=== PATIENT | male | born 1970 ===

== ENCOUNTER 2017-01-05 02:24 | Emergency (ER) | payer SELFPAY ==
[2017-01-05 02:40] VITALS: O2SAT 97
--- NOTE | 2017-01-05 02:51 | C.PDOC ---
History Of Present Illness 46 y/o male c/o chronic bilateral lower leg swelling and pain. Denies injury. No weakness or numbness. Patient has similar visits in the past for the same complaint. Patient notes taking his meds as prescribed. Time Seen by Provider: 01/05/17 02:36 Chief Complaint (Nursing): Lower Extremity Problem/Injury History Per: Patient History/Exam Limitations: no limitations Onset/Duration Of Symptoms: Days (Chronic) Current Symptoms Are (Timing): Still Present Severity: Mild Recent travel outside of the [place]: No Additional History Per: Patient Past Medical History Reviewed: Historical Data, Nursing Documentation, Vital Signs Vital Signs: Last Vital Signs Temp 98.0 F 01/05/17 02:38 Pulse 89 01/05/17 02:38 Resp 16 01/05/17 02:38 BP 118/73 01/05/17 02:38 Pulse Ox 97 01/05/17 03:39 - Medical History PMH: Anxiety, Bipolar Disorder, Depression, Schizophrenia Denies: Diabetes, Hepatitis, HIV, HTN, Chronic Kidney Disease, Seizures, Sexually Transmitted Disease - [facility] Procedures DETOXIFICATION SERVICES FOR SUBSTANCE ABUSE TREATMENT (11/15/15) GROUP DIVISION HEAD FOR SUBSTANCE ABUSE TREATMENT, CONTINUING CARE (02/03/15) GROUP DIVISION HEAD FOR SUBSTANCE ABUSE TREATMENT, PSYCHOEDUCATION (04/03/16) GROUP PSYCHOTHERAPY (04/03/16) INDIVIDUAL PSYCHOTHERAPY, SUPPORTIVE (04/03/16) MEDICATION MANAGEMENT (04/03/16) Family History: States: Unknown Family Hx - Social History Hx Tobacco Use: No Hx Alcohol Use: Yes Hx Substance Use: No - Immunization History Hx Tetanus Toxoid Vaccination: Yes Hx Influenza Vaccination: No Hx Pneumococcal Vaccination: No Review Of Systems Except As Marked, All Systems Reviewed And Found Negative. Constitutional: Negative for: Other (Injury) Musculoskeletal: Positive for: Leg Pain (Bilateral lower extremities pain and swelling) Neurological: Negative for: Weakness, Numbness Physical Exam - Physical Exam Appears: Non-toxic, No Acute Distress Skin: Warm, Dry Head: Atraumatic, Normacephalic Cardiovascular: Rhythm Regular, No Murmur Respiratory: Normal Breath Sounds, No Rales, No Rhonchi, No Wheezing Extremity: Normal ROM, Tenderness (Mild tenderness to the bilateral lower extremty), Pedal Edema (Bilateral lower extremity edema, 2+) Pulses: Left Dorsalis Pedis: Normal, Right Dorsalis Pedis: Normal Neurological/Psych: Oriented x3, Normal Motor, Normal Sensation Gait: Steady ED Course And Treatment - Laboratory Results Result Diagrams: 01/05/17 03:19 01/05/17 03:19 O2 Sat by Pulse Oximetry: 97 (RA) Pulse Ox Interpretation: Normal Medical Decision Making Medical Decision Making: Plans: * Blood labs * CXR * Lasix * IV fluids * UA * Toradol Disposition Counseled Patient/Family Regarding: Diagnosis - Disposition Referrals: [facility] [Outside] Disposition: HOME/ ROUTINE Disposition Time: 04:59 Condition: STABLE Prescriptions: Furosemide [Lasix] 20 mg PO DAILY #10 udc Naproxen 375 mg PO TIDPC #20 tablet Potassium Chloride [K-Dur 20] 20 meq PO DAILY #10 tab Instructions: Leg Edema (ED), Leg Pain (ED) Forms: [employer] (Spanish) - POA Present On Arrival: None - Clinical Impression Clinical Impression: Leg edema, Leg pain - Scribe Statement The provider has reviewed the documentation as recorded by the Scribleydi jerez All medical record entries made by the Scribe were at my direction and personally dictated by me. I have reviewed the chart and agree that the record accurately reflects my personal performance of the history, physical exam, medical decision making, and the department course for this patient. I have also personally directed, reviewed, and agree with the discharge instructions and disposition.
[2017-01-05 03:28] LABS: BASO # 0.1 K/uL (0.0-0.2); EOS # 0.2 K/uL (0.0-0.7); MONO # 0.6 K/uL (0.0-0.8); NRBC % 0.1 % (0.0-2.0); WHITE BLOOD COUNT 6.3 K/uL (4.8-10.8)
[2017-01-05 03:29] LABS: CHLORIDE 101 mmol/L (98-107); SODIUM 137 mmol/L (132-148)
[2017-01-05 03:30] LABS: POTASSIUM 3.9 mmol/L (3.6-5.2)
[2017-01-05 03:32] LABS: ALKALINE PHOSPHATASE 96 U/L (38-126); ALT/SGPT 120 U/L (21-72); AST/SGOT 127 U/L (17-59); BILIRUBIN,TOTAL 0.5 mg/dL (0.2-1.3); BLOOD UREA NITROGEN 14 mg/dL (9-20); CARBON DIOXIDE 27 mmol/L (22-30); GFR AFRICAN-AMERICAN > 60; GLUCOSE,RANDOM 83 mg/dL (75-110); TOTAL PROTEIN 7.8 g/dL (6.3-8.3)
[2017-01-05 03:33] LABS: CALCIUM 8.6 mg/dl (8.6-10.4)
[2017-01-05 03:37] LABS: EOS % 3.1 % (0.0-4.0); HEMATOCRIT 34.5 % (35.0-51.0); LYMPH # 1.9 K/uL (1.0-4.3); LYMPH % 30.7 % (20.0-40.0); MEAN CELL VOLUME 82.8 fL (80.0-94.0); MEAN CORPUSCULAR HEMOGLOBIN 27.2 pg (27.0-31.0); MEAN CORPUSCULAR HGB CONC 32.8 g/dL (33.0-37.0); MEAN PLATELET VOLUME 8.2 fL (7.2-11.7); MONO % 10.1 % (0.0-10.0); RED CELL DISTRIBUTION WIDTH 18.4 % (11.5-14.5)
[2017-01-05 03:41] LABS: RBC URINE < 1 /hpf (0-3); URINE BILIRUBIN NEGATIVE (NEGATIVE); URINE BLOOD NEGATIVE (NEGATIVE); URINE COLOR Yellow (YELLOW); URINE GLUCOSE (UA) NORMAL (Normal); URINE KETONE NEGATIVE (NEGATIVE); URINE LEUKOCYTE ESTERASE NEG Leu/uL (Negative); URINE PROTEIN NEGATIVE (NEGATIVE); WBC URINE < 1 /hpf (0-5)
[2017-01-05 05:07] VITALS: BP 125/83; PULSE 80; RESP 18; TEMP 97.8
[2017-01-05] MEDS ORDERED: Naproxen 550 mg Tab PO STA (05:08)
[2017-01-05] MEDS ORDERED: Naproxen 550 mg Tab PO ONE (05:12)
--- NOTE | 2017-01-05 08:41 | RAD ---
HISTORY: COMPARISON: 07/22/2015. TECHNIQUE: Chest PA and lateral FINDINGS: LINES AND TUBES: None. LUNG AND PLEURA: The lungs are well inflated and clear. No pulmonary venous congestion, redistribution or interstitial pulmonary edema. HEART AND MEDIASTINUM: The heart is not enlarged. The hilar and mediastinal contours are within normal limits. SKELETAL STRUCTURES: The bony structures are within normal limits for the patient's age. VISUALIZED UPPER ABDOMEN: Normal. OTHER FINDINGS: None. IMPRESSION: No active pulmonary disease. No radiographic evidence for congestive heart failure.
== END 2017-01-05 05:22 | disposition home or self-care (01) ==
LOC: C.ER 02:24
DX: R60.0 Localized edema (principal); M79.662 Pain in left lower leg; M79.661 Pain in right lower leg
CPT/HCPCS: 71020; 80053; 81001; 83880; 85025; 96374; 96375; 99284; J1885; J1940

== ENCOUNTER 2017-01-07 00:28 | Emergency (ER) | payer SELFPAY ==
[2017-01-07 00:36] VITALS: RESP 18; O2SAT 99
[2017-01-07 01:03] LABS: BASO % 0.9 % (0.0-2.0); EOS # 0.3 K/uL (0.0-0.7); HEMATOCRIT 32.8 % (35.0-51.0); MEAN CELL VOLUME 82.3 fL (80.0-94.0); MEAN CORPUSCULAR HEMOGLOBIN 27.1 pg (27.0-31.0); MEAN CORPUSCULAR HGB CONC 32.9 g/dL (33.0-37.0); MEAN PLATELET VOLUME 7.8 fL (7.2-11.7); MONO # 0.5 K/uL (0.0-0.8); MONO % 9.4 % (0.0-10.0); NRBC % 0.1 % (0.0-2.0); RED CELL DISTRIBUTION WIDTH 18.5 % (11.5-14.5); WHITE BLOOD COUNT 5.4 K/uL (4.8-10.8)
[2017-01-07 01:12] LABS: CHLORIDE 102 mmol/L (98-107); POTASSIUM 3.8 mmol/L (3.6-5.2); SODIUM 138 mmol/L (132-148)
[2017-01-07 01:14] LABS: BILIRUBIN,TOTAL 0.4 mg/dL (0.2-1.3); CARBON DIOXIDE 25 mmol/L (22-30); GFR AFRICAN-AMERICAN > 60
[2017-01-07 01:15] LABS: ALB/GLOB RATIO 1.1 (1.0-2.1); ALKALINE PHOSPHATASE 84 U/L (38-126); ALT/SGPT 146 U/L (21-72); AST/SGOT 154 U/L (17-59); BLOOD UREA NITROGEN 12 mg/dL (9-20); CALCIUM 8.2 mg/dl (8.6-10.4); GLUCOSE,RANDOM 85 mg/dL (75-110); TOTAL PROTEIN 6.9 g/dL (6.3-8.3)
[2017-01-07 01:16] LABS: ALCOHOL SERUM 120 mg/dl (0-10)
[2017-01-07 01:35] LABS: URINE BILIRUBIN NEGATIVE (NEGATIVE); URINE BLOOD NEGATIVE (NEGATIVE); URINE COLOR Yellow (YELLOW); URINE GLUCOSE (UA) NORMAL (Normal); URINE KETONE NEGATIVE (NEGATIVE); URINE LEUKOCYTE ESTERASE NEG Leu/uL (Negative); URINE PROTEIN NEGATIVE (NEGATIVE); WBC URINE < 1 /hpf (0-5)
--- NOTE | 2017-01-07 03:28 | C.PDOC ---
History Of Present Illness 46 year old male who presents to the ER with a complaint of hearing voices. Patient admits to ETOH use today; he is not cooperative and is refusing to answer anymore question. No injuries or signs of trauma noted at this time. Time Seen by Provider: 01/07/17 00:43 Chief Complaint (Nursing): Medical Clearance History Per: Patient History/Exam Limitations: no limitations Onset/Duration Of Symptoms: Hrs Current Symptoms Are (Timing): Still Present Recent travel outside of the [place]: No Past Medical History Reviewed: Historical Data, Nursing Documentation, Vital Signs Vital Signs: Last Vital Signs Temp 97.7 F 01/07/17 04:00 Pulse 66 01/07/17 04:00 Resp 18 01/07/17 04:00 BP 123/78 01/07/17 04:00 Pulse Ox 99 01/07/17 04:00 - Medical History PMH: Anxiety, Bipolar Disorder, Depression, Schizophrenia Surgical History: No Surg Hx - [facility] Procedures DETOXIFICATION SERVICES FOR SUBSTANCE ABUSE TREATMENT (11/15/15) GROUP JUNIOR FINANCIAL ANALYST FOR SUBSTANCE ABUSE TREATMENT, CONTINUING CARE (02/03/15) GROUP JUNIOR FINANCIAL ANALYST FOR SUBSTANCE ABUSE TREATMENT, PSYCHOEDUCATION (04/03/16) GROUP PSYCHOTHERAPY (04/03/16) INDIVIDUAL PSYCHOTHERAPY, SUPPORTIVE (04/03/16) MEDICATION MANAGEMENT (04/03/16) Family History: States: Unknown Family Hx - Social History Hx Tobacco Use: No Hx Alcohol Use: Yes Hx Substance Use: No - Immunization History Hx Tetanus Toxoid Vaccination: Yes Hx Influenza Vaccination: No Hx Pneumococcal Vaccination: No Review Of Systems Review Of Systems: ROS cannot be obtained secondary to pt's inabilty to answer questions. (Refuses to answer questions) Physical Exam - Physical Exam Appears: Well, Non-toxic, No Acute Distress, Other (ETOH on breath) Skin: Normal Color, Warm, Dry Head: Atraumatic, Normacephalic Eye(s): bilateral: Normal Inspection, EOMI Cardiovascular: Rhythm Regular Respiratory: Normal Breath Sounds, No Accessory Muscle Use Extremity: Normal ROM (x4) Neurological/Psych: Oriented x3, Normal Speech, Normal Cognition ED Course And Treatment - Laboratory Results Result Diagrams: 01/07/17 01:00 01/07/17 01:00 O2 Sat by Pulse Oximetry: 99 (Room air) Pulse Ox Interpretation: Normal Progress Note: Blood work and urinalysis ordered. On reevaluation, patient is alert and oriented complaining of hallucinations but refuses to speak to Crisis counselor. Pt is requesting to leave, ambulatory with steady gait Disposition Counseled Patient/Family Regarding: Diagnosis, Need For Followup, Rx Given - Disposition Referrals: [facility] [Outside] [facility] [Outside] Disposition: HOME/ ROUTINE Disposition Time: 05:38 Condition: STABLE Instructions: Abuse of Alcohol (ED) Forms: [employer] (Yemeni) - Clinical Impression Clinical Impression: Alcohol intoxication - Scribe Statement The provider has reviewed the documentation as recorded by the Scribe Ray Vázquez All medical record entries made by the Scribe were at my direction and personally dictated by me. I have reviewed the chart and agree that the record accurately reflects my personal performance of the history, physical exam, medical decision making, and the department course for this patient. I have also personally directed, reviewed, and agree with the discharge instructions and disposition.
[2017-01-07 05:44] VITALS: BP 124/76; PULSE 73; TEMP 97.8
== END 2017-01-07 05:48 | disposition home or self-care (01) ==
LOC: C.ER 00:28
DX: F10.129 Alcohol abuse with intoxication, unspecified (principal); Y90.6 Blood alcohol level of 120-199 mg/100 ml
CPT/HCPCS: 80053; 81001; 85025; 99283; G0480

== ENCOUNTER 2017-01-13 00:57 | Inpatient (IN) | payer MEDICAID ==
[2017-01-13 07:59] LABS: URINE BILIRUBIN NEGATIVE (NEGATIVE); URINE BLOOD NEGATIVE (NEGATIVE); URINE COLOR YELLOW (YELLOW); URINE GLUCOSE (UA) Normal (Normal); URINE KETONE NEGATIVE (NEGATIVE); URINE PROTEIN NEGATIVE (NEGATIVE); URINE UROBILINOGEN Normal mg/dL (0.2-1.0)
[2017-01-13 08:00] LABS: URINE LEUKOCYTE ESTERASE NEGATIVE Leu/uL (Negative); WBC URINE < 1 /hpf (0-5)
[2017-01-13 08:42] LABS: BASO # 0.1 K/uL (0.0-0.2); EOS # 0.2 K/uL (0.0-0.7); EOS % 4.1 % (0.0-4.0); LYMPH # 1.3 K/uL (1.0-4.3); LYMPH % 32.1 % (20.0-40.0); MEAN CELL VOLUME 81.1 fL (80.0-94.0); MEAN CORPUSCULAR HGB CONC 33.3 g/dL (33.0-37.0); MEAN PLATELET VOLUME 7.6 fL (7.2-11.7); MONO # 0.5 K/uL (0.0-0.8); MONO % 12.6 % (0.0-10.0); RED CELL DISTRIBUTION WIDTH 17.3 % (11.5-14.5)
[2017-01-13 08:52] LABS: BLOOD UREA NITROGEN 11 mg/dL (9-20); GFR AFRICAN-AMERICAN > 60; GLUCOSE,RANDOM 85 mg/dL (75-110)
[2017-01-13 08:53] LABS: ALT/SGPT 129 U/L (21-72); AST/SGOT 125 U/L (17-59); BILIRUBIN,TOTAL 0.3 mg/dL (0.2-1.3); CALCIUM 8.3 mg/dl (8.6-10.4); CARBON DIOXIDE 25 mmol/L (22-30); CHLORIDE 102 mmol/L (98-107); POTASSIUM 3.8 mmol/L (3.6-5.2); SODIUM 137 mmol/L (132-148); TOTAL PROTEIN 7.6 g/dL (6.3-8.3)
[2017-01-13 08:54] LABS: ALCOHOL SERUM 137 mg/dl (0-10); ALKALINE PHOSPHATASE 82 U/L (38-126)
--- NOTE | 2017-01-13 09:31 | RAD ---
PROCEDURE: CHEST RADIOGRAPH, 1 VIEW HISTORY: DETOX/PSYCH EVAL COMPARISON: 01/05/2017 FINDINGS: LUNGS: Clear. PLEURA: No pneumothorax or pleural fluid seen. CARDIOVASCULAR: Normal. OSSEOUS STRUCTURES: No significant abnormalities. VISUALIZED UPPER ABDOMEN: Normal. OTHER FINDINGS: None. IMPRESSION: No active disease. No interval pathology noted
--- NOTE | 2017-01-13 11:06 | PCM.BM ---
<Val Greene - Last Filed: 01/13/17 11:04> Treatment Plan Problems - Problems identified on initial assessmt Depression Date Initiated: 01/13/17 Time Initiated: 11:05 Assessment reference: NA Status: Active Treatment assets and liabiliti Patient Assests: cooperative, ADL independent, good support system, good past tx response, cognitively intact Patient Liabilities: substance abuse - Milieu Protocol Maintain good personal hygiene: daily Encourage regular showers Conduct patient checks and document Observation sheet: Q15 minutes Maintain personal safety: every shift Educate patient to report safety concerns to staff, every shift Monitor environment for contraband/sharps Medication safety: Monitor for expected outcome, potential side effects: every shift, Assess barriers to learning: every shift, Assess readiness for medication education: every shift <Cori Hair - Last Filed: 01/13/17 12:36> - Diagnosis (1) Alcohol use disorder, severe, dependence Status: Acute Interventions: 01/13/17 12:36 * Assess 7x/week regarding severity of withdrawal * Educate regarding risks, benefits, side effects and alternatives of medications * Use Motivational Interviewing for abstinence * Use CBT for relapse prevention * Medication management for withdrawal symptoms * Encourage medication assisted treatment * (2) Depressive disorder Status: Acute Interventions: 01/13/17 12:36 * Assess/adjust medications daily and /or as needed * See patient on an individual basis 7x/week to assess symptoms of depression * Monitor for side effects & effectiveness of medications *
--- NOTE | 2017-01-13 12:22 | PCM.PSYCH ---
Initial Psychiatric Evaluation - Initial Psychiatric Evaluation Type of Admission: Voluntary Legal Status: Capacity Chief Complaint (in patient's own words): "Depressed" History of Present Illness and Precipitating Events: Patient is a 46 year old male, single, and living with brother presents with auditory hallucinations, depression and anxiety. He is employed at a [employer] in [place], [place] and has 2 sons living in [place]. He reports drinking 5-6 beers (24 oz) but only for 2 weeks b/c he relapsed when his best friend . He was hearing voices telling him to kill self but now it is "gone." But he still feels depressed and lonely, anhedonic and very anxious. 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 Past Psychiatric History - Past Psychiatric History Previous Treatment History: Inpatient Pertinent Medical Hx (Current Medical&Sleep Prob, Allergies): Allergies Allergy/AdvReac Type Severity Reaction Status Date / Time No Known Allergies Allergy Verified 01/07/17 00:36 Furosemide [Lasix] 20 mg PO DAILY #10 udc 01/05/17 Naproxen 375 mg PO TIDPC #20 tablet 01/05/17 Potassium Chloride [K-Dur 20] 20 meq PO DAILY #10 tab 01/05/17 Review of Systems - Psychiatric Psychiatric: Abnormal Sleep Pattern, Anhedonia, Anxiety, Behavioral Changes, Depression, Difficulty Concentrating, Irritability. absent: Hallucinations, Homicidal Ideation, Suicidal Ideation Mental Status Examination - Personal Presentation Personal Presentation: Looks older than stated age - Affect Affect: Constricted - Motor Activity Motor Activity: Calm - Reliability in Providing Information Reliability in Providing Information: Good - Speech Speech: Organized - Mood Mood: Depressed, Anxious - Formal Thought Process Formal Thought Process: No Impairment - Cognitive Functions Orientation: Person, Place, Situation, Time Sensorium: Alert Attention/Concentration: Attentive Abstract Thinking: [place] Estimate of Intelligence: Below average Judgement: Intact, as evidence by: Insight regarding need for hospitalization Memory: Recent intact, as evidence by: Ability to recall events of the day, Remote intact, as evidenced by: Abilit to recall sig. life events - Risk Risk: Diminished functioning - Strength & Assets Inventory Strength & Assets Inventory: Cooperative - Limitations Limitations: Other (poor support) DSM 5 DX - DSM 5 DSM 5 Diagnosis: Major depression, recurrent, severe, with psychosis Alcohol use d/o -severe - Recommended/Plan of Treatment Treatment Recommendations and Plan of Treatment: Start lexapro for depression Start abilify for possible AH and augmentation prn ativan for alcohol wdw which is unlikely and anxiety (w atarax) Gabapentin to augment Attend groups and activities Individual therapy Psychoeducation and support Encourage compliance with meds and after care Refer to outpatient program Teach healthy lifestyle methods, i.e. diet, exercise, meditation Smoking cessation 32 min Projected ELOS: 5-6
--- NOTE | 2017-01-13 12:43 | PCM.BM ---
<Val Greene - Last Filed: 01/13/17 11:08> Treatment Plan Problems - Problems identified on initial assessmt Depression Date Initiated: 01/13/17 Time Initiated: 11:05 Assessment reference: NA Status: Active Treatment assets and liabiliti Patient Assests: cooperative, ADL independent, good support system, good past tx response, cognitively intact Patient Liabilities: substance abuse - Milieu Protocol Maintain good personal hygiene: daily Encourage regular showers Conduct patient checks and document Observation sheet: Q15 minutes Maintain personal safety: every shift Educate patient to report safety concerns to staff, every shift Monitor environment for contraband/sharps Medication safety: Monitor for expected outcome, potential side effects: every shift, Assess barriers to learning: every shift, Assess readiness for medication education: every shift <Tata Georges - Last Filed: 01/14/17 10:31> Family Contact Family involvement: Famliy/SO not involved - Goals for Treatment Patient goals for treatment: "I want to go to the outpatient program at the [facility]. " Discharge/Continuing Care - Education Needs Education Needs: Patient Medication, Patient Coping Skills - Discharge Discharge Criteria: Tolerates medication w/o severe side effects, Reduction of target symptoms Discharge to:: Care Home - Treatment Team Participation Discussed with Family/SO: No Was Patient/Family/SO present at Treatment Team Meeting: Yes
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
--- NOTE | 2017-01-13 17:24 | CARD ---
APPROVED REPORT EKG Measurement Heart [id number] <Conclusion> Normal sinus rhythm Normal ECG
--- NOTE | 2017-01-14 08:08 | US ---
HISTORY: Elevated LFT's COMPARISON: None. TECHNIQUE: Sonographic evaluation of the right upper quadrant of the abdomen. FINDINGS: LIVER: Measures 17.8 cm in length. Relatively prominently increased echogenicity of the liver parenchyma suggests diffuse fatty infiltration of other etiologies are possible. No mass. No intrahepatic bile duct dilatation. GALLBLADDER: Unremarkable. No gallstones. COMMON BILE DUCT: Measures 3.3 mm. No stones. No dilatation. PANCREAS: Unremarkable as visualized. No mass. No ductal dilatation. RIGHT KIDNEY: Measures 10.9 cm in length. Normal echogenicity. No calculus, mass, or hydronephrosis. AORTA: No aneurysmal dilatation. IVC: Unremarkable. OTHER FINDINGS: None . IMPRESSION: Relatively prominent diffuse fatty infiltration liver suggested though other etiologies are possible. No sonographic evidence of biliary tree dilatation. Remainder of the examination appears unremarkable.
[2017-01-14 08:42] LABS: BASO # 0.1 K/uL (0.0-0.2); EOS # 0.1 K/uL (0.0-0.7); EOS % 1.6 % (0.0-4.0); HEMATOCRIT 36.3 % (35.0-51.0); LYMPH # 1.1 K/uL (1.0-4.3); LYMPH % 20.3 % (20.0-40.0); MEAN CELL VOLUME 81.5 fL (80.0-94.0); MEAN CORPUSCULAR HEMOGLOBIN 26.9 pg (27.0-31.0); MONO # 0.6 K/uL (0.0-0.8); MONO % 11.7 % (0.0-10.0); NRBC % 0.1 % (0.0-2.0); RED CELL DISTRIBUTION WIDTH 17.2 % (11.5-14.5); WHITE BLOOD COUNT 5.4 K/uL (4.8-10.8)
[2017-01-14 08:48] LABS: INR 0.9
[2017-01-14 09:06] LABS: CHLORIDE 97 mmol/L (98-107); POTASSIUM 4.3 mmol/L (3.6-5.2); SODIUM 133 mmol/L (132-148)
[2017-01-14 09:08] LABS: AST/SGOT 109 U/L (17-59); BILIRUBIN,TOTAL 0.5 mg/dL (0.2-1.3); CARBON DIOXIDE 28 mmol/L (22-30); GFR AFRICAN-AMERICAN > 60
[2017-01-14 09:09] LABS: ALKALINE PHOSPHATASE 88 U/L (38-126); ALT/SGPT 128 U/L (21-72); BLOOD UREA NITROGEN 14 mg/dL (9-20); CALCIUM 9.1 mg/dl (8.6-10.4); GLUCOSE,RANDOM 120 mg/dL (75-110); TOTAL PROTEIN 8.2 g/dL (6.3-8.3)
--- NOTE | 2017-01-14 14:05 | PCM.PYCHPN ---
Psychiatric Progress Note - Psychiatric Progress Note Patient seen today, length of contact: 17 min Patient Chief Complaint: "Depressed" Problems Identified/Issues Discussed: The pt is seen, chart reviewed, case discussed with staff. The pt is compliant with medications and reports no side-effects. Symptoms are improving but needs more time to stabilize. After care discussed, support and psychoeducation given. Medicne consult appreciated - awaiting treatment recommendations re his clot Medication Change: Yes (increase sampson/ellie) Medical Record Reviewed: Yes Mental Status Examination - Cognitive Function Orientation: Person, Place, Situation, Time Memory: Intact Attention: WNL Concentration: Poor Association: WNL Fund of Knowledge: Poor - Mood Mood: Depressed, Anxious - Affect Affect: Constricted - Speech Speech: Appropriate - Language Language: Word Retrieval - Formal Thought Process Formal Thought Process: No Impairment - Suicidal Ideation Suicidal Ideation: No - Homicidal Ideation Homicidal Ideation: No Goal/Treatment Plan - Goal/Treatment Plan Progress Toward Problem(s) and Goals/Treatment Plan: lexapro for depression abilify for possible AH and augmentation prn ativan for alcohol wdw which is unlikely and anxiety (w atarax) Gabapentin to augment Attend groups and activities Individual therapy Psychoeducation and support Encourage compliance with meds and after care Refer to outpatient program Teach healthy lifestyle methods, i.e. diet, exercise, meditation Smoking cessation 32 min
--- NOTE | 2017-01-14 15:03 | VASCLAB ---
PROCEDURE: Lower Extremity Venous Duplex Exam. HISTORY: B/L Lower Extremity Edema. PRIORS: None. TECHNIQUE: Bilateral common femoral, femoral, popliteal and posterior tibial, peroneal and great saphenous veins were evaluated. Flow was assessed with color Doppler, compressibility, assessment of phasic flow and augmentation response. Report prepared by DAMI Lody FINDINGS: RIGHT: 1. Common Femoral Vein: 1.1. Compressibility - Fully compressible: Thrombus - None : Flow - Phasic: Augmentation -Normal: Reflux - None. 2. Femoral Vein: 2.1. Compressibility - Fully compressible: Thrombus - None : Flow - Phasic: Augmentation -Normal: Reflux - None. 3. Popliteal Vein: 3.1. Compressibility - Fully compressible: Thrombus - None : Flow - Phasic: Augmentation -Normal: Reflux - None. 4. Posterior Tibial Vein: 4.1. Compressibility - Fully compressible: Thrombus - None: Flow - Phasic: Augmentation -Normal: Reflux - None. 5. Peroneal Vein: 5.1. Compressibility - Incompressible: Thrombus - Acute: Flow - Reduced : Augmentation -Normal: Reflux - Mild. 6. Great Saphenous Vein: 6.1. Compressibility - Fully compressible: Thrombus - None: Flow - Phasic: Augmentation - Normal: Reflux - None. LEFT: 1. Common Femoral Vein: 1.1. Compressibility - Fully compressible: Thrombus - None: Flow - Phasic: Augmentation -Normal: Reflux - None. 2. Femoral Vein: 2.1. Compressibility - Fully compressible: Thrombus - None: Flow - Phasic: Augmentation -Normal: Reflux - None. 3. Popliteal Vein: 3.1. Compressibility - Fully compressible: Thrombus - None : Flow - Phasic: Augmentation -Normal: Reflux - None. 4. Posterior Tibial Vein: 4.1. Compressibility - Fully compressible: Thrombus - None: Flow - Phasic: Augmentation -Normal: Reflux - None. 5. Peroneal Vein: 5.1. Compressibility - Fully compressible: Thrombus - None: Flow - Phasic: Augmentation -Normal: Reflux - None. 6. Great Saphenous Vein: 6.1. Compressibility - Fully compressible: Thrombus - None: Flow - Phasic: Augmentation - Normal: Reflux - None. OTHER FINDINGS: Right: One of the paired peroneal veins is non compressible. Findings were reported by the cath lab radiological technologist, mouna Waterman at 10:01 a.m. Left: None significant. IMPRESSION: Right: Acute deep vein thrombosis of one right peroneal vein. Left: No evidence of deep or superficial vein thrombosis of the left lower extremity. Normal valve function noted of the left side.
--- NOTE | 2017-01-14 17:11 | CP.PCM.PN ---
<Erick Doshi - Last Filed: 01/14/17 17:26> Subjective - Date & Time of Evaluation Date of Evaluation: 01/14/17 Time of Evaluation: 09:40 - Subjective Subjective: Patient was seen and examined this AM lying comfortably in his bed. He noted improvement in his symptoms and said his lower extremity pain is less today. He denied cough or palpitation. He denied fever, chills, nausea, vomiting, chest pain, abdominal pain. Objective - Vital Signs/Intake and Output Vital Signs (last 24 hours): Temp Pulse Resp BP Pulse Ox 97.5 F L 76 20 134/87 01/14/17 07:51 01/14/17 16:02 01/14/17 07:51 01/14/17 16:02 - Medications Medications: Current Medications Aripiprazole (Abilify) 10 mg PO QPM [facility] Cephalexin Monohydrate (Keflex) 500 mg PO Q6H [facility] Last Admin: 01/14/17 13:49 Dose: 500 mg Escitalopram Oxalate (Lexapro) 5 mg PO DAILY [facility] Last Admin: 01/14/17 10:23 Dose: 5 mg Furosemide (Lasix) 20 mg PO DAILY [facility] Last Admin: 01/14/17 10:23 Dose: 20 mg Gabapentin (Neurontin) 300 mg PO BID [facility] Last Admin: 01/14/17 10:23 Dose: 300 mg Hydroxyzine HCl (Atarax) 50 mg PO Q6H PRN PRN Reason: Anxiety Ibuprofen (Motrin Tab) 600 mg PO Q6H PRN PRN Reason: Pain, moderate (4-7) Lorazepam (Ativan) 1 mg PO Q4H PRN PRN Reason: agitation or ETOH wdw Last Admin: 01/13/17 20:32 Dose: 1 mg Trazodone HCl (Desyrel) 100 mg PO HS PRN PRN Reason: Insomnia - Labs Labs: 01/14/17 08:33 01/14/17 08:33 PT 10.4 SECONDS (9.7-12.2) 01/14/17 08:33 INR 0.9 01/14/17 08:33 APTT 29 SECONDS (21-34) 01/14/17 08:33 - Additional Findings Additional findings: - Constitutional Appears: Non-toxic, No Acute Distress - Head Exam Head Exam: ATRAUMATIC, NORMAL INSPECTION, NORMOCEPHALIC - Eye Exam Eye Exam: Normal appearance - ENT Exam ENT Exam: Mucous Membranes Moist - Neck Exam Neck exam: Negative for: Lymphadenopathy - Respiratory Exam Respiratory Exam: Clear to Auscultation Bilateral, NORMAL BREATHING PATTERN - Cardiovascular Exam Cardiovascular Exam: RRR, +S1, +S2 - GI/Abdominal Exam GI & Abdominal Exam: Soft. absent: Organomegaly, Tenderness - Extremities Exam Additional comments: Extr: 1+ pitting edema b/l lower extremities R>L; tenderness, erythema, and mild warmth to RLE from ankle to just below the right knee; minimal tenderness to dorsum of right foot; LLE nontender; reduced ROM to RLE secondary to pain vs full ROM in other extremities; 2/4 dorsalis pedis pulses b/l; <2s capillary refill b/l; no evidence of trauma b/l lower extremities Assessment and Plan - Assessment and Plan (Free Text) Assessment: 46 year old male admitted to psych unit for depression. Medicine team consulted on the case for evaluation and treatment of b/l lower extremity edema. B/L Leg edema. Differential includes but is not limited to: Cirrhosis, Cellultitis, muskuloskeletal obstruction, lymphatic obstruction, venous obstruction/insuffieciency, CHF - b/l lower extremity venous doppler 01/14/17: acute deep thrombosis of one right peroneal vein - Keflex 500 mg PO Q6, started 01/13/17 - Lasix 20 mg PO daily, x4 days, started 01/13/17 - DVT prophylaxis - CXR 01/13/17: No active disease. No pathology detected. - Motrin and Gabapentin for pain EtoH Abuse - Alcohol, Quant 137H - LFTs elevated but downtrending - RUQ US 01/13/17 Relatively prominent diffuse fatty infiltration liver suggested though other etiologies are possible. No sonographic evidence of biliary tree dilatation. Remainder of the examination appears unremarkable. - PT/INR - normal - echocardiogram for possible alcoholic cardiomyopathy, f/u offical report - albumin normal, T.bilirubin normal Leukopenia, resolved - HIV test negative - Hepatitis panel negative Patient seen and discussed with attending. <Kris Ho - Last Filed: 01/14/17 17:50> Objective - Vital Signs/Intake and Output Vital Signs (last 24 hours): Temp Pulse Resp BP Pulse Ox 97.5 F L 76 20 134/87 01/14/17 07:51 01/14/17 16:02 01/14/17 07:51 01/14/17 16:02 - Medications Medications: Current Medications Apixaban (Eliquis) 10 mg PO BID [facility] Aripiprazole (Abilify) 10 mg PO QPM [facility] Last Admin: 01/14/17 17:37 Dose: 10 mg Cephalexin Monohydrate (Keflex) 500 mg PO Q6H [facility] Last Admin: 01/14/17 13:49 Dose: 500 mg Escitalopram Oxalate (Lexapro) 5 mg PO DAILY [facility] Last Admin: 01/14/17 10:23 Dose: 5 mg Furosemide (Lasix) 20 mg PO DAILY [facility] Last Admin: 01/14/17 10:23 Dose: 20 mg Gabapentin (Neurontin) 300 mg PO BID [facility] Last Admin: 01/14/17 17:37 Dose: 300 mg Hydroxyzine HCl (Atarax) 50 mg PO Q6H PRN PRN Reason: Anxiety Ibuprofen (Motrin Tab) 600 mg PO Q6H PRN PRN Reason: Pain, moderate (4-7) Lorazepam (Ativan) 1 mg PO Q4H PRN PRN Reason: agitation or ETOH wdw Last Admin: 01/13/17 20:32 Dose: 1 mg Trazodone HCl (Desyrel) 100 mg PO HS PRN PRN Reason: Insomnia - Labs Labs: 01/14/17 08:33 01/14/17 08:33 PT 10.4 SECONDS (9.7-12.2) 01/14/17 08:33 INR 0.9 01/14/17 08:33 APTT 29 SECONDS (21-34) 01/14/17 08:33 Attending/Attestation - Attestation I have personally seen and examined this patient.: Yes I have fully participated in the care of the patient.: Yes I have reviewed all pertinent clinical information, including history, physical exam and plan: Yes Notes (Text): This is a 46 year old male admitted to psych unit for depression was consulted for leg edema.He has history of alcohol abuse,bipolar disorder,schizopherenia. He was started on antibiotics for cellulites.Venous Doppler shows DVT.US abdomen done.no cirrhosis,no ascites 1. Cellulitis of leg-improving on antibiotics.continue Leg edema -give Lasix for few days.Feels better 2.DVT-start on eliquis. Can get free supply from drug rep.Pt has no insurance will be noncompliance to check INR on coumadin 3.Alcohol abuse,bipolar,depression 4.Leukopenia d/w Agree with the Resident's Documentation of assessment and plan
--- NOTE | 2017-01-15 00:26 | CARD ---
APPROVED REPORT EXAM: Two-dimensional and M-mode echocardiogram with Doppler and color Doppler. Other Information Quality : GoodRhythm : NSR INDICATION DEPRESSIVE ALCOHOL DISORDER 2D DIMENSIONS IVSd1.0 (0.7-1.1cm)LVDd4.8 (3.9-5.9cm) PWd0.9 (0.7-1.1cm)LVDs3.1 (2.5-4.0cm) FS (%) 34.4 %LVEF (%)63.4 (>50%) M-Mode DIMENSIONS Left Atrium (MM)3.68 (2.5-4.0cm)Aortic Root3.65 (2.2-3.7cm) Aortic Cusp Exc.2.23 (1.5-2.0cm) Mitral Valve MV E Shzbjzrv675.5cm/sMV A Psmpcdge31.8cm/sE/A ratio1.4 TDI E/Lateral E'0.0E/Medial E'0.0 Tricuspid Valve TR Peak Zdlqdwhm521pp/sTR Peak Gr.[id number] LEFT VENTRICLE The left ventricle is normal size. There is normal left ventricular wall thickness. The left ventricular function is normal. The left ventricular ejection fraction is within the normal range. About 65%. No regional wall motion abnormalities noted. The left ventricular diastolic function is normal. No left ventricle thrombus noted on this study. There is no ventricular septal defect visualized. There is no left ventricular aneurysm. There is no mass noted in the left ventricle. RIGHT VENTRICLE The right ventricle is normal size. There is normal right ventricular wall thickness. The right ventricular systolic function is normal. ATRIA The left atrium size is normal. The right atrium size is normal. The interatrial septum is intact with no evidence for an atrial septal defect. AORTIC VALVE The aortic valve is normal in structure and function. No aortic regurgitation is present. There is no aortic valvular stenosis. There is no aortic valvular vegetation. MITRAL VALVE The mitral valve is normal in structure and function. There is no evidence of mitral valve prolapse. There is no mitral valve stenosis. There is no mitral valve regurgitation noted. TRICUSPID VALVE The tricuspid valve is normal in structure and function. There is no tricuspid valve regurgitation noted. There is no tricuspid valve prolapse or vegetation. There is no tricuspid valve stenosis. PULMONIC VALVE The pulmonary valve is normal in structure and function. There is no pulmonic valvular regurgitation. There is no pulmonic valvular stenosis. GREAT VESSELS The aortic root is normal in size. The ascending aorta is normal in size. The pulmonary artery is normal. The IVC is normal in size and collapses >50% with inspiration. PERICARDIAL EFFUSION The pericardium appears normal. There is no pleural effusion. <Conclusion> Normal LV systolic function. Normal Doppler.
[2017-01-15 08:25] LABS: BASO % 0.8 % (0.0-2.0); EOS # 0.1 K/uL (0.0-0.7); EOS % 2.6 % (0.0-4.0); HEMATOCRIT 37.8 % (35.0-51.0); LYMPH # 1.1 K/uL (1.0-4.3); LYMPH % 21.5 % (20.0-40.0); MEAN CELL VOLUME 81.8 fL (80.0-94.0); MEAN CORPUSCULAR HEMOGLOBIN 27.4 pg (27.0-31.0); MEAN CORPUSCULAR HGB CONC 33.5 g/dL (33.0-37.0); MEAN PLATELET VOLUME 8.1 fL (7.2-11.7); MONO # 0.5 K/uL (0.0-0.8); MONO % 9.5 % (0.0-10.0); NRBC % 0.1 % (0.0-2.0); RED CELL DISTRIBUTION WIDTH 17.4 % (11.5-14.5); WHITE BLOOD COUNT 5.3 K/uL (4.8-10.8)
[2017-01-15 08:48] LABS: CHLORIDE 99 mmol/L (98-107); POTASSIUM 4.6 mmol/L (3.6-5.2); SODIUM 133 mmol/L (132-148)
[2017-01-15 08:50] LABS: BILIRUBIN,TOTAL 0.5 mg/dL (0.2-1.3); CARBON DIOXIDE 27 mmol/L (22-30); GFR AFRICAN-AMERICAN > 60
[2017-01-15 08:51] LABS: ALB/GLOB RATIO 1.4 (1.0-2.1); ALKALINE PHOSPHATASE 83 U/L (38-126); ALT/SGPT 175 U/L (21-72); AST/SGOT 173 U/L (17-59); BLOOD UREA NITROGEN 16 mg/dL (9-20); CALCIUM 8.7 mg/dl (8.6-10.4); GLUCOSE,RANDOM 75 mg/dL (75-110)
--- NOTE | 2017-01-15 11:01 | CP.PCM.PN ---
<Erick Doshi - Last Filed: 01/15/17 10:58> Subjective - Date & Time of Evaluation Date of Evaluation: 01/15/17 Time of Evaluation: 10:58 - Subjective Subjective: PGY-1 note for medicine, Dr Ho. Patient was seen and examined at bedside in psych unit. He complains of right leg pain waking him up at night but notes there is improvement. He denies numbness or paresthesia. He denies fevers or chills. He says he is able to ambulate but walks with a limp. Objective - Vital Signs/Intake and Output Vital Signs (last 24 hours): Temp Pulse Resp BP Pulse Ox 97.5 F L 114 H 20 104/70 01/15/17 07:13 01/15/17 07:13 01/15/17 07:13 01/15/17 07:13 - Medications Medications: Current Medications Apixaban (Eliquis) 10 mg PO BID [facility] Last Admin: 01/15/17 09:49 Dose: 10 mg Aripiprazole (Abilify) 10 mg PO QPM [facility] Last Admin: 01/14/17 17:37 Dose: 10 mg Cephalexin Monohydrate (Keflex) 500 mg PO Q6H [facility] Stop: 01/16/17 20:01 Last Admin: 01/15/17 09:46 Dose: 500 mg Escitalopram Oxalate (Lexapro) 10 mg PO DAILY [facility] Last Admin: 01/15/17 09:46 Dose: 10 mg Gabapentin (Neurontin) 300 mg PO BID [facility] Last Admin: 01/15/17 09:46 Dose: 300 mg Hydroxyzine HCl (Atarax) 50 mg PO Q6H PRN PRN Reason: Anxiety Ibuprofen (Motrin Tab) 600 mg PO Q6H PRN PRN Reason: Pain, moderate (4-7) Lorazepam (Ativan) 1 mg PO Q4H PRN PRN Reason: agitation or ETOH wdw Last Admin: 01/14/17 18:44 Dose: 1 mg Trazodone HCl (Desyrel) 100 mg PO HS PRN PRN Reason: Insomnia Last Admin: 01/14/17 21:18 Dose: 100 mg - Labs Labs: 01/15/17 08:10 01/15/17 08:10 PT 11.1 SECONDS (9.7-12.2) 01/15/17 08:10 INR 1.0 01/15/17 08:10 APTT 31 SECONDS (21-34) 01/15/17 08:10 - Additional Findings Additional findings: - Constitutional Appears: Non-toxic, No Acute Distress - Head Exam Head Exam: ATRAUMATIC, NORMAL INSPECTION, NORMOCEPHALIC - Eye Exam Eye Exam: Normal appearance - ENT Exam ENT Exam: Mucous Membranes Moist - Neck Exam Neck exam: Negative for: Lymphadenopathy - Respiratory Exam Respiratory Exam: Clear to Auscultation Bilateral, NORMAL BREATHING PATTERN - Cardiovascular Exam Cardiovascular Exam: RRR, +S1, +S2 - GI/Abdominal Exam GI & Abdominal Exam: Soft. absent: Organomegaly, Tenderness - Extremities Exam Additional comments: Extr: 1+ pitting edema b/l lower extremities R>L; tenderness, erythema, and mild warmth to RLE from ankle to just below the right knee; minimal tenderness to dorsum of right foot; LLE nontender; reduced ROM to RLE secondary to pain vs full ROM in other extremities; 2/4 dorsalis pedis pulses b/l; <2s capillary refill b/l; no evidence of trauma b/l lower extremities Assessment and Plan - Assessment and Plan (Free Text) Assessment: 46 year old male admitted to psych unit for depression. Medicine team consulted on the case for evaluation and treatment of b/l lower extremity edema. Cellulitis, Right Lower Extremity Improvement noted Keflex 500 mg PO Q6, started 01/13/17, last dose will be 01/18/17 at 20:00 CXR 01/13/17: No active disease. No pathology detected. Motrin 600mg po q6 prn for pain Gabapentin 300mg po bid for pain DVT, Right Lower Extremity increased swelling noted compared to left leg, improvement noted b/l lower extremity venous doppler 01/14/17: acute deep thrombosis of right peroneal vein Apixaban 10mg po bid, started 01/14/17. Will switch to 5mg po bid on 01/21/17. Lasix 20 mg PO daily, started 01/13/17, stopped 01/15/17 EtoH Abuse, Bipolar, Depression Alcohol, Quant 137H Ativan 1mg po q4h prn for agitation or ETOH withdrawal LFTs elevated - Ativan can cause elevated LFTs RUQ US 01/13/17 Relatively prominent diffuse fatty infiltration liver suggested though other etiologies are possible. No sonographic evidence of biliary tree dilatation. Remainder of the examination appears unremarkable. PT/INR - normal echocardiogram for possible alcoholic cardiomyopathy 01/13/17, normal findings albumin normal, T.bilirubin normal Management/Treatment as per Psychiatry Leukopenia, resolved HIV test negative Hepatitis panel negative Patient seen and discussed with attending. <Kris Ho - Last Filed: 01/15/17 18:43> Objective - Vital Signs/Intake and Output Vital Signs (last 24 hours): Temp Pulse Resp BP Pulse Ox 97.5 F L 72 20 142/84 01/15/17 07:13 01/15/17 16:03 01/15/17 07:13 01/15/17 16:03 - Medications Medications: Current Medications Apixaban (Eliquis) 10 mg PO BID [facility] Last Admin: 01/15/17 18:09 Dose: 10 mg Aripiprazole (Abilify) 10 mg PO QPM [facility] Last Admin: 01/15/17 18:09 Dose: 10 mg Cephalexin Monohydrate (Keflex) 500 mg PO Q6H [facility] Stop: 01/18/17 20:01 Last Admin: 01/15/17 13:49 Dose: 500 mg Escitalopram Oxalate (Lexapro) 10 mg PO DAILY [facility] Last Admin: 01/15/17 09:46 Dose: 10 mg Gabapentin (Neurontin) 300 mg PO BID [facility] Last Admin: 01/15/17 18:09 Dose: 300 mg Hydroxyzine HCl (Atarax) 50 mg PO Q6H PRN PRN Reason: Anxiety Ibuprofen (Motrin Tab) 600 mg PO Q6H PRN PRN Reason: Pain, moderate (4-7) Lorazepam (Ativan) 1 mg PO Q4H PRN PRN Reason: agitation or ETOH wdw Last Admin: 01/14/17 18:44 Dose: 1 mg Trazodone HCl (Desyrel) 100 mg PO HS PRN PRN Reason: Insomnia Last Admin: 01/14/17 21:18 Dose: 100 mg - Labs Labs: 01/15/17 08:10 01/15/17 08:10 PT 11.1 SECONDS (9.7-12.2) 01/15/17 08:10 INR 1.0 01/15/17 08:10 APTT 31 SECONDS (21-34) 01/15/17 08:10 Attending/Attestation - Attestation I have personally seen and examined this patient.: Yes I have fully participated in the care of the patient.: Yes I have reviewed all pertinent clinical information, including history, physical exam and plan: Yes Notes (Text): This is a 46 year old male admitted to psych unit for depression .We were consulted for leg edema.He has history of alcohol abuse,bipolar disorder, schizopherenia. He was started on antibiotics for cellulites.Venous Doppler shows DVT.US abdomen done.no cirrhosis,no ascites 1. Cellulitis of leg-improving on antibiotics.continue Leg edema is improving.Complaining of pain and swelling 2.DVT-start on eliquis. Can get free supply from drug rep.Pt has no insurance.Discussed about the importance of continue his eliquis and follow primary care 3.Alcohol abuse,bipolar,depression 4.Leukopenia Patient was seen and examined .agree with the documentation of the resident
--- NOTE | 2017-01-15 12:50 | PCM.PYCHPN ---
Psychiatric Progress Note - Psychiatric Progress Note Patient seen today, length of contact: 15 min Patient Chief Complaint: "I feel better" Problems Identified/Issues Discussed: The pt is seen, chart reviewed, case discussed with staff. Support given, CBT and SC used briefly No new symptoms reported, improving slowly and needs more time No SEs from medications, risks discussed. After care discussed Medicine is on board re DVT, help appreciated Medication Change: No Medical Record Reviewed: Yes Mental Status Examination - Cognitive Function Orientation: Person, Place, Situation, Time Memory: Intact Attention: WNL Concentration: Poor Association: WNL Fund of Knowledge: Poor - Mood Mood: Depressed, Anxious - Affect Affect: Constricted - Speech Speech: Appropriate - Language Language: Word Retrieval - Formal Thought Process Formal Thought Process: No Impairment - Suicidal Ideation Suicidal Ideation: No - Homicidal Ideation Homicidal Ideation: No Goal/Treatment Plan - Goal/Treatment Plan Need for Continued Stay: Discharge may exacerbated symptoms, Severe functional impairment Progress Toward Problem(s) and Goals/Treatment Plan: lexapro for depression abilify for possible AH and augmentation prn ativan for alcohol wdw which is unlikely and anxiety (w atarax) Gabapentin to augment Attend groups and activities Individual therapy Psychoeducation and support Encourage compliance with meds and after care Refer to outpatient program Teach healthy lifestyle methods, i.e. diet, exercise, meditation Smoking cessation Estimated Date of D/C: 01/19/17
[2017-01-16 07:35] LABS: BASO # 0.1 K/uL (0.0-0.2); EOS # 0.2 K/uL (0.0-0.7); EOS % 3.2 % (0.0-4.0); HEMATOCRIT 37.8 % (35.0-51.0); LYMPH % 34.1 % (20.0-40.0); MEAN CELL VOLUME 81.7 fL (80.0-94.0); MEAN CORPUSCULAR HEMOGLOBIN 26.5 pg (27.0-31.0); MEAN CORPUSCULAR HGB CONC 32.4 g/dL (33.0-37.0); MONO # 0.5 K/uL (0.0-0.8); MONO % 8.9 % (0.0-10.0); NRBC % 0.1 % (0.0-2.0); RED CELL DISTRIBUTION WIDTH 17.1 % (11.5-14.5); WHITE BLOOD COUNT 5.8 K/uL (4.8-10.8)
[2017-01-16 08:06] LABS: CHLORIDE 99 mmol/L (98-107); POTASSIUM 4.4 mmol/L (3.6-5.2); SODIUM 132 mmol/L (132-148)
[2017-01-16 08:08] LABS: ALKALINE PHOSPHATASE 76 U/L (38-126); AST/SGOT 155 U/L (17-59); BILIRUBIN,TOTAL 0.7 mg/dL (0.2-1.3); CARBON DIOXIDE 25 mmol/L (22-30); GFR AFRICAN-AMERICAN > 60
[2017-01-16 08:09] LABS: ALB/GLOB RATIO 1.3 (1.0-2.1); ALT/SGPT 174 U/L (21-72); BLOOD UREA NITROGEN 20 mg/dL (9-20); CALCIUM 8.6 mg/dl (8.6-10.4); GLUCOSE,RANDOM 90 mg/dL (75-110); MAGNESIUM 1.8 mg/dL (1.6-2.3); PHOSPHOROUS 4.5 mg/dL (2.5-4.5); TOTAL PROTEIN 7.1 g/dL (6.3-8.3)
--- NOTE | 2017-01-16 14:21 | PCM.PYCHPN ---
Psychiatric Progress Note - Psychiatric Progress Note Patient seen today, length of contact: 16 min Patient Chief Complaint: "I feel okay but my leg hurts a little" Problems Identified/Issues Discussed: The pt is seen, chart reviewed, case discussed with staff. Support given, CBT and CA used briefly No new symptoms reported, improving slowly and needs more time No SEs from medications, risks discussed. After care discussed medicine is onboard re DVT- right leg swelling as noticeably decreased Medication Change: No Medical Record Reviewed: Yes Mental Status Examination - Cognitive Function Orientation: Person, Place, Situation, Time Memory: Intact Attention: WNL Concentration: WNL Association: WNL Fund of Knowledge: Poor - Mood Mood: Depressed, Anxious - Affect Affect: Constricted - Speech Speech: Appropriate - Language Language: Word Retrieval - Formal Thought Process Formal Thought Process: No Impairment - Suicidal Ideation Suicidal Ideation: No - Homicidal Ideation Homicidal Ideation: No Goal/Treatment Plan - Goal/Treatment Plan Need for Continued Stay: Remain at risks for inpatient hospitalization, Discharge may exacerbated symptoms, Severe functional impairment Progress Toward Problem(s) and Goals/Treatment Plan: lexapro for depression abilify for possible AH and augmentation prn ativan for alcohol wdw which is unlikely and anxiety (w atarax) Gabapentin to augment Attend groups and activities Individual therapy Psychoeducation and support Encourage compliance with meds and after care Refer to outpatient program Teach healthy lifestyle methods, i.e. diet, exercise, meditation Smoking cessation Monitor leg pain and swelling Estimated Date of D/C: 01/19/17 - Smoking Cessation Smoking Cessation Initiated: No
--- NOTE | 2017-01-16 16:27 | CP.PCM.PN ---
Subjective - Date & Time of Evaluation Date of Evaluation: 01/16/17 Time of Evaluation: 13:45 - Subjective Subjective: PGY-[address] Ho. Patient was seen and examined in psych unit. He says his legs are improving and that he's having less pain now. He admits to mild tenderness in his right leg. He denies fever, chills. He denies chest pain, shortness of breath, abdominal pain, diarrhea, nausea, vomiting. Objective - Vital Signs/Intake and Output Vital Signs (last 24 hours): Temp Pulse Resp BP Pulse Ox 97.6 F 82 20 145/90 97 01/16/17 07:33 01/16/17 14:22 01/16/17 07:33 01/16/17 14:22 01/16/17 07:33 - Medications Medications: Current Medications Apixaban (Eliquis) 10 mg PO BID [facility] Last Admin: 01/16/17 09:47 Dose: 10 mg Aripiprazole (Abilify) 10 mg PO QPM [facility] Last Admin: 01/15/17 18:09 Dose: 10 mg Cephalexin Monohydrate (Keflex) 500 mg PO Q6H [facility] Stop: 01/18/17 20:01 Last Admin: 01/16/17 14:30 Dose: 500 mg Escitalopram Oxalate (Lexapro) 10 mg PO DAILY [facility] Last Admin: 01/16/17 09:46 Dose: 10 mg Gabapentin (Neurontin) 300 mg PO BID [facility] Last Admin: 01/16/17 09:46 Dose: 300 mg Hydroxyzine HCl (Atarax) 50 mg PO Q6H PRN PRN Reason: Anxiety Last Admin: 01/16/17 01:52 Dose: 50 mg Ibuprofen (Motrin Tab) 600 mg PO Q6H PRN PRN Reason: Pain, moderate (4-7) Last Admin: 01/16/17 01:52 Dose: 600 mg Lorazepam (Ativan) 1 mg PO Q4H PRN PRN Reason: agitation or ETOH wdw Last Admin: 01/14/17 18:44 Dose: 1 mg Trazodone HCl (Desyrel) 100 mg PO HS PRN PRN Reason: Insomnia Last Admin: 01/14/17 21:18 Dose: 100 mg - Labs Labs: 01/16/17 07:11 01/16/17 07:11 PT 11.3 SECONDS (9.7-12.2) 01/16/17 07:11 INR 1.0 01/16/17 07:11 APTT 32 SECONDS (21-34) 01/16/17 07:11 - Additional Findings Additional findings: - Constitutional Appears: Non-toxic, No Acute Distress - Head Exam Head Exam: ATRAUMATIC, NORMAL INSPECTION, NORMOCEPHALIC - Eye Exam Eye Exam: Normal appearance - ENT Exam ENT Exam: Mucous Membranes Moist - Neck Exam Neck exam: Negative for: Lymphadenopathy - Respiratory Exam Respiratory Exam: Clear to Auscultation Bilateral, NORMAL BREATHING PATTERN - Cardiovascular Exam Cardiovascular Exam: RRR, +S1, +S2 - GI/Abdominal Exam GI & Abdominal Exam: Soft. absent: Organomegaly, Tenderness - Extremities Exam Additional comments: Extr: 1+ pitting edema b/l lower extremities R>L improved since yesterday; mild tenderness, and mild warmth to RLE from ankle to just below the right knee; minimal tenderness to dorsum of right foot; LLE nontender; reduced ROM to RLE secondary to pain vs full ROM in other extremities; 2/4 dorsalis pedis pulses b/ l; <2s capillary refill b/l; no evidence of trauma b/l lower extremities Assessment and Plan - Assessment and Plan (Free Text) Assessment: MEDICINE WILL SIGN OFF. Assessment: 46 year old male admitted to psych unit for depression. Medicine team consulted on the case for evaluation and treatment of b/l lower extremity edema. Cellulitis, Right Lower Extremity Improvement noted Keflex 500 mg PO Q6, started 01/13/17, last dose will be 01/18/17 at 20:00 CXR 01/13/17: No active disease. No pathology detected. Motrin 600mg po q6 prn for pain Gabapentin 300mg po bid for pain A script was provided so he may continue his antibiotic until 01/18/17. DVT, Right Lower Extremity increased swelling noted compared to left leg, improvement noted b/l lower extremity venous doppler 01/14/17: acute deep thrombosis of right peroneal vein Apixaban 10mg po bid, started 01/14/17. Will switch to 5mg po bid on 01/21/17. Lasix 20 mg PO daily, started 01/13/17, stopped 01/15/17 Patient was given an Eliquis voucher that will allow him a free 30 day supple of eliquis. He was given a prescription and along with the voucher he will be able to continue his eliquis medication. To continue taking the eliquis beyond the 30 days the patient was instructed to call the number listed on the voucher so he may qualify for free medications, given his medicaid is pending. He understood these instructions. He was also instructed to establish care with the [facility] for management of his DVT and overall health. EtoH Abuse, Bipolar, Depression Alcohol, Quant 137H Ativan 1mg po q4h prn for agitation or ETOH withdrawal LFTs elevated - Ativan can cause elevated LFTs RUQ US 01/13/17 Relatively prominent diffuse fatty infiltration liver suggested though other etiologies are possible. No sonographic evidence of biliary tree dilatation. Remainder of the examination appears unremarkable. PT/INR - normal echocardiogram for possible alcoholic cardiomyopathy 01/13/17, normal findings albumin normal, T.bilirubin normal Management/Treatment as per Psychiatry Leukopenia, resolved HIV test negative Hepatitis panel negative Patient seen and discussed with attending.
[2017-01-17 08:49] LABS: BASO # 0.1 K/uL (0.0-0.2); BASO % 0.9 % (0.0-2.0); EOS # 0.2 K/uL (0.0-0.7); EOS % 2.9 % (0.0-4.0); HEMATOCRIT 38.5 % (35.0-51.0); LYMPH # 1.9 K/uL (1.0-4.3); LYMPH % 29.9 % (20.0-40.0); MEAN CELL VOLUME 81.6 fL (80.0-94.0); MEAN CORPUSCULAR HEMOGLOBIN 26.5 pg (27.0-31.0); MEAN CORPUSCULAR HGB CONC 32.5 g/dL (33.0-37.0); MEAN PLATELET VOLUME 8.1 fL (7.2-11.7); MONO # 0.7 K/uL (0.0-0.8); MONO % 10.5 % (0.0-10.0); NRBC % 0.1 % (0.0-2.0); RED CELL DISTRIBUTION WIDTH 17.3 % (11.5-14.5); WHITE BLOOD COUNT 6.3 K/uL (4.8-10.8)
[2017-01-17 09:25] LABS: CHLORIDE 100 mmol/L (98-107)
[2017-01-17 09:26] LABS: POTASSIUM 4.1 mmol/L (3.6-5.2); SODIUM 135 mmol/L (132-148)
[2017-01-17 09:28] LABS: ALKALINE PHOSPHATASE 75 U/L (38-126); ALT/SGPT 193 U/L (21-72); AST/SGOT 134 U/L (17-59); BILIRUBIN,TOTAL 0.4 mg/dL (0.2-1.3); BLOOD UREA NITROGEN 23 mg/dL (9-20); CARBON DIOXIDE 26 mmol/L (22-30); GFR AFRICAN-AMERICAN > 60; TOTAL PROTEIN 8.7 g/dL (6.3-8.3)
[2017-01-17 09:29] LABS: CALCIUM 9.2 mg/dl (8.6-10.4); GLUCOSE,RANDOM 82 mg/dL (75-110); MAGNESIUM 2.1 mg/dL (1.6-2.3); PHOSPHOROUS 3.5 mg/dL (2.5-4.5)
--- NOTE | 2017-01-17 14:06 | PCM.PYCHPN ---
Psychiatric Progress Note - Psychiatric Progress Note Patient seen today, length of contact: 15 minutes Patient Chief Complaint: I'm feeling much better. Swelling in my legs is also less. Problems Identified/Issues Discussed: Patient seen. Chart reviewed. Case discussed with the staff. Issues related to illness and treatment were discussed with the patient. Reported compliant with treatment with no adverse affects. Tolerating treatment very well. Medical team is on the case. Reported feeling much better with the treatment, also swelling in his legs was also less At the time of evaluation, patient was awake alert oriented 3, had no delusions , no auditory or visual hallucinations, no suicidal ideations or homicidal ideation. Medical Problems: Swelling legs DVT Diagnostic Results: Reviewed DSM 5 Symptoms Update: Improving with treatment Medication Change: No Medical Record Reviewed: Yes Mental Status Examination - Cognitive Function Orientation: Person, Place, Situation, Time Memory: Intact Attention: WNL Concentration: WNL Association: WNL Fund of Knowledge: [facility] Decription of patient's judgement and insights: Fair - Mood Mood: Depressed (Discussed and before) - Affect Affect: Depressed - Speech Speech: Appropriate - Formal Thought Process Formal Thought Process: No Impairment Psychotic Thoughts and Behaviors: None - Suicidal Ideation Suicidal Ideation: No - Homicidal Ideation Homicidal Ideation: No Goal/Treatment Plan - Goal/Treatment Plan Need for Continued Stay: Remain at risks for inpatient hospitalization, Discharge may exacerbated symptoms, Severe functional impairment Progress Toward Problem(s) and Goals/Treatment Plan: Patient education Supportive therapy Continue treatment as before Estimated Date of D/C: 01/19/17 - Smoking Cessation Smoking Cessation Initiated: No
[2017-01-18 08:56] LABS: BASO # 0.1 K/uL (0.0-0.2); BASO % 0.8 % (0.0-2.0); EOS # 0.2 K/uL (0.0-0.7); EOS % 3.1 % (0.0-4.0); HEMATOCRIT 39.3 % (35.0-51.0); LYMPH # 2.3 K/uL (1.0-4.3); LYMPH % 33.8 % (20.0-40.0); MEAN CORPUSCULAR HGB CONC 32.9 g/dL (33.0-37.0); MEAN PLATELET VOLUME 8.2 fL (7.2-11.7); MONO # 0.7 K/uL (0.0-0.8); MONO % 10.5 % (0.0-10.0); NRBC % 0.1 % (0.0-2.0); RED CELL DISTRIBUTION WIDTH 16.9 % (11.5-14.5); WHITE BLOOD COUNT 6.8 K/uL (4.8-10.8)
[2017-01-18 09:13] LABS: CHLORIDE 99 mmol/L (98-107); POTASSIUM 4.4 mmol/L (3.6-5.2); SODIUM 135 mmol/L (132-148)
[2017-01-18 09:15] LABS: ALB/GLOB RATIO 1.3 (1.0-2.1); ALKALINE PHOSPHATASE 70 U/L (38-126); AST/SGOT 155 U/L (17-59); BILIRUBIN,TOTAL 0.6 mg/dL (0.2-1.3); BLOOD UREA NITROGEN 25 mg/dL (9-20); CARBON DIOXIDE 26 mmol/L (22-30); GFR AFRICAN-AMERICAN > 60; TOTAL PROTEIN 7.7 g/dL (6.3-8.3)
[2017-01-18 09:16] LABS: ALT/SGPT 218 U/L (21-72); GLUCOSE,RANDOM 86 mg/dL (75-110); PHOSPHOROUS 4.4 mg/dL (2.5-4.5)
--- NOTE | 2017-01-18 14:31 | PCM.PYCHPN ---
Psychiatric Progress Note - Psychiatric Progress Note Patient seen today, length of contact: 15 minutes Patient Chief Complaint: I'm feeling much better. Swelling in my legs is also less. Pain is also less. Problems Identified/Issues Discussed: Patient seen. Chart reviewed. Case discussed with the staff. Issues related to illness and treatment were discussed with the patient. Reported compliant with treatment with no adverse affects. Tolerating treatment very well. Medical team signed off the patient. Reported feeling much better with the treatment, also swelling in his legs was also less At the time of evaluation, patient was awake alert oriented 3, had no delusions , no auditory or visual hallucinations, no suicidal ideations or homicidal ideation. Medical Problems: Swelling legs DVT Diagnostic Results: Reviewed DSM 5 Symptoms Update: Improvement with treatment Medication Change: No Medical Record Reviewed: Yes Mental Status Examination - Cognitive Function Orientation: Person, Place, Situation, Time Memory: Intact Attention: WNL Concentration: WNL Association: WN Fund of Knowledge: [facility] Decription of patient's judgement and insights: Fair - Mood Mood: Neutral - Affect Affect: Other (Appropriate) - Speech Speech: Appropriate - Formal Thought Process Formal Thought Process: No Impairment Psychotic Thoughts and Behaviors: None - Suicidal Ideation Suicidal Ideation: No - Homicidal Ideation Homicidal Ideation: No Goal/Treatment Plan - Goal/Treatment Plan Need for Continued Stay: Remain at risks for inpatient hospitalization, Discharge may exacerbated symptoms, Severe functional impairment Progress Toward Problem(s) and Goals/Treatment Plan: Patient education Supportive therapy Continue treatment as before Estimated Date of D/C: 01/19/17 - Smoking Cessation Smoking Cessation Initiated: No
[2017-01-19 07:12] LABS: BASO # 0.1 K/uL (0.0-0.2); BASO % 0.8 % (0.0-2.0); EOS # 0.2 K/uL (0.0-0.7); EOS % 3.1 % (0.0-4.0); HEMATOCRIT 39.5 % (35.0-51.0); LYMPH # 1.9 K/uL (1.0-4.3); LYMPH % 28.6 % (20.0-40.0); MEAN CELL VOLUME 82.2 fL (80.0-94.0); MEAN CORPUSCULAR HEMOGLOBIN 26.7 pg (27.0-31.0); MEAN CORPUSCULAR HGB CONC 32.5 g/dL (33.0-37.0); MEAN PLATELET VOLUME 8.1 fL (7.2-11.7); MONO # 0.6 K/uL (0.0-0.8); MONO % 9.8 % (0.0-10.0); RED CELL DISTRIBUTION WIDTH 16.6 % (11.5-14.5); WHITE BLOOD COUNT 6.5 K/uL (4.8-10.8)
[2017-01-19 08:32] LABS: CHLORIDE 99 mmol/L (98-107); POTASSIUM 4.7 mmol/L (3.6-5.2); SODIUM 134 mmol/L (132-148)
[2017-01-19 08:34] LABS: BILIRUBIN,TOTAL 0.6 mg/dL (0.2-1.3); CARBON DIOXIDE 28 mmol/L (22-30); GFR AFRICAN-AMERICAN > 60
[2017-01-19 08:35] LABS: ALB/GLOB RATIO 1.4 (1.0-2.1); ALKALINE PHOSPHATASE 70 U/L (38-126); ALT/SGPT 245 U/L (21-72); AST/SGOT 152 U/L (17-59); BLOOD UREA NITROGEN 25 mg/dL (9-20); CALCIUM 9.1 mg/dl (8.6-10.4); GLUCOSE,RANDOM 83 mg/dL (75-110); PHOSPHOROUS 4.1 mg/dL (2.5-4.5); TOTAL PROTEIN 7.7 g/dL (6.3-8.3)
--- NOTE | 2017-01-19 09:46 | PCM.PYCHDC ---
Mental Status Examination - Mental Status Examination Orientation: Person, Place, Situation, Time Memory: Intact Mood: Anxious Affect: Broad Speech: Appropriate Attention: WNL Concentration: WNL Association: WNL Fund of Knowledge: WNL Formal Thought Process: No Impairment Suicidal Ideation: No Current Homicidal Ideation?: No Discharge Summary - Discharge Note Reason for Hospitalization: Depression Laboratory Data: Abnormal Lab Results 01/19/17 01/19/17 06:58 06:58 WBC 6.5 RBC 4.81 Hgb 12.8 Hct 39.5 MCV 82.2 MCH 26.7 L MCHC 32.5 L RDW 16.6 H Plt Count 351 MPV 8.1 Neut % (Auto) 57.7 Lymph % (Auto) 28.6 Bertie % (Auto) 9.8 Eos % (Auto) 3.1 Baso % (Auto) 0.8 Neut # 3.8 Lymph # 1.9 Bertie # 0.6 Eos # 0.2 Baso # 0.1 Sodium 134 Potassium 4.7 Chloride 99 Carbon Dioxide 28 Anion Gap 11 BUN 25 H Creatinine 1.1 Est GFR ( Amer) > 60 Est GFR (Non-Af Amer) > 60 Random Glucose 83 Calcium 9.1 Phosphorus 4.1 Magnesium 2.0 Total Bilirubin 0.6 AST 152 H ALT 245 H Alkaline Phosphatase 70 Total Protein 7.7 Albumin 4.5 Globulin 3.2 Albumin/Globulin Ratio 1.4 Consultations:: List each consultation separately and include: 1. Reason for request. 2. Findings. 3. Follow-up Consultations: Medicine for lower leg edema. DVT and cellulitis diagnosed- appropriate treatment began Summary of Hospital Course include:: 1. Description of specific treatment plan utilized for patients during their course of treatmen. 2. Summarize the time- course for resolution of acute symptoms and/or regressed behaviors. 3. Describe issues identified and worked on during hospitalization. 4. Describe medication utilized. 5. Describe medical problems identified and treated. 6. Reassessment of suicide risk Summary of Hospital Course: the patient is seen, chart reviewed and case discussed. On admission: Patient is a 46 year old male, single, and living with brother presents with auditory hallucinations, depression and anxiety. He is employed at a [employer] in [place], [place] and has 2 sons living in [place]. He reports drinking 5-6 beers (24 oz) but only for 2 weeks b/c he relapsed when his best friend . He was hearing voices telling him to kill self but now it is "gone." But he still feels depressed and lonely, anhedonic and very anxious. 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 Hospital course: Patient was followed and treated by medicine for cellulitis and DVT of lower right leg. The pt was admitted and started on treatment with psychotherapy, support, psychoeducation and medications. ND and CBT used. The pt attended groups and activities, as well as milieu therapy. All the risks and benefits of medications are discussed and the patient understood and agreed. The pt improved with the treatments provided. After care discussed with the patient at [facility] - Final Diagnosis (DSM 5) Condition upon Discharge: IMPROVED DSM 5: Major depression, recurrent, severe, with psychosis Alcohol use d/o -severe Disposition: HOME/ ROUTINE Follow-up Treatment Plan: Continue below medications after discharge. Follow after care plan as discussed at [facility] Use relapse prevention skills Return to ER or call 911 if suicidal, homicidal or symptoms relapse. Stay away from stress, alcohol and drugs. See primary doctor regularly and get labs. Follow medicines instructions for DVT and cellulitis Prescriptions/Medication Reconciliation: Apixaban [Eliquis] 10 mg PO BID #60 tab ARIPiprazole [Abilify] 10 mg PO QPM #30 tab Cephalexin [Keflex] 500 mg PO Q6H #14 cap Escitalopram [Lexapro] 10 mg PO DAILY #30 tab Gabapentin [Neurontin] 300 mg PO BID #60 cap traZODone [Desyrel] 100 mg PO HS PRN #30 tab PRN Reason: Insomnia - Smoking Cessation Smoking Cessation Medication prescribed: No - Antipsychotic Medications Pt discharged on 2 or more routine antipsychotic medications: No
[2017-01-19 11:07] VITALS: RESP 17
[2017-01-19 11:24] VITALS: BP 130/82; PULSE 75; TEMP 97.4; O2SAT 98
== END 2017-01-19 12:50 | disposition home or self-care (01) | DRG 885 ==
LOC: C.ER 00:57 → C.5E 06:15
PROC: GZ56ZZZ Individual Psychotherapy, Supportive (ICD-10-PCS; principal; 2017-01-13)
DX: F33.3 Major depressive disorder, recurrent, severe with psychotic symptoms (principal); L03.115 Cellulitis of right lower limb; K76.0 Fatty (change of) liver, not elsewhere classified; I10 Essential (primary) hypertension; F41.9 Anxiety disorder, unspecified; D72.819 Decreased white blood cell count, unspecified; F10.120 Alcohol abuse with intoxication, uncomplicated; Y90.6 Blood alcohol level of 120-199 mg/100 ml

== ENCOUNTER → 2017-01-29 23:04 | Emergency (ER) | payer MEDICAID | END | disposition left against medical advice (07) | LOC: C.ER 23:04 | DX: Z02.89 Encounter for other administrative examinations (principal) ==

== ENCOUNTER 2017-01-31 22:52 | Emergency (ER) | payer MEDICAID ==
[2017-01-31 23:03] VITALS: BP 122/79; PULSE 80; RESP 12; TEMP 97.5; O2SAT 97
--- NOTE | 2017-02-01 00:39 | C.PDOC ---
History Of Present Illness 47 year old male presents to the ER with a complaint of chronic right leg pain exacerbated after walking too much. Denies chest pain, SOB, weakness, or numbness. Time Seen by Provider: 01/31/17 23:07 Chief Complaint (Nursing): Lower Extremity Problem/Injury History Per: Patient History/Exam Limitations: no limitations Onset/Duration Of Symptoms: Days Current Symptoms Are (Timing): Still Present Recent travel outside of the [place]: No Past Medical History Reviewed: Historical Data, Nursing Documentation, Vital Signs Vital Signs: Last Vital Signs Temp 97.5 F L 01/31/17 23:01 Pulse 80 01/31/17 23:01 Resp 12 01/31/17 23:01 BP 122/79 01/31/17 23:01 Pulse Ox 97 02/01/17 00:48 - Medical History PMH: Anxiety, Bipolar Disorder, Depression, HTN (unsure of med taken), Schizophrenia Surgical History: No Surg Hx - [facility] Procedures DETOXIFICATION SERVICES FOR SUBSTANCE ABUSE TREATMENT (11/15/15) GROUP EMERGENCY GENERATOR MECHANIC FOR SUBSTANCE ABUSE TREATMENT, CONTINUING CARE (02/03/15) GROUP EMERGENCY GENERATOR MECHANIC FOR SUBSTANCE ABUSE TREATMENT, PSYCHOEDUCATION (04/03/16) GROUP PSYCHOTHERAPY (04/03/16) INDIVIDUAL PSYCHOTHERAPY, SUPPORTIVE (01/13/17) MEDICATION MANAGEMENT (04/03/16) Family History: States: Unknown Family Hx - Social History Hx Tobacco Use: No Hx Alcohol Use: Yes Hx Substance Use: No - Immunization History Hx Tetanus Toxoid Vaccination: No Hx Influenza Vaccination: No Hx Pneumococcal Vaccination: No Review Of Systems Cardiovascular: Negative for: Chest Pain, Palpitations Respiratory: Negative for: Shortness of Breath Musculoskeletal: Positive for: Leg Pain Neurological: Negative for: Weakness, Numbness Physical Exam - Physical Exam Appears: Non-toxic, No Acute Distress Skin: Warm, Dry Head: Atraumatic, Normacephalic Oral Mucosa: Moist Chest: Symmetrical, No Tenderness Cardiovascular: Rhythm Regular Respiratory: Normal Breath Sounds, No Rales, No Rhonchi, No Wheezing Extremity: Normal ROM (x4), No Tenderness, Pedal Edema (b/l ), No Calf Tenderness, Capillary Refill (<2 seconds), No Deformity, Swelling (Chronic -b/l lower leg), Other (minimal erythema, no warmth) Extremity: Bilateral: Atraumatic Pulses: Left Dorsalis Pedis: Normal, Right Dorsalis Pedis: Normal Neurological/Psych: Oriented x3, Normal Speech, Normal Cognition, Normal Motor, Normal Sensation ED Course And Treatment O2 Sat by Pulse Oximetry: 97 (Room air) Pulse Ox Interpretation: Normal Progress Note: Prior records reviewed, and pt has been seen in the ED multiple times for same. On reassessment, patient is resting comfortably, and is in no acute distress. Patient was instructed to follow up with clinic in 1-2 days for further evaluation. Disposition - Disposition Referrals: [facility] [Outside] Disposition: ELOPEMENT - ER ONLY Disposition Time: 01:48 Condition: STABLE Forms: [employer] (Maltese) - Clinical Impression Clinical Impression: Chronic pain of lower extremity, bilateral - Scribe Statement The provider has reviewed the documentation as recorded by the Scribe Ray Vázquez All medical record entries made by the Scribe were at my direction and personally dictated by me. I have reviewed the chart and agree that the record accurately reflects my personal performance of the history, physical exam, medical decision making, and the department course for this patient. I have also personally directed, reviewed, and agree with the discharge instructions and disposition.
== END 2017-01-31 23:15 | disposition left against medical advice (07) ==
LOC: C.ER 22:52
DX: G89.29 Other chronic pain (principal); M79.605 Pain in left leg; M79.604 Pain in right leg

== ENCOUNTER 2017-02-09 00:09 | Inpatient (IN) | payer MEDICAID ==
--- NOTE | 2017-02-09 00:57 | C.PDOC ---
History Of Present Illness 47 y/o male with a hx of chronic alcohol abuse since 17 years of age and hx of right leg catheter, presents with acute alcohol intoxication requesting detox. Last drink was today. Denies SI, HI, or somatic complaints. Time Seen by Provider: 02/09/17 00:56 Chief Complaint (Nursing): Substance Abuse History Per: Patient History/Exam Limitations: no limitations Onset/Duration Of Symptoms: Hrs Current Symptoms Are (Timing): Still Present Suicide/Self Injury Attempted (Context): None Modifying Factor(s): Alcohol Severity: Mild Associated Symptoms: denies: Suicidal Thoughts, Suicidal Plan Involuntary Hold By: None Recent travel outside of the [place]: No Additional History Per: Patient Past Medical History Reviewed: Historical Data, Nursing Documentation, Vital Signs Vital Signs: Last Vital Signs Temp 97.3 F L 02/09/17 00:13 Pulse 79 02/09/17 04:00 Resp 20 02/09/17 04:00 BP 131/74 02/09/17 04:00 Pulse Ox 98 02/09/17 04:19 - Medical History PMH: Anxiety, Bipolar Disorder, Depression, HTN (unsure of med taken), Schizophrenia Denies: Diabetes, Hepatitis, HIV, Chronic Kidney Disease, Seizures, Sexually Transmitted Disease - [facility] Procedures DETOXIFICATION SERVICES FOR SUBSTANCE ABUSE TREATMENT (11/15/15) GROUP EXPLOSIVE TECHNICIAN FOR SUBSTANCE ABUSE TREATMENT, CONTINUING CARE (02/03/15) GROUP EXPLOSIVE TECHNICIAN FOR SUBSTANCE ABUSE TREATMENT, PSYCHOEDUCATION (04/03/16) GROUP PSYCHOTHERAPY (04/03/16) INDIVIDUAL PSYCHOTHERAPY, SUPPORTIVE (01/13/17) MEDICATION MANAGEMENT (04/03/16) Family History: States: Unknown Family Hx - Social History Hx Tobacco Use: No Hx Alcohol Use: Yes Hx Substance Use: No - Immunization History Hx Tetanus Toxoid Vaccination: No Hx Influenza Vaccination: No Hx Pneumococcal Vaccination: No Review Of Systems Except As Marked, All Systems Reviewed And Found Negative. Constitutional: Positive for: Other (Acute alcohol intoxication) Cardiovascular: Negative for: Chest Pain Gastrointestinal: Negative for: Abdominal Pain Psych: Negative for: Suicidal ideation, Other (HI) Physical Exam - Physical Exam Appears: Non-toxic, No Acute Distress, Other (Alcohol intoxication, (+) AOB) Skin: Warm, Dry Head: Atraumatic, Normacephalic Eye(s): bilateral: Normal Inspection Oral Mucosa: Moist Throat: Normal, No Erythema Chest: Symmetrical Cardiovascular: Rhythm Regular, No Murmur Respiratory: Normal Breath Sounds, No Wheezing Gastrointestinal/Abdominal: No Soft, No Tenderness Extremity: Pedal Edema (Trace bilateral edema, Hx of right leg cath) Pulses: Left Dorsalis Pedis: Normal, Right Dorsalis Pedis: Normal Neurological/Psych: Oriented x3, No Normal Speech (Slurred) ED Course And Treatment - Laboratory Results Result Diagrams: 02/09/17 01:01 02/09/17 01:01 O2 Sat by Pulse Oximetry: 98 (RA) Pulse Ox Interpretation: Normal Medical Decision Making Medical Decision Making: Plans: * Blood labs * UA Disposition Discussed With DrAnnmarie: Hayde Astudillo Doctor Will See Patient In The: Hospital Counseled Patient/Family Regarding: Diagnosis - Disposition Disposition: HOSPITALIZED Disposition Time: 04:18 Condition: STABLE Forms: [facility] (Macanese) - POA Present On Arrival: None - Clinical Impression Clinical Impression: Alcohol abuse with alcohol-induced disorder, Depressive disorder - Scribe Statement The provider has reviewed the documentation as recorded by the Scribleydi jerez All medical record entries made by the Deyviibleydi were at my direction and personally dictated by me. I have reviewed the chart and agree that the record accurately reflects my personal performance of the history, physical exam, medical decision making, and the department course for this patient. I have also personally directed, reviewed, and agree with the discharge instructions and disposition.
[2017-02-09 01:10] LABS: URINE BILIRUBIN NEGATIVE (NEGATIVE); URINE BLOOD NEGATIVE (NEGATIVE); URINE COLOR Yellow (YELLOW); URINE GLUCOSE (UA) NORMAL (Normal); URINE KETONE NEGATIVE (NEGATIVE); URINE LEUKOCYTE ESTERASE NEG Leu/uL (Negative); URINE PROTEIN NEGATIVE (NEGATIVE); URINE UROBILINOGEN NORMAL mg/dL (0.2-1.0); WBC URINE < 1 /hpf (0-5)
[2017-02-09 01:12] LABS: BASO % 0.9 % (0.0-2.0); EOS # 0.2 K/uL (0.0-0.7); EOS % 4.6 % (0.0-4.0); HEMATOCRIT 35.7 % (35.0-51.0); LYMPH # 1.7 K/uL (1.0-4.3); LYMPH % 35.5 % (20.0-40.0); MEAN CELL VOLUME 79.7 fL (80.0-94.0); MEAN CORPUSCULAR HEMOGLOBIN 25.7 pg (27.0-31.0); MEAN CORPUSCULAR HGB CONC 32.2 g/dL (33.0-37.0); MEAN PLATELET VOLUME 7.9 fL (7.2-11.7); MONO # 0.6 K/uL (0.0-0.8); MONO % 11.4 % (0.0-10.0); NRBC % 0.1 % (0.0-2.0); RED CELL DISTRIBUTION WIDTH 16.4 % (11.5-14.5); WHITE BLOOD COUNT 4.8 K/uL (4.8-10.8)
[2017-02-09 01:20] LABS: ALB/GLOB RATIO 1.4 (1.0-2.1); ALCOHOL SERUM 64 mg/dl (0-10); ALKALINE PHOSPHATASE 74 U/L (38-126); ALT/SGPT 149 U/L (21-72); AST/SGOT 99 U/L (17-59); BILIRUBIN,TOTAL 0.6 mg/dL (0.2-1.3); BLOOD UREA NITROGEN 18 mg/dL (9-20); CALCIUM 7.8 mg/dl (8.6-10.4); CARBON DIOXIDE 22 mmol/L (22-30); CHLORIDE 104 mmol/L (98-107); GFR AFRICAN-AMERICAN > 60; GLUCOSE,RANDOM 91 mg/dL (75-110); POTASSIUM 3.9 mmol/L (3.6-5.2); SODIUM 138 mmol/L (132-148); TOTAL PROTEIN 6.8 g/dL (6.3-8.3)
[2017-02-09 06:00] VITALS: RESP 18
--- NOTE | 2017-02-09 06:15 | PCM.BM ---
<Christen Stern Toña - Last Filed: 02/09/17 06:14> Treatment Plan Problems - Problems identified on initial assessmt ALCOHOL DEPENDENCE Date Initiated: 02/09/17 Time Initiated: 06:15 Assessment reference: NA Status: Active Treatment assets and liabiliti Patient Assests: cooperative, ADL independent, good support system, good past tx response, cognitively intact Patient Liabilities: substance abuse - Milieu Protocol Maintain good personal hygiene: daily Encourage regular showers, daily Remind patient to perform daily oral care, daily Assist patient to perform ADL's Maintain personal safety: every shift Educate patient to report safety concerns to staff, every shift Monitor environment for contraband/sharps Medication safety: Monitor for expected outcome, potential side effects: every shift, Assess barriers to learning: every shift, Assess readiness for medication education: every shift <Kaity Gee - Last Filed: 02/10/17 11:41> Family Contact Family involvement: Famliy/SO not involved Family contact: Patient declines to allow family contact at present - Goals for Treatment Patient goals for treatment: Complete detox and apply for [facility]. Discharge/Continuing Care - Education Needs Education Needs: Patient Medication, Patient Diagnosis/Disease Process, Patient Coping Skills, Patient Anger Management skills, Patient Placement options, Patient Community resources - Discharge Discharge Criteria: No longer exhibiting s/s of withdrawal, Reduction of target symptoms Discharge to:: Substance Abuse Rehab - Treatment Team Participation Patient/Family/SO Statement: 02/10/17 11:43 "I wanted to go to o/p but now I'm thinking rehab would be better..." Discussed with Family/SO: No Was Patient/Family/SO present at Treatment Team Meeting: Yes <Cori Hair - Last Filed: 02/10/17 13:31> - Diagnosis (1) Alcohol use disorder, severe, dependence Status: Acute Interventions: 02/10/17 13:31 * Assess 7x/week regarding severity of withdrawal * Educate regarding risks, benefits, side effects and alternatives of medications * Use Motivational Interviewing for abstinence * Use CBT for relapse prevention * Medication management for withdrawal symptoms * Encourage medication assisted treatment *
[2017-02-09] MEDS: Multiple Vitamins Tab PO SCH (09:28)
--- NOTE | 2017-02-09 14:10 | CP.PCM.CON ---
<Kris Ho - Last Filed: 02/09/17 18:51> Meds Allergies/Adverse Reactions: Allergies Allergy/AdvReac Type Severity Reaction Status Date / Time No Known Allergies Allergy Verified 02/09/17 00:15 - Medications Medications: Current Medications Apixaban (Eliquis) 5 mg PO BID [facility] Last Admin: 02/09/17 17:32 Dose: 5 mg Clonidine HCl (Catapres) 0.1 mg PO Q4H PRN PRN Reason: Symptoms of alcohol withdrawl Folic Acid (Folic Acid) 1 mg PO DAILY [facility] Last Admin: 02/09/17 09:28 Dose: 1 mg Hydroxyzine HCl (Atarax) 25 mg PO Q6 PRN PRN Reason: Anxiety Lorazepam (Ativan) 1 mg PO Q4H PRN PRN Reason: Symptoms of alcohol withdrawl Lorazepam (Ativan) 2 mg PO Q6H [place] PRN Reason: Taper Stop: 02/14/17 08:59 Last Admin: 02/09/17 14:09 Dose: 2 mg Multivitamins (Hexavitamin) 1 tab PO DAILY [facility] Last Admin: 02/09/17 09:28 Dose: 1 tab Thiamine HCl (Vitamin B1 Tab) 100 mg PO DAILY [facility] Last Admin: 02/09/17 09:28 Dose: 100 mg Trazodone HCl (Desyrel) 50 mg PO HS PRN PRN Reason: Insomnia Results - Vital Signs Recent Vital Signs: Last Vital Signs Temp 97.7 F 02/09/17 16:40 Pulse 90 02/09/17 16:40 Resp 18 02/09/17 16:40 BP 139/80 02/09/17 16:40 Pulse Ox 98 02/09/17 16:40 - Labs Result Diagrams: 02/09/17 14:47 02/09/17 14:47 Labs: Laboratory Results - last 24 hr 02/09/17 02/09/17 02/09/17 01:01 01:01 01:01 WBC 4.8 RBC 4.47 Hgb 11.5 L Hct 35.7 MCV 79.7 L D MCH 25.7 L MCHC 32.2 L RDW 16.4 H Plt Count 233 D MPV 7.9 Neut % (Auto) 47.6 L Lymph % (Auto) 35.5 [place] % (Auto) 11.4 H Eos % (Auto) 4.6 H Baso % (Auto) 0.9 Neut # 2.3 Lymph # 1.7 [place] # 0.6 Eos # 0.2 Baso # 0.0 Sodium 138 Potassium 3.9 Chloride 104 Carbon Dioxide 22 Anion Gap 16 BUN 18 Creatinine 0.9 Est GFR ( Amer) > 60 Est GFR (Non-Af Amer) > 60 Random Glucose 91 Calcium 7.8 L Total Bilirubin 0.6 AST 99 H D ALT 149 H D Alkaline Phosphatase 74 Total Protein 6.8 Albumin 3.9 Globulin 2.9 Albumin/Globulin Ratio 1.4 Urine Color Yellow Urine Clarity Clear Urine pH 5.0 Ur Specific [place] 1.018 Urine Protein Negative Urine Glucose (UA) Normal Urine Ketones Negative Urine Blood Negative Urine Nitrate Negative Urine Bilirubin Negative Urine Urobilinogen Normal Ur Leukocyte Esterase Neg Urine WBC (Auto) < 1 Urine Opiates Screen Urine Methadone Screen Ur Barbiturates Screen Ur Phencyclidine Scrn Ur Amphetamines Screen U Benzodiazepines Scrn U Oth Cocaine Metabols U Cannabinoids Screen Alcohol, Quantitative 64 H 02/09/17 02/09/17 02/09/17 01:01 14:47 14:47 WBC 5.8 RBC 4.64 Hgb 12.1 Hct 37.4 MCV 80.5 MCH 26.0 L MCHC 32.3 L RDW 16.7 H Plt Count 270 MPV 8.2 Neut % (Auto) 52.7 Lymph % (Auto) 31.1 [place] % (Auto) 11.3 H Eos % (Auto) 3.9 Baso % (Auto) 1.0 Neut # 3.1 Lymph # 1.8 [place] # 0.7 Eos # 0.2 Baso # 0.1 Sodium 134 Potassium 4.3 Chloride 98 Carbon Dioxide 27 Anion Gap 13 BUN 19 Creatinine 0.9 Est GFR ( Amer) > 60 Est GFR (Non-Af Amer) > 60 Random Glucose 93 Calcium 8.1 L Total Bilirubin 0.7 AST 91 H ALT 144 H Alkaline Phosphatase 79 Total Protein 7.1 Albumin 4.0 Globulin 3.1 Albumin/Globulin Ratio 1.3 Urine Color Urine Clarity Urine pH Ur Specific [place] Urine Protein Urine Glucose (UA) Urine Ketones Urine Blood Urine Nitrate Urine Bilirubin Urine Urobilinogen Ur Leukocyte Esterase Urine WBC (Auto) Urine Opiates Screen Negative Urine Methadone Screen Negative Ur Barbiturates Screen Negative Ur Phencyclidine Scrn Negative Ur Amphetamines Screen Negative U Benzodiazepines Scrn Negative U Oth Cocaine Metabols Negative U Cannabinoids Screen Negative Alcohol, Quantitative Attending/Attestation - Attestation I have personally seen and examined this patient.: Yes I have fully participated in the care of the patient.: Yes I have reviewed all pertinent clinical information: Yes <Jcarlos Razossyca BentonAnnmarie - Last Filed: 02/09/17 19:11> History of Present Illness - History of Present Illness History of Present Illness: Medicine Consult: 47 year old male with past medical history of alcohol abuse, bipolar disorder, hypertension, depression, and schizophrenia was consulted for leg pain. Patient states his right leg is more swollen than the left. The leg swelling is tender upon palpation. Patient states the pain has worsened from extended periods of walking and denies any traumatic events. Patient denies radiation of the pain or any numbness or tingling. Patient has had similar visits in the past for the same compliant. Denies fever, chills, headache, chest pain, palpitations, shortness of breath, cough, nausea, vomiting, constipation, diarrhea. PMD: None Past Medical History: anxiety, bipolar disorder, alcohol abuse, hypertension, schizophrenia, depression Past Surgical History: denies Family History: denies Social: denies smoking. Admits to alcohol and heroin abuse Allergies: NKDA Review of Systems - Constitutional Constitutional: absent: Chills, Fever, Headache, Weakness - Cardiovascular Cardiovascular: Leg Edema. absent: Chest Pain, Dyspnea, Palpitations - Respiratory Respiratory: absent: Cough, Dyspnea - Gastrointestinal Gastrointestinal: absent: Constipation, Diarrhea, Heartburn, Nausea, Vomiting - Genitourinary Genitourinary: absent: Dysuria - Neurological Neurological: absent: Dizziness, Headaches, Weakness Past Patient History - Infectious Disease Hx of Infectious Diseases: None - Past Medical History & Family History Past Medical History?: No - Past Social History Smoking Status: Never Smoked - CARDIAC Hx Hypertension: Yes (unsure of med taken) - PULMONARY Hx Tuberculosis: No - NEUROLOGICAL Hx Seizures: No - HEENT Hx HEENT Problems: No - RENAL Hx Chronic Kidney Disease: No - ENDOCRINE/METABOLIC Hx Endocrine Disorders: No - HEMATOLOGICAL/ONCOLOGICAL Hx Human Immunodeficiency Virus (HIV): No - INTEGUMENTARY Hx Dermatological Problems: No - MUSCULOSKELETAL/RHEUMATOLOGICAL Hx Musculoskeletal Disorders: No Hx Falls: No - GASTROINTESTINAL Hx Gastrointestinal Disorders: No - GENITOURINARY/GYNECOLOGICAL Hx Sexually Transmitted Disorders: No - PSYCHIATRIC Hx Substance Use: Yes - SURGICAL HISTORY Hx Surgeries: No - ANESTHESIA Hx Anesthesia: No Meds - Medications Medications: Current Medications Clonidine HCl (Catapres) 0.1 mg PO Q4H PRN PRN Reason: Symptoms of alcohol withdrawl Folic Acid (Folic Acid) 1 mg PO DAILY [facility] Last Admin: 02/09/17 09:28 Dose: 1 mg Hydroxyzine HCl (Atarax) 25 mg PO Q6 PRN PRN Reason: Anxiety Lorazepam (Ativan) 1 mg PO Q4H PRN PRN Reason: Symptoms of alcohol withdrawl Lorazepam (Ativan) 2 mg PO Q6H [place] PRN Reason: Taper Stop: 02/14/17 08:59 Last Admin: 02/09/17 14:09 Dose: 2 mg Multivitamins (Hexavitamin) 1 tab PO DAILY [facility] Last Admin: 02/09/17 09:28 Dose: 1 tab Thiamine HCl (Vitamin B1 Tab) 100 mg PO DAILY [facility] Last Admin: 02/09/17 09:28 Dose: 100 mg Trazodone HCl (Desyrel) 50 mg PO HS PRN PRN Reason: Insomnia Physical Exam - Constitutional Appears: No Acute Distress - Head Exam Head Exam: ATRAUMATIC, NORMAL INSPECTION - Eye Exam Eye Exam: EOMI, Normal appearance - ENT Exam ENT Exam: Mucous Membranes Moist - Respiratory Exam Respiratory Exam: Clear to Auscultation Bilateral, NORMAL BREATHING PATTERN. absent: Rales, Rhonchi, Wheezes, Stridor - Cardiovascular Exam Cardiovascular Exam: REGULAR RHYTHM, RRR, +S1, +S2 - GI/Abdominal Exam GI & Abdominal Exam: Normal Bowel Sounds, Soft. absent: Tenderness - Extremities Exam Extremities exam: Positive for: pedal edema (right lower leg swelling ), pedal pulses present. Negative for: calf tenderness, tenderness - Neurological Exam Neurological exam: Alert, Normal Gait, Oriented x3 - Psychiatric Exam Psychiatric exam: Normal Affect, Normal Mood - Skin Skin Exam: Dry, Intact, Normal Color, Warm Results - Vital Signs Recent Vital Signs: Last Vital Signs Temp 98.9 F 02/09/17 13:00 Pulse 86 02/09/17 13:00 Resp 18 02/09/17 13:00 BP 133/87 02/09/17 13:00 Pulse Ox 99 02/09/17 13:00 - Labs Result Diagrams: 02/09/17 14:47 02/09/17 14:47 Labs: Laboratory Results - last 24 hr 02/09/17 02/09/17 02/09/17 01:01 01:01 01:01 WBC 4.8 RBC 4.47 Hgb 11.5 L Hct 35.7 MCV 79.7 L D MCH 25.7 L MCHC 32.2 L RDW 16.4 H Plt Count 233 D MPV 7.9 Neut % (Auto) 47.6 L Lymph % (Auto) 35.5 [place] % (Auto) 11.4 H Eos % (Auto) 4.6 H Baso % (Auto) 0.9 Neut # 2.3 Lymph # 1.7 [place] # 0.6 Eos # 0.2 Baso # 0.0 Sodium 138 Potassium 3.9 Chloride 104 Carbon Dioxide 22 Anion Gap 16 BUN 18 Creatinine 0.9 Est GFR ( Amer) > 60 Est GFR (Non-Af Amer) > 60 Random Glucose 91 Calcium 7.8 L Total Bilirubin 0.6 AST 99 H D ALT 149 H D Alkaline Phosphatase 74 Total Protein 6.8 Albumin 3.9 Globulin 2.9 Albumin/Globulin Ratio 1.4 Urine Color Yellow Urine Clarity Clear Urine pH 5.0 Ur Specific [place] 1.018 Urine Protein Negative Urine Glucose (UA) Normal Urine Ketones Negative Urine Blood Negative Urine Nitrate Negative Urine Bilirubin Negative Urine Urobilinogen Normal Ur Leukocyte Esterase Neg Urine WBC (Auto) < 1 Urine Opiates Screen Urine Methadone Screen Ur Barbiturates Screen Ur Phencyclidine Scrn Ur Amphetamines Screen U Benzodiazepines Scrn U Oth Cocaine Metabols U Cannabinoids Screen Alcohol, Quantitative 64 H 02/09/17 01:01 WBC RBC Hgb Hct MCV MCH MCHC RDW Plt Count MPV Neut % (Auto) Lymph % (Auto) [place] % (Auto) Eos % (Auto) Baso % (Auto) Neut # Lymph # [place] # Eos # Baso # Sodium Potassium Chloride Carbon Dioxide Anion Gap BUN Creatinine Est GFR ( Amer) Est GFR (Non-Af Amer) Random Glucose Calcium Total Bilirubin AST ALT Alkaline Phosphatase Total Protein Albumin Globulin Albumin/Globulin Ratio Urine Color Urine Clarity Urine pH Ur Specific [place] Urine Protein Urine Glucose (UA) Urine Ketones Urine Blood Urine Nitrate Urine Bilirubin Urine Urobilinogen Ur Leukocyte Esterase Urine WBC (Auto) Urine Opiates Screen Negative Urine Methadone Screen Negative Ur Barbiturates Screen Negative Ur Phencyclidine Scrn Negative Ur Amphetamines Screen Negative U Benzodiazepines Scrn Negative U Oth Cocaine Metabols Negative U Cannabinoids Screen Negative Alcohol, Quantitative Assessment & Plan - Assessment and Plan (Free Text) Assessment: 1.) History of DVT, Right Lower Extremity b/l lower extremity venous doppler 01/14/17: acute deep thrombosis of right peroneal vein Started Apixaban 5mg po bid Patient was again instructed to establish care with the [facility] for management of his DVT and overall health. 2.) EtoH Abuse, Bipolar, Depression Alcohol, Quant 64H Ativan 2mg po q6h ryland for ETOH withdrawal LFTs elevated secondary to EtoH abuse vs. ativan use RUQ US 01/13/17 Relatively prominent diffuse fatty infiltration liver suggested though other etiologies are possible. No sonographic evidence of biliary tree dilatation. Remainder of the examination appears unremarkable. Echo for possible alcoholic cardiomyopathy 01/13/17 showed normal findings Management/Treatment as per Psychiatry Case discussed with Dr. Georgia Razo PGY-1
[2017-02-09 14:57] LABS: BASO # 0.1 K/uL (0.0-0.2); EOS # 0.2 K/uL (0.0-0.7); EOS % 3.9 % (0.0-4.0); HEMATOCRIT 37.4 % (35.0-51.0); LYMPH # 1.8 K/uL (1.0-4.3); LYMPH % 31.1 % (20.0-40.0); MEAN CELL VOLUME 80.5 fL (80.0-94.0); MEAN CORPUSCULAR HGB CONC 32.3 g/dL (33.0-37.0); MEAN PLATELET VOLUME 8.2 fL (7.2-11.7); MONO # 0.7 K/uL (0.0-0.8); MONO % 11.3 % (0.0-10.0); NRBC % 0.1 % (0.0-2.0); RED CELL DISTRIBUTION WIDTH 16.7 % (11.5-14.5); WHITE BLOOD COUNT 5.8 K/uL (4.8-10.8)
[2017-02-09 15:58] LABS: ALB/GLOB RATIO 1.3 (1.0-2.1); ALKALINE PHOSPHATASE 79 U/L (38-126); ALT/SGPT 144 U/L (21-72); AST/SGOT 91 U/L (17-59); BILIRUBIN,TOTAL 0.7 mg/dL (0.2-1.3); BLOOD UREA NITROGEN 19 mg/dL (9-20); CALCIUM 8.1 mg/dl (8.6-10.4); CARBON DIOXIDE 27 mmol/L (22-30); CHLORIDE 98 mmol/L (98-107); GFR AFRICAN-AMERICAN > 60; GLUCOSE,RANDOM 93 mg/dL (75-110); POTASSIUM 4.3 mmol/L (3.6-5.2); SODIUM 134 mmol/L (132-148); TOTAL PROTEIN 7.1 g/dL (6.3-8.3)
--- NOTE | 2017-02-09 21:57 | PCM.PSYCH ---
Initial Psychiatric Evaluation - Initial Psychiatric Evaluation Type of Admission: Voluntary Legal Status: Capacity Chief Complaint (in patient's own words): "Alcohol" History of Present Illness and Precipitating Events: Patient is a 47 year old male, single, and living with brother presents with auditory hallucinations, depression and anxiety. He is employed at a [employer] company in [place], [place] and has 2 sons living in [place]. he is well -known to us from detox and psych admissions for depression/alcohol. He reports drinking 4-5 beers (40 oz) as he relapsed. 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 Medical: Bilateral leg edema, med consult requested, likely HTN/DVT Family psych hx: Uncle was depressed Past psych hx: Several admissions here with depression and alcoholism. No suicide attempts Current Medications: Active Medications Generic Name Dose Route Start Last Admin Trade Name Freq PRN Reason Stop Dose Admin Apixaban 5 mg 02/09/17 18:00 02/09/17 17:32 Eliquis PO 5 mg BID ELKIN Administration Clonidine HCl 0.1 mg 02/09/17 06:21 Catapres PO Q4H PRN Symptoms of alcohol withdrawl Folic Acid 1 mg 02/09/17 10:00 02/09/17 09:28 Folic Acid PO 1 mg DAILY ELKIN Administration Hydroxyzine HCl 25 mg 02/09/17 06:21 Atarax PO Q6 PRN Anxiety Lorazepam 1 mg 02/09/17 08:57 Ativan PO Q4H PRN Symptoms of alcohol withdrawl Lorazepam 2 mg 02/09/17 09:00 02/09/17 21:44 Ativan PO 02/14/17 08:59 Not Given Q6H ELKIN Taper Multivitamins 1 tab 02/09/17 10:00 02/09/17 09:28 Hexavitamin PO 1 tab DAILY ELKIN Administration Thiamine HCl 100 mg 02/09/17 10:00 02/09/17 09:28 Vitamin B1 Tab PO 100 mg DAILY ELKIN Administration Trazodone HCl 50 mg 02/09/17 06:21 Desyrel PO HS PRN Insomnia Past Psychiatric History - Past Psychiatric History Previous Treatment History: Inpatient Pertinent Medical Hx (Current Medical&Sleep Prob, Allergies): Allergies Allergy/AdvReac Type Severity Reaction Status Date / Time No Known Allergies Allergy Verified 02/09/17 00:15 No Known Home Med 02/09/17 Review of Systems - Psychiatric Psychiatric: Abnormal Sleep Pattern, Anhedonia, Anxiety. absent: Depression, Hallucinations, Homicidal Ideation, Suicidal Ideation Mental Status Examination - Personal Presentation Personal Presentation: Looks older than stated age - Affect Affect: Constricted - Motor Activity Motor Activity: Calm - Reliability in Providing Information Reliability in Providing Information: Good - Speech Speech: Organized - Mood Mood: Anxious - Formal Thought Process Formal Thought Process: No Impairment - Cognitive Functions Orientation: Person, Place, Situation, Time Sensorium: Alert Attention/Concentration: Easily distracted Estimate of Intelligence: Average Judgement: Intact, as evidence by: Insight regarding need for hospitalization Memory: Recent intact, as evidence by: Ability to recall events of the day, Remote intact, as evidenced by: Abilit to recall sig. life events - Risk Risk: Withdrawal, Diminished functioning - Strength & Assets Inventory Strength & Assets Inventory: Cooperative - Limitations Limitations: Living alone, Other DSM 5 DX - DSM 5 DSM 5 Diagnosis: Alcohol withdrawal Alcohol use d/o - severe Major depressive d/o - recurrent, mild - Recommended/Plan of Treatment Treatment Recommendations and Plan of Treatment: Ativan detox Consider Gabapentin for augmentation As needed medications Attend groups and activities Supportive therapy and psychoeducation [place] for abstinence CBT for relapse prevention Encourage MAT Refer to rehab or IOP, and self-help groups Smoking cessation with [place] Nicotine patch Med consult for bilateral leg edema 34 min Projected ELOS: 5-6 days Prognosis: good with treatment
--- NOTE | 2017-02-10 09:19 | CP.PCM.PN ---
Subjective - Date & Time of Evaluation Date of Evaluation: 02/10/17 Time of Evaluation: 07:30 - Subjective Subjective: Patient was seen and examined at bedside in the AM. Patient denies leg pain, difficulty breathing, chest pain, palpitations, nausea, vomiting, fever or dysuria. Objective - Vital Signs/Intake and Output Vital Signs (last 24 hours): Temp Pulse Resp BP Pulse Ox 97.5 F L 71 18 133/93 H 97 02/10/17 06:47 02/10/17 06:47 02/10/17 06:47 02/10/17 06:47 02/10/17 06:47 - Medications Medications: Current Medications Apixaban (Eliquis) 5 mg PO BID [facility] Last Admin: 02/09/17 17:32 Dose: 5 mg Clonidine HCl (Catapres) 0.1 mg PO Q4H PRN PRN Reason: Symptoms of alcohol withdrawl Folic Acid (Folic Acid) 1 mg PO DAILY [facility] Last Admin: 02/09/17 09:28 Dose: 1 mg Hydroxyzine HCl (Atarax) 25 mg PO Q6 PRN PRN Reason: Anxiety Lorazepam (Ativan) 1 mg PO Q4H PRN PRN Reason: Symptoms of alcohol withdrawl Lorazepam (Ativan) 2 mg PO Q6H [place] PRN Reason: Taper Stop: 02/14/17 08:59 Last Admin: 02/10/17 03:33 Dose: 2 mg Multivitamins (Hexavitamin) 1 tab PO DAILY [facility] Last Admin: 02/09/17 09:28 Dose: 1 tab Thiamine HCl (Vitamin B1 Tab) 100 mg PO DAILY [facility] Last Admin: 02/09/17 09:28 Dose: 100 mg Trazodone HCl (Desyrel) 50 mg PO HS PRN PRN Reason: Insomnia Last Admin: 02/09/17 22:53 Dose: 50 mg - Labs Labs: 02/09/17 14:47 02/09/17 14:47 - Constitutional Appears: No Acute Distress - Head Exam Head Exam: ATRAUMATIC, NORMAL INSPECTION, NORMOCEPHALIC - Eye Exam Eye Exam: EOMI, Normal appearance - ENT Exam ENT Exam: Mucous Membranes Moist - Respiratory Exam Respiratory Exam: Clear to Ausculation Bilateral, NORMAL BREATHING PATTERN - Cardiovascular Exam Cardiovascular Exam: REGULAR RHYTHM, RRR, +S1, +S2 - GI/Abdominal Exam GI & Abdominal Exam: Soft, Normal Bowel Sounds. absent: Tenderness - Extremities Exam Extremities Exam: Normal Inspection. absent: Pedal Edema, Tenderness - Neurological Exam Neurological Exam: Alert, Awake, Oriented x3 - Psychiatric Exam Psychiatric exam: Normal Affect, Normal Mood - Skin Skin Exam: Dry, Intact, Normal Color, Warm Assessment and Plan - Assessment and Plan (Free Text) Assessment: 1.) History of DVT, Right Lower Extremity b/l lower extremity venous doppler 01/14/17: acute deep thrombosis of right peroneal vein Continue Apixaban 5mg PO BID Patient was again instructed to establish care with the [facility] for management of his DVT and overall health. Patient stated he still has the Apixaban prescription from his previous admission and will follow up with the clinic. 2.) EtoH Abuse, Bipolar, Depression Alcohol, Quant 64H Ativan 2mg po q6h ryland for ETOH withdrawal LFTs elevated secondary to EtoH abuse vs. ativan use RUQ US 01/13/17 Relatively prominent diffuse fatty infiltration liver suggested though other etiologies are possible. No sonographic evidence of biliary tree dilatation. Remainder of the examination appears unremarkable. Echo for possible alcoholic cardiomyopathy 01/13/17 showed normal findings Management/Treatment as per Psychiatry Thank you for this consult. Please reconsult if needed. Case discussed with Dr. Georgia Razo PGY-1
[2017-02-10] MEDS: Multiple Vitamins Tab PO SCH (09:39)
--- NOTE | 2017-02-10 13:17 | PCM.PYCHPN ---
Psychiatric Progress Note - Psychiatric Progress Note Patient seen today, length of contact: 16 min Patient Chief Complaint: "A little better today" Problems Identified/Issues Discussed: The pt is seen, chart reviewed, case discussed with staff. Support given, CBT and CO used briefly No new symptoms reported, improving slowly and needs more time No SEs from medications, risks discussed. After care discussed he agreed to consider [facility] instead of going to [facility] (and taking a relapse risk by being outside) Medication Change: Yes (detox changes daily) Medical Record Reviewed: Yes Mental Status Examination - Cognitive Function Orientation: Person, Place, Situation, Time Memory: Intact Attention: WNL Concentration: Poor Association: WNL Fund of Knowledge: WNL - Mood Mood: Anxious - Affect Affect: Constricted - Speech Speech: Appropriate - Formal Thought Process Formal Thought Process: No Impairment - Suicidal Ideation Suicidal Ideation: No - Homicidal Ideation Homicidal Ideation: No Goal/Treatment Plan - Goal/Treatment Plan Need for Continued Stay: Discharge may exacerbated symptoms, Severe functional impairment Progress Toward Problem(s) and Goals/Treatment Plan: Ativan detox Consider Gabapentin for augmentation As needed medications Attend groups and activities Supportive therapy and psychoeducation [place] for abstinence CBT for relapse prevention Encourage MAT Refer to rehab or IOP, and self-help groups Smoking cessation with [place] Nicotine patch Med consult for bilateral leg edema / DVT done - help appreciated. Estimated Date of D/C: 02/14/17
[2017-02-10 21:02] VITALS: TEMP 97.8
[2017-02-11] MEDS: Multiple Vitamins Tab PO SCH (09:27)
[2017-02-11 10:56] VITALS: BP 145/89; PULSE 74; O2SAT 98
--- NOTE | 2017-02-11 11:18 | PCM.PYCHDC ---
Mental Status Examination - Mental Status Examination Orientation: Person Discharge Summary - Discharge Note Consultations:: List each consultation separately and include: 1. Reason for request. 2. Findings. 3. Follow-up Summary of Hospital Course include:: 1. Description of specific treatment plan utilized for patients during their course of treatmen. 2. Summarize the time- course for resolution of acute symptoms and/or regressed behaviors. 3. Describe issues identified and worked on during hospitalization. 4. Describe medication utilized. 5. Describe medical problems identified and treated. 6. Reassessment of suicide risk Summary of Hospital Course: Patient is a 47 year old male, single, and living with brother presents with auditory hallucinations, depression and anxiety. He is employed at a [employer] in [place], [place] and has 2 sons living in [place]. he is well -known to us from detox and psych admissions for depression/alcohol. He reports drinking 4-5 beers (40 oz) as he relapsed. 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 Medical: Bilateral leg edema, med consult requested, likely HTN/DVT Family psych hx: Uncle was depressed Past psych hx: Several admissions here with depression and alcoholism. No suicide attempts - Diagnosis (1) Alcohol use disorder, severe, dependence Current Visit: No Status: Acute - Final Diagnosis (DSM 5) Condition upon Discharge: STABLE Disposition: AGAINST MEDICAL ADVICE Follow-up Treatment Plan: Ativan detox Consider Gabapentin for augmentation As needed medications Attend groups and activities Supportive therapy and psychoeducation [place] for abstinence CBT for relapse prevention Encourage MAT Refer to rehab or IOP, and self-help groups Smoking cessation with [place] Nicotine patch Med consult for bilateral leg edema / DVT done - help appreciated.
[2017-02-12] MEDS ORDERED: Influenza Vaccine 60 mcg/0.5 mL SYR (4YR UP) IM ONE (10:15)
== END 2017-02-11 11:13 | disposition left against medical advice (07) | DRG 749 ==
LOC: C.ER 00:09 → C.7D 04:20
PROVIDERS: ADMIT Psychiatry & Neurology Psychiatry; ATTEND Psychiatry & Neurology Psychiatry
PROC: HZ2ZZZZ Detoxification Services for Substance Abuse Treatment (ICD-10-PCS; principal; 2017-02-09)
DX: F10.230 Alcohol dependence with withdrawal, uncomplicated (principal); I10 Essential (primary) hypertension; F31.9 Bipolar disorder, unspecified; F41.9 Anxiety disorder, unspecified; F10.220 Alcohol dependence with intoxication, uncomplicated; Z86.718 Personal history of other venous thrombosis and embolism; Y90.3 Blood alcohol level of 60-79 mg/100 ml

== ENCOUNTER 2017-02-21 20:33 | Emergency (ER) | payer MEDICAID ==
[2017-02-21 20:37] VITALS: BP 134/80; TEMP 97.3
--- NOTE | 2017-02-21 21:40 | C.PDOC ---
History Of Present Illness 47 year old male presents to the ER with a complaint of chronic right leg pain. Patient has a Hx of DVT and currently taking blood thinners, last dose was today. Denies chest pain, SOB, recent trauma, or use of pain medications. Chief Complaint (Nursing): Lower Extremity Problem/Injury History Per: Patient History/Exam Limitations: no limitations Onset/Duration Of Symptoms: Hrs Current Symptoms Are (Timing): Still Present Recent travel outside of the [place]: No Past Medical History Reviewed: Historical Data, Nursing Documentation, Vital Signs Vital Signs: Last Vital Signs Temp 97.3 F L 02/21/17 20:34 Pulse 65 02/21/17 22:01 Resp 17 02/21/17 22:01 BP 134/80 02/21/17 20:34 Pulse Ox 98 02/22/17 00:55 - Medical History PMH: Anxiety, Bipolar Disorder, Depression, Deep Vein Thrombosis, HTN (unsure of med taken), Schizophrenia - [facility] DETOXIFICATION SERVICES FOR SUBSTANCE ABUSE TREATMENT (02/09/17) GROUP FOUNTAIN PEN TURNER FOR SUBSTANCE ABUSE TREATMENT, CONTINUING CARE (02/03/15) GROUP FOUNTAIN PEN TURNER FOR SUBSTANCE ABUSE TREATMENT, PSYCHOEDUCATION (04/03/16) GROUP PSYCHOTHERAPY (04/03/16) INDIVIDUAL PSYCHOTHERAPY, SUPPORTIVE (01/13/17) MEDICATION MANAGEMENT (04/03/16) Family History: States: Unknown Family Hx - Social History Hx Tobacco Use: No Hx Alcohol Use: Yes Hx Substance Use: Yes - Immunization History Hx Tetanus Toxoid Vaccination: No Hx Influenza Vaccination: No Hx Pneumococcal Vaccination: No Review Of Systems Constitutional: Negative for: Fever, Chills Cardiovascular: Negative for: Chest Pain Respiratory: Negative for: Shortness of Breath Musculoskeletal: Positive for: Leg Pain (Chronic) Physical Exam - Physical Exam Appears: Non-toxic, No Acute Distress Skin: Normal Color, Warm, Dry Head: Atraumatic, Normacephalic Eye(s): bilateral: Normal Inspection Oral Mucosa: Moist Neck: Normal, Supple Chest: Symmetrical, No Tenderness Cardiovascular: Rhythm Regular Respiratory: Normal Breath Sounds, No Rales, No Rhonchi, No Wheezing Gastrointestinal/Abdominal: Soft, No Tenderness Neurological/Psych: Oriented x3, Normal Speech, Other (No focal deficits) ED Course And Treatment O2 Sat by Pulse Oximetry: 98 (Room air) Pulse Ox Interpretation: Normal Progress Note: Motrin administered. Disposition - Disposition Referrals: [facility] [Outside] [facility] [Outside] Disposition: HOME/ ROUTINE Disposition Time: 21:15 Condition: GOOD Additional Instructions: Thank you for letting us take care of you today. The emergency medical care you received today was directed at your acute symptoms. If you were prescribed any medication, please fill it and take as directed. It may take several days for your symptoms to resolve. Return to the Emergency Department if your symptoms worsen, do not improve, or if you have any other problems. Please contact your doctor or call one of the physicians/clinics you have been referred to that are listed on the Patient Visit Information form that is included in your discharge packet. Bring any paperwork you were given at discharge with you along with any medications you are taking to your follow up visit. Our treatment cannot replace ongoing medical care by a primary care provider (PCP) outside of the emergency department. Thank you for allowing the [facility] team to be part of your care today. Continue taking the blood thinner as prescribed. Do not miss a dose. Follow up with the clinic in 2-3 days for re-evaluation and further management. Prescriptions: Ibuprofen [Motrin] 600 mg PO Q6 PRN #20 tab PRN Reason: Pain, Moderate (4-7) Instructions: Deep Venous Thrombosis (ED), Leg Pain (ED) Forms: [facility] (Gambian) - Clinical Impression Clinical Impression: Chronic leg pain - Scribe Statement The provider has reviewed the documentation as recorded by the Scribe Ray Vázquez All medical record entries made by the Scribe were at my direction and personally dictated by me. I have reviewed the chart and agree that the record accurately reflects my personal performance of the history, physical exam, medical decision making, and the department course for this patient. I have also personally directed, reviewed, and agree with the discharge instructions and disposition.
[2017-02-21 22:02] VITALS: PULSE 65; RESP 17
[2017-02-22 00:56] VITALS: O2SAT 98
== END 2017-02-21 22:01 | disposition home or self-care (01) ==
LOC: C.ER 20:33
DX: G89.29 Other chronic pain (principal); M79.604 Pain in right leg; I10 Essential (primary) hypertension; Z86.718 Personal history of other venous thrombosis and embolism

== ENCOUNTER 2017-02-26 18:32 | Inpatient (IN) | payer MEDICAID ==
--- NOTE | 2017-02-26 20:04 | C.PDOC ---
History Of Present Illness The patient presents to the ED for psychiatric evaluation concerning depression and suicidal ideation. Patient has been evaluated at several different hospitals for same complaints. He denies homicidal ideation and has no physical complaints at this time. Time Seen by Provider: 02/26/17 20:03 Chief Complaint (Nursing): Psychiatric Evaluation History Per: Patient History/Exam Limitations: no limitations Onset/Duration Of Symptoms: Days Current Symptoms Are (Timing): Still Present Suicide/Self Injury Attempted (Context): None Modifying Factor(s): None Severity: None Pain Scale Rating Of: 0 Associated Symptoms: Depression, Suicidal Thoughts Involuntary Hold By: None Recent travel outside of the [place]: No Additional History Per: Patient Past Medical History Reviewed: Historical Data, Nursing Documentation, Vital Signs Vital Signs: Last Vital Signs Temp 97.8 F 02/26/17 18:54 Pulse 77 02/26/17 18:54 Resp 20 02/26/17 18:54 BP 137/86 02/26/17 18:54 Pulse Ox 98 02/26/17 21:05 - Medical History PMH: Anxiety, Bipolar Disorder, Depression, Deep Vein Thrombosis, HTN (unsure of med taken), Peripheral Edema (BLE), Schizophrenia Denies: Diabetes, Hepatitis, HIV, Chronic Kidney Disease, Seizures, Sexually Transmitted Disease Surgical History: No Surg Hx - [facility] Procedures DETOXIFICATION SERVICES FOR SUBSTANCE ABUSE TREATMENT (02/09/17) GROUP POWER PLANT SUPERVISOR FOR SUBSTANCE ABUSE TREATMENT, CONTINUING CARE (02/03/15) GROUP POWER PLANT SUPERVISOR FOR SUBSTANCE ABUSE TREATMENT, PSYCHOEDUCATION (04/03/16) GROUP PSYCHOTHERAPY (04/03/16) INDIVIDUAL PSYCHOTHERAPY, SUPPORTIVE (01/13/17) MEDICATION MANAGEMENT (04/03/16) Family History: States: Unknown Family Hx - Social History Hx Tobacco Use: No Hx Alcohol Use: Yes Hx Substance Use: No - Immunization History Hx Tetanus Toxoid Vaccination: No Hx Influenza Vaccination: No Hx Pneumococcal Vaccination: No Review Of Systems Constitutional: Negative for: Fever, Chills Cardiovascular: Negative for: Chest Pain, Palpitations Respiratory: Negative for: Cough, Shortness of Breath Gastrointestinal: Negative for: Abdominal Pain Skin: Negative for: Rash, Lesions, Jaundice, Bruising Neurological: Negative for: Weakness Psych: Positive for: Depression, Suicidal ideation. Negative for: Other ( homicidal ideation ) Physical Exam - Physical Exam Appears: Non-toxic, No Acute Distress Skin: Warm, Dry Head: Normacephalic Eye(s): bilateral: Normal Inspection Oral Mucosa: Moist Neck: Supple Chest: Symmetrical, No Deformity, No Tenderness Cardiovascular: Rhythm Regular, No Murmur Respiratory: No Rales, No Rhonchi, No Wheezing Gastrointestinal/Abdominal: Soft, No Tenderness Back: No CVA Tenderness Extremity: Normal ROM, Pedal Edema (trace), Capillary Refill (less than 2 seconds ), Other (chronic skin change ) Extremity: Bilateral: Atraumatic Pulses: Left Dorsalis Pedis: Normal, Right Dorsalis Pedis: Normal Neurological/Psych: Oriented x3, Normal Speech, Normal Cognition Gait: Steady ED Course And Treatment - Laboratory Results Result Diagrams: 02/26/17 19:58 02/26/17 19:58 O2 Sat by Pulse Oximetry: 98 (on RA) Pulse Ox Interpretation: Normal Progress Note: Bloodwork and UA ordered and reviewed. Disposition Discussed With : Hayde Astudillo Comment: accepted the pt on his service and took over the care at 12AM Doctor Will See Patient In The: Hospital Counseled Patient/Family Regarding: Studies Performed, Diagnosis - Disposition Disposition: HOSPITALIZED Disposition Time: 20:03 Condition: FAIR Forms: [facility] (Pashto) - POA Present On Arrival: None - Clinical Impression Clinical Impression: Depression - Scribe Statement The provider has reviewed the documentation as recorded by the Scribe (Azul Carlisle) Provider Attestation: All medical record entries made by the Scribe were at my direction and personally dictated by me. I have reviewed the chart and agree that the record accurately reflects my personal performance of the history, physical exam, medical decision making, and the department course for this patient. I have also personally directed, reviewed, and agree with the discharge instructions and disposition. Decision To Admit - Pt Status Changed To: Hospital Disposition Of: Inpatient - Admit Certification Admit to Inpatient:: After my assessment, the patient will require hospitalization for at least two midnights. This is because of the severity of symptoms shown, intensity of services needed, and/or the medical risk in this patient being treated as an outpatient. - InPatient: Physician Admission Certification: I certify that this patient requires 2 or more midnights of care for the following reason:: After my assessment, the patient will require hospitalization for at least two midnights. This is because of the severity of symptoms shown, intensity of services needed, and/or the medical risk in this patient being treated as an outpatient. - . Bed Request Type: Psychiatry Admitting Physician: Hayde Astudillo Patient Diagnosis: Depression
[2017-02-26 20:05] LABS: BASO # 0.1 K/uL (0.0-0.2); BASO % 0.7 % (0.0-2.0); EOS # 0.2 K/uL (0.0-0.7); EOS % 2.4 % (0.0-4.0); HEMATOCRIT 36.9 % (35.0-51.0); LYMPH # 2.6 K/uL (1.0-4.3); LYMPH % 34.7 % (20.0-40.0); MEAN CELL VOLUME 78.9 fL (80.0-94.0); MEAN CORPUSCULAR HEMOGLOBIN 25.2 pg (27.0-31.0); MEAN CORPUSCULAR HGB CONC 31.9 g/dL (33.0-37.0); MEAN PLATELET VOLUME 7.9 fL (7.2-11.7); MONO # 0.6 K/uL (0.0-0.8); MONO % 8.4 % (0.0-10.0); RED CELL DISTRIBUTION WIDTH 17.2 % (11.5-14.5); WHITE BLOOD COUNT 7.4 K/uL (4.8-10.8)
[2017-02-26 20:07] LABS: URINE BILIRUBIN NEGATIVE (NEGATIVE); URINE BLOOD NEGATIVE (NEGATIVE); URINE COLOR Colorless (YELLOW); URINE GLUCOSE (UA) NORMAL (Normal); URINE KETONE NEGATIVE (NEGATIVE); URINE LEUKOCYTE ESTERASE NEG Leu/uL (Negative); URINE PROTEIN NEGATIVE (NEGATIVE); URINE UROBILINOGEN NORMAL mg/dL (0.2-1.0); WBC URINE < 1 /hpf (0-5)
[2017-02-26 20:36] LABS: ALB/GLOB RATIO 1.3 (1.0-2.1); ALCOHOL SERUM 230 mg/dl (0-10); ALKALINE PHOSPHATASE 82 U/L (38-126); ALT/SGPT 115 U/L (21-72); AST/SGOT 82 U/L (17-59); BILIRUBIN,TOTAL 0.4 mg/dL (0.2-1.3); BLOOD UREA NITROGEN 14 mg/dL (9-20); CARBON DIOXIDE 27 mmol/L (22-30); CHLORIDE 101 mmol/L (98-107); GFR AFRICAN-AMERICAN > 60; GLUCOSE,RANDOM 88 mg/dL (75-110); POTASSIUM 4.1 mmol/L (3.6-5.2); SODIUM 139 mmol/L (132-148); TOTAL PROTEIN 7.3 g/dL (6.3-8.3)
--- NOTE | 2017-02-27 01:17 | PCM.BM ---
<Chandan Turner - Last Filed: 02/27/17 01:15> Treatment Plan Problems - Problems identified on initial assessmt Depression Date Initiated: 02/27/17 Time Initiated: 01:16 Assessment reference: NA Status: Active Treatment assets and liabiliti Patient Assests: cooperative, self-reliant, ADL independent, cognitively intact Patient Liabilities: live alone, financial problems, poor support system, substance abuse - Milieu Protocol Maintain good personal hygiene: daily Encourage regular showers, daily Remind patient to perform daily oral care, daily Assist patient to perform ADL's Maintain personal safety: every shift Educate patient to report safety concerns to staff, every shift Monitor environment for contraband/sharps Medication safety: Monitor for expected outcome, potential side effects: every shift, Assess barriers to learning: every shift, Assess readiness for medication education: every shift <Isidro Marshall - Last Filed: 02/27/17 10:22> - Diagnosis (1) Bipolar 1 disorder Status: Acute Interventions: 02/27/17 10:22 * Assess/adjust medications daily and /or as needed * See patient on an individual basis 7x/week to assess level of manic behaviors and stability * Discuss risks, benefits, side effects and alternatives of medications * (2) Alcohol abuse Status: Acute Interventions: 02/27/17 10:22 * Assess 7x/week regarding severity of withdrawal * Educate regarding risks, benefits, side effects and alternatives of medications * Use Motivational Interviewing for abstinence * Use CBT for relapse prevention * Medication management for withdrawal symptoms * Encourage medication assisted treatment * <Tata Georges - Last Filed: 02/27/17 11:18> Family Contact Family involvement: Famliy/SO not involved - Goals for Treatment Patient goals for treatment: "I want to go to rehab." Discharge/Continuing Care - Education Needs Education Needs: Patient Medication, Patient Coping Skills, Patient Placement options, Patient Community resources - Discharge Discharge Criteria: Tolerates medication w/o severe side effects, No longer exhibiting s/s of withdrawal, Reduction of target symptoms Discharge to:: Substance Abuse Rehab - Treatment Team Participation Discussed with Family/SO: No Was Patient/Family/SO present at Treatment Team Meeting: Yes
[2017-02-27] MEDS: Multiple Vitamins Tab PO SCH (09:06)
--- NOTE | 2017-02-27 10:22 | PCM.PSYCH ---
Initial Psychiatric Evaluation - Initial Psychiatric Evaluation Type of Admission: Voluntary Legal Status: Capacity Chief Complaint (in patient's own words): "I feel depressed about a lot of the stuff in my life" History of Present Illness and Precipitating Events: The pt is seen, chart reviewed, case discussed with staff Pt is a 47 y/o single male with a history Schizophrenia, Bipolar Disorder, Anxiety and substance abuse presents to the ED with complaints of depression and suicidal ideations. Pt reports that he lives withhis brother in an apartment in [place]. Pt reports that he is unemployed with 2 adult children in "their 20's." Pt states that he feels depressed about "a lot of stuff in my life, I have no job, I have pain in my leg." Pt reports feelings of depression as well as hopelessness and suicidal ideations for the past 2 weeks.Pt denies any suicide attempts during that time period. Pt appears disorganized and disheveled. Pt denies auditory and visual hallucinations currently but has a history of auditory hallucinations. Pt denies homicidal ideation currently. Pt denies feeling anxiety and paranoia at the moment. Pt stated that he did not sleep well. Pt reports that his appetite is normal. Pt reported drinking 8 40oz bottles of malt liquor a day during the 2 week period. Pt also reported smoking "3 blunts" of marijuana a day during the 2 week period. Pt denies any other illicit drug use during the 2 week period. Pt has a flat affect and soft speech pattern. As per ED, The patient presents to the ED for psychiatric evaluation concerning depression and suicidal ideation. Patient has been evaluated at several different hospitals for same complaints. He denies homicidal ideation and has no physical complaints at this time. Past MHX: Anxiety, Bipolar Disorder, Depression, Deep Vein Thrombosis, HTN, Schizophrenia Family Psych: Uncle-Depression Family Substance Abuse: denies The pt is compliant with medications and reports no side-effects. Symptoms are improving but needs more time to stabilize. After care discussed, support and psychoeducation given. Current Medications: Active Medications Generic Name Dose Route Start Last Admin Trade Name Freq PRN Reason Stop Dose Admin Clonidine HCl 0.1 mg 02/27/17 00:18 Catapres PO Q8H PRN Symptoms of alcohol withdrawl Folic Acid 1 mg 02/27/17 10:00 02/27/17 09:06 Folic Acid PO 1 mg DAILY ELKIN Administration Lorazepam 2 mg 02/27/17 00:40 02/27/17 06:33 Ativan PO 03/04/17 00:39 2 mg Q6 ELKIN Administration Taper Multivitamins 1 tab 02/27/17 10:00 02/27/17 09:06 Hexavitamin PO 1 tab DAILY ELKIN Administration Thiamine HCl 100 mg 02/27/17 10:00 02/27/17 09:06 Vitamin B1 Tab PO 100 mg DAILY ELKIN Administration Trazodone HCl 50 mg 02/27/17 00:13 02/27/17 01:09 Desyrel PO 50 mg HS PRN Administration Insomnia Past Psychiatric History - Past Psychiatric History Previous Treatment History: Inpatient Pertinent Medical Hx (Current Medical&Sleep Prob, Allergies): Allergies Allergy/AdvReac Type Severity Reaction Status Date / Time No Known Allergies Allergy Verified 02/26/17 18:57 No Known Home Med 02/26/17 Review of Systems - Review of Systems All systems: reviewed and no additional remarkable complaints except - Neurological Neurological: Weakness - Psychiatric Psychiatric: Anxiety, Auditory Hallucinations, Hopelessness, Irritability, Suicidal Ideation Mental Status Examination - Personal Presentation Personal Presentation: Looks stated age - Affect Affect: Constricted, Depressed - Motor Activity Motor Activity: Calm - Reliability in Providing Information Reliability in Providing Information: Fair - Speech Speech: Organized - Mood Mood: Depressed, Anxious - Formal Thought Process Formal Thought Process: Hallucinations, Delusions, Paranoia - Hallucinations/Delusions Hallucinations: Auditory Delusions: Persecution - Obsessions/Compulsions Obsessions: No Compulsions: No - Cognitive Functions Orientation: Person, Place, Situation, Time Sensorium: Alert Attention/Concentration: Attentive Abstract Thinking: Velpen Estimate of Intelligence: Below average Judgement: Imparied, as evidence by: Poor judgement, Imparied, as evidence by: Lack of insight into illness - Risk Risk: Suicidal, Withdrawal, Diminished functioning - Limitations Limitations: Living alone DSM 5 DX - DSM 5 DSM 5 Diagnosis: Major depressive disorder recurrent severe with psychotic features Alcohol use disorder severe Alcohol withdrawal uncomplicated - Recommended/Plan of Treatment Treatment Recommendations and Plan of Treatment: Major depressive disorder recurrent severe with psychotic features CBT Psychoeducation Supportive therapy, group therapy, individual therapy Risperdal 1 mg PO QHS Zoloft 25 mg daily Trazodone 50 mg by mouth daily at bedtime Alcohol use disorder severe CBT Psychoeducation Supportive therapy, individual therapy Use [place] for abstinence Alcohol withdrawal uncomplicated CBT Psychoeducation Supportive therapy, individual therapy Ativan when necessary Start Ativan taper Start folic acid/thiamine/multivitamin - Smoking Cessation Smoking Cessation Initiated: No
--- NOTE | 2017-02-28 09:28 | PCM.PYCHPN ---
Psychiatric Progress Note - Psychiatric Progress Note Patient seen today, length of contact: 15 min Patient Chief Complaint: "I feel depressed about a lot of the stuff in my life" Problems Identified/Issues Discussed: Patient seen and evaluated, chart reviewed and discussed with the nurse. Patient remained isolated, confined and withdrawn. He still appears somewhat paranoid and delusional. He remained superficially cooperative and guarded about the details. He still reports withdrawal symptoms including nausea, headaches, and sweating. He reports depressed mood and feelings of hopelessness and helplessness. Patient remained isolated, confined and withdrawn. He is taking medication and denies any side effects. Supportive therapy and psychoeducation were given. Medication Change: Yes (Ativan taper) Medical Record Reviewed: Yes Mental Status Examination - Cognitive Function Orientation: Person, Place, Situation, Time Memory: Intact Attention: WNL Concentration: Poor Association: WNL Fund of Knowledge: Poor - Mood Mood: Depressed, Anxious - Affect Affect: Constricted, Depressed - Speech Speech: Soft - Formal Thought Process Formal Thought Process: Delusions, Paranoia - Suicidal Ideation Suicidal Ideation: No - Homicidal Ideation Homicidal Ideation: No Goal/Treatment Plan - Goal/Treatment Plan Need for Continued Stay: Severe depression anxiety, Severe functional impairment Progress Toward Problem(s) and Goals/Treatment Plan: Major depressive disorder recurrent severe with psychotic features CBT Psychoeducation Supportive therapy, group therapy, individual therapy Risperdal 1 mg PO QHS Zoloft 50 mg daily Trazodone 50 mg by mouth daily at bedtime Alcohol use disorder severe CBT Psychoeducation Supportive therapy, individual therapy Use [place] for abstinence Alcohol withdrawal uncomplicated CBT Psychoeducation Supportive therapy, individual therapy Ativan when necessary Start Ativan taper Start folic acid/thiamine/multivitamin - Smoking Cessation Smoking Cessation Initiated: No
[2017-02-28] MEDS: Multiple Vitamins Tab PO SCH (09:38)
[2017-03-01] MEDS: Multiple Vitamins Tab PO SCH (09:20)
--- NOTE | 2017-03-01 22:18 | PCM.PYCHPN ---
Psychiatric Progress Note - Psychiatric Progress Note Patient seen today, length of contact: 15 minutes Patient Chief Complaint: I am feeling much better and I wants to go to [facility]. Problems Identified/Issues Discussed: Patient seen, chart reviewed, case discussed with the staff. Issues related to illness and treatment were discussed with the patient and staff. Reported compliant with treatment with no adverse effects. Feeling much better. Aftercare discussed with the patient. Patient was awake, alert and oriented 3. Denied any delusions, auditory or visual hallucinations, suicidal ideations or homicidal ideations at the time of evaluation.. Diagnostic Results: Reviewed DSM 5 Symptoms Update: Improving with treatment Medication Change: No Medical Record Reviewed: Yes Mental Status Examination - Cognitive Function Orientation: Person, Place, Situation, Time Memory: Intact Attention: WNL Concentration: WNL Association: WNL Fund of Knowledge: [facility] Decription of patient's judgement and insights: Fair - Mood Mood: Neutral - Affect Affect: Other (Appropriate) - Speech Speech: Appropriate - Formal Thought Process Formal Thought Process: No Impairment Psychotic Thoughts and Behaviors: None - Suicidal Ideation Suicidal Ideation: No - Homicidal Ideation Homicidal Ideation: No Goal/Treatment Plan - Goal/Treatment Plan Need for Continued Stay: Remain at risks for inpatient hospitalization, Discharge may exacerbated symptoms, Severe functional impairment Progress Toward Problem(s) and Goals/Treatment Plan: Patient education Supportive therapy Continue treatment as before Patient wants to go to [facility] after discharge from the hospital. Estimated Date of D/C: 03/02/17 - Smoking Cessation Smoking Cessation Initiated: No
[2017-03-02] MEDS: Multiple Vitamins Tab PO SCH (09:33)
--- NOTE | 2017-03-02 11:13 | PCM.PYCHPN ---
Psychiatric Progress Note - Psychiatric Progress Note Patient seen today, length of contact: 15 minutes Patient Chief Complaint: "I feel depressed about a lot of the stuff in my life" Problems Identified/Issues Discussed: Patient seen and evaluated, chart reviewed and discussed with the nurse. Patient remained isolated, confined and withdrawn. He still appears somewhat paranoid and delusional. He remained superficially cooperative and guarded about the details. He still reports withdrawal symptoms including nausea, headaches, and sweating. He reports depressed mood and feelings of hopelessness and helplessness. Patient remained isolated, confined and withdrawn. He is taking medication and denies any side effects. Supportive therapy and psychoeducation were given. Medication Change: No Medical Record Reviewed: Yes Mental Status Examination - Cognitive Function Orientation: Person, Place, Situation, Time Memory: Intact Attention: WNL Concentration: WNL Association: WN Fund of Knowledge: WN - Mood Mood: Neutral - Affect Affect: Other (Appropriate) - Speech Speech: Appropriate - Formal Thought Process Formal Thought Process: No Impairment - Suicidal Ideation Suicidal Ideation: No - Homicidal Ideation Homicidal Ideation: No Goal/Treatment Plan - Goal/Treatment Plan Need for Continued Stay: Remain at risks for inpatient hospitalization, Discharge may exacerbated symptoms, Severe functional impairment Progress Toward Problem(s) and Goals/Treatment Plan: Major depressive disorder recurrent severe with psychotic features CBT Psychoeducation Supportive therapy, group therapy, individual therapy Risperdal 1 mg PO QHS Zoloft 50 mg daily Trazodone 50 mg by mouth daily at bedtime Alcohol use disorder severe CBT Psychoeducation Supportive therapy, individual therapy Use [place] for abstinence Alcohol withdrawal uncomplicated CBT Psychoeducation Supportive therapy, individual therapy Ativan when necessary Start Ativan taper Start folic acid/thiamine/multivitamin Estimated Date of D/C: 03/02/17
[2017-03-03 07:40] VITALS: RESP 20; O2SAT 98
[2017-03-03] MEDS: Multiple Vitamins Tab PO SCH (09:30)
[2017-03-04] MEDS: Multiple Vitamins Tab PO SCH (09:36)
[2017-03-05 07:44] VITALS: BP 124/79; PULSE 74; TEMP 98.6
[2017-03-05] MEDS: Multiple Vitamins Tab PO SCH (09:55)
--- NOTE | 2017-03-05 11:03 | PCM.PYCHDC ---
Mental Status Examination - Mental Status Examination Orientation: Person, Place, Situation, Time Memory: Intact Mood: Neutral Affect: Constricted Speech: Soft Attention: WNL Concentration: WNL Association: WNL Fund of Knowledge: WNL Formal Thought Process: No Impairment Description of patient's judgement and insight: Good, fair Psychotic Thoughts and Behaviors: Denies any AVH Suicidal Ideation: No Current Homicidal Ideation?: No Discharge Summary - Discharge Note Reason for Hospitalization: The pt is seen, chart reviewed, case discussed with staff Pt is a 47 y/o single male with a history Schizophrenia, Bipolar Disorder, Anxiety and substance abuse presents to the ED with complaints of depression and suicidal ideations. Pt reports that he lives withhis brother in an apartment in [place]. Pt reports that he is unemployed with 2 adult children in "their 20's." Pt states that he feels depressed about "a lot of stuff in my life, I have no job, I have pain in my leg." Pt reports feelings of depression as well as hopelessness and suicidal ideations for the past 2 weeks.Pt denies any suicide attempts during that time period. Pt appears disorganized and disheveled. Pt denies auditory and visual hallucinations currently but has a history of auditory hallucinations. Pt denies homicidal ideation currently. Pt denies feeling anxiety and paranoia at the moment. Pt stated that he did not sleep well. Pt reports that his appetite is normal. Pt reported drinking 8 40oz bottles of malt liquor a day during the 2 week period. Pt also reported smoking "3 blunts" of marijuana a day during the 2 week period. Pt denies any other illicit drug use during the 2 week period. Pt has a flat affect and soft speech pattern. As per ED, The patient presents to the ED for psychiatric evaluation concerning depression and suicidal ideation. Patient has been evaluated at several different hospitals for same complaints. He denies homicidal ideation and has no physical complaints at this time. Consultations:: List each consultation separately and include: 1. Reason for request. 2. Findings. 3. Follow-up Summary of Hospital Course include:: 1. Description of specific treatment plan utilized for patients during their course of treatmen. 2. Summarize the time- course for resolution of acute symptoms and/or regressed behaviors. 3. Describe issues identified and worked on during hospitalization. 4. Describe medication utilized. 5. Describe medical problems identified and treated. 6. Reassessment of suicide risk Summary of Hospital Course: The pt is seen, chart reviewed, case discussed with staff Pt is a 47 y/o single male with a history Schizophrenia, Bipolar Disorder, Anxiety and substance abuse presents to the ED with complaints of depression and suicidal ideations. Pt reports that he lives withhis brother in an apartment in [place]. Pt reports that he is unemployed with 2 adult children in "their 20's." Pt states that he feels depressed about "a lot of stuff in my life, I have no job, I have pain in my leg." Pt reports feelings of depression as well as hopelessness and suicidal ideations for the past 2 weeks.Pt denies any suicide attempts during that time period. Pt appears disorganized and disheveled. Pt denies auditory and visual hallucinations currently but has a history of auditory hallucinations. Pt denies homicidal ideation currently. Pt denies feeling anxiety and paranoia at the moment. Pt stated that he did not sleep well. Pt reports that his appetite is normal. Pt reported drinking 8 40oz bottles of malt liquor a day during the 2 week period. Pt also reported smoking "3 blunts" of marijuana a day during the 2 week period. Pt denies any other illicit drug use during the 2 week period. Pt has a flat affect and soft speech pattern. As per ED, The patient presents to the ED for psychiatric evaluation concerning depression and suicidal ideation. Patient has been evaluated at several different hospitals for same complaints. He denies homicidal ideation and has no physical complaints at this time. Past MHX: Anxiety, Bipolar Disorder, Depression, Deep Vein Thrombosis, HTN, Schizophrenia Family Psych: Uncle-Depression Family Substance Abuse: denies The pt is compliant with medications and reports no side-effects. Symptoms are improving but needs more time to stabilize. After care discussed, support and psychoeducation given. - Diagnosis (1) Bipolar 1 disorder Current Visit: No Status: Acute (2) Alcohol abuse Current Visit: No Status: Acute - Final Diagnosis (DSM 5) Condition upon Discharge: FAIR DSM 5: Major depressive disorder recurrent severe with psychotic features Alcohol use disorder severe Alcohol withdrawal uncomplicated Disposition: HOME/ ROUTINE Follow-up Treatment Plan: Major depressive disorder recurrent severe with psychotic features CBT Psychoeducation Supportive therapy, group therapy, individual therapy Risperdal 1 mg PO QHS Zoloft 50 mg daily Trazodone 50 mg by mouth daily at bedtime Alcohol use disorder severe CBT Psychoeducation Supportive therapy, individual therapy Use IN for abstinence Alcohol withdrawal uncomplicated CBT Psychoeducation Supportive therapy, individual therapy Ativan when necessary Start Ativan taper Start folic acid/thiamine/multivitamin Prescriptions/Medication Reconciliation: risperiDONE [RisperDAL Tab] 1 mg PO HS #30 tab Sertraline [Zoloft] 100 mg PO DAILY #30 tab traZODone [Desyrel] 50 mg PO HS PRN #30 tab PRN Reason: Insomnia - Smoking Cessation Smoking Cessation Medication prescribed: No - Antipsychotic Medications Pt discharged on 2 or more routine antipsychotic medications: No
== END 2017-03-05 13:34 | disposition home or self-care (01) | DRG 430 ==
LOC: C.ER 18:32 → C.5E 02-27 00:05
PROVIDERS: ADMIT Psychiatry & Neurology Psychiatry; ATTEND Psychiatry & Neurology Psychiatry
PROC: GZ3ZZZZ Medication Management (ICD-10-PCS; principal; 2017-02-27)
PROC: HZ89ZZZ Medication Management for Substance Abuse Treatment, Other Replacement Medication (ICD-10-PCS; 2017-02-27)
PROC: HZ59ZZZ Individual Psychotherapy for Substance Abuse Treatment, Supportive (ICD-10-PCS; 2017-02-27)
PROC: GZHZZZZ Group Psychotherapy (ICD-10-PCS; 2017-02-27)
PROC: GZ56ZZZ Individual Psychotherapy, Supportive (ICD-10-PCS; 2017-02-27)
DX: F33.3 Major depressive disorder, recurrent, severe with psychotic symptoms (principal); R45.851 Suicidal ideations; F10.230 Alcohol dependence with withdrawal, uncomplicated; F20.9 Schizophrenia, unspecified; F12.90 Cannabis use, unspecified, uncomplicated; F31.9 Bipolar disorder, unspecified; F41.9 Anxiety disorder, unspecified; I10 Essential (primary) hypertension; Z81.8 Family history of other mental and behavioral disorders; Z86.718 Personal history of other venous thrombosis and embolism

== ENCOUNTER 2017-11-28 23:56 | Inpatient (IN) | payer MEDICAID ==
[2017-11-29 00:35] LABS: BASO # 0.1 K/uL (0.0-0.2); BASO % 0.9 % (0.0-2.0); EOS # 0.3 K/uL (0.0-0.7); EOS % 5.2 % (0.0-4.0); HEMOGLOBIN 10.9 g/dL (12.0-18.0); LYMPH # 2.6 K/uL (1.0-4.3); LYMPH % 42.5 % (20.0-40.0); MEAN CELL VOLUME 73.4 fL (80.0-94.0); MEAN CORPUSCULAR HGB CONC 32.7 g/dL (33.0-37.0); MEAN PLATELET VOLUME 7.8 fL (7.2-11.7); MONO # 0.4 K/uL (0.0-0.8); MONO % 6.9 % (0.0-10.0); NEUT # 2.7 K/uL (1.8-7.0); NEUT % 44.5 % (50.0-75.0); RBC 4.55 Mil/uL (4.40-5.90); RED CELL DISTRIBUTION WIDTH 18.2 % (11.5-14.5); URINE BACTERIA RARE (<OCC); URINE BILIRUBIN NEGATIVE (NEGATIVE); URINE BLOOD NEGATIVE (NEGATIVE); URINE CLARITY Clear (Clear); URINE COLOR Yellow (YELLOW); URINE GLUCOSE (UA) NORMAL (Normal); URINE LEUKOCYTE ESTERASE NEG Leu/uL (Negative); URINE PROTEIN NEGATIVE (NEGATIVE); URINE UROBILINOGEN NORMAL mg/dL (0.2-1.0); WHITE BLOOD COUNT 6.2 K/uL (4.8-10.8)
[2017-11-29 00:47] LABS: ALB/GLOB RATIO 1.2 (1.0-2.1); ALT/SGPT 118 U/L (21-72); AST/SGOT 113 U/L (17-59); BLOOD UREA NITROGEN 14 mg/dL (9-20); CALCIUM 8.3 mg/dl (8.6-10.4); GFR NON-AFRICAN AMERICAN > 60
[2017-11-29 00:49] LABS: BARBITURATES, UR NEGATIVE (NEGATIVE); BENZODIAZEPINES, UR NEGATIVE (NEGATIVE); OPIATES, UR NEGATIVE (NEGATIVE); PHENCYCLIDINE, UR NEGATIVE (NEGATIVE)
--- NOTE | 2017-11-29 01:11 | C.PDOC ---
History Of Present Illness 47 year old male presents to the emergency department complaining of hearing voices. He denies any symptomatic complaints, suicidal or homicidal ideation. Time Seen by Provider: 11/28/17 23:58 Chief Complaint (Nursing): Psychiatric Evaluation History Per: Patient History/Exam Limitations: no limitations Past Medical History Reviewed: Historical Data, Nursing Documentation, Vital Signs Vital Signs: Last Vital Signs Temp 98 F 11/29/17 03:37 Pulse 88 11/29/17 03:37 Resp 20 11/29/17 03:37 BP 152/82 H 11/29/17 03:37 Pulse Ox 97 11/29/17 03:37 - Medical History PMH: Anxiety, Bipolar Disorder, Depression, Deep Vein Thrombosis, HTN (unsure of med taken), Peripheral Edema (BLE), Schizophrenia Denies: Diabetes, Hepatitis, HIV, Chronic Kidney Disease, Seizures, Sexually Transmitted Disease - [facility] Procedures DETOXIFICATION SERVICES FOR SUBSTANCE ABUSE TREATMENT (02/09/17) GROUP DIRECTOR OF SALES AND MARKETING FOR SUBSTANCE ABUSE TREATMENT, CONTINUING CARE (02/03/15) GROUP DIRECTOR OF SALES AND MARKETING FOR SUBSTANCE ABUSE TREATMENT, PSYCHOEDUCATION (04/03/16) GROUP PSYCHOTHERAPY (02/27/17) INDIV PSYCHOTHERAPY FOR SUBSTANCE ABUSE TREATMENT, SUPPORT (02/27/17) INDIVIDUAL PSYCHOTHERAPY, SUPPORTIVE (02/27/17) MEDICATION MANAGEMENT (02/27/17) MEDS MGMT FOR SUBSTANCE ABUSE TREATMENT, OTH REPL MED (02/27/17) Family History: States: No Known Family Hx - Social History Hx Tobacco Use: No Hx Alcohol Use: Yes Hx Substance Use: Yes - Immunization History Hx Tetanus Toxoid Vaccination: No Hx Influenza Vaccination: No Hx Pneumococcal Vaccination: No Review Of Systems Except As Marked, All Systems Reviewed And Found Negative. Constitutional: Negative for: Fever Cardiovascular: Negative for: Chest Pain Physical Exam - Physical Exam Additional Physical Exam Comments: Constitutional: No acute distress. Head: Normocephalic. Atraumatic. Eyes: PERRL. ENT: Moist mucous membranes. Neck: Supple. Cardiovascular: Regular rate. Radial pulse 2+ bilaterally. Chest: No tenderness. Respiratory: Clear to auscultation bilaterally. GI: Soft. Nontender. Nondistended. Back: No CVA tenderness. Musculoskeletal: No tenderness or swelling of extremities. Skin: No rash. Neurologic: Alert, no focal deficit. ED Course And Treatment - Laboratory Results Result Diagrams: 11/29/17 00:29 11/29/17 00:29 O2 Sat by Pulse Oximetry: 98 (RA) Pulse Ox Interpretation: Normal Medical Decision Making Medical Decision Making: Impression: Psychiatric evaluation Plan: -Labs -Urinalysis Disposition - Disposition Disposition: HOSPITALIZED Disposition Time: 01:11 Condition: GUARDED - Clinical Impression Clinical Impression: Schizoaffective disorder, bipolar type, Alcohol use disorder - Scribe Statement The provider has reviewed the documentation as recorded by the Leslie Jackson Provider Attestation: All medical record entries made by the Leslie were at my direction and personally dictated by me. I have reviewed the chart and agree that the record accurately reflects my personal performance of the history, physical exam, medical decision making, and the department course for this patient. I have also personally directed, reviewed, and agree with the discharge instructions and disposition.
--- NOTE | 2017-11-29 05:28 | PCM.BM ---
<Shy Cobb - Last Filed: 11/29/17 05:26> Treatment Plan Problems - Problems identified on initial assessmt ETOH Abuse Date Initiated: 11/29/17 Time Initiated: 04:00 Assessment reference: NA Status: Active Treatment assets and liabiliti Patient Assests: cooperative, self-reliant, ADL independent, cognitively intact Patient Liabilities: substance abuse, medical problems (ETOH) - Milieu Protocol Maintain good personal hygiene: daily Encourage regular showers, daily Remind patient to perform daily oral care, every shift Assist patient to perform ADL's Maintain personal safety: every shift Educate patient to report safety concerns to staff, every shift Monitor environment for contraband/sharps Medication safety: Monitor for expected outcome, potential side effects: every shift, Assess barriers to learning: every shift, Assess readiness for medication education: every shift <Nehal Mantilla - Last Filed: 11/30/17 14:54> Family Contact Family involvement: Patient does not wish Family/SO involvement Family contact: Patient declines to allow family contact at present - Goals for Treatment Patient goals for treatment: "I want to be referred to [facility]." Discharge/Continuing Care - Education Needs Education Needs: Patient Medication, Patient Diagnosis/Disease Process, Patient Coping Skills, Patient Placement options, Patient Community resources - Discharge Discharge Criteria: Free of Suicidal thoughts, Normal sleep pattern, Ability to care for self, No longer exhibiting s/s of withdrawal, Reduction of target symptoms Discharge to:: Home - Treatment Team Participation Discussed with Family/SO: No Was Patient/Family/SO present at Treatment Team Meeting: Yes
[2017-11-29 05:59] VITALS: O2SAT 98
--- NOTE | 2017-11-29 09:49 | PCM.PSYCH ---
Initial Psychiatric Evaluation - Initial Psychiatric Evaluation Type of Admission: Voluntary Legal Status: Capacity Chief Complaint (in patient's own words): I was hearing voices to kill myself. History of Present Illness and Precipitating Events: Pt is 47 years old HM, who came to ED with depressed mood, alcohol withdrawal and suicidal ideation. Sterile Processing Manager is familiar with this patient. Pt has history of multiple inpatient psychiatric hospitalizations. He was last discharge from [facility] last year. He denies any history of follow up with any psychiatrist. As per the pt he is drinking few pints of liquor and beers daily. Yesterday he consumed significant amount of alcohol, became increasingly depressed and came to the to get help in detox. As per the ED notes, pt. reports that he is under a lot of stress because he does not have a job and his two adult sons are not in contact with him. Pt.s sons live in [place]. Pt is currently homeless as well. Patient reports of depressed mood, feelings of hopelessness and helplessness, poor sleep and poor appetite. He denies any manic symptoms. He reports auditory hallucinations telling him ti kill himself. He also reports paranoia. Patient reports withdrawal symptoms including anxiety, headaches and sweating. PMH: None reported Past Psychiatric History - Past Psychiatric History Previous Treatment History: Inpatient Pertinent Medical Hx (Current Medical&Sleep Prob, Allergies): Allergies Allergy/AdvReac Type Severity Reaction Status Date / Time No Known Allergies Allergy Verified 11/29/17 00:07 Sertraline [Zoloft] 100 mg PO DAILY #30 tab 03/05/17 risperiDONE [RisperDAL Tab] 1 mg PO HS #30 tab 03/05/17 traZODone [Desyrel] 50 mg PO HS PRN #30 tab 03/05/17 Review of Systems - Review of Systems All systems: reviewed and no additional remarkable complaints except - Psychiatric Psychiatric: Anxiety, Auditory Hallucinations, Irritability, Suicidal Ideation Mental Status Examination - Personal Presentation Personal Presentation: Looks stated age - Affect Affect: Constricted, Depressed - Motor Activity Motor Activity: Calm - Reliability in Providing Information Reliability in Providing Information: Fair - Speech Speech: Organized - Formal Thought Process Formal Thought Process: Hallucinations, Delusions - Hallucinations/Delusions Hallucinations: Auditory Delusions: Persecution - Obsessions/Compulsions Obsessions: No Compulsions: No - Cognitive Functions Orientation: Person, Place, Situation, Time Sensorium: Alert Attention/Concentration: Attentive Abstract Thinking: [place] Estimate of Intelligence: Below average Judgement: Imparied, as evidence by: Poor judgement, Imparied, as evidence by: Lack of insight into illness - Risk Risk: Suicidal, Diminished functioning - Limitations Limitations: Living alone DSM 5 DX - DSM 5 DSM 5 Diagnosis: Major depressive disorder recurrent severe with psychotic features Alcohol use disorder severe Alcohol withdrawal uncomplicated - Recommended/Plan of Treatment Treatment Recommendations and Plan of Treatment: Major depressive disorder recurrent severe with psychotic features Alcohol use disorder severe Alcohol withdrawal uncomplicated CBT Psychoeducation Supportive therapy, group therapy, individual therapy Ativan taper Zoloft 25 mg daily Trazodone 50 mg Folic acid/thiamine/multivitamin As need medications All risks, benefits and alternatives of the meds discussed, and the pt agreed and understood. Attend groups and activities Individual therapy daily Psychoeducation and support daily Encourage compliance with meds and after care Refer to outpatient program Teach healthy lifestyle methods, i.e. diet, exercise, meditation Smoking cessation and patch if needed - Smoking Cessation Smoking Cessation Initiated: No
[2017-11-29] MEDS: Multiple Vitamins Tab PO SCH (10:11)
[2017-11-30] MEDS: Multiple Vitamins Tab PO SCH (10:33)
[2017-12-01] MEDS: Multiple Vitamins Tab PO SCH (10:45)
[2017-12-02] MEDS: Multiple Vitamins Tab PO SCH (10:01)
--- NOTE | 2017-12-02 12:38 | PCM.PYCHPN ---
Psychiatric Progress Note - Psychiatric Progress Note Patient seen today, length of contact: 15 min Patient Chief Complaint: i am feeling depressed.' Medication Change: Yes Medical Record Reviewed: Yes Mental Status Examination - Cognitive Function Orientation: Person, Place, Situation, Time Memory: Intact Attention: WNL Concentration: Poor Association: WNL Fund of Knowledge: Poor - Mood Mood: Depressed, Anxious - Affect Affect: Constricted, Depressed - Speech Speech: Soft - Formal Thought Process Formal Thought Process: Hallucinations, Delusions - Suicidal Ideation Suicidal Ideation: No - Homicidal Ideation Homicidal Ideation: No Goal/Treatment Plan - Goal/Treatment Plan Need for Continued Stay: Severe depression anxiety, Severe functional impairment Progress Toward Problem(s) and Goals/Treatment Plan: Major depressive disorder recurrent severe with psychotic features Alcohol use disorder severe Alcohol withdrawal uncomplicated CBT Psychoeducation Supportive therapy, group therapy, individual therapy Ativan taper Zoloft 25 mg daily Trazodone 50 mg Folic acid/thiamine/multivitamin As need medications All risks, benefits and alternatives of the meds discussed, and the pt agreed and understood. Attend groups and activities Individual therapy daily Psychoeducation and support daily Encourage compliance with meds and after care Refer to outpatient program Teach healthy lifestyle methods, i.e. diet, exercise, meditation Smoking cessation and patch if needed
[2017-12-03 06:36] VITALS: TEMP 97.6
[2017-12-03] MEDS: Multiple Vitamins Tab PO SCH (11:02)
[2017-12-04 06:51] VITALS: BP 134/86; PULSE 73; RESP 20
[2017-12-04] MEDS: Multiple Vitamins Tab PO SCH (09:03)
--- NOTE | 2017-12-04 10:35 | PCM.PYCHDC ---
Mental Status Examination - Mental Status Examination Orientation: Person, Place, Situation, Time Memory: Intact Mood: Neutral Affect: Constricted Speech: Soft Attention: WNL Concentration: WNL Association: WNL Fund of Knowledge: WNL Formal Thought Process: No Impairment Description of patient's judgement and insight: good, fair Psychotic Thoughts and Behaviors: denies any AVH Suicidal Ideation: No Current Homicidal Ideation?: No Discharge Summary - Discharge Note Reason for Hospitalization: Pt is 47 years old HM, who came to ED with depressed mood, alcohol withdrawal and suicidal ideation. Bung Dropper is familiar with this patient. Pt has history of multiple inpatient psychiatric hospitalizations. He was last discharge from [facility] last year. He denies any history of follow up with any psychiatrist. As per the pt he is drinking few pints of liquor and beers daily. Yesterday he consumed significant amount of alcohol, became increasingly depressed and came to the to get help in detox. As per the ED notes, pt. reports that he is under a lot of stress because he does not have a job and his two adult sons are not in contact with him. Pt.s sons live in [place]. Pt is currently homeless as well. Patient reports of depressed mood, feelings of hopelessness and helplessness, poor sleep and poor appetite. He denies any manic symptoms. He reports auditory hallucinations telling him ti kill himself. He also reports paranoia. Patient reports withdrawal symptoms including anxiety, headaches and sweating. PMH: None reported Consultations:: List each consultation separately and include: 1. Reason for request. 2. Findings. 3. Follow-up Summary of Hospital Course include:: 1. Description of specific treatment plan utilized for patients during their course of treatmen. 2. Summarize the time- course for resolution of acute symptoms and/or regressed behaviors. 3. Describe issues identified and worked on during hospitalization. 4. Describe medication utilized. 5. Describe medical problems identified and treated. 6. Reassessment of suicide risk Summary of Hospital Course: Pt. is a 47 y/o , unemployed male that came to ED requesting assistance because he was experiencing auditory hallucinations and was under the influence of alcohol. Pt. BAL was 128 and he experienced some difficulty participating in this interview. Pt. speech was slurred and he was oriented x3. Pt. reported that he was not taking his medications and he was consuming alcohol in order to medicate himself. Pt. reports that he was hearing voices. Pt. reports that he also experiences the tremors when he does not drink. Pt. reports that he is under a lot of stress because he does not have a job and his two adult sons are not in contact with him. Pt.s sons live in [place]. Pt. reports that he was not feeling S/H, but only admits to the auditory hallucinations. Pt. reports that he did not finish high school because he was hanging out with his friends. Pt. reports having high blood pressure; Pt. mood appeared depressed and affect was constricted. Pt. eye contact was minimal. [ End ] - Final Diagnosis (DSM 5) Condition upon Discharge: GUARDED DSM 5: Major depressive disorder recurrent severe with psychotic features Alcohol use disorder severe Alcohol withdrawal uncomplicated Disposition: HOME/ ROUTINE Prescriptions/Medication Reconciliation: Sertraline [Zoloft] 50 mg PO DAILY #30 tab traZODone [Desyrel] 50 mg PO HS PRN #30 tab PRN Reason: Insomnia
--- NOTE | 2017-12-04 10:36 | PCM.PYCHPN ---
Psychiatric Progress Note - Psychiatric Progress Note Patient seen today, length of contact: 15 min Patient Chief Complaint: I ma feeling little better Medication Change: Yes Medical Record Reviewed: Yes Mental Status Examination - Cognitive Function Orientation: Person, Place, Situation, Time Memory: Intact Attention: WNL Concentration: WNL Association: WNL Fund of Knowledge: Poor Decription of patient's judgement and insights: good, fair - Mood Mood: Depressed, Anxious - Affect Affect: Constricted - Speech Speech: Soft - Formal Thought Process Formal Thought Process: No Impairment Psychotic Thoughts and Behaviors: denies any AVH - Suicidal Ideation Suicidal Ideation: No - Homicidal Ideation Homicidal Ideation: No Goal/Treatment Plan - Goal/Treatment Plan Need for Continued Stay: Severe depression anxiety, Severe functional impairment Progress Toward Problem(s) and Goals/Treatment Plan: Major depressive disorder recurrent severe with psychotic features Alcohol use disorder severe Alcohol withdrawal uncomplicated CBT Psychoeducation Supportive therapy, group therapy, individual therapy Ativan taper Zoloft 25 mg daily Trazodone 50 mg Folic acid/thiamine/multivitamin As need medications All risks, benefits and alternatives of the meds discussed, and the pt agreed and understood. Attend groups and activities Individual therapy daily Psychoeducation and support daily Encourage compliance with meds and after care Refer to outpatient program Teach healthy lifestyle methods, i.e. diet, exercise, meditation Smoking cessation and patch if needed
== END 2017-12-04 11:58 | disposition home or self-care (01) | DRG 430 ==
LOC: C.ER 23:56 → C.5E 11-29 03:28
PROVIDERS: ADMIT Psychiatry & Neurology Psychiatry; ATTEND Psychiatry & Neurology Psychiatry
PROC: GZHZZZZ Group Psychotherapy (ICD-10-PCS; principal; 2017-11-29)
PROC: GZ56ZZZ Individual Psychotherapy, Supportive (ICD-10-PCS; 2017-11-29)
DX: F33.3 Major depressive disorder, recurrent, severe with psychotic symptoms (principal); F10.230 Alcohol dependence with withdrawal, uncomplicated; F10.220 Alcohol dependence with intoxication, uncomplicated; Y90.6 Blood alcohol level of 120-199 mg/100 ml; F41.9 Anxiety disorder, unspecified; I10 Essential (primary) hypertension; R45.851 Suicidal ideations; Z59.0 Homelessness

== ENCOUNTER 2017-12-15 21:28 | Emergency (ER) | payer MEDICAID, OTHER ==
[2017-12-15 21:39] VITALS: BP 143/90; PULSE 82; RESP 18; TEMP 98.2; O2SAT 96
[2017-12-15] MEDS ORDERED: Lidocaine 2% Inj (20ml) INFIL ONE (21:44)
[2017-12-15] MEDS ORDERED: Tdap Vaccine 0.5 ml Vial (10-64 yrs) IM ONE (21:44)
[2017-12-15] MEDS ORDERED: Tetanus/Diphtheria Toxoids 0.5 ml Syringe IM ONE (21:50)
[2017-12-15] MEDS ORDERED: Lidocaine 2% MPF (5 ml) Inj ONE (21:50)
[2017-12-15] MEDS ORDERED: Bacitracin 500 Units/gm Oint Foilpak UD ONE (22:04)
[2017-12-15] MEDS ORDERED: Albuterol 0.083% Inhal Sol (2.5 mg/3 mL) UD IH STA (22:11)
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
[2017-12-15] MEDS ORDERED: Albuterol 0.083% Inhal Sol (2.5 mg/3 mL) UD ONE (22:18)
--- NOTE | 2017-12-16 08:27 | CT ---
Date of service: 12/15/2017 PROCEDURE: CT HEAD WITHOUT CONTRAST. HISTORY: injury COMPARISON: None available. TECHNIQUE: Axial computed tomography images were obtained through the head/brain without intravenous contrast. Radiation dose: Total exam DLP = 963 mGy-cm. This CT exam was performed using one or more of the following dose reduction techniques: Automated exposure control, adjustment of the mA and/or kV according to patient size, and/or use of iterative reconstruction technique. FINDINGS: HEMORRHAGE: No intracranial hemorrhage. BRAIN: No mass effect or edema. Scattered focal lucencies in the subcortical and periventricular white matter most prominent in the parietal regions is suggestive for chronic microvascular ischemic change. VENTRICLES: Unremarkable. No hydrocephalus. CALVARIUM: Unremarkable. PARANASAL SINUSES: Unremarkable as visualized. No significant inflammatory changes. MASTOID AIR CELLS: Unremarkable as visualized. No inflammatory changes. OTHER FINDINGS: Left frontal scalp/forehead swelling and hematoma seen. IMPRESSION: Left frontal scalp/forehead swelling and hematoma seen. Scattered focal lucencies in the subcortical and periventricular white matter most prominent in the parietal regions is suggestive for chronic microvascular ischemic change. No acute intracranial abnormality. If symptoms persists, consider correlation with MRI. These findings were preliminarily reported at 10:59 p.m. on 12/15/[address] Khris Rodriguez from [employer]
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
--- NOTE | 2017-12-16 10:21 | CT ---
Date of service: 12/15/2017 PROCEDURE: CT Cervical Spine without contrast HISTORY: Injury COMPARISON: None available. TECHNIQUE: Axial computed tomography images were obtained of the cervical spine without the use of intravenous contrast. Coronal and sagittal reformatted images were created and reviewed. Radiation dose: Total exam DLP = 524.47 mGy-cm. This CT exam was performed using one or more of the following dose reduction techniques: Automated exposure control, adjustment of the mA and/or kV according to patient size, and/or use of iterative reconstruction technique. FINDINGS: VERTEBRAE: There are no acute compression fractures no retropulsed fragments. Vertebral bodies exhibit normal stature. Vertebral bodies and facets normally aligned. DISCS/SPINAL CANAL/NEURAL FORAMINA: Disc space heights are relatively maintained. There are no disc herniations. Some minimal show broad-based disc bulging changes present at several levels however the overall central bony canal and exit foramina appear adequate. PARASPINAL SOFT TISSUES: Prevertebral and paraspinal soft tissues unremarkable. OTHER FINDINGS: The lung apices are relatively clear despite some minimal biapical pleural thickening. No evidence of apical pneumothorax. Demonstrated is mild left premaxillary soft tissue swelling. Questionable soft tissue swelling over the level of the symphysis and anterior mandibular bodies bilaterally. IMPRESSION: No acute fractures. Mid very minor multilevel degenerative spondylosis.
== END 2017-12-15 23:33 | disposition home or self-care (01) ==
LOC: SUPCPDRO 21:28 → C.ER 21:28
DX: S01.81XA Laceration without foreign body of other part of head, initial encounter (principal); Y04.0XXA Assault by unarmed brawl or fight, initial encounter; Y92.410 Unspecified street and highway as the place of occurrence of the external cause; F10.129 Alcohol abuse with intoxication, unspecified; Y90.9 Presence of alcohol in blood, level not specified

== ENCOUNTER 2017-12-21 17:04 | Emergency (ER) | payer OTHER ==
[2017-12-21 17:12] VITALS: BMI 27.4
[2017-12-21 17:15] VITALS: BP 125/83; PULSE 90; RESP 18; TEMP 98.2; O2SAT 97
--- NOTE | 2017-12-21 17:38 | C.PDOC ---
History Of Present Illness 47 year old male presents to the ED for forehead suture removal placed on 12/15/2017. Patient reports wound is healing well and denies any new symptoms. FOREHEAD SUTURE REMOVAL. PLACED 12/15. PS HEALING WELL, NO NEW SX EXAM NAD SKIN FOREHEAD LAC HEALING, SUTURES IN PLACE. WOUND WELL APPROX. NON TEND, SWELL NO INFXN. MULT ABRASIONS FACE, HEALING WELL NO INFXN PROC SUTURE REMOVAL WO DIFF. PT TOLERATED WELL Time Seen by Provider: 12/21/17 17:23 Chief Complaint (Nursing): Suture/Staple Removal History Per: Patient History/Exam Limitations: no limitations Location Of Injury: Anterior: Head (suture removal) Past Medical History Reviewed: Historical Data, Nursing Documentation, Vital Signs Vital Signs: Last Vital Signs Temp 98.2 F 12/21/17 17:12 Pulse 90 12/21/17 17:12 Resp 18 12/21/17 17:12 BP 125/83 12/21/17 17:12 Pulse Ox 97 12/21/17 17:12 - Medical History PMH: Anxiety, Asthma, Bipolar Disorder, Depression, Deep Vein Thrombosis, HTN (unsure of med taken), Peripheral Edema (BLE), Schizophrenia Denies: Diabetes, Hepatitis, HIV, Chronic Kidney Disease, Seizures, Sexually Transmitted Disease Other Surgeries: hx of surgeries - [facility] Procedures DETOXIFICATION SERVICES FOR SUBSTANCE ABUSE TREATMENT (02/09/17) GROUP TECHNICAL PRODUCT MANAGER FOR SUBSTANCE ABUSE TREATMENT, CONTINUING CARE (02/03/15) GROUP TECHNICAL PRODUCT MANAGER FOR SUBSTANCE ABUSE TREATMENT, PSYCHOEDUCATION (04/03/16) GROUP PSYCHOTHERAPY (11/29/17) INDIV PSYCHOTHERAPY FOR SUBSTANCE ABUSE TREATMENT, SUPPORT (02/27/17) INDIVIDUAL PSYCHOTHERAPY, SUPPORTIVE (11/29/17) MEDICATION MANAGEMENT (02/27/17) MEDS MGMT FOR SUBSTANCE ABUSE TREATMENT, OTH REPL MED (02/27/17) Family History: States: No Known Family Hx - Social History Hx Tobacco Use: No Hx Alcohol Use: Yes Hx Substance Use: Yes (marijuana) - Immunization History Hx Tetanus Toxoid Vaccination: No Hx Influenza Vaccination: No Hx Pneumococcal Vaccination: No Review Of Systems Except As Marked, All Systems Reviewed And Found Negative. Skin: Positive for: Other (well healing wound to forehead) Physical Exam - Physical Exam Appears: Non-toxic Skin: Other (Forehead laceration healing. sutures in place. wound well approx. nontender. (-) swelling (-) infection. multiple abrasions noted to face, healing well (-) infection. ) Head: Normacephalic Eye(s): bilateral: Normal Inspection Nose: Normal Oral Mucosa: Moist Neck: Normal ROM Chest: Symmetrical Cardiovascular: Rhythm Regular Respiratory: Other (NARD) Extremity: Normal ROM Neurological/Psych: Oriented x3, Normal Speech Gait: Steady ED Course And Treatment O2 Sat by Pulse Oximetry: 97 (RA) Pulse Ox Interpretation: Normal Disposition Counseled Patient/Family Regarding: Diagnosis, Need For Followup - Disposition Referrals: [facility] [Outside] [facility] [Outside] Disposition: HOME/ ROUTINE Disposition Time: 17:37 Condition: IMPROVED Instructions: Stitches Removal Forms: [employer] (Citizen Of [place]) - Clinical Impression Clinical Impression: Removal of suture - Scribe Statement The provider has reviewed the documentation as recorded by the Scribe Nora Jones All medical record entries made by the Scribe were at my direction and personally dictated by me. I have reviewed the chart and agree that the record accurately reflects my personal performance of the history, physical exam, medical decision making, and the department course for this patient. I have also personally directed, reviewed, and agree with the discharge instructions and disposition. Suture Removal/Wound Check - Historian Historian: Patient - Chief Complaints Chief complaint: Suture removal - Notes: Notes:: SUTURE REMOVAL WO DIFF. PT TOLERATED WELL
== END 2017-12-21 18:00 | disposition home or self-care (01) ==
LOC: C.ER 17:04
DX: Z48.02 Encounter for removal of sutures (principal)

== ENCOUNTER 2017-12-30 19:38 | Emergency (ER) | payer MEDICAID, OTHER ==
[2017-12-30 19:38] VITALS: BMI 27.4
--- NOTE | 2017-12-30 21:23 | C.PDOC ---
History Of Present Illness 47 year old male presents to the ED c/o headache, nausea. Patient admits to drinking alcohol today. Patient was seen for a head injury on 12/15 in the ED, patient had a head, facial and C-spine CT which were negative. Patient was seen again on 12/21 for suture removal at that time patient denied headache. Patient denies SI/HI, hallucinations, new injury, fall, trauma, vomiting, dizziness, visual changes, weakness, numbness. Time Seen by Provider: 12/30/17 21:10 Chief Complaint (Nursing): Substance Abuse History Per: Patient History/Exam Limitations: intoxication Onset/Duration Of Symptoms: Hrs Current Symptoms Are (Timing): Still Present Quality: "Pain" Preceeding Symptoms: denies: Visual Disturbances Associated Symptoms: Nausea Recent travel outside of the [place]: No Additional History Per: Patient Past Medical History Reviewed: Historical Data, Nursing Documentation, Vital Signs Vital Signs: Last Vital Signs Temp 98.7 F 12/30/17 19:44 Pulse 105 H 12/30/17 19:44 Resp 19 12/30/17 19:44 BP 133/87 12/30/17 19:44 Pulse Ox 97 12/30/17 19:44 - Medical History PMH: Anxiety, Asthma, Bipolar Disorder, Depression, Deep Vein Thrombosis, HTN, Peripheral Edema, Schizophrenia Denies: Diabetes, Hepatitis, HIV, Chronic Kidney Disease, Seizures, Sexually Transmitted Disease Surgical History: No Surg Hx - [facility] Procedures DETOXIFICATION SERVICES FOR SUBSTANCE ABUSE TREATMENT (02/09/17) GROUP GENERAL OPERATIONS MANAGER FOR SUBSTANCE ABUSE TREATMENT, CONTINUING CARE (02/03/15) GROUP GENERAL OPERATIONS MANAGER FOR SUBSTANCE ABUSE TREATMENT, PSYCHOEDUCATION (04/03/16) GROUP PSYCHOTHERAPY (11/29/17) INDIV PSYCHOTHERAPY FOR SUBSTANCE ABUSE TREATMENT, SUPPORT (02/27/17) INDIVIDUAL PSYCHOTHERAPY, SUPPORTIVE (11/29/17) MEDICATION MANAGEMENT (02/27/17) MEDS MGMT FOR SUBSTANCE ABUSE TREATMENT, OTH REPL MED (02/27/17) Family History: States: Unknown Family Hx - Social History Hx Tobacco Use: No Hx Alcohol Use: Yes Hx Substance Use: No - Immunization History Hx Tetanus Toxoid Vaccination: No Hx Influenza Vaccination: No Hx Pneumococcal Vaccination: No Review Of Systems Constitutional: Negative for: Fever, Chills Eyes: Negative for: Vision Change Cardiovascular: Negative for: Chest Pain Respiratory: Negative for: Shortness of Breath Gastrointestinal: Positive for: Nausea. Negative for: Vomiting, Abdominal Pain Neurological: Positive for: Headache. Negative for: Weakness, Numbness, Dizziness Psych: Negative for: Depression, Suicidal ideation Physical Exam - Physical Exam Appears: Non-toxic, No Acute Distress Skin: Normal Color, Warm, Dry Head: Atraumatic, Normacephalic Eye(s): bilateral: Normal Inspection, PERRL, EOMI Neck: Normal ROM, No Midline Cervical Tenderness, Supple Chest: Symmetrical Cardiovascular: Rhythm Regular Respiratory: Normal Breath Sounds, No Rales, No Rhonchi, No Wheezing Gastrointestinal/Abdominal: Soft, No Tenderness, No Guarding, No Rebound Extremity: Normal ROM, No Tenderness, No Swelling Neurological/Psych: Oriented x3, Normal Speech, Normal Cognition Gait: Steady ED Course And Treatment O2 Sat by Pulse Oximetry: 97 (ON RA) Pulse Ox Interpretation: Normal - CT Scan/US CT head Other Rad Studies (CT/US): Read By Radiologist, Radiology Report Reviewed CT/US Interpretation: NONCONTRAST CT OF THE HEAD. Indications: Headaches, status post head trauma. Technique: Multislice helical acquisition of the brain without intravenous contrast. Multiplanar reformatted images.DLP equaled 1174. Findings: There are age advanced in appropriate involutional changes. There are appropriately with ventricular size. The ventricles are of normal size, position, and configuration. There is no midline shift, evidence of edema, mass effect, subdural collections, or recent intracranial hemorrhage. the paranasal sinuses, mastoid air cells are well-aerated. Impression: Unremarkable study. . Electronically signed on Dec 30, 2017 10:29:07 PM EDT by: Lino Ta M.D., Certified by [facility] Progress - Re-Evaluation Re-evaluation Note: 12/30/17 22:32 CT HEAD REPORT REVIEWED. NEURO INTACT NO FOCAL DEF UNCH FROM INITIAL. DC - Data Reviewed Data Reviewed: Diagnostic imaging, Old records Medical Decision Making Medical Decision Making: Plan: * Head CT * Reglan 10 mg PO * Tylenol 975 mg PO Disposition Counseled Patient/Family Regarding: Studies Performed, Diagnosis, Need For Followup, Rx Given - Disposition Referrals: [facility] [Outside] [facility] [Outside] Disposition: HOME/ ROUTINE Disposition Time: 22:33 Condition: IMPROVED Prescriptions: Acetaminophen [Tylenol 325mg tab] 650 mg PO Q6 #30 tab Ondansetron [Zofran Odt] 4 mg PO TID PRN #9 odt PRN Reason: Nausea/Vomiting Instructions: Headache, Adult (DC) Forms: [facility] (Irish) - Clinical Impression Clinical Impression: Headache - Scribe Statement The provider has reviewed the documentation as recorded by the Scribe Tj Noyola All medical record entries made by the Scribe were at my direction and personally dictated by me. I have reviewed the chart and agree that the record accurately reflects my personal performance of the history, physical exam, medical decision making, and the department course for this patient. I have also personally directed, reviewed, and agree with the discharge instructions and disposition.
[2017-12-30 22:44] VITALS: BP 129/82; PULSE 81; RESP 20; TEMP 98.2; O2SAT 99
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
== END 2017-12-30 22:46 | disposition home or self-care (01) ==
LOC: C.ER 19:38
DX: R51 Headache (principal); I10 Essential (primary) hypertension

== ENCOUNTER 2018-01-12 19:49 | Inpatient (IN) | payer MEDICAID, OTHER ==
[2018-01-12 19:50] VITALS: BMI 27.4
--- NOTE | 2018-01-12 20:24 | C.PDOC ---
History Of Present Illness 47 year old male presents to the ED requesting detox from alcohol and also states hearing voices. Patient denies SI/HI, visual hallucinations, injury, fall, trauma, weakness, numbness. Time Seen by Provider: 01/12/18 20:23 Chief Complaint (Nursing): Substance Abuse History Per: Patient History/Exam Limitations: intoxication Onset/Duration Of Symptoms: Days Current Symptoms Are (Timing): Still Present Suicide/Self Injury Attempted (Context): None Modifying Factor(s): Alcohol Associated Symptoms: denies: Depression, Suicidal Thoughts, Suicidal Plan Recent travel outside of the [place]: No Additional History Per: Patient Past Medical History Reviewed: Historical Data, Nursing Documentation, Vital Signs Vital Signs: Last Vital Signs Temp 98 F 01/12/18 20:02 Pulse 87 01/12/18 20:02 Resp 20 01/12/18 20:02 BP 136/85 01/12/18 20:02 Pulse Ox 98 01/12/18 20:02 - Medical History PMH: Anxiety, Asthma, Bipolar Disorder, Depression, Deep Vein Thrombosis, HTN, Peripheral Edema, Schizophrenia Denies: Diabetes, Hepatitis, HIV, Chronic Kidney Disease, Seizures, Sexually Transmitted Disease Surgical History: No Surg Hx - [facility] Procedures DETOXIFICATION SERVICES FOR SUBSTANCE ABUSE TREATMENT (02/09/17) GROUP STUNT WOMAN FOR SUBSTANCE ABUSE TREATMENT, CONTINUING CARE (02/03/15) GROUP STUNT WOMAN FOR SUBSTANCE ABUSE TREATMENT, PSYCHOEDUCATION (04/03/16) GROUP PSYCHOTHERAPY (11/29/17) INDIV PSYCHOTHERAPY FOR SUBSTANCE ABUSE TREATMENT, SUPPORT (02/27/17) INDIVIDUAL PSYCHOTHERAPY, SUPPORTIVE (11/29/17) MEDICATION MANAGEMENT (02/27/17) MEDS MGMT FOR SUBSTANCE ABUSE TREATMENT, OTH REPL MED (02/27/17) Family History: States: Unknown Family Hx - Social History Hx Tobacco Use: No Hx Alcohol Use: Yes Hx Substance Use: No - Immunization History Hx Tetanus Toxoid Vaccination: No Hx Influenza Vaccination: No Hx Pneumococcal Vaccination: No Review Of Systems Constitutional: Negative for: Fever, Chills Cardiovascular: Negative for: Chest Pain Respiratory: Negative for: Shortness of Breath Gastrointestinal: Negative for: Nausea, Vomiting, Abdominal Pain Skin: Negative for: Rash Neurological: Negative for: Weakness, Numbness Psych: Negative for: Depression, Suicidal ideation Physical Exam - Physical Exam Appears: Non-toxic, No Acute Distress Skin: Warm, Dry Head: Normacephalic Eye(s): bilateral: Normal Inspection Neck: Supple Chest: Symmetrical Cardiovascular: Rhythm Regular Respiratory: No Rales, No Rhonchi, No Wheezing Gastrointestinal/Abdominal: Soft, No Tenderness, No Guarding, No Rebound Extremity: Normal ROM Extremity: Bilateral: Atraumatic, Normal Color And Temperature, Normal ROM Neurological/Psych: Oriented x3, Normal Speech, Normal Cognition Gait: Steady ED Course And Treatment - Laboratory Results Result Diagrams: 01/12/18 20:45 01/12/18 20:45 O2 Sat by Pulse Oximetry: 98 (ON RA) Pulse Ox Interpretation: Normal Progress Note: Plan: - Labs. - UA. - Crisis eval Disposition Discussed With Dr.: Jorge Mclaughlin Comment[facility] took [facility] care at 12:43 Am Doctor Will See Patient In The: Hospital Counseled Patient/Family Regarding: Studies Performed, Diagnosis - Disposition Disposition: HOSPITALIZED Disposition Time: 20:24 Condition: FAIR Forms: Unbxd ([place]) - POA Present On Arrival: None - Clinical Impression Clinical Impression: Alcohol abuse, Schizo affective schizophrenia - Scribe Statement The provider has reviewed the documentation as recorded by the Scribe Tj Noyola All medical record entries made by the Scribe were at my direction and personally dictated by me. I have reviewed the chart and agree that the record accurately reflects my personal performance of the history, physical exam, medical decision making, and the department course for this patient. I have also personally directed, reviewed, and agree with the discharge instructions and disposition. Decision To Admit - Pt Status Changed To: Hospital Disposition Of: Inpatient - Admit Certification Admit to Inpatient:: After my assessment, the patient will require hospitalization for at least two midnights. This is because of the severity of symptoms shown, intensity of services needed, and/or the medical risk in this patient being treated as an outpatient. - InPatient: Physician Admission Certification: I certify that this patient requires 2 or more midnights of care for the following reason:: After my assessment, the patient will require hospitalization for at least two midnights. This is because of the severity of symptoms shown, intensity of services needed, and/or the medical risk in this patient being treated as an outpatient. - . Bed Request Type: Psychiatry Admitting Physician: Jorge Mclaughlin Patient Diagnosis: Alcohol abuse, Schizo affective schizophrenia
[2018-01-12 20:49] LABS: BASO # 0.1 K/uL (0.0-0.2); BASO % 1.2 % (0.0-2.0); EOS # 0.3 K/uL (0.0-0.7); EOS % 4.9 % (0.0-4.0); HEMOGLOBIN 11.5 g/dL (12.0-18.0); LYMPH # 2.1 K/uL (1.0-4.3); MEAN CELL VOLUME 75.7 fL (80.0-94.0); MEAN CORPUSCULAR HEMOGLOBIN 24.2 pg (27.0-31.0); MEAN CORPUSCULAR HGB CONC 31.9 g/dL (33.0-37.0); MEAN PLATELET VOLUME 7.7 fL (7.2-11.7); MONO # 0.7 K/uL (0.0-0.8); MONO % 13.1 % (0.0-10.0); NEUT # 2.4 K/uL (1.8-7.0); NEUT % 43.8 % (50.0-75.0); NRBC % 0.1 % (0.0-2.0); RBC 4.75 Mil/uL (4.40-5.90); RED CELL DISTRIBUTION WIDTH 21.1 % (11.5-14.5); WHITE BLOOD COUNT 5.6 K/uL (4.8-10.8)
[2018-01-12 20:52] LABS: URINE BILIRUBIN NEGATIVE (NEGATIVE); URINE BLOOD NEGATIVE (NEGATIVE); URINE CLARITY Clear (Clear); URINE COLOR Colorless (YELLOW); URINE GLUCOSE (UA) NORMAL (Normal); URINE LEUKOCYTE ESTERASE NEG Leu/uL (Negative); URINE PROTEIN NEGATIVE (NEGATIVE); URINE UROBILINOGEN NORMAL mg/dL (0.2-1.0)
[2018-01-12 21:04] LABS: BARBITURATES, UR NEGATIVE (NEGATIVE); BENZODIAZEPINES, UR NEGATIVE (NEGATIVE); OPIATES, UR NEGATIVE (NEGATIVE); PHENCYCLIDINE, UR NEGATIVE (NEGATIVE)
[2018-01-12 21:15] LABS: ALB/GLOB RATIO 1.2 (1.0-2.1); ALBUMIN 3.7 g/dL (3.5-5.0); ALT/SGPT 202 U/L (21-72); AST/SGOT 216 U/L (17-59); BLOOD UREA NITROGEN 14 mg/dL (9-20); CALCIUM 8.5 mg/dl (8.6-10.4); GFR NON-AFRICAN AMERICAN > 60
--- NOTE | 2018-01-13 05:12 | PCM.BM ---
<Shy Cobb - Last Filed: 01/13/18 05:10> Treatment Plan Problems - Problems identified on initial assessmt Depression Date Initiated: 01/13/18 Time Initiated: 02:10 Assessment reference: NA Status: Active ETOH Abuse Date Initiated: 01/13/18 Time Initiated: 02:10 Assessment reference: NA Status: Active Treatment assets and liabiliti Patient Assests: cooperative, self-reliant, ADL independent, negotiates basic needs, cognitively intact Patient Liabilities: substance abuse (ETOH), medical problems (Bilateral edema ) - Milieu Protocol Maintain good personal hygiene: daily Encourage regular showers, daily Remind patient to perform daily oral care, every shift Assist patient to perform ADL's Conduct patient checks and document Observation sheet: Q15 minutes Maintain personal safety: every shift Educate patient to report safety concerns to staff, every shift Monitor environment for contraband/sharps Medication safety: Monitor for expected outcome, potential side effects: every shift, Assess barriers to learning: every shift, Assess readiness for medication education: every shift <Tata Georges - Last Filed: 01/15/18 11:04> Family Contact Family involvement: Famliy/SO not involved - Goals for Treatment Patient goals for treatment: "I want to go back to the [facility]." Discharge/Continuing Care - Education Needs Education Needs: Patient Medication, Patient Coping Skills - Discharge Discharge Criteria: Tolerates medication w/o severe side effects, Reduction of target symptoms Discharge to:: Home - Treatment Team Participation Discussed with Family/SO: No Was Patient/Family/SO present at Treatment Team Meeting: Yes
[2018-01-13] MEDS ORDERED: Aluminum Hydroxide/Magnesium Hydroxide Susp (30 mL) PO PRN (09:47)
--- NOTE | 2018-01-13 09:52 | PCM.PSYCH ---
Initial Psychiatric Evaluation - Initial Psychiatric Evaluation Type of Admission: Voluntary Legal Status: Capacity Chief Complaint (in patient's own words): I relapsed on drinking and started hearing voices to kill myself. History of Present Illness and Precipitating Events: Pt is a 47 yo man, S and unemployed, who came to ED reportedly requesting ETOH detox and hearing voices. Health And Safety Tech is familiar with this patient. Pt has history of multiple inpatient psychiatric hospitalizations, he was last discharged from , last month. He reports history of follow up with [facility] psychiatrist in the past. Pt reports the following: 'Everything is going wrong, I'm drinking and I am hearing vices now.' Pt has been consuming ETOH daily for the past several weeks. His BAL was 247. Pt has a hx of ETOH consumption since age 14. Last use was yesterday. Pt also reports of experiencing voices (command and non-command) telling him to kill himself. Pt was attending [facility] following discharge from [facility], but discontinued. Pt remained disorganized and internally preoccupied. Patient reports of depressed mood, feelings of hopelessness and helplessness, poor sleep and poor appetite. Patient reports withdrawal symptoms including abdominal cramps, anxiety, headaches and sweating. PMH: None reported Current Medications: Active Medications Generic Name Dose Route Start Last Admin Trade Name Freq PRN Reason Stop Dose Admin Al Hydrox/Mg Hydrox/Simethicone 30 ml 01/13/18 09:47 Maalox 30 Ml PO TID PRN Indigestion / Heartburn Clonidine HCl 0.1 mg 01/13/18 09:45 Catapres PO Q4H PRN Symptoms of alcohol withdrawl Folic Acid 1 mg 01/13/18 10:00 Folic Acid PO DAILY [facility] Influenza Virus Vaccine 60 mcg 01/15/18 10:00 Fluzone Quad [id number] IM 01/15/18 10:01 .ONCE ONE Loperamide HCl 2 mg 01/13/18 09:47 Imodium PO Q8 PRN Diarrhea Lorazepam 1 mg 01/13/18 04:30 01/13/18 06:17 Ativan PO 1 mg Q6H PRN Administration Withdrawal symptoms Lorazepam 1 mg 01/13/18 09:45 Ativan PO Q4H PRN Symptoms of alcohol withdrawl Lorazepam 0 mg 01/13/18 09:45 Ativan PO 01/18/18 09:44 .TAPER ELKIN Taper Multivitamins 1 tab 01/13/18 10:00 Hexavitamin PO DAILY [facility] Ondansetron HCl 4 mg 01/13/18 09:47 Zofran Tab PO Q8 PRN Nausea/Vomiting Thiamine HCl 100 mg 01/13/18 10:00 Vitamin B1 Tab PO DAILY [facility] Trazodone HCl 50 mg 01/13/18 09:45 Desyrel PO HS PRN Insomnia Past Psychiatric History - Past Psychiatric History Previous Treatment History: Inpatient Pertinent Medical Hx (Current Medical&Sleep Prob, Allergies): Allergies Allergy/AdvReac Type Severity Reaction Status Date / Time No Known Allergies Allergy Verified 12/30/17 19:47 No Known Home Med 01/13/18 Review of Systems - Review of Systems All systems: reviewed and no additional remarkable complaints except - Psychiatric Psychiatric: Anxiety, Auditory Hallucinations, Depression, Irritability, Suicidal Ideation Mental Status Examination - Personal Presentation Personal Presentation: Looks stated age - Affect Affect: Constricted, Depressed - Motor Activity Motor Activity: Calm - Reliability in Providing Information Reliability in Providing Information: Poor, due to alteration in thoughts, Poor, due to altered mood - Speech Speech: Incoherent - Mood Mood: Depressed, Anxious - Formal Thought Process Formal Thought Process: Hallucinations, Paranoia, Loosening of associations - Hallucinations/Delusions Hallucinations: Auditory Delusions: Persecution - Obsessions/Compulsions Obsessions: No Compulsions: No - Cognitive Functions Orientation: Person, Place, Situation, Time Sensorium: Lethargic Attention/Concentration: Attentive Abstract Thinking: [place] Estimate of Intelligence: Below average Judgement: Imparied, as evidence by: Poor judgement, Imparied, as evidence by: Lack of insight into illness - Risk Risk: Suicidal, Withdrawal, Diminished functioning - Limitations Limitations: Living alone DSM 5 DX - DSM 5 DSM 5 Diagnosis: Bipolar disorder mixed severe with psychotic features Alcohol use disorder severe Alcohol withdrawal - Recommended/Plan of Treatment Treatment Recommendations and Plan of Treatment: Bipolar disorder mixed severe with psychotic features Alcohol use disorder severe Alcohol withdrawal -CBT -Psychotherapy -Supportive therapy, group therapy, individual therapy -Atarax 25 mg PO Q6 prn -Seroquel 100 mg PO QHS -Trazodone 50 mg PO QHS prn -Effexor 75 mg PO daily -Neurontin -Ativan taper -prn meds - Smoking Cessation Smoking Cessation Initiated: No
[2018-01-13] MEDS: Multiple Vitamins Tab PO SCH (10:47)
[2018-01-14] MEDS: Multiple Vitamins Tab PO SCH (09:48)
--- NOTE | 2018-01-14 14:03 | CP.PCM.CON ---
<Sonja Resendiz - Last Filed: 01/14/18 16:22> History of Present Illness - History of Present Illness History of Present Illness: Medicine consult - Dr. Acosta's service HPI: Mr. Jin is a 47 y/o male with PMHx of anxiety, depression, and DVT s/p fall 11/2016 was referred to us for his bilateral leg edema. He was admitted to psych on 01/12 because of hearing voices in his head and EtOH detox. Patient states his legs have been swollen for 3 days bilaterally. They improve with ambulation and worsen with noxious weeds and pest inspector sitting. Patient has not attempted to alleviate it. EMR shows he had a DVT on 11/2017 and was rx apixaban 5 mg, and he was to follow up in clinic, although he did not recall this incident. Patient was lost to follow up ever since. Patient denies pain in his legs; just swelling. He states he sits for a long time in a [place] he works for a moving company. He denies any history of cancers. Patient denies shortness of breath, chest pain, palpitations, and cough. He only had one 1mg dose of ativan on 01/13 per medical records; patient states he was trembling on admission but EtOH withdrawal sx have stopped ever since. He also said the voices in his head saying "You are a piece of sh*t" are gone. Denies anxiety, headache, visual/joanne tory hallucinations, weight changes, nausea/vomiting. He drinks 6 bottles of beer a day, but says he usually does not count. Psych history: Patient states he is supposed to take zoloft for anxiety but does not. He has no primary care physician or psychiatrist outpatient. He currently does not feel anxious or depressed. Denies SI/HI. ROS: as per HPI PMHx: anxiety, depression, DVT on 11/2017 s/p fall PSH: broke right leg at age 8 from an accident (?) FHx: denies known family hx of heart disease, stroke, and cancers SocHx: endorses EtOH, denies tobacco and drugs. Currently lives alone. Review of Systems - Review of Systems All systems: reviewed and no additional remarkable complaints except Past Patient History - Infectious Disease Hx of Infectious Diseases: None - Past Medical History & Family History Past Medical History?: No Past Family History: Reviewed and not pertinent - Past Social History Smoking Status: Never Smoked - CARDIAC Hx Cardiac Disorders: No Hx Hypertension: Yes - PULMONARY Hx Tuberculosis: No - NEUROLOGICAL HX Cerebrovascular Accident: No Hx Seizures: Yes (ETOH related) - HEENT Hx HEENT Problems: No - RENAL Hx Chronic Kidney Disease: No - ENDOCRINE/METABOLIC Hx Endocrine Disorders: No - HEMATOLOGICAL/ONCOLOGICAL Hx Cancer: No Hx Human Immunodeficiency Virus (HIV): No - INTEGUMENTARY Hx Dermatological Problems: No - MUSCULOSKELETAL/RHEUMATOLOGICAL Hx Musculoskeletal Disorders: No Hx Falls: No - GASTROINTESTINAL Hx Gastrointestinal Disorders: No - GENITOURINARY/GYNECOLOGICAL Hx Sexually Transmitted Disorders: No - PSYCHIATRIC Hx Substance Use: Yes - SURGICAL HISTORY Hx Surgeries: Yes Other/Comment: "HEAD SURGERY YEARS AGO" PER PATIENT - ANESTHESIA Hx Anesthesia: Yes Hx Anesthesia Reactions: No Meds Allergies/Adverse Reactions: Allergies Allergy/AdvReac Type Severity Reaction Status Date / Time No Known Allergies Allergy Verified 12/30/17 19:47 - Medications Medications: Current Medications Al Hydrox/Mg Hydrox/Simethicone (Maalox 30 Ml) 30 ml PO TID PRN PRN Reason: Indigestion / Heartburn Clonidine HCl (Catapres) 0.1 mg PO Q4H PRN PRN Reason: Symptoms of alcohol withdrawl Folic Acid (Folic Acid) 1 mg PO DAILY [facility] Last Admin: 01/14/18 09:48 Dose: 1 mg Gabapentin (Neurontin) 300 mg PO TID [facility] Last Admin: 01/14/18 13:24 Dose: 300 mg Influenza Virus Vaccine (Fluzone Quad [id number]) 60 mcg IM .ONCE ONE Stop: 01/15/18 10:01 Loperamide HCl (Imodium) 2 mg PO Q8 PRN PRN Reason: Diarrhea Lorazepam (Ativan) 1 mg PO Q6H PRN PRN Reason: Withdrawal symptoms Last Admin: 01/13/18 06:17 Dose: 1 mg Lorazepam (Ativan) 1 mg PO Q4H PRN PRN Reason: Symptoms of alcohol withdrawl Lorazepam (Ativan) 1 mg PO Q6 [facility]; Taper Stop: 01/18/18 09:44 Last Admin: 01/14/18 12:00 Dose: 1 mg Multivitamins (Hexavitamin) 1 tab PO DAILY [facility] Last Admin: 01/14/18 09:48 Dose: 1 tab Ondansetron HCl (Zofran Tab) 4 mg PO Q8 PRN PRN Reason: Nausea/Vomiting Thiamine HCl (Vitamin B1 Tab) 100 mg PO DAILY [facility] Last Admin: 01/14/18 10:23 Dose: 100 mg Trazodone HCl (Desyrel) 50 mg PO HS PRN PRN Reason: Insomnia Physical Exam - Constitutional Appears: Well, No Acute Distress - Head Exam Head Exam: ATRAUMATIC, NORMAL INSPECTION, NORMOCEPHALIC - Eye Exam Eye Exam: EOMI, Normal appearance - ENT Exam ENT Exam: Mucous Membranes Moist, Normal Exam - Neck Exam Neck exam: Positive for: Normal Inspection - Respiratory Exam Respiratory Exam: Clear to Auscultation Bilateral, NORMAL BREATHING PATTERN - Cardiovascular Exam Cardiovascular Exam: REGULAR RHYTHM - GI/Abdominal Exam GI & Abdominal Exam: Normal Bowel Sounds, Soft - Extremities Exam Extremities exam: Negative for: calf tenderness, tenderness Additional comments: mild discoloration and xerosis cutis on bilateral tibias. Negative Frnacisco Javier's sign. Nonpitting mild edema from knees down. No palpable cord. - Neurological Exam Neurological exam: Alert, CN II-XII Intact, Normal Gait, Oriented x3 - Skin Skin Exam: Dry, Intact, Normal Color Additional comments: xerosis cutis bilateral feet - Additional Findings Additional findings: VS during exam: T98, P87, R20, 136/85, 98% RA Results - Vital Signs Recent Vital Signs: Last Vital Signs Temp 98.2 F 01/14/18 06:42 Pulse 70 01/14/18 06:42 Resp 18 01/14/18 06:42 BP 148/85 01/14/18 06:42 Pulse Ox 96 01/13/18 01:30 - Labs Result Diagrams: 01/12/18 20:45 01/12/18 20:45 Assessment & Plan - Assessment and Plan (Free Text) Assessment: Mr. Jin is a 47 y/o male with PMHx of anxiety and depression here for EtOH detox and hearing voices in his head. We were being consulted (medicine team) because of his bilateral leg edema x 3 days. Patient currently inpatient psych and medically stable. VS wnl. 1) bilateral leg edema Patient with no signs or symptoms of CHF, which is a possibility given that both legs are edematous. Also negative proBNP. However, will need more labs/rads to futher investigate possibility of CHF. Also must check for DVT, especially in light of risk factors (previous DVT, prolonged sitting). Edema more likely 2/2 venous insufficiency but must rule out other causes such as stated above. -ECHO (wnl on 11/2016, but will repeat this admission) -repeat proBNP -CXR -doppler US LE (venous and arterial) 2) LE xerosis cutis - Clinically consistent with venous insufficiency (see #1) -placed consult for podiatry ([place]), appreciate skin and nail care 3) Alcohol dependency -psych following - currently inpatient psych. Currently medically stable and denies withdrawal sx. Only used ativan 1 mg on 01/13 (yesterday morning) -abdominal US ordered - need to be NPO for 6 hours -folate 1 mg and thiamine 100 mg both daily -hexavitamin daily -zofran 5 mg q8h PRN -imodium 2 mg q8h PRN -clonidine 0.1 mg q5h PRN 4) Microcytic anemia Hg 11.5 and MCV 75.7 -iron studies, lead, copper for tomorrow -though patient not with macrocytic anemia (folate/b12), ordered both for tomorrow due to his significant alcohol hx 5) anxiety/depression -Currently denies anxiety, depression, SI/HI -psych following -trazodone 50 mg qhs case discussed with Dr. Dave Resendiz, PGY-1 <Teagan Acosta V - Last Filed: 01/19/18 18:21> Results - Vital Signs Recent Vital Signs: Last Vital Signs Temp 97.8 F 01/19/18 07:50 Pulse 67 01/19/18 07:50 Resp 20 01/19/18 07:50 BP 136/93 H 01/19/18 07:50 Pulse Ox 96 01/19/18 07:50 - Labs Result Diagrams: 01/19/18 07:16 01/19/18 07:16 Labs: Laboratory Results - last 24 hr 01/19/18 01/19/18 01/19/18 07:16 07:16 07:16 WBC 6.2 RBC 5.30 Hgb 13.2 Hct 40.8 MCV 76.9 L MCH 24.9 L MCHC 32.4 L RDW 21.5 H Plt Count 302 MPV 8.0 Neut % (Auto) 57.0 Lymph % (Auto) 25.5 Coffee % (Auto) 14.3 H Eos % (Auto) 2.5 Baso % (Auto) 0.7 Neut # (Auto) 3.5 Lymph # (Auto) 1.6 Coffee # (Auto) 0.9 H Eos # (Auto) 0.2 Baso # (Auto) 0.0 Sodium 140 Potassium 4.4 Chloride 103 Carbon Dioxide 28 Anion Gap 13 BUN 17 Creatinine 1.0 Est GFR ( Amer) > 60 Est GFR (Non-Af Amer) > 60 Random Glucose 103 Calcium 9.1 Phosphorus 4.2 Magnesium 2.2 Ferritin 34.7 Total Bilirubin 0.5 AST 369 H ALT 568 H Alkaline Phosphatase 83 Total Creatine Kinase 177 H Total Protein 7.4 Albumin 4.3 Globulin 3.1 Albumin/Globulin Ratio 1.4 TSH 3rd Generation 4.87 H Acetaminophen < 10.0 L Attending/Attestation - Attestation I have personally seen and examined this patient.: Yes I have fully participated in the care of the patient.: Yes I have reviewed all pertinent clinical information: Yes Notes (Text): This is late computer entry for 01/14/18. Patient seen, examined and case discussed with medical representative. Medicine consulted for b/l lower extremity edema. Patient admitted to the psych admission for anxiety/depresison/bipolar disorder with known history of alcohol abuse. Per review of EMR, patient had b/l dvt in 01/06 and was discharged on Eliquis. Patient does not remember if he took the blood thinner. Will order echo, b/l venous dopplers, and abdominal US given alcohol history contributing for possible alcoholic cardiomyopathy or cirrhosis Assessment/Plan 1) Alcohol dependence Assessment/Plan * psych following - currently inpatient psych. Currently medically stable and denies withdrawal sx. * order abdominal US * folate 1 mg and thiamine 100 mg both daily * hexavitamin daily * zofran 5 mg q8h PRN * imodium 2 mg q8h PRN * clonidine 0.1 mg q5h PRN * outpatient counseling f/u 2) Bilateral leg edema History of prior DVTs in lower extremities Assessment/Plan * Prior hx of b/l dts in 01/06 per review of EMR; unclear if patient took Eliquis * check venous dopplers ro dvt * check echo, probnp for cardiomyopathy * check abdominal Us for cirrhosis in light of alcoho history 3) anxiety/depression/bipolar disorder Assessment/Plan * management per psych * Currently denies anxiety, depression, SI/HI * psych following * trazodone 50 mg qhs
--- NOTE | 2018-01-14 16:01 | RAD ---
Date of service: 01/14/2018 HISTORY: preadmission COMPARISON: 01/13/2017 FINDINGS: LUNGS: No active pulmonary disease. PLEURA: No significant pleural effusion identified, no pneumothorax apparent. CARDIOVASCULAR: No aortic atherosclerotic calcification present Minimal cardiomegaly probable OSSEOUS STRUCTURES: No significant abnormalities. VISUALIZED UPPER ABDOMEN: Normal. OTHER FINDINGS: None. IMPRESSION: No active disease. No interval pathology noted.
[2018-01-14 18:25] LABS: IRON 37 ug/dL (49-181)
[2018-01-14 18:33] LABS: % IRON SATURATION 9 (20-55); TOTAL IRON BINDING CAPACITY 425 ug/dL (250-450)
[2018-01-14 19:21] LABS: FOLATE > 20.0 ng/mL
--- NOTE | 2018-01-14 21:11 | CP.PCM.CON ---
History of Present Illness - History of Present Illness History of Present Illness: Podiatry Consult Note for Dr. Alonzo 47M with PMHx anxiety, depression, and DVT s/p fall 11/2016 seen and evaluated at bedside for bilateral lower extremity edema. Patient states that he first noticed the edema roughly a week ago. He denies any trauma to the areas or any open wounds/lesions b/l. He states that he has noticed that the swelling improves when his legs are elevated and gets worse when they are in a dependent position. He denies any pain to either calf when they are squeezed. Denies any recent fevers, hemoptysis or shortness of breath. Patient states that he drinks alcohol regularly and guesses that he consumes six beers a day on average. He denies any history of congestive heart failure or renal problems. He denies any recent N/V/F/C/CP/SOB/D/posterior calf pain when squeezed. Review of Systems - Review of Systems All systems: reviewed and no additional remarkable complaints except Review of Systems: as per HPI Past Patient History - Infectious Disease Hx of Infectious Diseases: None - Past Medical History & Family History Past Medical History?: No Past Family History: Reviewed and not pertinent - Past Social History Smoking Status: Never Smoked - CARDIAC Hx Cardiac Disorders: No Hx Hypertension: Yes - PULMONARY Hx Tuberculosis: No - NEUROLOGICAL HX Cerebrovascular Accident: No Hx Seizures: Yes (ETOH related) - HEENT Hx HEENT Problems: No - RENAL Hx Chronic Kidney Disease: No - ENDOCRINE/METABOLIC Hx Endocrine Disorders: No - HEMATOLOGICAL/ONCOLOGICAL Hx Cancer: No Hx Human Immunodeficiency Virus (HIV): No - INTEGUMENTARY Hx Dermatological Problems: No - MUSCULOSKELETAL/RHEUMATOLOGICAL Hx Musculoskeletal Disorders: No Hx Falls: No - GASTROINTESTINAL Hx Gastrointestinal Disorders: No - GENITOURINARY/GYNECOLOGICAL Hx Sexually Transmitted Disorders: No - PSYCHIATRIC Hx Substance Use: Yes - SURGICAL HISTORY Hx Surgeries: Yes Other/Comment: "HEAD SURGERY YEARS AGO" PER PATIENT - ANESTHESIA Hx Anesthesia: Yes Hx Anesthesia Reactions: No Meds Allergies/Adverse Reactions: Allergies Allergy/AdvReac Type Severity Reaction Status Date / Time No Known Allergies Allergy Verified 12/30/17 19:47 - Medications Medications: Current Medications Al Hydrox/Mg Hydrox/Simethicone (Maalox 30 Ml) 30 ml PO TID PRN PRN Reason: Indigestion / Heartburn Clonidine HCl (Catapres) 0.1 mg PO Q4H PRN PRN Reason: Symptoms of alcohol withdrawl Folic Acid (Folic Acid) 1 mg PO DAILY [facility] Last Admin: 01/14/18 09:48 Dose: 1 mg Gabapentin (Neurontin) 300 mg PO TID [facility] Last Admin: 01/14/18 17:41 Dose: 300 mg Influenza Virus Vaccine (Fluzone Quad [id number]) 60 mcg IM .ONCE ONE Stop: 01/15/18 10:01 Loperamide HCl (Imodium) 2 mg PO Q8 PRN PRN Reason: Diarrhea Lorazepam (Ativan) 1 mg PO Q6H PRN PRN Reason: Withdrawal symptoms Last Admin: 01/13/18 06:17 Dose: 1 mg Lorazepam (Ativan) 1 mg PO Q4H PRN PRN Reason: Symptoms of alcohol withdrawl Lorazepam (Ativan) 1 mg PO Q6 [facility]; Taper Stop: 01/18/18 09:44 Last Admin: 01/14/18 17:41 Dose: 1 mg Multivitamins (Hexavitamin) 1 tab PO DAILY [facility] Last Admin: 01/14/18 09:48 Dose: 1 tab Ondansetron HCl (Zofran Tab) 4 mg PO Q8 PRN PRN Reason: Nausea/Vomiting Thiamine HCl (Vitamin B1 Tab) 100 mg PO DAILY [facility] Last Admin: 01/14/18 10:23 Dose: 100 mg Trazodone HCl (Desyrel) 50 mg PO HS PRN PRN Reason: Insomnia Physical Exam - Constitutional Appears: Well, Non-toxic, No Acute Distress - Extremities Exam Additional comments: LE focused exam: Vasc: DP/PT pulses fully palpable 2/4 b/l. Skin temperature warm to warm from proximal to distal WNL. No increase in temperature noted b/l. CFT < 3 seconds to all digits b/l. Moderate pitting edema noted to b/l LE. Neuro: Epicritic and protective sensation grossly intact b/l Derm: Xerotic changes noted to distal digits. Minimal edema noted to anterior shins b/l. Hypertrophic, elongated toenails noted to digits 1-5. Otherwise no open lesions, wounds, maceration, xerosis, abnormal pigmentation or abnormal growths noted b/l MSK: No pain with calf squeeze test. No abnormal deformities noted. MMT 5/5 in all major muscle groups. ROM WNL at all major joints - Neurological Exam Neurological exam: Alert, Oriented x3 - Psychiatric Exam Psychiatric exam: Normal Affect, Normal Mood Results - Vital Signs Recent Vital Signs: Last Vital Signs Temp 98.2 F 01/14/18 06:42 Pulse 76 01/14/18 16:06 Resp 18 01/14/18 06:42 BP 142/95 H 01/14/18 16:06 Pulse Ox 96 01/13/18 01:30 - Labs Result Diagrams: 01/12/18 20:45 01/12/18 20:45 Labs: Laboratory Results - last 24 hr 01/14/18 01/14/18 01/14/18 17:03 17:50 17:50 Iron 37 L TIBC 425 % Saturation 9 L NT-Pro-B Natriuret Pep 41.4 Vitamin B12 596 Folate > 20.0 Assessment & Plan - Assessment and Plan (Free Text) Assessment: 47M seen for b/l LE edema Plan: Patient seen and evaluated Plan discussed with Dr. Alonzo No compression dressings to be applied at this time as patient is in psych unit and vascular studies have not been performed Patient instructed to keep feet elevated as much as possible No leukocytosis, fever or other signs of infection appreciated F/u vascular studies and venous doppler to r/o DVT Podiatry will continue to follow while patient in house - Date & Time Date: 01/14/18 Time: 21:19
--- NOTE | 2018-01-14 23:46 | PCM.PYCHPN ---
Psychiatric Progress Note - Psychiatric Progress Note Patient seen today, length of contact: 15 min Patient Chief Complaint: I relapsed on drinking and started hearing voices to kill myself. Problems Identified/Issues Discussed: Patient seen and evaluated, chart reviewed and discussed with the nurse. Pt reports depressed mood, and reports feelings of hopelessness and helplessness. He still reports irritability and agitation. Pt appears more organized and less internally preoccupied. He remained isolated and withdrawn, and confined to his room. Patient reports of withdrawal symptoms including abdominal cramps, anxiety, headaches and sweating. Patient is compliant with medications and denies any side effects. Symptoms are improving but pt needs more time to stabilize. Support and psychoeducation given. Medication Change: Yes Medical Record Reviewed: Yes Mental Status Examination - Cognitive Function Orientation: Person, Place, Situation, Time Memory: Intact Attention: WNL Concentration: Poor Association: Loose Fund of Knowledge: WNL - Mood Mood: Depressed, Anxious - Affect Affect: Constricted, Depressed - Speech Speech: Soft - Formal Thought Process Formal Thought Process: Hallucinations, Paranoia, Loosening of associations - Suicidal Ideation Suicidal Ideation: No - Homicidal Ideation Homicidal Ideation: No Goal/Treatment Plan - Goal/Treatment Plan Need for Continued Stay: Severe depression anxiety, Severe functional impairment Progress Toward Problem(s) and Goals/Treatment Plan: Bipolar disorder mixed severe with psychotic features Alcohol use disorder severe Alcohol withdrawal -CBT -Psychotherapy -Supportive therapy, group therapy, individual therapy -Atarax 25 mg PO Q6 prn -Seroquel 100 mg PO QHS -Trazodone 50 mg PO QHS prn -Effexor 75 mg PO daily -Neurontin -Ativan taper -prn meds - Smoking Cessation Smoking Cessation Initiated: No
[2018-01-15 07:06] VITALS: RESP 20
[2018-01-15 08:09] LABS: BASO # 0.1 K/uL (0.0-0.2); BASO % 1.4 % (0.0-2.0); EOS # 0.2 K/uL (0.0-0.7); EOS % 3.3 % (0.0-4.0); HEMOGLOBIN 13.3 g/dL (12.0-18.0); LYMPH % 31.1 % (20.0-40.0); MEAN CELL VOLUME 76.4 fL (80.0-94.0); MEAN CORPUSCULAR HEMOGLOBIN 24.8 pg (27.0-31.0); MEAN CORPUSCULAR HGB CONC 32.5 g/dL (33.0-37.0); MEAN PLATELET VOLUME 8.1 fL (7.2-11.7); MONO # 0.7 K/uL (0.0-0.8); MONO % 11.2 % (0.0-10.0); NEUT # 3.4 K/uL (1.8-7.0); RBC 5.36 Mil/uL (4.40-5.90); RED CELL DISTRIBUTION WIDTH 21.3 % (11.5-14.5); WHITE BLOOD COUNT 6.5 K/uL (4.8-10.8)
[2018-01-15 08:39] LABS: ALB/GLOB RATIO 1.3 (1.0-2.1); ALBUMIN 4.6 g/dL (3.5-5.0); ALT/SGPT 457 U/L (21-72); AST/SGOT 557 U/L (17-59); BLOOD UREA NITROGEN 18 mg/dL (9-20); CALCIUM 9.4 mg/dl (8.6-10.4); GFR NON-AFRICAN AMERICAN > 60
--- NOTE | 2018-01-15 08:49 | US ---
Date of service: 01/14/2018 HISTORY: alcoholism COMPARISON: Right upper quadrant ultrasound from 01/13/2017. TECHNIQUE: Sonographic evaluation of the abdomen. FINDINGS: LIVER: Measures 19.0 cm. There is diffuse increased echogenicity of the liver parenchyma. No mass. No intrahepatic bile duct dilatation. GALLBLADDER: There are no gallstones, wall thickening or pericholecystic fluid. The sonographic Shook's sign is negative. COMMON BILE DUCT: Measures 3.0 mm. No stones. No dilatation. PANCREAS: Unremarkable as visualized. No mass. No ductal dilatation. RIGHT KIDNEY: Measures 10.8cm. Normal echogenicity. No calculus, mass, or hydronephrosis. LEFT KIDNEY: Measures 11.9cm. Normal echogenicity. No calculus, mass, or hydronephrosis. SPLEEN: Normal in size and contour. No mass. AORTA: No aneurysmal dilatation. IVC: Unremarkable. OTHER FINDINGS: None. IMPRESSION: Mild hepatomegaly. Diffuse increased echogenicity in the liver may reflect hepatic steatosis however parenchymal infectious/ inflammatory etiologies cannot be entirely excluded. Clinical and laboratory correlation is advised.
--- NOTE | 2018-01-15 09:11 | CP.PCM.PN ---
Subjective - Date & Time of Evaluation Date of Evaluation: 01/15/18 Time of Evaluation: 09:06 - Subjective Subjective: Podiatry progress Note for Dr. Alonzo 47 y/o M patient seen and evaluated for bilateral lower extremity edema. Patient states that he doesn't have any pain in his legs and feet. patient denies any overnight acute events. patient denies any overnight N/V/F/C or SOB Objective - Vital Signs/Intake and Output Vital Signs (last 24 hours): Temp Pulse Resp BP Pulse Ox 97.9 F 106 H 20 121/89 99 01/15/18 06:00 01/15/18 06:00 01/15/18 06:00 01/15/18 06:00 01/15/18 06:00 - Medications Medications: Current Medications Al Hydrox/Mg Hydrox/Simethicone (Maalox 30 Ml) 30 ml PO TID PRN PRN Reason: Indigestion / Heartburn Clonidine HCl (Catapres) 0.1 mg PO Q4H PRN PRN Reason: Symptoms of alcohol withdrawl Folic Acid (Folic Acid) 1 mg PO DAILY [facility] Last Admin: 01/14/18 09:48 Dose: 1 mg Gabapentin (Neurontin) 300 mg PO TID [facility] Last Admin: 01/14/18 17:41 Dose: 300 mg Influenza Virus Vaccine (Fluzone Quad [id number]) 60 mcg IM .ONCE ONE Stop: 01/15/18 10:01 Loperamide HCl (Imodium) 2 mg PO Q8 PRN PRN Reason: Diarrhea Lorazepam (Ativan) 1 mg PO Q6H PRN PRN Reason: Withdrawal symptoms Last Admin: 01/13/18 06:17 Dose: 1 mg Lorazepam (Ativan) 1 mg PO Q4H PRN PRN Reason: Symptoms of alcohol withdrawl Lorazepam (Ativan) 1 mg PO Q6 [facility]; Taper Stop: 01/18/18 09:44 Last Admin: 01/15/18 05:53 Dose: 1 mg Multivitamins (Hexavitamin) 1 tab PO DAILY [facility] Last Admin: 01/14/18 09:48 Dose: 1 tab Ondansetron HCl (Zofran Tab) 4 mg PO Q8 PRN PRN Reason: Nausea/Vomiting Quetiapine Fumarate (Seroquel) 50 mg PO [facility] Thiamine HCl (Vitamin B1 Tab) 100 mg PO DAILY [facility] Last Admin: 01/14/18 10:23 Dose: 100 mg Trazodone HCl (Desyrel) 50 mg PO HS PRN PRN Reason: Insomnia Venlafaxine HCl (Effexor) 75 mg PO DAILY [facility] - Labs Labs: 01/15/18 08:00 01/15/18 08:00 - Constitutional Appears: Well, Non-toxic, No Acute Distress - Head Exam Head Exam: ATRAUMATIC, NORMOCEPHALIC - Extremities Exam Additional comments: LE focused exam: Vasc: DP/PT pulses fully palpable 2/4 b/l. Skin temperature warm to warm from proximal to distal WNL. No increase in temperature noted b/l. CFT < 3 seconds to all digits b/l. Moderate pitting edema noted to b/l LE. Neuro: Epicritic and protective sensation grossly intact b/l Derm: Xerotic changes noted to distal digits. Minimal edema noted to anterior shins b/l. Hypertrophic, elongated toenails noted to digits 1-5. Otherwise no open lesions, wounds, maceration, xerosis, abnormal pigmentation or abnormal growths noted b/l MSK: No gross deformities noted. MMT 5/5 in all major muscle groups. ROM WNL at all major joints - Neurological Exam Neurological Exam: Alert, Awake, Oriented x3 Assessment and Plan - Assessment and Plan (Free Text) Assessment: 47 y/o M patient seen and evaluated for b/l LE edema Plan: Patient seen and evaluated Plan discussed with Dr. Alonzo Charts labs and vitals reviewed; Afebrile, No leukocytosis No compression dressings to be applied at this time as patient is in psych unit and vascular studies have not been performed F/u vascular studies and venous doppler to r/o DVT Patient is stable from the podiatry standpoint Podiatry will continue to follow while patient in house
[2018-01-15] MEDS ORDERED: Pneumococcal 23-Valent Vaccine IM ONE (10:00)
[2018-01-15] MEDS ORDERED: Influenza Vaccine 60 MCG/0.5 ML SYR (3 yr & up) IM ONE (10:00)
[2018-01-15] MEDS: Multiple Vitamins Tab PO SCH (10:37)
--- NOTE | 2018-01-15 10:45 | PCM.PYCHPN ---
Psychiatric Progress Note - Psychiatric Progress Note Patient seen today, length of contact: 15 min Patient Chief Complaint: I relapsed on drinking and started hearing voices to kill myself. Problems Identified/Issues Discussed: Patient seen and evaluated, chart reviewed and discussed with the nurse. Pt reports some improvement in his depressed mood, and feelings of hopelessness and helplessness. He reports some improvement in the irritability and agitation. He remained isolated and withdrawn, and confined to his room. Patient reports some improvement in withdrawal symptoms. Patient is compliant with medications and denies any side effects. Symptoms are improving but pt needs more time to stabilize. Support and psychoeducation given. Medication Change: Yes Medical Record Reviewed: Yes Mental Status Examination - Cognitive Function Orientation: Person, Place, Situation, Time Memory: Intact Attention: WNL Concentration: Poor Association: Loose Fund of Knowledge: WNL - Mood Mood: Depressed, Anxious - Affect Affect: Constricted, Depressed - Speech Speech: Soft - Formal Thought Process Formal Thought Process: Hallucinations, Paranoia, Loosening of associations - Suicidal Ideation Suicidal Ideation: No - Homicidal Ideation Homicidal Ideation: No Goal/Treatment Plan - Goal/Treatment Plan Need for Continued Stay: Severe depression anxiety, Severe functional impairment Progress Toward Problem(s) and Goals/Treatment Plan: Bipolar disorder mixed severe with psychotic features Alcohol use disorder severe Alcohol withdrawal -CBT -Psychotherapy -Supportive therapy, group therapy, individual therapy -Atarax 25 mg PO Q6 prn -Seroquel 100 mg PO QHS -Trazodone 50 mg PO QHS prn -Effexor 75 mg PO daily -Neurontin -Ativan taper -prn meds
--- NOTE | 2018-01-15 13:23 | CP.PCM.PN ---
<Sonja Resendiz - Last Filed: 01/15/18 17:01> Subjective - Date & Time of Evaluation Date of Evaluation: 01/15/18 Time of Evaluation: 13:22 - Subjective Subjective: Medicine Dr. Acosta's Service Patient seen and examined at psych unit. He just came back from doppler . Still denies shortness of breath and chest pain. Leg swelling improving. Still no leg pain. Objective - Vital Signs/Intake and Output Vital Signs (last 24 hours): Temp Pulse Resp BP Pulse Ox 97.9 F 106 H 20 121/89 99 01/15/18 06:00 01/15/18 06:00 01/15/18 06:00 01/15/18 06:00 01/15/18 06:00 - Medications Medications: Current Medications Al Hydrox/Mg Hydrox/Simethicone (Maalox 30 Ml) 30 ml PO TID PRN PRN Reason: Indigestion / Heartburn Clonidine HCl (Catapres) 0.1 mg PO Q4H PRN PRN Reason: Symptoms of alcohol withdrawl Folic Acid (Folic Acid) 1 mg PO DAILY [facility] Last Admin: 01/15/18 10:37 Dose: 1 mg Gabapentin (Neurontin) 300 mg PO TID [facility] Last Admin: 01/15/18 10:37 Dose: 300 mg Loperamide HCl (Imodium) 2 mg PO Q8 PRN PRN Reason: Diarrhea Lorazepam (Ativan) 1 mg PO Q6H PRN PRN Reason: Withdrawal symptoms Last Admin: 01/13/18 06:17 Dose: 1 mg Lorazepam (Ativan) 1 mg PO Q4H PRN PRN Reason: Symptoms of alcohol withdrawl Lorazepam (Ativan) 1 mg PO Q6 [facility]; Taper Stop: 01/18/18 09:44 Last Admin: 01/15/18 12:12 Dose: 1 mg Multivitamins (Hexavitamin) 1 tab PO DAILY [facility] Last Admin: 01/15/18 10:37 Dose: 1 tab Ondansetron HCl (Zofran Tab) 4 mg PO Q8 PRN PRN Reason: Nausea/Vomiting Quetiapine Fumarate (Seroquel) 50 mg PO HS [facility] Thiamine HCl (Vitamin B1 Tab) 100 mg PO DAILY [facility] Last Admin: 01/15/18 10:37 Dose: 100 mg Trazodone HCl (Desyrel) 50 mg PO HS PRN PRN Reason: Insomnia Venlafaxine HCl (Effexor) 75 mg PO DAILY [facility] Last Admin: 01/15/18 10:37 Dose: 75 mg - Labs Labs: 01/15/18 08:00 01/15/18 08:00 - Constitutional Appears: Well, Non-toxic - Head Exam Head Exam: ATRAUMATIC, NORMAL INSPECTION - Eye Exam Eye Exam: EOMI, Normal appearance - ENT Exam ENT Exam: Mucous Membranes Moist - Neck Exam Neck Exam: Normal Inspection - Respiratory Exam Respiratory Exam: Clear to Ausculation Bilateral, NORMAL BREATHING PATTERN - Cardiovascular Exam Cardiovascular Exam: REGULAR RHYTHM - GI/Abdominal Exam GI & Abdominal Exam: Soft, Normal Bowel Sounds - Extremities Exam Additional comments: non pitting trace edema tibias and ankles bilaterally - Neurological Exam Neurological Exam: Alert, Awake, Normal Gait, Oriented x3 - Psychiatric Exam Psychiatric exam: Normal Affect, Normal Mood Assessment and Plan - Assessment and Plan (Free Text) Assessment: 47 y/o m with PMHx of alcohol dependence, anxiety/depression is being consulted for his bilateral leg edema 01/14. Transaminitis Likely alcoholic liver disease. Patient with extensive EtOH history, drinking since he was 13 y/o, estimates 6 beer bottles a day. -AST 557/ALT 457 increased from 01/14 -GI consulted -PT/INR ordered -hepatically dosed psych meds - seroquel from 100 mg PO qhs to 25 mg, and ativan PRN, not scheduled bilateral leg edema - resolving Patient with no signs or symptoms of CHF, which is a possibility given that both legs are edematous. proBNP negative. Edema more likely 2/2 venous insufficiency -ECHO (wnl on 11/2016, but will repeat this admission) pending -CXR wnl -doppler US LE (venous and arterial) r/o DVT preliminary results in chart LE xerosis cutis - Clinically consistent with venous insufficiency -placed consult for podiatry ([place]), appreciate [facility] Alcohol dependency -psych following - currently inpatient psych. Currently medically stable and denies withdrawal sx. Only used ativan 1 mg on 01/13 (yesterday morning) -abdominal US - wnl other than mild hepatomegaly -folate 1 mg and thiamine 100 mg both daily -hexavitamin daily -zofran 5 mg q8h PRN -imodium 2 mg q8h PRN -clonidine 0.1 mg q5h PRN Microcytic anemia Hg 11.5 and MCV 75.7 TIBC 425, % sat 9 -iron studies, lead, copper for tomorrow -though patient not with macrocytic anemia (folate/b12), ordered both for tomorrow due to his significant alcohol hx anxiety/depression/bipolar disorder -Currently denies anxiety, depression, SI/HI -psych following -trazodone 50 mg qhs -added 01/15 by psych: seroquel 100 mg PO qhs (changed to 25 mg by medicine team due to transaminitis), effecxor 75 mg PO daily case discussed with Dr. Dave Resendiz, PGY-1 <Teagan Acosta V - Last Filed: 01/16/18 20:25> Objective - Vital Signs/Intake and Output Vital Signs (last 24 hours): Temp Pulse Resp BP Pulse Ox 97.9 F 70 20 150/95 H 97 01/16/18 15:45 01/16/18 15:45 01/16/18 15:45 01/16/18 15:45 01/16/18 15:45 - Medications Medications: Current Medications Al Hydrox/Mg Hydrox/Simethicone (Maalox 30 Ml) 30 ml PO TID PRN PRN Reason: Indigestion / Heartburn Clonidine HCl (Catapres) 0.1 mg PO Q4H PRN PRN Reason: Symptoms of alcohol withdrawl Folic Acid (Folic Acid) 1 mg PO DAILY [facility] Last Admin: 01/16/18 09:11 Dose: 1 mg Sodium Chloride (Sodium Chloride 0.9%) 1,000 mls @ 100 mls/hr IV .Q10H [facility] Stop: 01/18/18 13:30 Last Admin: 01/16/18 13:49 Dose: 100 mls/hr Loperamide HCl (Imodium) 2 mg PO Q8 PRN PRN Reason: Diarrhea Lorazepam (Ativan) 1 mg PO Q6H PRN PRN Reason: Withdrawal symptoms Last Admin: 01/13/18 06:17 Dose: 1 mg Lorazepam (Ativan) 1 mg PO Q4H PRN PRN Reason: Symptoms of alcohol withdrawl Last Admin: 01/16/18 00:17 Dose: 1 mg Lorazepam (Ativan) 1 mg PO Q8 [facility]; Taper Stop: 01/18/18 09:44 Last Admin: 01/15/18 12:12 Dose: 1 mg Multivitamins (Hexavitamin) 1 tab PO DAILY [facility] Last Admin: 01/16/18 09:11 Dose: 1 tab Ondansetron HCl (Zofran Tab) 4 mg PO Q8 PRN PRN Reason: Nausea/Vomiting Quetiapine Fumarate (Seroquel) 25 mg PO HS [facility] Last Admin: 01/15/18 21:46 Dose: 25 mg Thiamine HCl (Vitamin B1 Tab) 100 mg PO DAILY [facility] Last Admin: 01/16/18 09:11 Dose: 100 mg Trazodone HCl (Desyrel) 50 mg PO HS PRN PRN Reason: Insomnia Last Admin: 01/15/18 21:44 Dose: 50 mg Venlafaxine HCl (Effexor) 75 mg PO DAILY [facility] Last Admin: 01/16/18 09:11 Dose: 75 mg - Labs Labs: 01/16/18 07:14 01/16/18 07:14 PT 10.8 SECONDS (9.7-12.2) 01/15/18 21:12 INR 1.0 01/15/18 21:12 APTT 30 SECONDS (21-34) 01/15/18 20:37 Attending/Attestation - Attestation I have personally seen and examined this patient.: Yes I have fully participated in the care of the patient.: Yes I have reviewed all pertinent clinical information, including history, physical exam and plan: Yes Notes (Text): This is late computer entry for 01/15/18. Patient seen, examined and case discussed with senior medical transcriptionist. Patient reports he is feeling better. Denies abdominal pain, denies nausea, denies vomitting. denies change in stools. Liver function tests continue to uptrend; suspect secondary to alcohol. Patient is not receiving tylenol; d/c benzo, lower seroquel to hepatic dosing; obtained GI consult; discussed with Dr. Abrams, obtained INR to determine if patient needs steroids for alcoholic hepatitis Transferred patient out to the floor for IV fluids and to continue to monitor liver function tests. Patient is pending official reads of echo and venous dopplers at the time of my rounds. I have had a eyad discussion with patient that he needs to stop his alcohol use which is currently making changes to his liver as evidenced by his abdominal US. he is aware he needs to stop. He is encouraged to pursue rehab and AA. Assessment/Plan 1) Transaminitis Assessment/Plan * Likely alcoholic liver disease. Patient with extensive EtOH history, drinking since he was 13 y/o, estimates 6 beer bottles a day. * uptrending * GI consult obtained; discussed with Dr. Abrams * Ordered for PT/INR * hepatically dosed psych meds - seroquel from 100 mg PO qhs to 25 mg, and ativan PRN, not scheduled * Start IV fluids * abdominal US - wnl other than mild hepatomegaly 2) Alcohol dependence * psych following - currently inpatient psych. Currently medically stable and denies withdrawal sx. * abdominal US - wnl other than mild hepatomegaly * folate 1 mg and thiamine 100 mg both daily * hexavitamin daily * zofran 5 mg q8h PRN * imodium 2 mg q8h PRN * clonidine 0.1 mg q5h PRN * outpatient counseling f/u 3) bilateral leg edema-->Improving * Patient with no signs or symptoms of CHF. ECHO pending official, CXR and proBNP negative. Edema more likely 2/2 venous insufficiency; however awaiting official read since prior history of clots one year ago * doppler US LE (venous and arterial) r/o DVT preliminary results in chart is negative 4) anxiety/depression/bipolar disorder * management per psych * Currently denies anxiety, depression, SI/HI * psych following * trazodone 50 mg qhs * added 01/15 by psych: effexor 75 mg PO daily Disposition: liver function increasing; will transfer to the floor for IV fluids and obtain GI consult./ f/u official reads of dopplers and echo.
--- NOTE | 2018-01-15 15:34 | CARD ---
APPROVED REPORT Date of service: 01/15/2018 EXAM: Two-dimensional and M-mode echocardiogram with Doppler and color Doppler. Other Information Quality : GoodRhythm : INDICATION Peripheral Edema ETOH ABUSE RISK FACTORS Hypertension 2D DIMENSIONS IVSd1.2 (0.7-1.1cm)LVDd4.3 (3.9-5.9cm) PWd1.3 (0.7-1.1cm)LA Evoxch77 (18-58mL) LVDs3.0 (2.5-4.0cm)FS (%) 30.2 % LVEF (%)57.8 (>50%)LVEF (Ford's)61.15 % IVC0.00 cm M-Mode DIMENSIONS RVDd3.02 (2.1-3.2cm)Left Atrium (MM)3.55 (2.5-4.0cm) IVSd0.94 (0.7-1.1cm)Aortic Root3.48 (2.2-3.7cm) LVDd5.00 (4.0-5.6cm)Aortic Cusp Exc.2.12 (1.5-2.0cm) PWd0.83 (0.7-1.1cm)FS (%) 43 % LVDs2.85 (2.0-3.8cm)LVEF (%)62 (>50%) Mitral Valve MV E Stnnkisj42.1cm/sMV A Gvhpqzyy17.0cm/sE/A ratio0.9 TDI Lateral E' Peak V12.09cm/sMedial E' Peak V9.06cm/sE/Lateral E'6.3 E/Medial E'8.4 Tricuspid Valve TR Peak Bhmdewjt269la/sRAP [id number] Peak Gr.26mmHg [id number] LEFT VENTRICLE The left ventricle is normal size. There is normal left ventricular wall thickness. The left ventricular function is normal. The left ventricular ejection fraction is within the normal range. There is normal LV segmental wall motion. The left ventricular diastolic function is normal for age. RIGHT VENTRICLE The right ventricle is normal size. The right ventricular systolic function is normal. ATRIA The left atrium size is normal. The right atrium size is normal. The interatrial septum is intact with no evidence for an atrial septal defect. AORTIC VALVE The aortic valve is normal in structure. No aortic regurgitation is present. There is no aortic valvular stenosis. MITRAL VALVE The mitral valve is normal in structure. There is no mitral valve regurgitation noted. TRICUSPID VALVE The tricuspid valve is normal in structure. There is trace to mild tricuspid regurgitation. PULMONIC VALVE The pulmonic valve is not well visualized. Probably normal. GREAT VESSELS The aortic root is normal in size. The IVC is normal in size and collapses >50% with inspiration. PERICARDIAL EFFUSION There is no pericardial effusion. <Conclusion> Normal biventricular function. No valvular abnormality. No pericardial effusion.
--- NOTE | 2018-01-15 16:36 | CP.PCM.CON ---
History of Present Illness - History of Present Illness History of Present Illness: ASked to see pt for elev LFTs. Admitted with hearing voices, depression. Reports heavy alcohol us- recently Denies meds, tylenol, OD Review of Systems - Cardiovascular Cardiovascular: Edema. absent: Chest Pain, Dyspnea - Respiratory Respiratory: absent: Cough, Dyspnea, Hemoptysis - Gastrointestinal Gastrointestinal: absent: Abdominal Pain, Constipation, Diarrhea, Dysphagia, Hematemesis, Hematochezia, Melena, Nausea, Vomiting - Genitourinary Genitourinary: absent: Hematuria - Musculoskeletal Musculoskeletal: absent: Numbness - Integumentary Integumentary: absent: Rash - Neurological Neurological: absent: Convulsions - Psychiatric Psychiatric: Depression, Hallucinations Past Patient History - Infectious Disease Hx of Infectious Diseases: None - Past Medical History & Family History Past Medical History?: No Past Family History: Reviewed and not pertinent - Past Social History Smoking Status: Never Smoked - CARDIAC Hx Cardiac Disorders: No Hx Hypertension: Yes - PULMONARY Hx Tuberculosis: No - NEUROLOGICAL HX Cerebrovascular Accident: No Hx Seizures: Yes (ETOH related) - HEENT Hx HEENT Problems: No - RENAL Hx Chronic Kidney Disease: No - ENDOCRINE/METABOLIC Hx Endocrine Disorders: No - HEMATOLOGICAL/ONCOLOGICAL Hx Cancer: No Hx Human Immunodeficiency Virus (HIV): No - INTEGUMENTARY Hx Dermatological Problems: No - MUSCULOSKELETAL/RHEUMATOLOGICAL Hx Musculoskeletal Disorders: No Hx Falls: No - GASTROINTESTINAL Hx Gastrointestinal Disorders: No - GENITOURINARY/GYNECOLOGICAL Hx Sexually Transmitted Disorders: No - PSYCHIATRIC Hx Substance Use: Yes - SURGICAL HISTORY Hx Surgeries: Yes Other/Comment: "HEAD SURGERY YEARS AGO" PER PATIENT - ANESTHESIA Hx Anesthesia: Yes Hx Anesthesia Reactions: No Meds Allergies/Adverse Reactions: Allergies Allergy/AdvReac Type Severity Reaction Status Date / Time No Known Allergies Allergy Verified 12/30/17 19:47 - Medications Medications: Current Medications Al Hydrox/Mg Hydrox/Simethicone (Maalox 30 Ml) 30 ml PO TID PRN PRN Reason: Indigestion / Heartburn Clonidine HCl (Catapres) 0.1 mg PO Q4H PRN PRN Reason: Symptoms of alcohol withdrawl Folic Acid (Folic Acid) 1 mg PO DAILY [facility] Last Admin: 01/15/18 10:37 Dose: 1 mg Gabapentin (Neurontin) 300 mg PO TID [facility] Last Admin: 01/15/18 14:02 Dose: Not Given Loperamide HCl (Imodium) 2 mg PO Q8 PRN PRN Reason: Diarrhea Lorazepam (Ativan) 1 mg PO Q6H PRN PRN Reason: Withdrawal symptoms Last Admin: 01/13/18 06:17 Dose: 1 mg Lorazepam (Ativan) 1 mg PO Q4H PRN PRN Reason: Symptoms of alcohol withdrawl Lorazepam (Ativan) 1 mg PO Q6 [facility]; Taper Stop: 01/18/18 09:44 Last Admin: 01/15/18 12:12 Dose: 1 mg Multivitamins (Hexavitamin) 1 tab PO DAILY [facility] Last Admin: 01/15/18 10:37 Dose: 1 tab Ondansetron HCl (Zofran Tab) 4 mg PO Q8 PRN PRN Reason: Nausea/Vomiting Quetiapine Fumarate (Seroquel) 25 mg PO HS [facility] Thiamine HCl (Vitamin B1 Tab) 100 mg PO DAILY [facility] Last Admin: 01/15/18 10:37 Dose: 100 mg Trazodone HCl (Desyrel) 50 mg PO HS PRN PRN Reason: Insomnia Venlafaxine HCl (Effexor) 75 mg PO DAILY [facility] Last Admin: 01/15/18 10:37 Dose: 75 mg Physical Exam - Constitutional Appears: Non-toxic - Respiratory Exam Respiratory Exam: Clear to Auscultation Bilateral - Cardiovascular Exam Cardiovascular Exam: RRR - GI/Abdominal Exam GI & Abdominal Exam: Normal Bowel Sounds, Soft. absent: Distended, Mass, Rocio ound - Extremities Exam Extremities exam: Positive for: pedal edema - Neurological Exam Neurological exam: Alert, Oriented x3 Results - Vital Signs Recent Vital Signs: Last Vital Signs Temp 97.9 F 01/15/18 06:00 Pulse 106 H 01/15/18 06:00 Resp 20 01/15/18 06:00 BP 121/89 01/15/18 06:00 Pulse Ox 99 01/15/18 06:00 - Labs Result Diagrams: 01/15/18 08:00 01/15/18 08:00 Labs: Laboratory Results - last 24 hr 01/14/18 01/14/18 01/14/18 17:03 17:50 17:50 WBC RBC Hgb Hct MCV MCH MCHC RDW Plt Count MPV Neut % (Auto) Lymph % (Auto) Grundy % (Auto) Eos % (Auto) Baso % (Auto) Neut # (Auto) Lymph # (Auto) Grundy # (Auto) Eos # (Auto) Baso # (Auto) Retic Count Sodium Potassium Chloride Carbon Dioxide Anion Gap BUN Creatinine Est GFR ( Amer) Est GFR (Non-Af Amer) Random Glucose Calcium Phosphorus Magnesium Iron 37 L TIBC 425 % Saturation 9 L Total Bilirubin GGT AST ALT Alkaline Phosphatase NT-Pro-B Natriuret Pep 41.4 Total Protein Albumin Globulin Albumin/Globulin Ratio Vitamin B12 596 Folate > 20.0 01/14/18 01/15/18 01/15/18 21:31 08:00 08:00 WBC 6.5 RBC 5.36 Hgb 13.3 Hct 41.0 MCV 76.4 L MCH 24.8 L MCHC 32.5 L RDW 21.3 H Plt Count 302 MPV 8.1 Neut % (Auto) 53.0 Lymph % (Auto) 31.1 Grundy % (Auto) 11.2 H Eos % (Auto) 3.3 Baso % (Auto) 1.4 Neut # (Auto) 3.4 Lymph # (Auto) 2.0 Grundy # (Auto) 0.7 Eos # (Auto) 0.2 Baso # (Auto) 0.1 Retic Count 1.5 Sodium 138 Potassium 4.6 Chloride 99 Carbon Dioxide 32 H Anion Gap 12 BUN 18 Creatinine 1.0 Est GFR ( Amer) > 60 Est GFR (Non-Af Amer) > 60 Random Glucose 103 Calcium 9.4 Phosphorus 4.7 H Magnesium 2.1 Iron TIBC % Saturation Total Bilirubin 0.6 GGT AST 557 H D ALT 457 H D Alkaline Phosphatase 92 NT-Pro-B Natriuret Pep Total Protein 8.1 Albumin 4.6 Globulin 3.5 Albumin/Globulin Ratio 1.3 Vitamin B12 Folate 01/15/18 08:00 WBC RBC Hgb Hct MCV MCH MCHC RDW Plt Count MPV Neut % (Auto) Lymph % (Auto) Grundy % (Auto) Eos % (Auto) Baso % (Auto) Neut # (Auto) Lymph # (Auto) Grundy # (Auto) Eos # (Auto) Baso # (Auto) Retic Count Sodium Potassium Chloride Carbon Dioxide Anion Gap BUN Creatinine Est GFR ( Amer) Est GFR (Non-Af Amer) Random Glucose Calcium Phosphorus Magnesium Iron TIBC % Saturation Total Bilirubin GGT 138 H AST ALT Alkaline Phosphatase NT-Pro-B Natriuret Pep Total Protein Albumin Globulin Albumin/Globulin Ratio Vitamin B12 Folate Assessment & Plan (1) LFT elevation Assessment and Plan: likely from etoh. Denies meds, tylenol, vitamins, herbals. He was on meds here at . Consider alcoholic hepatitis. Sono noted. Rec: No alcohol, follow LFTs, check hep profile, check PT/PTT, consider steroids for alcohol hepatitis, avoid hepato toxic meds, check NH3. Discussed with Dr Acosta. Status: Acute (2) Alcohol abuse Status: Acute (3) Depression Status: Acute (4) Leg edema Status: Acute
[2018-01-15 17:07] LABS: HEPATITIS B SURFACE AG Negative (NEGATIVE)
[2018-01-15 17:13] LABS: HEPATITIS A IGM NEGATIVE (NEGATIVE); HEPATITIS B CORE AB NEGATIVE (NEGATIVE)
[2018-01-15 17:24] LABS: HEPATITIS C ANTIBODY NEGATIVE (NEGATIVE)
[2018-01-15] MEDS: Sodium Chloride 0.9% 500 ML IV SCH (20:15)
[2018-01-15 21:16] LABS: PROTHROMBIN TIME 10.8 SECONDS (9.7-12.2)
[2018-01-16 07:31] LABS: BASO % 0.9 % (0.0-2.0); EOS # 0.2 K/uL (0.0-0.7); EOS % 3.8 % (0.0-4.0); HEMOGLOBIN 12.4 g/dL (12.0-18.0); LYMPH # 1.3 K/uL (1.0-4.3); LYMPH % 23.3 % (20.0-40.0); MEAN CELL VOLUME 76.6 fL (80.0-94.0); MEAN CORPUSCULAR HGB CONC 32.7 g/dL (33.0-37.0); MEAN PLATELET VOLUME 8.3 fL (7.2-11.7); MONO # 0.6 K/uL (0.0-0.8); MONO % 11.4 % (0.0-10.0); NEUT # 3.3 K/uL (1.8-7.0); NEUT % 60.6 % (50.0-75.0); RBC 4.97 Mil/uL (4.40-5.90); RED CELL DISTRIBUTION WIDTH 20.9 % (11.5-14.5); WHITE BLOOD COUNT 5.5 K/uL (4.8-10.8)
[2018-01-16 08:07] LABS: ALBUMIN 3.6 g/dL (3.5-5.0); ALT/SGPT 423 U/L (21-72); AST/SGOT 390 U/L (17-59); BLOOD UREA NITROGEN 16 mg/dL (9-20); CALCIUM 8.9 mg/dl (8.6-10.4); GFR NON-AFRICAN AMERICAN > 60
[2018-01-16 08:28] LABS: ALB/GLOB RATIO 1.2 (1.0-2.1)
[2018-01-16] MEDS: Sodium Chloride 0.9% 500 ML IV SCH ×2 (08:30→13:48)
[2018-01-16] MEDS: Multiple Vitamins Tab PO SCH (09:11)
--- NOTE | 2018-01-16 11:26 | CP.PCM.PN ---
Subjective - Date & Time of Evaluation Date of Evaluation: 01/16/18 Time of Evaluation: 11:00 - Subjective Subjective: f/u elev LFTs. Denies CP, SOB, fever, Garcia, cough, RB, melena, abd pain, Objective - Vital Signs/Intake and Output Vital Signs (last 24 hours): Temp Pulse Resp BP Pulse Ox 97.6 F 72 20 154/92 H 100 01/16/18 07:00 01/16/18 07:00 01/16/18 07:00 01/16/18 07:00 01/16/18 07:00 Intake and Output: 01/16/18 01/16/18 06:59 18:59 Intake Total 918 Balance 918 - Medications Medications: Current Medications Al Hydrox/Mg Hydrox/Simethicone (Maalox 30 Ml) 30 ml PO TID PRN PRN Reason: Indigestion / Heartburn Clonidine HCl (Catapres) 0.1 mg PO Q4H PRN PRN Reason: Symptoms of alcohol withdrawl Folic Acid (Folic Acid) 1 mg PO DAILY [facility] Last Admin: 01/16/18 09:11 Dose: 1 mg Gabapentin (Neurontin) 300 mg PO TID [facility] Last Admin: 01/16/18 09:11 Dose: 300 mg Sodium Chloride (Sodium Chloride 0.9%) 500 mls @ 100 mls/hr IV .Q5H [facility] Last Admin: 01/16/18 08:30 Dose: Not Given Loperamide HCl (Imodium) 2 mg PO Q8 PRN PRN Reason: Diarrhea Lorazepam (Ativan) 1 mg PO Q6H PRN PRN Reason: Withdrawal symptoms Last Admin: 01/13/18 06:17 Dose: 1 mg Lorazepam (Ativan) 1 mg PO Q4H PRN PRN Reason: Symptoms of alcohol withdrawl Last Admin: 01/16/18 00:17 Dose: 1 mg Lorazepam (Ativan) 1 mg PO Q8 [facility]; Taper Stop: 01/18/18 09:44 Last Admin: 01/15/18 12:12 Dose: 1 mg Multivitamins (Hexavitamin) 1 tab PO DAILY [facility] Last Admin: 01/16/18 09:11 Dose: 1 tab Ondansetron HCl (Zofran Tab) 4 mg PO Q8 PRN PRN Reason: Nausea/Vomiting Quetiapine Fumarate (Seroquel) 25 mg PO HS [facility] Last Admin: 01/15/18 21:46 Dose: 25 mg Thiamine HCl (Vitamin B1 Tab) 100 mg PO DAILY [facility] Last Admin: 01/16/18 09:11 Dose: 100 mg Trazodone HCl (Desyrel) 50 mg PO HS PRN PRN Reason: Insomnia Last Admin: 01/15/18 21:44 Dose: 50 mg Venlafaxine HCl (Effexor) 75 mg PO DAILY [facility] Last Admin: 01/16/18 09:11 Dose: 75 mg - Labs Labs: 01/16/18 07:14 01/16/18 07:14 PT 10.8 SECONDS (9.7-12.2) 01/15/18 21:12 INR 1.0 01/15/18 21:12 APTT 30 SECONDS (21-34) 01/15/18 20:37 - Constitutional Appears: Well - Respiratory Exam Respiratory Exam: Clear to Ausculation Bilateral - Cardiovascular Exam Cardiovascular Exam: RRR - GI/Abdominal Exam GI & Abdominal Exam: Soft, Normal Bowel Sounds. absent: Tenderness - Extremities Exam Extremities Exam: Pedal Edema - Neurological Exam Neurological Exam: Alert, Oriented x3 - Psychiatric Exam Psychiatric exam: Normal Mood Assessment and Plan (1) LFT elevation Assessment & Plan: alcohol liver disease. Consider alcoholic hepatitis. Maddrey Discr function score=0.5 Rec- follow labs. Hold Neurontin Status: Acute (2) Alcohol abuse Status: Acute (3) Depression Status: Acute (4) Leg edema Status: Acute
[2018-01-16] MEDS: Sodium Chloride 0.9% 1,000 ML IV SCH ×2 (13:49→22:35)
--- NOTE | 2018-01-16 13:58 | PCM.PYCHPN ---
Psychiatric Progress Note - Psychiatric Progress Note Patient seen today, length of contact: 15 min Patient Chief Complaint: "I'm fine" Problems Identified/Issues Discussed: The pt is seen as a consult in the medical floor, chart reviewed, case discussed with staff. The pt is compliant with medications and reports no side-effects. Symptoms are improving and he seems comfortable. After care discussed, support and psychoeducation given. Medication Change: No Medical Record Reviewed: Yes Mental Status Examination - Cognitive Function Orientation: Person, Place, Situation, Time Memory: Intact Attention: WNL Concentration: WNL Association: WNL Fund of Knowledge: WNL - Mood Mood: Depressed (much less) - Affect Affect: Constricted - Speech Speech: Soft - Formal Thought Process Formal Thought Process: No Impairment - Suicidal Ideation Suicidal Ideation: No - Homicidal Ideation Homicidal Ideation: No Goal/Treatment Plan - Goal/Treatment Plan Need for Continued Stay: Other (medical reasons) Progress Toward Problem(s) and Goals/Treatment Plan: The pt is now stable He may be discharged from medical floor when medically cleared Contact resume writer if there is a question or change in status
--- NOTE | 2018-01-16 16:56 | CP.PCM.PN ---
<Sonja Resendiz - Last Filed: 01/16/18 16:49> Subjective - Date & Time of Evaluation Date of Evaluation: 01/16/18 Time of Evaluation: 16:49 - Subjective Subjective: Patient transferred to the inpatient medicine floor last night from psych unit. Patient continues to deny pain and his legs are not bothering him. He enjoys the medicine floor "[facility]" better than the psych unit. Objective - Vital Signs/Intake and Output Vital Signs (last 24 hours): Temp Pulse Resp BP Pulse Ox 97.9 F 70 20 150/95 H 97 01/16/18 15:45 01/16/18 15:45 01/16/18 15:45 01/16/18 15:45 01/16/18 15:45 Intake and Output: 01/16/18 01/16/18 06:59 18:59 Intake Total 918 Balance 918 - Medications Medications: Current Medications Al Hydrox/Mg Hydrox/Simethicone (Maalox 30 Ml) 30 ml PO TID PRN PRN Reason: Indigestion / Heartburn Clonidine HCl (Catapres) 0.1 mg PO Q4H PRN PRN Reason: Symptoms of alcohol withdrawl Folic Acid (Folic Acid) 1 mg PO DAILY [facility] Last Admin: 01/16/18 09:11 Dose: 1 mg Sodium Chloride (Sodium Chloride 0.9%) 1,000 mls @ 100 mls/hr IV .Q10H [facility] Stop: 01/18/18 13:30 Last Admin: 01/16/18 13:49 Dose: 100 mls/hr Loperamide HCl (Imodium) 2 mg PO Q8 PRN PRN Reason: Diarrhea Lorazepam (Ativan) 1 mg PO Q6H PRN PRN Reason: Withdrawal symptoms Last Admin: 01/13/18 06:17 Dose: 1 mg Lorazepam (Ativan) 1 mg PO Q4H PRN PRN Reason: Symptoms of alcohol withdrawl Last Admin: 01/16/18 00:17 Dose: 1 mg Lorazepam (Ativan) 1 mg PO Q8 [facility]; Taper Stop: 01/18/18 09:44 Last Admin: 01/15/18 12:12 Dose: 1 mg Multivitamins (Hexavitamin) 1 tab PO DAILY [facility] Last Admin: 01/16/18 09:11 Dose: 1 tab Ondansetron HCl (Zofran Tab) 4 mg PO Q8 PRN PRN Reason: Nausea/Vomiting Quetiapine Fumarate (Seroquel) 25 mg PO HS [facility] Last Admin: 01/15/18 21:46 Dose: 25 mg Thiamine HCl (Vitamin B1 Tab) 100 mg PO DAILY [facility] Last Admin: 01/16/18 09:11 Dose: 100 mg Trazodone HCl (Desyrel) 50 mg PO HS PRN PRN Reason: Insomnia Last Admin: 01/15/18 21:44 Dose: 50 mg Venlafaxine HCl (Effexor) 75 mg PO DAILY [facility] Last Admin: 01/16/18 09:11 Dose: 75 mg - Labs Labs: 01/16/18 07:14 01/16/18 07:14 PT 10.8 SECONDS (9.7-12.2) 01/15/18 21:12 INR 1.0 01/15/18 21:12 APTT 30 SECONDS (21-34) 01/15/18 20:37 - Constitutional Appears: Well, Non-toxic - Head Exam Head Exam: ATRAUMATIC, NORMAL INSPECTION - Eye Exam Eye Exam: EOMI, Normal appearance - Neck Exam Neck Exam: Normal Inspection - Respiratory Exam Respiratory Exam: Clear to Ausculation Bilateral, NORMAL BREATHING PATTERN - Cardiovascular Exam Cardiovascular Exam: REGULAR RHYTHM - GI/Abdominal Exam GI & Abdominal Exam: Soft, Normal Bowel Sounds - Extremities Exam Extremities Exam: Normal Inspection. absent: Pedal Edema, Tenderness - Neurological Exam Neurological Exam: Alert, Awake, Normal Gait, Oriented x3 - Psychiatric Exam Psychiatric exam: Normal Affect, Normal Mood - Skin Skin Exam: Normal Color, Warm Assessment and Plan - Assessment and Plan (Free Text) Assessment: 47 y/o m with PMHx of alcohol dependence, anxiety/depression was being consulted for his bilateral leg edema 01/14. Now being treated for his alcoholic liver disease. Currently hemodynamically stable on medicine floor. Transaminitis Likely alcoholic liver disease. Patient with extensive EtOH history, drinking since he was 13 y/o, estimates 6 beer bottles a day. -continue to trend LFTs -GI consulted, also recommends EtOH cessation -PT/INR -Maddrey DF of 0.5 -hepatically dosed psych meds - seroquel from 100 mg PO qhs to 25 mg, and ativan PRN, not scheduled -discontinued seroquel and neurontin (hepatically processed) -continue with IVF Alcohol dependency -psych following - currently inpatient psych. Currently medically stable and denies withdrawal sx. -abdominal US - wnl other than mild hepatomegaly -folate 1 mg and thiamine 100 mg both daily -hexavitamin daily -zofran 5 mg q8h PRN -imodium 2 mg q8h PRN -clonidine 0.1 mg q5h PRN -outpatient counseling f/u bilateral leg edema - resolved Patient with no signs or symptoms of CHF. ECHO wnl, CXR and proBNP negative. Edema more likely 2/2 venous insufficiency -doppler US LE (venous and arterial) r/o DVT preliminary results in chart is negative anxiety/depression/bipolar disorder -Currently denies anxiety, depression, SI/HI -psych following, consult placed again today so patient can return to psych unit -trazodone 50 mg qhs -added 01/15 by psych: effexor 75 mg PO daily case discussed with Dr. Dave Resendiz, PGY-1 <Teagan Acosta V - Last Filed: 01/16/18 20:19> Objective - Vital Signs/Intake and Output Vital Signs (last 24 hours): Temp Pulse Resp BP Pulse Ox 97.9 F 70 20 150/95 H 97 01/16/18 15:45 01/16/18 15:45 01/16/18 15:45 01/16/18 15:45 01/16/18 15:45 - Medications Medications: Current Medications Al Hydrox/Mg Hydrox/Simethicone (Maalox 30 Ml) 30 ml PO TID PRN PRN Reason: Indigestion / Heartburn Clonidine HCl (Catapres) 0.1 mg PO Q4H PRN PRN Reason: Symptoms of alcohol withdrawl Folic Acid (Folic Acid) 1 mg PO DAILY [facility] Last Admin: 01/16/18 09:11 Dose: 1 mg Sodium Chloride (Sodium Chloride 0.9%) 1,000 mls @ 100 mls/hr IV .Q10H [facility] Stop: 01/18/18 13:30 Last Admin: 01/16/18 13:49 Dose: 100 mls/hr Loperamide HCl (Imodium) 2 mg PO Q8 PRN PRN Reason: Diarrhea Lorazepam (Ativan) 1 mg PO Q6H PRN PRN Reason: Withdrawal symptoms Last Admin: 01/13/18 06:17 Dose: 1 mg Lorazepam (Ativan) 1 mg PO Q4H PRN PRN Reason: Symptoms of alcohol withdrawl Last Admin: 01/16/18 00:17 Dose: 1 mg Lorazepam (Ativan) 1 mg PO Q8 [facility]; Taper Stop: 01/18/18 09:44 Last Admin: 01/15/18 12:12 Dose: 1 mg Multivitamins (Hexavitamin) 1 tab PO DAILY [facility] Last Admin: 01/16/18 09:11 Dose: 1 tab Ondansetron HCl (Zofran Tab) 4 mg PO Q8 PRN PRN Reason: Nausea/Vomiting Quetiapine Fumarate (Seroquel) 25 mg PO HS [facility] Last Admin: 01/15/18 21:46 Dose: 25 mg Thiamine HCl (Vitamin B1 Tab) 100 mg PO DAILY [facility] Last Admin: 01/16/18 09:11 Dose: 100 mg Trazodone HCl (Desyrel) 50 mg PO HS PRN PRN Reason: Insomnia Last Admin: 01/15/18 21:44 Dose: 50 mg Venlafaxine HCl (Effexor) 75 mg PO DAILY [facility] Last Admin: 01/16/18 09:11 Dose: 75 mg - Labs Labs: 01/16/18 07:14 01/16/18 07:14 PT 10.8 SECONDS (9.7-12.2) 01/15/18 21:12 INR 1.0 01/15/18 21:12 APTT 30 SECONDS (21-34) 01/15/18 20:37 Attending/Attestation - Attestation I have personally seen and examined this patient.: Yes I have fully participated in the care of the patient.: Yes I have reviewed all pertinent clinical information, including history, physical exam and plan: Yes Notes (Text): Patient seen, examined and case discussed with medical accounting clerk. Patient seen this afternoon with resident. He reports he is feeling well. Denies pain, denies nausea, denies abdominal pain, denies change in stool. denies voices. Patient was transferred out of psych for IV fluids in light of transaminitis. Liver function tests improving. Patient's swelling has improved. Pending official read of dopplers. ECHO report available. Assessment/Plan 1) Transaminitis Assessment/Plan Likely alcoholic liver disease. Patient with extensive EtOH history, drinking since he was 13 y/o, estimates 6 beer bottles a day. -continue to trend LFTs -GI consulted, also recommends EtOH cessation -PT/INR -Giovannydrey DF of 0.5 -hepatically dosed psych meds - seroquel from 100 mg PO qhs to 25 mg, and ativan PRN, not scheduled -discontinued seroquel and neurontin (hepatically processed) -continue with IVF 2) Alcohol dependence -psych following - currently inpatient psych. Currently medically stable and denies withdrawal sx. -abdominal US - wnl other than mild hepatomegaly -folate 1 mg and thiamine 100 mg both daily -hexavitamin daily -zofran 5 mg q8h PRN -imodium 2 mg q8h PRN -clonidine 0.1 mg q5h PRN -outpatient counseling f/u 3) bilateral leg edema-->Improving Patient with no signs or symptoms of CHF. ECHO wnl, CXR and proBNP negative. Edema more likely 2/2 venous insufficiency; however awaiting official read since prior history of clots one year ago -doppler US LE (venous and arterial) r/o DVT preliminary results in chart is negative 4) anxiety/depression/bipolar disorder -management per psych -Currently denies anxiety, depression, SI/HI -psych following -trazodone 50 mg qhs -added 01/15 by psych: effexor 75 mg PO daily Disposition: if liver function tests continue to decrease, will transfer back to psych. pending official report of venous dopplers
[2018-01-17 08:14] LABS: BASO # 0.1 K/uL (0.0-0.2); BASO % 1.1 % (0.0-2.0); EOS # 0.2 K/uL (0.0-0.7); EOS % 3.2 % (0.0-4.0); HEMOGLOBIN 12.3 g/dL (12.0-18.0); LYMPH # 1.6 K/uL (1.0-4.3); MEAN CELL VOLUME 76.8 fL (80.0-94.0); MEAN CORPUSCULAR HEMOGLOBIN 24.7 pg (27.0-31.0); MEAN CORPUSCULAR HGB CONC 32.2 g/dL (33.0-37.0); MEAN PLATELET VOLUME 7.9 fL (7.2-11.7); MONO # 0.7 K/uL (0.0-0.8); MONO % 12.1 % (0.0-10.0); NEUT # 3.4 K/uL (1.8-7.0); NEUT % 56.6 % (50.0-75.0); RBC 4.98 Mil/uL (4.40-5.90); RED CELL DISTRIBUTION WIDTH 21.2 % (11.5-14.5)
[2018-01-17 08:43] LABS: ALB/GLOB RATIO 1.1 (1.0-2.1); ALBUMIN 3.7 g/dL (3.5-5.0); ALT/SGPT 511 U/L (21-72); AST/SGOT 400 U/L (17-59); BLOOD UREA NITROGEN 16 mg/dL (9-20); CALCIUM 8.9 mg/dl (8.6-10.4); GFR NON-AFRICAN AMERICAN > 60
[2018-01-17] MEDS: Sodium Chloride 0.9% 1,000 ML IV SCH ×2 (09:30→18:26)
[2018-01-17] MEDS: Multiple Vitamins Tab PO SCH (09:31)
--- NOTE | 2018-01-17 10:37 | CP.PCM.PN ---
Subjective - Date & Time of Evaluation Date of Evaluation: 01/17/18 Time of Evaluation: 10:10 - Subjective Subjective: f/u elev LFTs Deneis CP, SOB, fever, chills, GU, cough. RB, melena Objective - Vital Signs/Intake and Output Vital Signs (last 24 hours): Temp Pulse Resp BP Pulse Ox 97.8 F 65 20 157/98 H 96 01/17/18 00:00 01/17/18 00:00 01/17/18 00:00 01/17/18 00:00 01/17/18 00:00 Intake and Output: 01/17/18 01/17/18 06:59 18:59 Intake Total 1040 Balance 1040 - Medications Medications: Current Medications Al Hydrox/Mg Hydrox/Simethicone (Maalox 30 Ml) 30 ml PO TID PRN PRN Reason: Indigestion / Heartburn Clonidine HCl (Catapres) 0.1 mg PO Q4H PRN PRN Reason: Symptoms of alcohol withdrawl Folic Acid (Folic Acid) 1 mg PO DAILY [facility] Last Admin: 01/17/18 09:31 Dose: 1 mg Sodium Chloride (Sodium Chloride 0.9%) 1,000 mls @ 100 mls/hr IV .Q10H [facility] Stop: 01/18/18 13:30 Last Admin: 01/17/18 09:30 Dose: 100 mls/hr Loperamide HCl (Imodium) 2 mg PO Q8 PRN PRN Reason: Diarrhea Lorazepam (Ativan) 1 mg PO Q6H PRN PRN Reason: Withdrawal symptoms Last Admin: 01/13/18 06:17 Dose: 1 mg Lorazepam (Ativan) 1 mg PO Q4H PRN PRN Reason: Symptoms of alcohol withdrawl Last Admin: 01/16/18 00:17 Dose: 1 mg Lorazepam (Ativan) 1 mg PO Q24H [facility]; Taper Stop: 01/18/18 09:44 Last Admin: 01/15/18 12:12 Dose: 1 mg Multivitamins (Hexavitamin) 1 tab PO DAILY [facility] Last Admin: 01/17/18 09:31 Dose: 1 tab Ondansetron HCl (Zofran Tab) 4 mg PO Q8 PRN PRN Reason: Nausea/Vomiting Quetiapine Fumarate (Seroquel) 25 mg PO HS [facility] Last Admin: 01/16/18 21:08 Dose: 25 mg Thiamine HCl (Vitamin B1 Tab) 100 mg PO DAILY [facility] Last Admin: 01/17/18 09:31 Dose: 100 mg Trazodone HCl (Desyrel) 50 mg PO HS PRN PRN Reason: Insomnia Last Admin: 01/15/18 21:44 Dose: 50 mg Venlafaxine HCl (Effexor) 75 mg PO DAILY [facility] Last Admin: 01/17/18 09:31 Dose: 75 mg - Labs Labs: 01/17/18 08:07 01/17/18 08:07 PT 10.8 SECONDS (9.7-12.2) 01/15/18 21:12 INR 1.0 01/15/18 21:12 APTT 30 SECONDS (21-34) 01/15/18 20:37 - Constitutional Appears: Well - Respiratory Exam Respiratory Exam: Clear to Ausculation Bilateral - Cardiovascular Exam Cardiovascular Exam: RRR - GI/Abdominal Exam GI & Abdominal Exam: Soft, Normal Bowel Sounds. absent: Guarding, Tenderness, Mass, Rebound - Neurological Exam Neurological Exam: Alert, Awake, Oriented x3 Assessment and Plan (1) LFT elevation Assessment & Plan: About same. Likely related to alcohol liver disease. Hep profile- neg. ALso consider meds. He is on : ativan, serequel, ,desyrel, catapres. Effexor was started after LFTs were elevated. Status: Acute (2) Alcohol abuse Status: Acute (3) Depression Status: Acute (4) Leg edema Status: Acute
--- NOTE | 2018-01-17 10:57 | CP.PCM.PN ---
Subjective - Date & Time of Evaluation Date of Evaluation: 01/17/18 Time of Evaluation: 10:50 - Subjective Subjective: Medical attending Note: Patient seen, examined at bedside. Patient denies headache, denies chest pain, denies cough, denies abdominal pain, denies nausea, reports bowel movement yesterday and today. Objective - Vital Signs/Intake and Output Vital Signs (last 24 hours): Temp Pulse Resp BP Pulse Ox 98.0 F 64 20 136/92 H 96 01/17/18 08:00 01/17/18 08:00 01/17/18 08:00 01/17/18 08:00 01/17/18 08:00 Intake and Output: 01/17/18 01/17/18 06:59 18:59 Intake Total 1040 Balance 1040 - Medications Medications: Current Medications Al Hydrox/Mg Hydrox/Simethicone (Maalox 30 Ml) 30 ml PO TID PRN PRN Reason: Indigestion / Heartburn Clonidine HCl (Catapres) 0.1 mg PO Q4H PRN PRN Reason: Symptoms of alcohol withdrawl Folic Acid (Folic Acid) 1 mg PO DAILY [facility] Last Admin: 01/17/18 09:31 Dose: 1 mg Sodium Chloride (Sodium Chloride 0.9%) 1,000 mls @ 100 mls/hr IV .Q10H [facility] Stop: 01/18/18 13:30 Last Admin: 01/17/18 09:30 Dose: 100 mls/hr Loperamide HCl (Imodium) 2 mg PO Q8 PRN PRN Reason: Diarrhea Lorazepam (Ativan) 1 mg PO Q6H PRN PRN Reason: Withdrawal symptoms Last Admin: 01/13/18 06:17 Dose: 1 mg Lorazepam (Ativan) 1 mg PO Q4H PRN PRN Reason: Symptoms of alcohol withdrawl Last Admin: 01/16/18 00:17 Dose: 1 mg Lorazepam (Ativan) 1 mg PO Q24H ELK[facility]; Taper Stop: 01/18/18 09:44 Last Admin: 01/15/18 12:12 Dose: 1 mg Multivitamins (Hexavitamin) 1 tab PO DAILY [facility] Last Admin: 01/17/18 09:31 Dose: 1 tab Ondansetron HCl (Zofran Tab) 4 mg PO Q8 PRN PRN Reason: Nausea/Vomiting Quetiapine Fumarate (Seroquel) 25 mg PO HS [facility] Last Admin: 01/16/18 21:08 Dose: 25 mg Thiamine HCl (Vitamin B1 Tab) 100 mg PO DAILY [facility] Last Admin: 01/17/18 09:31 Dose: 100 mg Trazodone HCl (Desyrel) 50 mg PO HS PRN PRN Reason: Insomnia Last Admin: 01/15/18 21:44 Dose: 50 mg Venlafaxine HCl (Effexor) 75 mg PO DAILY [facility] Last Admin: 01/17/18 09:31 Dose: 75 mg - Labs Labs: 01/17/18 08:07 01/17/18 08:07 PT 10.8 SECONDS (9.7-12.2) 01/15/18 21:12 INR 1.0 01/15/18 21:12 APTT 30 SECONDS (21-34) 01/15/18 20:37 - Constitutional Appears: Non-toxic, No Acute Distress - Head Exam Head Exam: NORMAL INSPECTION - Eye Exam Eye Exam: EOMI - ENT Exam ENT Exam: Mucous Membranes Moist - Respiratory Exam Respiratory Exam: Clear to Ausculation Bilateral, NORMAL BREATHING PATTERN. absent: Rales, Rhonchi, Wheezes, Stridor - Cardiovascular Exam Cardiovascular Exam: REGULAR RHYTHM, +S1, +S2 - GI/Abdominal Exam GI & Abdominal Exam: Soft. absent: Distended, Firm, Guarding, Rigid, Tenderness, Normal Bowel Sounds, Rebound - Extremities Exam Extremities Exam: absent: Pedal Edema, Tenderness - Back Exam Back Exam: absent: CVA tenderness (L), CVA tenderness (R) - Neurological Exam Neurological Exam: Alert, Awake, Oriented x3 Neuro motor strength exam: Left Upper Extremity: 5, Right Upper Extremity: 5, Left Lower Extremity: 5, Right Lower Extremity: 5 - Psychiatric Exam Psychiatric exam: Normal Affect, Normal Mood - Skin Skin Exam: Normal Color, Warm Attending/Attestation - Attestation I have personally seen and examined this patient.: Yes I have fully participated in the care of the patient.: Yes I have reviewed all pertinent clinical information, including history, physical exam and plan: Yes Notes (Text): Patient seen, examined and case discussed with medical health researcher. Patient seen this afternoon with resident. He reports he is feeling well. Denies pain, denies nausea, denies abdominal pain, denies change in stool. denies voices. Patient was transferred out of psych yesterday for IV fluids in light of transaminitis. Liver function tests is about the same. D/c Benzos. Will f/u psych in regards to hepatic dosage Effexor dosage. Patient's swelling resolved. Pending official read of dopplers. ECHO report available. Assessment/Plan 1) Transaminitis Assessment/Plan Likely alcoholic liver disease. Patient with extensive EtOH history, drinking since he was 13 y/o, estimates 6 beer bottles a day. -continue to trend LFTs -GI consulted, also recommends EtOH cessation -PT/INR -Giovannydrey DF of 0.5 -hepatically dosed psych meds - seroquel from 100 mg PO qhs to 25 mg, and ativan PRN, not scheduled -discontinued seroquel and neurontin (hepatically processed) -continue with IVF 2) Alcohol dependence -psych following - currently inpatient psych. Currently medically stable and denies withdrawal sx. -abdominal US - wnl other than mild hepatomegaly -folate 1 mg and thiamine 100 mg both daily -hexavitamin daily -zofran 5 mg q8h PRN -imodium 2 mg q8h PRN -clonidine 0.1 mg q5h PRN -outpatient counseling f/u 3) bilateral leg edema-->Improving Patient with no signs or symptoms of CHF. ECHO wnl, CXR and proBNP negative. Edema more likely 2/2 venous insufficiency; however awaiting official read since prior history of clots one year ago -doppler US LE (venous and arterial) r/o DVT preliminary results in chart is negative 4) anxiety/depression/bipolar disorder -management per psych -Currently denies anxiety, depression, SI/HI -psych following -trazodone 50 mg qhs -added 01/15 by psych: effexor 75 mg PO daily Disposition: if liver function tests continue to decrease, will transfer back to psych. pending official report of venous dopplers
--- NOTE | 2018-01-17 17:41 | PCM.PYCHPN ---
Psychiatric Progress Note - Psychiatric Progress Note Patient seen today, length of contact: 15 min Patient Chief Complaint: "I'm OK" Problems Identified/Issues Discussed: The pt is seen as a consult in the medical floor, chart reviewed, case discussed with staff. The pt is compliant with medications and reports no side-effects. However, his meds will have to be d/c'ed due to very high and increasing LFTs. Gabapentin by-passes liver and it will be used for insomnia He agreed and understood that he will be d/c'ed, as originally planned, today. Medication Change: Yes (d/c meds for now) Medical Record Reviewed: Yes Mental Status Examination - Cognitive Function Orientation: Person, Place, Situation, Time Memory: Intact Attention: WNL Concentration: WNL Association: WNL Fund of Knowledge: WNL - Mood Mood: Depressed (much less), Anxious - Affect Affect: Constricted - Speech Speech: Soft - Formal Thought Process Formal Thought Process: No Impairment - Suicidal Ideation Suicidal Ideation: No - Homicidal Ideation Homicidal Ideation: No Goal/Treatment Plan - Goal/Treatment Plan Need for Continued Stay: Other (medical reasons) Progress Toward Problem(s) and Goals/Treatment Plan: The pt is now stable He may be discharged from medical floor when medically cleared Contact marketing writer if there is a question or change in status
[2018-01-18] MEDS: Sodium Chloride 0.9% 1,000 ML IV SCH ×2 (04:21→05:30)
[2018-01-18 08:13] LABS: BASO # 0.1 K/uL (0.0-0.2); BASO % 1.1 % (0.0-2.0); EOS # 0.1 K/uL (0.0-0.7); EOS % 1.1 % (0.0-4.0); LYMPH # 1.3 K/uL (1.0-4.3); LYMPH % 22.9 % (20.0-40.0); MEAN CELL VOLUME 76.8 fL (80.0-94.0); MEAN CORPUSCULAR HEMOGLOBIN 24.9 pg (27.0-31.0); MEAN CORPUSCULAR HGB CONC 32.4 g/dL (33.0-37.0); MEAN PLATELET VOLUME 8.2 fL (7.2-11.7); MONO # 0.6 K/uL (0.0-0.8); MONO % 10.6 % (0.0-10.0); NEUT # 3.7 K/uL (1.8-7.0); NEUT % 64.3 % (50.0-75.0); RBC 5.22 Mil/uL (4.40-5.90); RED CELL DISTRIBUTION WIDTH 21.3 % (11.5-14.5); WHITE BLOOD COUNT 5.8 K/uL (4.8-10.8)
[2018-01-18 08:24] LABS: ALB/GLOB RATIO 1.2 (1.0-2.1); ALT/SGPT 519 U/L (21-72); AST/SGOT 337 U/L (17-59); BLOOD UREA NITROGEN 17 mg/dL (9-20); GFR NON-AFRICAN AMERICAN > 60
[2018-01-18] MEDS: Multiple Vitamins Tab PO SCH (09:27)
--- NOTE | 2018-01-18 14:21 | CP.PCM.PN ---
<Sonja Resendiz - Last Filed: 01/18/18 16:08> Subjective - Date & Time of Evaluation Date of Evaluation: 01/18/18 Time of Evaluation: 14:12 - Subjective Subjective: Patient wants to go home. He expressed his frustration raising his voice to his providers. Code benitez resulted. Otherwise, no chest pain, SOB, abdominal pain. Objective - Vital Signs/Intake and Output Vital Signs (last 24 hours): Temp Pulse Resp BP Pulse Ox 97.9 F 71 20 152/87 H 99 01/18/18 07:15 01/18/18 07:15 01/18/18 07:15 01/18/18 07:15 01/18/18 07:15 Intake and Output: 01/18/18 01/18/18 06:59 18:59 Output Total 1800 Balance -1800 - Medications Medications: Current Medications Al Hydrox/Mg Hydrox/Simethicone (Maalox 30 Ml) 30 ml PO TID PRN PRN Reason: Indigestion / Heartburn Clonidine HCl (Catapres) 0.1 mg PO Q4H PRN PRN Reason: Symptoms of alcohol withdrawl Folic Acid (Folic Acid) 1 mg PO DAILY [facility] Last Admin: 01/18/18 09:27 Dose: 1 mg Loperamide HCl (Imodium) 2 mg PO Q8 PRN PRN Reason: Diarrhea Multivitamins (Hexavitamin) 1 tab PO DAILY [facility] Last Admin: 01/18/18 09:27 Dose: 1 tab Ondansetron HCl (Zofran Tab) 4 mg PO Q8 PRN PRN Reason: Nausea/Vomiting Thiamine HCl (Vitamin B1 Tab) 100 mg PO DAILY [facility] Last Admin: 01/18/18 09:27 Dose: 100 mg Trazodone HCl (Desyrel) 50 mg PO HS PRN PRN Reason: Insomnia Last Admin: 01/15/18 21:44 Dose: 50 mg - Labs Labs: 01/18/18 08:03 01/18/18 08:03 PT 10.8 SECONDS (9.7-12.2) 01/15/18 21:12 INR 1.0 01/15/18 21:12 APTT 30 SECONDS (21-34) 01/15/18 20:37 - Head Exam Head Exam: ATRAUMATIC, NORMAL INSPECTION - Eye Exam Eye Exam: EOMI, Normal appearance - Respiratory Exam Respiratory Exam: Clear to Ausculation Bilateral, NORMAL BREATHING PATTERN - Cardiovascular Exam Cardiovascular Exam: REGULAR RHYTHM - GI/Abdominal Exam GI & Abdominal Exam: Soft, Normal Bowel Sounds - Extremities Exam Additional comments: no tibial edema bilaterally - Neurological Exam Neurological Exam: Alert, Awake, Oriented x3 - Psychiatric Exam Psychiatric exam: Agitated - Skin Skin Exam: Dry, Intact, Normal Color, Warm Assessment and Plan - Assessment and Plan (Free Text) Assessment: 47 y/o male with EtOH dependence and anxiety/depression/bipolar admitted for EtOH detox and hearing voices in his head. Medicine team consulted for bilateral leg edema, which resolved and negative for DVT. Currently stable on medicine floor. 1) Transaminitis Likely alcoholic liver disease. Patient with extensive EtOH history, drinking since he was 13 y/o, estimates 6 beer bottles a day. -continue to trend LFTs -GI consulted, also recommends EtOH cessation -Maddrey DF of 0.5 -due to hepatic digestion, discontinued seroquel, ativan, neurontin, and effexor, psych and GI approved changes -pending labs for causes of transaminitis: ceruloplasmin, alpha-1 antitrypsin, TSH, acetaminophen, CPK, aldolase; will need outpatient f/u of this bloodwork (other than trending LFTs) 2) Alcohol dependence -psych following. Currently medically stable and denies withdrawal sx. Pt been here since 01/13, (past the delirium tremens 96 hour time frame). -abdominal US - wnl other than mild hepatomegaly -folate 1 mg and thiamine 100 mg both daily -hexavitamin daily -zofran 5 mg q8h PRN -imodium 2 mg q8h PRN -clonidine 0.1 mg q5h PRN -outpatient counseling f/u 3) bilateral leg edema-resolved -negative CXR, ECHO and proBNP - CHF r/o -negative doppler US LE (preliminary results) and continues to deny pain - most likely not DVT -patient to return to provider STAT if any calf pain 4) anxiety/depression/bipolar disorder -management per psych -consider LFTs with hepatotoxic psych meds patient has been on during hospitalization: seroquel, ativan, effexor. -Currently denies anxiety, depression, SI/HI DVT and GI ppx: none (transfer from psych) dispo: d/c tomorrow morning after morning labs case discussed with Dr. Georgia Resendiz, DO PGY1 <Kris Ho - Last Filed: 01/18/18 17:04> Objective - Vital Signs/Intake and Output Vital Signs (last 24 hours): Temp Pulse Resp BP Pulse Ox 98.0 F 78 20 141/92 H 97 01/18/18 15:00 01/18/18 15:00 01/18/18 15:00 01/18/18 15:00 01/18/18 15:00 Intake and Output: 01/18/18 01/18/18 06:59 18:59 Output Total 1800 Balance -1800 - Medications Medications: Current Medications Al Hydrox/Mg Hydrox/Simethicone (Maalox 30 Ml) 30 ml PO TID PRN PRN Reason: Indigestion / Heartburn Clonidine HCl (Catapres) 0.1 mg PO Q4H PRN PRN Reason: Symptoms of alcohol withdrawl Folic Acid (Folic Acid) 1 mg PO DAILY [facility] Last Admin: 01/18/18 09:27 Dose: 1 mg Loperamide HCl (Imodium) 2 mg PO Q8 PRN PRN Reason: Diarrhea Multivitamins (Hexavitamin) 1 tab PO DAILY [facility] Last Admin: 01/18/18 09:27 Dose: 1 tab Ondansetron HCl (Zofran Tab) 4 mg PO Q8 PRN PRN Reason: Nausea/Vomiting Thiamine HCl (Vitamin B1 Tab) 100 mg PO DAILY [facility] Last Admin: 01/18/18 09:27 Dose: 100 mg Trazodone HCl (Desyrel) 50 mg PO HS PRN PRN Reason: Insomnia Last Admin: 01/15/18 21:44 Dose: 50 mg - Labs Labs: 01/18/18 08:03 01/18/18 08:03 PT 10.8 SECONDS (9.7-12.2) 01/15/18 21:12 INR 1.0 01/15/18 21:12 APTT 30 SECONDS (21-34) 01/15/18 20:37 Attending/Attestation - Attestation I have personally seen and examined this patient.: Yes I have fully participated in the care of the patient.: Yes I have reviewed all pertinent clinical information, including history, physical exam and plan: Yes Notes (Text): patient was seen with the resident Has elevated LFT Has AST 337,ALT 519. Unlikey alcohol (Ratio of ast and alt reverse) D/W Dr Sandoval Undetermined cause of hepatocellular disease. Likely drug induced we will work of for autoimmune hepatitis.It could be drug induced Seroquel and Effexor have been discontinued possible discharge tomorrow if LFT not going up He need to follow with out medical clinic to check LFT Stop alcohol and hepatotoxic drugs
--- NOTE | 2018-01-18 15:21 | CP.PCM.PN ---
Subjective - Date & Time of Evaluation Date of Evaluation: 01/18/18 Time of Evaluation: 15:18 - Subjective Subjective: Feels well LFTs essentially unchanged. Undetermined cause of hepatocellular disease. Likely drug induced Seroquel and Effexor have been discontinued D/W medical attending- LFTs should be monitored periodically off the medications Objective - Vital Signs/Intake and Output Vital Signs (last 24 hours): Temp Pulse Resp BP Pulse Ox 97.9 F 71 20 152/87 H 99 01/18/18 07:15 01/18/18 07:15 01/18/18 07:15 01/18/18 07:15 01/18/18 07:15 Intake and Output: 01/18/18 01/18/18 06:59 18:59 Output Total 1800 Balance -1800 - Medications Medications: Current Medications Al Hydrox/Mg Hydrox/Simethicone (Maalox 30 Ml) 30 ml PO TID PRN PRN Reason: Indigestion / Heartburn Clonidine HCl (Catapres) 0.1 mg PO Q4H PRN PRN Reason: Symptoms of alcohol withdrawl Folic Acid (Folic Acid) 1 mg PO DAILY [facility] Last Admin: 01/18/18 09:27 Dose: 1 mg Loperamide HCl (Imodium) 2 mg PO Q8 PRN PRN Reason: Diarrhea Multivitamins (Hexavitamin) 1 tab PO DAILY [facility] Last Admin: 01/18/18 09:27 Dose: 1 tab Ondansetron HCl (Zofran Tab) 4 mg PO Q8 PRN PRN Reason: Nausea/Vomiting Thiamine HCl (Vitamin B1 Tab) 100 mg PO DAILY [facility] Last Admin: 01/18/18 09:27 Dose: 100 mg Trazodone HCl (Desyrel) 50 mg PO HS PRN PRN Reason: Insomnia Last Admin: 01/15/18 21:44 Dose: 50 mg - Labs Labs: 01/18/18 08:03 01/18/18 08:03 PT 10.8 SECONDS (9.7-12.2) 01/15/18 21:12 INR 1.0 01/15/18 21:12 APTT 30 SECONDS (21-34) 01/15/18 20:37 - Constitutional Appears: Well, No Acute Distress - Head Exam Head Exam: NORMOCEPHALIC - Eye Exam Eye Exam: absent: Scleral icterus - Respiratory Exam Respiratory Exam: NORMAL BREATHING PATTERN - Cardiovascular Exam Cardiovascular Exam: REGULAR RHYTHM - GI/Abdominal Exam GI & Abdominal Exam: Soft. absent: Tenderness Assessment and Plan (1) LFT elevation Assessment & Plan: see above see orders Status: Acute (2) Alcohol use disorder Status: Acute
[2018-01-18 16:57] LABS: IRON 34 ug/dL (49-181)
[2018-01-18 17:06] LABS: % IRON SATURATION 8 (20-55); TOTAL IRON BINDING CAPACITY 428 ug/dL (250-450)
[2018-01-19 07:28] LABS: BASO % 0.7 % (0.0-2.0); EOS # 0.2 K/uL (0.0-0.7); EOS % 2.5 % (0.0-4.0); HEMOGLOBIN 13.2 g/dL (12.0-18.0); LYMPH # 1.6 K/uL (1.0-4.3); LYMPH % 25.5 % (20.0-40.0); MEAN CELL VOLUME 76.9 fL (80.0-94.0); MEAN CORPUSCULAR HEMOGLOBIN 24.9 pg (27.0-31.0); MEAN CORPUSCULAR HGB CONC 32.4 g/dL (33.0-37.0); MONO # 0.9 K/uL (0.0-0.8); MONO % 14.3 % (0.0-10.0); NEUT # 3.5 K/uL (1.8-7.0); RBC 5.3 Mil/uL (4.40-5.90); RED CELL DISTRIBUTION WIDTH 21.5 % (11.5-14.5); WHITE BLOOD COUNT 6.2 K/uL (4.8-10.8)
[2018-01-19 07:51] VITALS: BP 136/93; PULSE 67; TEMP 97.8; O2SAT 96
[2018-01-19 08:25] LABS: ALBUMIN 4.3 g/dL (3.5-5.0); BLOOD UREA NITROGEN 17 mg/dL (9-20); CALCIUM 9.1 mg/dl (8.6-10.4); GFR NON-AFRICAN AMERICAN > 60
[2018-01-19 08:26] LABS: ALB/GLOB RATIO 1.4 (1.0-2.1); ALT/SGPT 568 U/L (21-72); AST/SGOT 369 U/L (17-59)
--- NOTE | 2018-01-19 08:31 | CP.PCM.DIS ---
Provider - Provider Date of Admission: 01/13/18 00:41 Attending physician: Teagan Acosta DO Consults: Psych (Laxmi), GI (Jose Alberto), Medicine Time Spent in preparation of Discharge (in minutes): 45 Hospital Course - Lab Results Lab Results: Most Recent Lab Values WBC 6.2 K/uL (4.8-10.8) 01/19/18 07:16 RBC 5.30 Mil/uL (4.40-5.90) 01/19/18 07:16 Hgb 13.2 g/dL (12.0-18.0) 01/19/18 07:16 Hct 40.8 % (35.0-51.0) 01/19/18 07:16 MCV 76.9 fL (80.0-94.0) L 01/19/18 07:16 MCH 24.9 pg (27.0-31.0) L 01/19/18 07:16 MCHC 32.4 g/dL (33.0-37.0) L 01/19/18 07:16 RDW 21.5 % (11.5-14.5) H 01/19/18 07:16 Plt Count 302 K/uL (130-400) 01/19/18 07:16 MPV 8.0 fL (7.2-11.7) 01/19/18 07:16 Neut % (Auto) 57.0 % (50.0-75.0) 01/19/18 07:16 Lymph % (Auto) 25.5 % (20.0-40.0) 01/19/18 07:16 [place] % (Auto) 14.3 % (0.0-10.0) H 01/19/18 07:16 Eos % (Auto) 2.5 % (0.0-4.0) 01/19/18 07:16 Baso % (Auto) 0.7 % (0.0-2.0) 01/19/18 07:16 Neut # (Auto) 3.5 K/uL (1.8-7.0) 01/19/18 07:16 Lymph # (Auto) 1.6 K/uL (1.0-4.3) 01/19/18 07:16 [place] # (Auto) 0.9 K/uL (0.0-0.8) H 01/19/18 07:16 Eos # (Auto) 0.2 K/uL (0.0-0.7) 01/19/18 07:16 Baso # (Auto) 0.0 K/uL (0.0-0.2) 01/19/18 07:16 Retic Count 1.5 % (0.5-1.5) 01/14/18 21:31 PT 10.8 SECONDS (9.7-12.2) 01/15/18 21:12 INR 1.0 01/15/18 21:12 APTT 30 SECONDS (21-34) 01/15/18 20:37 Sodium 140 mmol/L (132-148) 01/19/18 07:16 Potassium 4.4 mmol/L (3.6-5.2) 01/19/18 07:16 Chloride 103 mmol/L (98-107) 01/19/18 07:16 Carbon Dioxide 28 mmol/L (22-30) 01/19/18 07:16 Anion Gap 13 (10-20) 01/19/18 07:16 BUN 17 mg/dL (9-20) 01/19/18 07:16 Creatinine 1.0 mg/dL (0.8-1.5) 01/19/18 07:16 Est GFR ( Amer) > 60 01/19/18 07:16 Est GFR (Non-Af Amer) > 60 01/19/18 07:16 Random Glucose 103 mg/dL (75-110) 01/19/18 07:16 Calcium 9.1 mg/dl (8.6-10.4) 01/19/18 07:16 Phosphorus 4.2 mg/dL (2.5-4.5) 01/19/18 07:16 Magnesium 2.2 mg/dL (1.6-2.3) 01/19/18 07:16 Iron 34 ug/dL (49-181) L 01/18/18 16:39 TIBC 428 ug/dL (250-450) 01/18/18 16:39 % Saturation 8 (20-55) L 01/18/18 16:39 Total Bilirubin 0.5 mg/dL (0.2-1.3) 01/19/18 07:16 GGT 138 U/L (8-78) H 01/15/18 08:00 AST 369 U/L (17-59) H 01/19/18 07:16 ALT 568 U/L (21-72) H 01/19/18 07:16 Alkaline Phosphatase 83 U/L (38-126) 01/19/18 07:16 Ammonia 21 umol/L (9-33) 01/18/18 09:27 Total Creatine Kinase 177 U/L (55-170) H 01/19/18 07:16 NT-Pro-B Natriuret Pep 41.4 pg/mL (0-450) 01/14/18 17:03 Total Protein 7.4 g/dL (6.3-8.3) 01/19/18 07:16 Albumin 4.3 g/dL (3.5-5.0) 01/19/18 07:16 Globulin 3.1 gm/dL (2.2-3.9) 01/19/18 07:16 Albumin/Globulin Ratio 1.4 (1.0-2.1) 01/19/18 07:16 Vitamin B12 596 pg/mL (239-931) 01/14/18 17:50 Folate > 20.0 ng/mL 01/14/18 17:50 Urine Color Colorless (YELLOW) 01/12/18 20:45 Urine Clarity Clear (Clear) 01/12/18 20:45 Urine pH 6.0 (5.0-8.0) 01/12/18 20:45 Ur Specific [place] 1.001 (1.003-1.030) L 01/12/18 20:45 Urine Protein Negative mg/dL (NEGATIVE) 01/12/18 20:45 Urine Glucose (UA) Normal mg/dL (Normal) 01/12/18 20:45 Urine Ketones Negative mg/dL (NEGATIVE) 01/12/18 20:45 Urine Blood Negative (NEGATIVE) 01/12/18 20:45 Urine Nitrate Negative (NEGATIVE) 01/12/18 20:45 Urine Bilirubin Negative (NEGATIVE) 01/12/18 20:45 Urine Urobilinogen Normal mg/dL (0.2-1.0) 01/12/18 20:45 Ur Leukocyte Esterase Neg [place]/uL (Negative) 01/12/18 20:45 Urine WBC (Auto) < 1 /hpf (0-5) 01/12/18 20:45 Urine Opiates Screen Negative (NEGATIVE) 01/12/18 20:45 Urine Methadone Screen Negative (NEGATIVE) 01/12/18 20:45 Acetaminophen < 10.0 ug/mL (10.0-30.0) L 01/19/18 07:16 Ur Barbiturates Screen Negative (NEGATIVE) 01/12/18 20:45 Ur Phencyclidine Scrn Negative (NEGATIVE) 01/12/18 20:45 Ur Amphetamines Screen Negative (NEGATIVE) 01/12/18 20:45 U Benzodiazepines Scrn Negative (NEGATIVE) 01/12/18 20:45 U Oth Cocaine Metabols Negative (NEGATIVE) 01/12/18 20:45 U Cannabinoids Screen Negative (NEGATIVE) 01/12/18 20:45 Alcohol, Quantitative 247 mg/dl (0-10) H 01/12/18 20:45 Whole Blood Lead 2 mcg/dL (<5) 01/14/18 17:50 Hepatitis A IgM Ab Negative (NEGATIVE) 01/15/18 08:00 Hep Bs Antigen Negative (NEGATIVE) 01/15/18 08:00 Hep B Core IgM Ab Negative (NEGATIVE) 01/15/18 08:00 Hepatitis C Antibody Negative (NEGATIVE) 01/15/18 08:00 - Hospital Course Hospital Course: Hospital summary: Patient is a 47 y/o m admitted for EtOH detoxification and hearing voices in his head. Medicine was consulted initially for painless bilateral leg edema. Patient had a hx of DVT last year and was rx apixaban, however denied remembering the incident and denied taking anticoagulants. Doppler US, CXR, BNP and workup negative for DVT and CHF. Patient was also found to have elevated LFTs and was on multiple psych medications, which were discontinued. Liver function improved. Although still elevated upon discharge, patient remains asymptomatic. He states he will follow up with his providers and was given precautions to return to the ED if he experiences SOB, chest pain, leg pain, SI/HI. History of present illness: Mr. Jin is a 47 y/o male with PMHx of anxiety, depression, and DVT s/p fall 11/2016 was referred to us for his bilateral leg edema. He was admitted to psych on 01/12 because of hearing voices in his head and EtOH detox. Patient states his legs have been swollen for 3 days bilaterally. They improve with ambulation and worsen with penitentiary sitting. Patient has not attempted to alleviate it. EMR shows he had a DVT on 11/2017 and was rx apixaban 5 mg, and he was to follow up in clinic, although he did not recall this incident. Patient was lost to follow up ever since. Patient denies pain in his legs; just swelling. 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 He denies any history of cancers. Patient denies shortness of breath, chest pain, palpitations, and cough. He only had one 1mg dose of ativan on 01/13 per medical records; patient states he was trembling on admission but EtOH withdrawal sx have stopped ever since. He also said the voices in his head saying "You are a piece of sh*t" are gone. Denies anxiety, headache, visual/auditory hallucinations, weight changes, nausea/vomiting. He drinks 6 bottles of beer a day, but says he usually does not count. Psych history: Patient states he is supposed to take zoloft for anxiety but does not. He has no primary care physician or psychiatrist outpatient. He currently does not feel anxious or depressed. Denies SI/HI. Patient is to discharged home. Medications: -remeron 15 mg - take one by mouth before bedtime -multivitamins - take one by mouth daily Follow up: -Patient is to see gastroenterology to follow up on labs and liver function -Patient is to see primary care for general health maintenance -Patient is to see psychiatry for bipolar/depression/anxiety -Patient is to receive counseling on alcohol dependence Patient agrees with the above management. - Date & Time of H&P Date of H&P: 01/19/18 Time of H&P: 08:30 Discharge Exam - Head Exam Head Exam: ATRAUMATIC, NORMAL INSPECTION - Eye Exam Eye Exam: EOMI, Normal appearance - Respiratory Exam Respiratory Exam: NORMAL BREATHING PATTERN, UNREMARKABLE - Cardiovascular Exam Cardiovascular Exam: REGULAR RHYTHM - GI/Abdominal Exam GI & Abdominal Exam: Normal Bowel Sounds, Unremarkable - Extremities Exam Extremities exam: normal inspection Additional comments: No edema in bilateral tibias - Neurological Exam Neurological exam: Alert, CN II-XII Intact, Normal Gait, Oriented x3 - Skin Skin Exam: Dry, Intact, Normal Color, Warm Discharge Plan - Discharge Medications Prescriptions: Mirtazapine [Remeron] 15 mg PO QPM 30 Days #30 tablet Multivitamins [Hexavitamin] 1 tab PO DAILY 30 Days #30 tab - Follow Up Plan Condition: FAIR Disposition: HOME/ ROUTINE Instructions: Alcohol Abuse and Alcoholism (DC), Schizophrenia (DC), Mirtazapine, Vitamins (Multiple/Oral) Additional Instructions: Please follow up with alcohol cessation counseling program at your soonest convenience. Also please see a physician in a week to follow up with your lab work and liver function.
[2018-01-19 09:04] LABS: FERRITIN 34.7 ng/mL
--- NOTE | 2018-01-19 13:16 | VASCLAB ---
Date of service: 01/15/2018 PROCEDURE: Lower Extremity Venous Duplex Exam. HISTORY: leg swelling r/o dvt PRIORS: None. TECHNIQUE: Bilateral common femoral, femoral, popliteal and posterior tibial, peroneal and great saphenous veins were evaluated. Flow was assessed with color Doppler, compressibility, assessment of phasic flow and augmentation response. Report prepared by Ray Massey, PIERCE, RVT FINDINGS: RIGHT: 1. Common Femoral Vein: 1.1. Compressibility - Fully compressible: Thrombus - None : Flow - Phasic: Augmentation -Normal: Reflux - None. 2. Femoral Vein: 2.1. Compressibility - Fully compressible: Thrombus - None : Flow - Phasic: Augmentation -Normal: Reflux - None. 3. Popliteal Vein: 3.1. Compressibility - Fully compressible: Thrombus - None : Flow - Phasic: Augmentation -Normal: Reflux - None. 4. Posterior Tibial Vein: 4.1. Compressibility - Fully compressible: Thrombus - None: Flow - Phasic: Augmentation -Normal: Reflux - None. 5. Peroneal Vein: 5.1. Compressibility - Fully compressible: Thrombus - None: Flow - Phasic: Augmentation -Normal: Reflux - None. 6. Great Saphenous Vein: 6.1. Compressibility - Fully compressible: Thrombus - None: Flow - Phasic: Augmentation - Normal: Reflux - None. LEFT: 1. Common Femoral Vein: 1.1. Compressibility - Fully compressible: Thrombus - None: Flow - Phasic: Augmentation -Normal: Reflux - None. 2. Femoral Vein: 2.1. Compressibility - Fully compressible: Thrombus - None: Flow - Phasic: Augmentation -Normal: Reflux - None. 3. Popliteal Vein: 3.1. Compressibility - Fully compressible: Thrombus - None : Flow - Phasic: Augmentation -Normal: Reflux - None. 4. Posterior Tibial Vein: 4.1. Compressibility - Fully compressible: Thrombus - None: Flow - Phasic: Augmentation -Normal: Reflux - None. 5. Peroneal Vein: 5.1. Compressibility - Fully compressible: Thrombus - None: Flow - Phasic: Augmentation -Normal: Reflux - None. 6. Great Saphenous Vein: 6.1. Compressibility - Fully compressible: Thrombus - None: Flow - Phasic: Augmentation - Normal: Reflux - None. OTHER FINDINGS: Right: None significant. Left: None significant. IMPRESSION: Right: No evidence of deep or superficial vein thrombosis of the right lower extremity. Normal valve function noted of the right side. Left: No evidence of deep or superficial vein thrombosis of the left lower extremity. Normal valve function noted of the left side.
[2018-01-20 16:32] LABS: CERULOPLASMIN 26 mg/dL (18-36)
[2018-01-20 17:17] LABS: ALDOLASE 23.5 U/L (<=8.1)
== END 2018-01-19 08:53 | disposition home or self-care (01) | DRG 753 ==
LOC: C.ER 19:49 → C.5E 01-13 00:41 → C.5S 01-15 17:07
PROVIDERS: ADMIT Hospitalist; ATTEND Hospitalist
PROC: GZ3ZZZZ Medication Management (ICD-10-PCS; principal; 2018-01-13)
PROC: HZ2ZZZZ Detoxification Services for Substance Abuse Treatment (ICD-10-PCS; 2018-01-13)
PROC: GZHZZZZ Group Psychotherapy (ICD-10-PCS; 2018-01-13)
PROC: GZ56ZZZ Individual Psychotherapy, Supportive (ICD-10-PCS; 2018-01-13)
PROC: HZ46ZZZ Group Counseling for Substance Abuse Treatment, Psychoeducation (ICD-10-PCS; 2018-01-13)
DX: F31.64 Bipolar disorder, current episode mixed, severe, with psychotic features (principal); F25.9 Schizoaffective disorder, unspecified; K70.9 Alcoholic liver disease, unspecified; K75.4 Autoimmune hepatitis; F10.239 Alcohol dependence with withdrawal, unspecified; R60.0 Localized edema; I87.2 Venous insufficiency (chronic) (peripheral); I10 Essential (primary) hypertension; F41.9 Anxiety disorder, unspecified; D50.9 Iron deficiency anemia, unspecified; G47.00 Insomnia, unspecified; Y90.8 Blood alcohol level of 240 mg/100 ml or more; J45.909 Unspecified asthma, uncomplicated; L85.3 Xerosis cutis; Z79.01 Long term (current) use of anticoagulants; Z79.899 Other long term (current) drug therapy; Z86.718 Personal history of other venous thrombosis and embolism

== ENCOUNTER 2018-01-19 19:25 | Emergency (ER) | payer MEDICAID ==
[2018-01-19 19:25] VITALS: BMI 27.4
[2018-01-19 19:42] VITALS: O2SAT 99
[2018-01-19 20:38] VITALS: RESP 18
--- NOTE | 2018-01-19 20:58 | C.PDOC ---
History Of Present Illness 47 y/o male present to the ER complaining of RUQ abdominal pain. Patient states that the pain caused him to have shortness of breath. Patient was admitted for psychiatric evaluation in the hospital. During his admission, he notes that the physician found that he had abnormal liver enzymes. He was discharged today. Denies having CP, dizziness,nausea, and vomiting. Time Seen by Provider: 01/19/18 19:50 Chief Complaint (Nursing): Shortness Of Breath History Per: Patient History/Exam Limitations: no limitations Onset/Duration Of Symptoms: Hrs Current Symptoms Are (Timing): Still Present Severity: Moderate Past Medical History Reviewed: Historical Data, Nursing Documentation, Vital Signs Vital Signs: Last Vital Signs Temp 98.6 F 01/19/18 19:35 Pulse 98 H 01/19/18 19:35 Resp 18 01/19/18 20:35 BP 120/83 01/19/18 19:35 Pulse Ox 99 01/19/18 19:35 - Medical History PMH: Anxiety, Asthma, Bipolar Disorder, Depression, Deep Vein Thrombosis, HTN, Peripheral Edema, Schizophrenia, Seizures (ETOH related) Denies: Diabetes, Hepatitis, HIV, Chronic Kidney Disease, Sexually Transmitted Disease Other Surgeries: Hx of surgeries - [facility] DETOXIFICATION SERVICES FOR SUBSTANCE ABUSE TREATMENT (02/09/17) GROUP FLAKER TENDER FOR SUBSTANCE ABUSE TREATMENT, CONTINUING CARE (02/03/15) GROUP FLAKER TENDER FOR SUBSTANCE ABUSE TREATMENT, PSYCHOEDUCATION (04/03/16) GROUP PSYCHOTHERAPY (11/29/17) INDIV PSYCHOTHERAPY FOR SUBSTANCE ABUSE TREATMENT, SUPPORT (02/27/17) INDIVIDUAL PSYCHOTHERAPY, SUPPORTIVE (11/29/17) MEDICATION MANAGEMENT (02/27/17) MEDS MGMT FOR SUBSTANCE ABUSE TREATMENT, OTH REPL MED (02/27/17) Family History: States: No Known Family Hx - Social History Hx Tobacco Use: No Hx Alcohol Use: Yes Hx Substance Use: No - Immunization History Hx Tetanus Toxoid Vaccination: No Hx Influenza Vaccination: No Hx Pneumococcal Vaccination: No Review Of Systems Except As Marked, All Systems Reviewed And Found Negative. Constitutional: Negative for: Fever, Chills Cardiovascular: Negative for: Chest Pain Respiratory: Positive for: Shortness of Breath Gastrointestinal: Positive for: Abdominal Pain. Negative for: Nausea, Vomiting Physical Exam - Physical Exam Appears: Non-toxic, No Acute Distress Skin: Normal Color, Warm, Dry Head: Atraumatic, Normacephalic Eye(s): bilateral: Normal Inspection Nose: Normal Oral Mucosa: Moist Neck: Supple Chest: Symmetrical Cardiovascular: Rhythm Regular Respiratory: Decreased Breath Sounds (bilateral bases), No Rales, No Rhonchi, No Wheezing Gastrointestinal/Abdominal: Soft, Tenderness (RUQ tenderness), No Guarding, No Rebound, No Ascites Neurological/Psych: Oriented x3, Normal Speech ED Course And Treatment O2 Sat by Pulse Oximetry: 99 (RA) Pulse Ox Interpretation: Normal - Radiology CXR: Interpreted by Me, Viewed By Me CXR Interpretation: Yes: No Acute Disease Medical Decision Making Medical Decision Making: Plan: --CXR --Toradol IM Reviewed records from patient's recent admission- was admitted ofr psych and found to have stable transaminitis, discharged and advised to follow up with GI. CXR done with no fluid overload noted. Re-evaluated patient after toradol, he felt better. Advised him to follow up with GI as instructed. Patient amenable to discharge home and agrees to follow up. Advised returning to the ED for any new or worsening symptoms. Disposition - Disposition Disposition: HOME/ ROUTINE Disposition Time: 21:58 Condition: GOOD Additional Instructions: JOEL HERNÁNDEZ, thank you for letting us take care of you today. Your provider was Marta Merida MD and you were treated for SOB. The emergency medical care you received today was directed at your acute symptoms. If you were prescribed any medication, please fill it and take as directed. It may take several days for your symptoms to resolve. Return to the Emergency Department if your symptoms worsen, do not improve, or if you have any other problems. Please contact your doctor or call one of the physicians/clinics you have been referred to that are listed on the Patient Visit Information form that is included in your discharge packet. Bring any paperwork you were given at discharge with you along with any medications you are taking to your follow up visit. Our treatment cannot replace ongoing medical care by a primary care provider outside of the emergency department. Thank you for allowing the [facility] team to be part of your care today. If you had an X-Ray or CT scan: A Radiologist will review the ED reading if any change in treatment is needed we will contact you. If you had a blood, urine, or wound culture: It will take several days for the results, if any change in treatment is needed we will contact you. If you had an STI test: It will take 48 hours for the results. Please call after 1 week if you have not heard back. PLEASE FOLLOW UP WITH GI INSTRUCTED SOON POSSIBLE Instructions: Acute Liver Failure (DC) Forms: [employer] (Thai) - Clinical Impression Clinical Impression: Abdominal pain, Transaminitis, Dyspnea - Scribe Statement Shaggy Elena Provider Attestation: All medical record entries made by the Scribe were at my direction and personally dictated by me. I have reviewed the chart and agree that the record accurately reflects my personal performance of the history, physical exam, medical decision making, and the department course for this patient. I have also personally directed, reviewed, and agree with the discharge instructions and disposition.
[2018-01-19 21:57] VITALS: BP 151/89; PULSE 80; TEMP 98.4
--- NOTE | 2018-01-20 08:39 | RAD ---
Date of service: 01/19/2018 HISTORY: dyspnea COMPARISON: Portable chest 01/14/2018. TECHNIQUE: Chest PA and lateral FINDINGS: LUNGS: No active pulmonary disease. PLEURA: No significant pleural effusion identified. No pneumothorax apparent. CARDIOVASCULAR: No aortic atherosclerotic calcification present. Normal cardiac size. No pulmonary vascular congestion. OSSEOUS STRUCTURES: No significant abnormalities. VISUALIZED UPPER ABDOMEN: Normal. OTHER FINDINGS: None. IMPRESSION: No acute cardiopulmonary disease appreciated.
== END 2018-01-19 22:04 | disposition home or self-care (01) ==
LOC: C.ER 19:25
DX: R10.11 Right upper quadrant pain (principal); R74.0 Nonspecific elevation of levels of transaminase and lactic acid dehydrogenase [LDH]; F20.9 Schizophrenia, unspecified; I10 Essential (primary) hypertension
CPT/HCPCS: 71046; 96372; 99283; J1885

== ENCOUNTER 2018-02-01 02:44 | Inpatient (IN) | payer MEDICAID, OTHER ==
[2018-02-01 02:44] VITALS: BMI 27.4
--- NOTE | 2018-02-01 03:15 | C.PDOC ---
History Of Present Illness 48 year old male with history of alcohol abuse presents to the ED complaining of feeling stressed and auditory hallucinations telling him to hurt himself. Denies any physical complaints. . Time Seen by Provider: 02/01/18 03:10 Chief Complaint (Nursing): Psychiatric Evaluation History Per: Patient History/Exam Limitations: clinical condition Current Symptoms Are (Timing): Still Present Suicide/Self Injury Attempted (Context): None Modifying Factor(s): None Associated Symptoms: Agitation, Depression Past Medical History Reviewed: Historical Data, Nursing Documentation, Vital Signs Vital Signs: Last Vital Signs Temp 98.2 F 02/01/18 02:55 Pulse 71 02/01/18 02:55 Resp 20 02/01/18 02:55 BP 138/79 02/01/18 02:55 Pulse Ox 98 02/01/18 02:55 - Medical History PMH: Anxiety, Asthma, Bipolar Disorder, Depression, Deep Vein Thrombosis, HTN, Peripheral Edema, Schizophrenia, Seizures (ETOH related) Denies: Diabetes, Hepatitis, HIV, Chronic Kidney Disease, Sexually Trans mitted Disease Other Surgeries: Hx of surgeries - [facility] Procedures DETOXIFICATION SERVICES FOR SUBSTANCE ABUSE TREATMENT (01/13/18) GROUP BIG DATA DEVELOPER FOR SUBSTANCE ABUSE TREATMENT, CONTINUING CARE (02/03/15) GROUP BIG DATA DEVELOPER FOR SUBSTANCE ABUSE TREATMENT, PSYCHOEDUCATION (01/13/18) GROUP PSYCHOTHERAPY (01/13/18) INDIV PSYCHOTHERAPY FOR SUBSTANCE ABUSE TREATMENT, SUPPORT (02/27/17) INDIVIDUAL PSYCHOTHERAPY, SUPPORTIVE (01/13/18) MEDICATION MANAGEMENT (01/13/18) MEDS MGMT FOR SUBSTANCE ABUSE TREATMENT, OTH REPL MED (02/27/17) Family History: States: No Known Family Hx - Social History Hx Tobacco Use: No Hx Alcohol Use: Yes Hx Substance Use: No - Immunization History Hx Tetanus Toxoid Vaccination: No Hx Influenza Vaccination: No Hx Pneumococcal Vaccination: No Review Of Systems Review Of Systems: ROS cannot be obtained secondary to pt's inabilty to answer questions. Psych: Positive for: Other (agitation, stress ) Physical Exam - Physical Exam Appears: Non-toxic, Other (agitated, speaking loudly) Skin: Warm, Dry Head: Atraumatic, Normacephalic Eye(s): bilateral: Normal Inspection Oral Mucosa: Moist Neck: Supple Chest: Symmetrical Cardiovascular: Rhythm Regular, No Murmur Respiratory: Normal Breath Sounds, No Rales, No Rhonchi, No Wheezing Gastrointestinal/Abdominal: Bowel Sounds, Soft, No Tenderness Extremity: Normal ROM, No Tenderness Neurological/Psych: Oriented x3, Normal Speech, Normal Cognition ED Course And Treatment - Laboratory Results Result Diagrams: 02/01/18 03:29 18 03:29 O2 Sat by Pulse Oximetry: 98 (RA) Pulse Ox Interpretation: Normal Medical Decision Making Medical Decision Making: Plan - Bloodwork - Crisis Eval 0424 pt is medically cleared for psychiatric evaluation 0516 pt to be admitted to psychiatry Dr Gómez Disposition Discussed With Dr.: Carlie Buchanan Doctor Will See Patient In The: Hospital - Disposition Disposition: HOSPITALIZED Disposition Time: 05:17 Condition: STABLE Forms: [employer] (Estonian) - Clinical Impression Clinical Impression: Alcohol use disorder, severe, dependence, Major depressive disorder with psychotic features - PA / TECHNICAL OPERATOR / Resident Statement MD/DO has reviewed & agrees with the documentation as recorded. - Scribe Statement The provider has reviewed the documentation as recorded by the Scribleydi Jones All medical record entries made by the Deyviibleydi were at my direction and personally dictated by me. I have reviewed the chart and agree that the record accurately reflects my personal performance of the history, physical exam, medical decision making, and the department course for this patient. I have also personally directed, reviewed, and agree with the discharge instructions and d isposition.
[2018-02-01 03:35] LABS: URINE BILIRUBIN NEGATIVE (NEGATIVE); URINE BLOOD NEGATIVE (NEGATIVE); URINE CLARITY Clear (Clear); URINE COLOR Yellow (YELLOW); URINE GLUCOSE (UA) NORMAL (Normal); URINE LEUKOCYTE ESTERASE NEG Leu/uL (Negative); URINE PROTEIN NEGATIVE (NEGATIVE)
[2018-02-01 03:40] LABS: BASO # 0.1 K/uL (0.0-0.2); BASO % 1.1 % (0.0-2.0); EOS # 0.3 K/uL (0.0-0.7); EOS % 6.7 % (0.0-4.0); HEMOGLOBIN 11.4 g/dL (12.0-18.0); LYMPH # 1.5 K/uL (1.0-4.3); LYMPH % 32.8 % (20.0-40.0); MEAN CELL VOLUME 76.3 fL (80.0-94.0); MEAN CORPUSCULAR HEMOGLOBIN 24.8 pg (27.0-31.0); MEAN CORPUSCULAR HGB CONC 32.5 g/dL (33.0-37.0); MEAN PLATELET VOLUME 7.9 fL (7.2-11.7); MONO # 0.4 K/uL (0.0-0.8); NEUT # 2.4 K/uL (1.8-7.0); NEUT % 50.4 % (50.0-75.0); RBC 4.61 Mil/uL (4.40-5.90); RED CELL DISTRIBUTION WIDTH 20.9 % (11.5-14.5); WHITE BLOOD COUNT 4.7 K/uL (4.8-10.8)
[2018-02-01 03:49] LABS: BARBITURATES, UR NEGATIVE (NEGATIVE); BENZODIAZEPINES, UR NEGATIVE (NEGATIVE); OPIATES, UR NEGATIVE (NEGATIVE); PHENCYCLIDINE, UR NEGATIVE (NEGATIVE)
[2018-02-01 04:17] LABS: ALB/GLOB RATIO 1.2 (1.0-2.1); ALBUMIN 3.8 g/dL (3.5-5.0); ALT/SGPT 214 U/L (21-72); AST/SGOT 203 U/L (17-59); BLOOD UREA NITROGEN 13 mg/dL (9-20); CALCIUM 8.3 mg/dl (8.6-10.4); GFR NON-AFRICAN AMERICAN > 60
[2018-02-01 05:54] VITALS: O2SAT 99
--- NOTE | 2018-02-01 06:22 | PCM.BM ---
<Courtney Dimas - Last Filed: 02/01/18 06:20> Treatment Plan Problems - Problems identified on initial assessmt Suicidal ideation Date Initiated: 02/01/18 Time Initiated: 06:15 Assessment reference: NA Status: Active Treatment assets and liabiliti Patient Assests: cooperative, self-reliant, ADL independent, negotiates basic needs, cognitively intact Patient Liabilities: substance abuse, medical problems, auditory impairment - Milieu Protocol Maintain good personal hygiene: daily Encourage regular showers, daily Remind patient to perform daily oral care, daily Assist patient to perform ADL's Maintain personal safety: every shift Educate patient to report safety concerns to staff, every shift Monitor environment for contraband/sharps Medication safety: Monitor for expected outcome, potential side effects: every shift, Assess barriers to learning: every shift, Assess readiness for medication education: every shift <Tata Georges - Last Filed: 02/01/18 13:34> Family Contact Family involvement: Family/SO is involved Family contact: Patient declines to allow family contact at present - Goals for Treatment Patient goals for treatment: "I want to go to a rehab this time." Discharge/Continuing Care - Education Needs Education Needs: Patient Medication, Patient Coping Skills, Patient Placement options, Patient Community resources - Discharge Discharge Criteria: Tolerates medication w/o severe side effects, No longer exhibiting s/s of withdrawal, Reduction of target symptoms Discharge to:: Substance Abuse Rehab - Treatment Team Participation Discussed with Family/SO: No Was Patient/Family/SO present at Treatment Team Meeting: Yes
[2018-02-01] MEDS ORDERED: Benzocaine/Menthol (Cepacol) Lozenge PO PRN (11:33)
[2018-02-01] MEDS ORDERED: Aluminum Hydroxide/Magnesium Hydroxide Susp (30 mL) PO PRN (11:33)
--- NOTE | 2018-02-01 11:41 | PCM.PSYCH ---
Initial Psychiatric Evaluation - Initial Psychiatric Evaluation Type of Admission: Voluntary Legal Status: Capacity Chief Complaint (in patient's own words): I was feeling depressed.' History of Present Illness and Precipitating Events: Pt is a 48 year old male who is single, currently unemployed but lives with his brother. Pt with a history of alcohol abuse came to [facility] complaining of feeling stressed and auditory hallucinations telling him to hurt himself. Pt states that he is here because he has been hearing voices that tell him to kill himself and that he is not good enough as a person. He denies visual or tactile hallucinations. Pt reports depressed mood, feelings of hopelessness and helplessness, poor sleep and poor appetite. He reports suicidal ideations. Pt denies ever having a plan or suicide attempt in the past. Pt has been hospitalized for a psychiatric condition 13 times in [facility] though he states he has only had 3 hospitalizations. His last visit was on 01/13 but he states it was cut short because he was transferred to [facility] for his kidneys. Pt also complains of pain in his leg. Pt states his sleep is good with the medications and his appetite is intact. His energy level varies and he has somewhat poor con centration. Pt drinks 6 beers a day and his last drink was the day before admission. He started drinking when he was 13 years old but it became regular at 17 years old. Pt denies a history of seizures related to alcohol though the records says he has had alcohol related seizures in the past. He has undergone detoxification once at this hospital and denies having been to rehabilitation. Pt denies use of any substances including marijuana, heroin, cocaine, or tobacco products. His plan after his stay in the hospital is to return to [facility] regularly but upon further questioning stated he would be open to an inpatient rehabilitation. Pt has withdrawal symptoms including tremors and nausea, anxiety and headaches. Past medical history: Asthma, DVT, HTN, peripheral edema, seizures (ETOH related) Allergies: Fish Surgical history: Denies Legal history: Denies Family psychiatric history: uncle with depression Psychiatric history: Anxiety, depression ? Current Medications: Active Medications Generic Name Dose Route Start Last Admin Trade Name Freq PRN Reason Stop Dose Admin Al Hydrox/Mg Hydrox/Simethicone 30 ml 02/01/18 11:33 Maalox 30 Ml PO TID PRN Indigestion / Heartburn Benzocaine/Menthol 1 bennie 02/01/18 11:33 Cepacol Sore Throat PO QID PRN Sore Throat Clonidine HCl 0.1 mg 02/01/18 11:32 Catapres PO Q4H PRN Symptoms of alcohol withdrawl Folic Acid 1 mg 02/01/18 11:45 Folic Acid PO DAILY COUNT INCLUDES THE [facility] Influenza Virus Vaccine 60 mcg 02/03/18 10:00 Fluzone Quad [id number] IM 02/03/18 10:01 .ONCE ONE Loperamide HCl 2 mg 02/01/18 11:33 Imodium PO Q8 PRN Diarrhea Lorazepam 1 mg 02/01/18 11:32 Ativan PO Q4H PRN Symptoms of alcohol withdrawl Lorazepam 0 mg 02/01/18 11:45 Ativan PO 02/05/18 11:44 .TAPER ELKIN Taper Multivitamins 1 tab 02/01/18 11:45 Hexavitamin PO DAILY COUNT INCLUDES THE [facility] Nicotine 1 patch 02/01/18 11:45 Nicoderm Cq TD DAILY COUNT INCLUDES THE [facility] Ondansetron HCl 4 mg 02/01/18 11:33 Zofran Tab PO Q8 PRN Nausea/Vomiting Pneumococcal Polyvalent Vaccine 0.5 ml 02/03/18 10:00 Pneumovax 23 Vaccine IM 02/03/18 10:01 .ONCE ONE Pseudoephedrine HCl 60 mg 02/01/18 11:33 Sudafed Tab PO QID PRN Nasal/Sinus Congestion Thiamine HCl 100 mg 02/01/18 11:45 Vitamin B1 Tab PO DAILY COUNT INCLUDES THE [facility] Trazodone HCl 50 mg 02/01/18 11:32 Desyrel PO HS PRN Insomnia Past Psychiatric History - Past Psychiatric History Previous Treatment History: Inpatient Pertinent Medical Hx (Current Medical&Sleep Prob, Allergies): Allergies Allergy/AdvReac Type Severity Reaction Status Date / Time No Known Allergies Allergy Verified 02/01/18 03:04 Mirtazapine [Remeron] 15 mg PO QPM 30 Days #30 tablet 01/19/18 Multivitamins [Hexavitamin] 1 tab PO DAILY 30 Days #30 tab 01/19/18 Review of Systems - Review of Systems All systems: reviewed and no additional remarkable complaints except - Psychiatric Psychiatric: Anxiety, Auditory Hallucinations, Irritability, Paranoia, Suicidal Ideation Mental Status Examination - Personal Presentation Personal Presentation: Looks stated age - Affect Affect: Constricted, Depressed - Motor Activity Motor Activity: Calm - Reliability in Providing Information Reliability in Providing Information: Fair - Speech Speech: Organized - Mood Mood: Depressed, Anxious - Formal Thought Process Formal Thought Process: Hallucinations, Delusions, Paranoia, Loosening of associations - Hallucinations/Delusions Hallucinations: Auditory Delusions: Persecution - Obsessions/Compulsions Obsessions: No Compulsions: No - Cognitive Functions Orientation: Person, Place, Situation, Time Sensorium: Alert Attention/Concentration: Attentive Abstract Thinking: [place] Estimate of Intelligence: Below average Judgement: Imparied, as evidence by: Poor judgement, Imparied, as evidence by: Lack of insight into illness - Risk Risk: Suicidal, Withdrawal, Diminished functioning - Limitations Limitations: Living alone DSM 5 DX - DSM 5 DSM 5 Diagnosis: Bipolar disorder MRE mixed severe with psychotic features Alcohol use disorder severe Alcohol withdrawal uncomplicated - Recommended/Plan of Treatment Treatment Recommendations and Plan of Treatment: Bipolar disorder MRE mixed severe with psychotic features CBT Psychoeducation Supportive therapy, group therapy, individual therapy Olanzapine 5 mg PO HS Trazodone 50 mg by mouth daily at bedtime Hydroxyzine 25 mg by mouth every 6 hours when necessary Sertraline 50 mg PO Daily Alcohol use disorder severe CBT Psychoeducation Supportive therapy, individual therapy Use [facility] for abstinence Alcohol withdrawal uncomplicated CBT Psychoeducation Supportive therapy, individual therapy Librium/ Ativan when necessary Start Librium taper Start folic acid/thiamine/multivitamin
[2018-02-01] MEDS: Multiple Vitamins Tab PO SCH (11:56)
[2018-02-02] MEDS: Multiple Vitamins Tab PO SCH (09:50)
--- NOTE | 2018-02-03 02:12 | PCM.PYCHPN ---
Psychiatric Progress Note - Psychiatric Progress Note Patient seen today, length of contact: 15 min Patient Chief Complaint: I was feeling depressed.' Problems Identified/Issues Discussed: Patient seen and evaluated, chart reviewed and discussed with the nurse. Patient reports depressed mood and at times feelings of hopelessness and helplessness. As per the staff patient remained isolated and withdrawn. Patient still reports persecutory delusions and auditory hallucinations. Patient reports withdrawal symptoms including cramps, nausea, anxiety, and headaches. He is tolerating the withdrawal medications and denies any side effects. Symptoms are improving and he needs more time for stabilization Supportive therapy and psychoeducation were given. Medication Change: Yes Medical Record Reviewed: Yes Mental Status Examination - Cognitive Function Orientation: Person, Place, Situation, Time Memory: Intact Attention: WNL Concentration: Poor Association: WNL Fund of Knowledge: Poor - Mood Mood: Depressed, Anxious - Affect Affect: Constricted, Depressed - Speech Speech: Soft - Formal Thought Process Formal Thought Process: Hallucinations, Delusions, Paranoia - Suicidal Ideation Suicidal Ideation: No - Homicidal Ideation Homicidal Ideation: No Goal/Treatment Plan - Goal/Treatment Plan Need for Continued Stay: Severe depression anxiety, Severe functional impairment Progress Toward Problem(s) and Goals/Treatment Plan: Bipolar disorder MRE mixed severe with psychotic features CBT Psychoeducation Supportive therapy, group therapy, individual therapy Olanzapine 5 mg PO HS Trazodone 50 mg by mouth daily at bedtime Hydroxyzine 25 mg by mouth every 6 hours when necessary Sertraline 50 mg PO Daily Alcohol use disorder severe CBT Psychoeducation Supportive therapy, individual therapy Use [facility] for abstinence Alcohol withdrawal uncomplicated CBT Psychoeducation Supportive therapy, individual therapy Librium/ Ativan when necessary Start Librium taper Start folic acid/thiamine/multivitamin - Smoking Cessation Smoking Cessation Initiated: No
[2018-02-03] MEDS: Multiple Vitamins Tab PO SCH (09:17)
[2018-02-03] MEDS ORDERED: Influenza Vaccine 60 MCG/0.5 ML SYR (3 yr & up) IM ONE (10:00)
[2018-02-03] MEDS ORDERED: Pneumococcal 23-Valent Vaccine IM ONE (10:00)
[2018-02-04] MEDS: Multiple Vitamins Tab PO SCH (10:13)
--- NOTE | 2018-02-04 13:28 | PCM.PYCHPN ---
Psychiatric Progress Note - Psychiatric Progress Note Patient seen today, length of contact: 15 min Patient Chief Complaint: I was feeling depressed.' Problems Identified/Issues Discussed: Patient seen and evaluated, chart reviewed and discussed with the nurse. As per the staff patient remained isolated and withdrawn. Patient still reports persecutory delusions and auditory hallucinations. Patient reports depressed mood but reports some improvement in the feelings of hopelessness and helplessness. Patient reports withdrawal symptoms including cramps, nausea, anxiety, and headaches. He is tolerating the withdrawal medications and denies any side effects. Symptoms are improving and he needs more time for stabilization Supportive therapy and psychoeducation were given. Medication Change: Yes Medical Record Reviewed: Yes Mental Status Examination - Cognitive Function Orientation: Person, Place, Situation, Time Memory: Intact Attention: WNL Concentration: Poor Association: WNL Fund of Knowledge: Poor - Mood Mood: Depressed, Anxious - Affect Affect: Constricted, Depressed - Speech Speech: Soft - Formal Thought Process Formal Thought Process: Hallucinations, Delusions, Paranoia - Suicidal Ideation Suicidal Ideation: No - Homicidal Ideation Homicidal Ideation: No Goal/Treatment Plan - Goal/Treatment Plan Need for Continued Stay: Severe depression anxiety, Severe functional impairment Progress Toward Problem(s) and Goals/Treatment Plan: Bipolar disorder MRE mixed severe with psychotic features CBT Psychoeducation Supportive therapy, group therapy, individual therapy Olanzapine 5 mg PO HS Trazodone 50 mg by mouth daily at bedtime Hydroxyzine 25 mg by mouth every 6 hours when necessary Sertraline 50 mg PO Daily Alcohol use disorder severe CBT Psychoeducation Supportive therapy, individual therapy Use GA for abstinence Alcohol withdrawal uncomplicated CBT Psychoeducation Supportive therapy, individual therapy Librium/ Ativan when necessary Start Librium taper Start folic acid/thiamine/multivitamin
--- NOTE | 2018-02-04 13:30 | PCM.PYCHPN ---
Psychiatric Progress Note - Psychiatric Progress Note Patient seen today, length of contact: 15 min Patient Chief Complaint: I m feeling little better.' Problems Identified/Issues Discussed: Patient seen and evaluated, chart reviewed and discussed with the nurse. Patient reports some improvement in his mood, sleep and appetite. As per the staff patient remained isolated and withdrawn. Patient reports some improvement in the persecutory delusions and auditory hallucinations. Patient reports some improvement in the withdrawal symptoms. He reports that he wants to go to the rehab after discharge. He is tolerating the withdrawal medications and denies any side effects. Symptoms are improving and he needs more time for stabilization Supportive therapy and psychoeducation were given. Medication Change: Yes Medical Record Reviewed: Yes Mental Status Examination - Cognitive Function Orientation: Person, Place, Situation, Time Memory: Intact Attention: WNL Concentration: Poor Association: WNL Fund of Knowledge: Poor - Mood Mood: Depressed, Anxious - Affect Affect: Constricted, Depressed - Speech Speech: Soft - Formal Thought Process Formal Thought Process: Hallucinations, Delusions, Paranoia - Suicidal Ideation Suicidal Ideation: No - Homicidal Ideation Homicidal Ideation: No Goal/Treatment Plan - Goal/Treatment Plan Need for Continued Stay: Severe depression anxiety, Severe functional impairment Progress Toward Problem(s) and Goals/Treatment Plan: Bipolar disorder MRE mixed severe with psychotic features CBT Psychoeducation Supportive therapy, group therapy, individual therapy Olanzapine 10 mg PO HS Trazodone 50 mg by mouth daily at bedtime Hydroxyzine 25 mg by mouth every 6 hours when necessary Sertraline 100 mg PO Daily Alcohol use disorder severe CBT Psychoeducation Supportive therapy, individual therapy Use ME for abstinence Alcohol withdrawal uncomplicated CBT Psychoeducation Supportive therapy, individual therapy Librium/ Ativan when necessary Start Librium taper Start folic acid/thiamine/multivitamin
--- NOTE | 2018-02-05 09:47 | PCM.PYCHDC ---
Mental Status Examination - Mental Status Examination Orientation: Person Discharge Summary - Discharge Note Consultations:: List each consultation separately and include: 1. Reason for request. 2. Findings. 3. Follow-up Summary of Hospital Course include:: 1. Description of specific treatment plan utilized for patients during their course of treatmen. 2. Summarize the time- course for resolution of acute symptoms and/or regressed behaviors. 3. Describe issues identified and worked on during hospitalization. 4. Describe medication utilized. 5. Describe medical problems identified and treated. 6. Reassessment of suicide risk Summary of Hospital Course: [facility] - Final Diagnosis (DSM 5) Condition upon Discharge: STABLE Disposition: HOME/ ROUTINE Prescriptions/Medication Reconciliation: Gabapentin [Neurontin] 300 mg PO TID #90 cap OLANZapine [Zyprexa] 10 mg PO HS #30 tab Sertraline [Zoloft] 100 mg PO DAILY #30 tab traZODone [Desyrel] 50 mg PO HS PRN #30 tab PRN Reason: Insomnia
[2018-02-05] MEDS: Multiple Vitamins Tab PO SCH (10:08)
[2018-02-05 11:32] VITALS: BP 117/79; PULSE 81; RESP 20; TEMP 97.8
== END 2018-02-05 09:55 | disposition home or self-care (01) | DRG 753 ==
LOC: C.ER 02:44 → C.5E 05:15
PROVIDERS: ADMIT Psychiatry & Neurology Psychiatry; ATTEND Psychiatry & Neurology Psychiatry
PROC: GZ56ZZZ Individual Psychotherapy, Supportive (ICD-10-PCS; principal; 2018-02-01)
DX: F31.63 Bipolar disorder, current episode mixed, severe, without psychotic features (principal); F32.3 Major depressive disorder, single episode, severe with psychotic features; R45.851 Suicidal ideations; I10 Essential (primary) hypertension; F41.9 Anxiety disorder, unspecified; J45.909 Unspecified asthma, uncomplicated; F10.230 Alcohol dependence with withdrawal, uncomplicated; Y90.3 Blood alcohol level of 60-79 mg/100 ml

== ENCOUNTER 2018-02-10 00:14 | Emergency (ER) | payer MEDICAID ==
[2018-02-10 00:14] VITALS: BMI 27.4
[2018-02-10 01:04] VITALS: RESP 16
--- NOTE | 2018-02-10 03:56 | C.PDOC ---
History Of Present Illness 48 year old male known local alcoholic presents to the ER intoxicated and requesting a place to spend the night. Patient admits to drinking all day. Denies medical complaints at this time. Time Seen by Provider: 02/10/18 01:19 Chief Complaint (Nursing): Substance Abuse History Per: Patient History/Exam Limitations: no limitations Onset/Duration Of Symptoms: Hrs Current Symptoms Are (Timing): Still Present Suicide/Self Injury Attempted (Context): None Modifying Factor(s): Alcohol Associated Symptoms: denies: Depression, Suicidal Thoughts Involuntary Hold By: None Recent travel outside of the [place]: No Past Medical History Reviewed: Historical Data, Nursing Documentation, Vital Signs Vital Signs: Last Vital Signs Temp 97 F L 02/10/18 01:02 Pulse 98 H 02/10/18 01:02 Resp 16 02/10/18 01:02 BP 124/81 02/10/18 01:02 Pulse Ox 96 02/10/18 01:02 - Medical History PMH: Anxiety, Asthma, Bipolar Disorder, Depression, Deep Vein Thrombosis, HTN, Peripheral Edema, Schizophrenia Denies: Diabetes, Hepatitis, HIV, Chronic Kidney Disease, Seizures, Sexually Transmitted Disease - [facility] Procedures DETOXIFICATION SERVICES FOR SUBSTANCE ABUSE TREATMENT (01/13/18) GROUP HEEL BUFFER FOR SUBSTANCE ABUSE TREATMENT, CONTINUING CARE (02/03/15) GROUP HEEL BUFFER FOR SUBSTANCE ABUSE TREATMENT, PSYCHOEDUCATION (01/13/18) GROUP PSYCHOTHERAPY (01/13/18) INDIV PSYCHOTHERAPY FOR SUBSTANCE ABUSE TREATMENT, SUPPORT (02/27/17) INDIVIDUAL PSYCHOTHERAPY, SUPPORTIVE (02/01/18) MEDICATION MANAGEMENT (01/13/18) MEDS MGMT FOR SUBSTANCE ABUSE TREATMENT, OTH REPL MED (02/27/17) Family History: States: Unknown Family Hx - Social History Hx Tobacco Use: No Hx Alcohol Use: Yes Hx Substance Use: Yes (DENIED) - Immunization History Hx Tetanus Toxoid Vaccination: No Hx Influenza Vaccination: No Hx Pneumococcal Vaccination: No Review Of Systems Constitutional: Negative for: Fever, Chills Cardiovascular: Negative for: Chest Pain, Palpitations Respiratory: Negative for: Cough, Shortness of Breath Gastrointestinal: Negative for: Nausea, Vomiting Neurological: Negative for: Weakness, Numbness Physical Exam - Physical Exam Appears: Non-toxic, Other (ETOH on breath, no sign of injury) Skin: Normal Color, Warm, Dry Head: Atraumatic, Normacephalic Eye(s): bilateral: Normal Inspection Oral Mucosa: Moist Chest: Symmetrical, No Tenderness Cardiovascular: Rhythm Regular Respiratory: Normal Breath Sounds, No Rales, No Rhonchi, No Wheezing Neurological/Psych: Oriented x3, Normal Speech Gait: Unable To Assess ED Course And Treatment O2 Sat by Pulse Oximetry: 96 (room air) Pulse Ox Interpretation: Normal Progress Note: Patient with acute ETOH intoxication, will allow to rest until sober. Patient is resting comfortably in the ER in no acute distress, ambulatory with steady gait, vitals are stable, will discharge home. Disposition - Disposition Disposition: HOME/ ROUTINE Disposition Time: 06:11 Condition: STABLE Forms: [employer] (Andorran) - Clinical Impression Clinical Impression: Alcohol intoxication - PA / BENEFITS ADVISOR / Resident Statement MD/DO has reviewed & agrees with the documentation as recorded. - Scribe Statement The provider has reviewed the documentation as recorded by the Scribe Ray Vázquez All medical record entries made by the Scribe were at my direction and personally dictated by me. I have reviewed the chart and agree that the record accurately reflects my personal performance of the history, physical exam, medical decision making, and the department course for this patient. I have also personally directed, reviewed, and agree with the discharge instructions and disposition.
[2018-02-10 04:39] VITALS: BP 108/76; PULSE 76; TEMP 98.1
[2018-02-10 06:52] VITALS: O2SAT 96
== END 2018-02-10 05:40 | disposition home or self-care (01) ==
LOC: C.ER 00:14
DX: F10.129 Alcohol abuse with intoxication, unspecified (principal); F20.9 Schizophrenia, unspecified; I10 Essential (primary) hypertension

== ENCOUNTER 2018-02-11 18:31 | Emergency (ER) | payer MEDICAID ==
[2018-02-11 18:31] VITALS: BMI 27.4
--- NOTE | 2018-02-11 18:34 | C.PDOC ---
History Of Present Illness 48 yr old male w/ hx of Anxiety, Etoh abuse p/w etoh intoxication. pt BIBA for etoh intoxication. Pt notes chest pain x2 weeks. He also notes that he might of fell today as well. He denies any weakness. No GI or complaints. No rash. He denies being on any blood thinners. No other complaints. Time Seen by Provider: 02/11/18 18:34 Past Medical History - Medical History PMH: Anxiety, Asthma, Bipolar Disorder, Depression, Deep Vein Thrombosis, HTN, Peripheral Edema, Schizophrenia Denies: Diabetes, Hepatitis, HIV, Chronic Kidney Disease, Seizures, Sexually Transmitted Disease - [facility] Procedures DETOXIFICATION SERVICES FOR SUBSTANCE ABUSE TREATMENT (01/13/18) GROUP MUSIC WORKER FOR SUBSTANCE ABUSE TREATMENT, CONTINUING CARE (02/03/15) GROUP MUSIC WORKER FOR SUBSTANCE ABUSE TREATMENT, PSYCHOEDUCATION (01/13/18) GROUP PSYCHOTHERAPY (01/13/18) INDIV PSYCHOTHERAPY FOR SUBSTANCE ABUSE TREATMENT, SUPPORT (02/27/17) INDIVIDUAL PSYCHOTHERAPY, SUPPORTIVE (02/01/18) MEDICATION MANAGEMENT (01/13/18) MEDS MGMT FOR SUBSTANCE ABUSE TREATMENT, OTH REPL MED (02/27/17) Family History: States: Unknown Family Hx - Social History Hx Tobacco Use: No Hx Alcohol Use: Yes Hx Substance Use: Yes (DENIED) - Immunization History Hx Tetanus Toxoid Vaccination: No Hx Influenza Vaccination: No Hx Pneumococcal Vaccination: No Review Of Systems Constitutional: Negative for: Fever, Chills, Weakness Eyes: Negative for: Pain, Eyelid Inflammation ENT: Negative for: Ear Pain, Ear Discharge, Nose Congestion, Mouth Pain Cardiovascular: Positive for: Chest Pain. Negative for: Palpitations Respiratory: Negative for: Cough, SOB with Excertion Gastrointestinal: Negative for: Nausea, Vomiting, Abdominal Pain, Constipation, Melena Genitourinary: Negative for: Dysuria, Frequency Musculoskeletal: Negative for: Neck Pain, Back Pain Skin: Negative for: Rash Neurological: Negative for: Weakness, Numbness Psych: Negative for: Anxiety, Depression, Suicidal ideation Physical Exam - Physical Exam Appears: Well, Non-toxic, No Acute Distress Skin: Normal Color, Warm Head: Atraumatic, Normacephalic, No Swelling, No Abrasion Eye(s): bilateral: Normal Inspection, PERRL, EOMI Ear(s): Bilateral: Normal Nose: Normal, No Flaring Oral Mucosa: Moist Tongue: Normal Appearing Lips: Normal Appearing Teeth: Normal Dentition Throat: Normal Neck: Normal, Normal ROM, No Midline Cervical Tenderness, Supple Chest: Symmetrical, No Deformity Cardiovascular: Rhythm Regular Respiratory: Normal Breath Sounds Gastrointestinal/Abdominal: Normal Exam, Soft, No Tenderness, No Distention, No Guarding Back: Normal Inspection, No CVA Tenderness, No Vertebral Tenderness Extremity: Normal ROM, No Tenderness Neurological/Psych: Oriented x3, Normal Speech, Normal Cognition, No Cerebellar Signs ED Course And Treatment - Laboratory Results Result Diagrams: 02/11/18 19:15 02/11/18 19:15 Medical Decision Making Medical Decision Makin yr old M p/w etoh intoxcation, picked up by BLS. Pt notes cp x 2 weeks but no hx of [place]. CP is sharp stabbing, without sob. No GI or complaints. no SOB. CP non pleuritic. Heart Score Age: 1 RF: 0 EKG: pend Story: 1 Troponin: Pending. 2018 CTH, CT spine, Xr reviewed: largely unremarkable troponin reviewed: unremarkable EK, NSR, No stemi Heart score 2 pending clinical sobreity 0033 CP resolved pt in NAD clinically sober, walking well w/ out cerebellar signs. Neuro exam remains u nremarkable. clear for d/c home Disposition - Disposition Disposition Time: 00:33 Condition: GOOD - Clinical Impression Clinical Impression: Alcohol abuse
[2018-02-11 19:24] LABS: BASO # 0.1 K/uL (0.0-0.2); BASO % 1.1 % (0.0-2.0); EOS # 0.2 K/uL (0.0-0.7); EOS % 2.8 % (0.0-4.0); HEMOGLOBIN 11.6 g/dL (12.0-18.0); LYMPH # 2.4 K/uL (1.0-4.3); LYMPH % 43.3 % (20.0-40.0); MEAN CELL VOLUME 77.1 fL (80.0-94.0); MEAN CORPUSCULAR HEMOGLOBIN 25.4 pg (27.0-31.0); MEAN CORPUSCULAR HGB CONC 32.9 g/dL (33.0-37.0); MONO # 0.5 K/uL (0.0-0.8); MONO % 8.6 % (0.0-10.0); NEUT # 2.5 K/uL (1.8-7.0); NEUT % 44.2 % (50.0-75.0); NRBC % 0.1 % (0.0-2.0); RBC 4.58 Mil/uL (4.40-5.90); RED CELL DISTRIBUTION WIDTH 20.4 % (11.5-14.5); WHITE BLOOD COUNT 5.6 K/uL (4.8-10.8)
[2018-02-11 19:46] LABS: ALB/GLOB RATIO 1.3 (1.0-2.1); ALBUMIN 3.9 g/dL (3.5-5.0); ALT/SGPT 152 U/L (21-72); AST/SGOT 97 U/L (17-59); BLOOD UREA NITROGEN 17 mg/dL (9-20); GFR NON-AFRICAN AMERICAN > 60
[2018-02-12 00:50] VITALS: BP 136/78; PULSE 72; RESP 14; TEMP 98; O2SAT 98
--- NOTE | 2018-02-12 09:56 | RAD ---
Date of service: 02/11/2018 HISTORY: cp x2 weeks COMPARISON: No prior. FINDINGS: LUNGS: No active pulmonary disease. PLEURA: No significant pleural effusion identified, no pneumothorax apparent. CARDIOVASCULAR: No aortic atherosclerotic calcification present. Normal cardiac size. No pulmonary vascular congestion. OSSEOUS STRUCTURES: No significant abnormalities. VISUALIZED UPPER ABDOMEN: Normal. OTHER FINDINGS: None. IMPRESSION: No active disease.
--- NOTE | 2018-02-12 10:06 | CT ---
Date of service: 02/11/2018 PROCEDURE: CT HEAD WITHOUT CONTRAST. HISTORY: "fall" COMPARISON: Comparison is made with 12/30/2017 TECHNIQUE: Axial computed tomography images were obtained through the head/brain without intravenous contrast. Radiation dose: Total exam DLP = 982.93 mGy-cm. This CT exam was performed using one or more of the following dose reduction techniques: Automated exposure control, adjustment of the mA and/or kV according to patient size, and/or use of iterative reconstruction technique. FINDINGS: HEMORRHAGE: No intracranial hemorrhage. BRAIN: No mass effect or edema. Moderate atrophy and chronic microvascular ischemic changes. VENTRICLES: Unremarkable. No hydrocephalus. CALVARIUM: Unremarkable. PARANASAL SINUSES: Mild mucosal thickening noted in the maxillary and ethmoid sinuses. MASTOID AIR CELLS: Unremarkable as visualized. No inflammatory changes. OTHER FINDINGS: Mild right frontal scalp soft tissue swelling. IMPRESSION: No evidence of acute intracranial hemorrhage mass effect or midline shift. Preliminary report contains concordant findings was submitted by [facility] [place] [facility].
--- NOTE | 2018-02-12 10:28 | CT ---
Date of service: 02/11/2018 PROCEDURE: CT Cervical Spine without contrast HISTORY: "fall" COMPARISON: None available. TECHNIQUE: Axial computed tomography images were obtained of the cervical spine without the use of intravenous contrast. Coronal and sagittal reformatted images were created and reviewed. Radiation dose: Total exam DLP = 439.37 mGy-cm. This CT exam was performed using one or more of the following dose reduction techniques: Automated exposure control, adjustment of the mA and/or kV according to patient size, and/or use of iterative reconstruction technique. FINDINGS: VERTEBRAE: No fracture. Normal alignment. No destructive bony lesion. DISCS/SPINAL CANAL/NEURAL FORAMINA: No significant central canal or neural foraminal stenosis. Discs heights are grossly preserved. PARASPINAL SOFT TISSUES: Unremarkable. OTHER FINDINGS: None. IMPRESSION: Unremarkable CT of the cervical spine.
--- NOTE | 2018-02-13 14:19 | CARD ---
APPROVED REPORT Date of service: 02/11/2018 EKG Measurement Heart [id number] ID [id number] <Conclusion> Normal sinus rhythm Normal ECG
== END 2018-02-12 00:48 | disposition home or self-care (01) ==
LOC: C.ER 18:31
DX: F10.129 Alcohol abuse with intoxication, unspecified (principal); Y90.9 Presence of alcohol in blood, level not specified

== ENCOUNTER 2018-02-19 23:36 | Emergency (ER) | payer MEDICAID, OTHER ==
[2018-02-19 23:36] VITALS: BMI 27.4
--- NOTE | 2018-02-19 23:52 | C.PDOC ---
History Of Present Illness 48 year old male is brought to the ED by EMS for alcohol intoxication. Patient admits to drinking alcohol today and states he drinks everyday. Patient denies SI/HI, hallucinations, CP, SOB, injury, fall, trauma. Time Seen by Provider: 02/19/18 23:50 Chief Complaint (Nursing): Substance Abuse History Per: Patient, EMS History/Exam Limitations: intoxication Onset/Duration Of Symptoms: Hrs Current Symptoms Are (Timing): Still Present Suicide/Self Injury Attempted (Context): None Modifying Factor(s): Alcohol Associated Symptoms: denies: Depression, Suicidal Thoughts, Suicidal Plan Additional History Per: Patient, EMS Past Medical History Reviewed: Historical Data, Nursing Documentation, Vital Signs - Medical History PMH: Anxiety, Asthma, Bipolar Disorder, Depression, Deep Vein Thrombosis, HTN, Peripheral Edema, Schizophrenia Denies: Diabetes, Hepatitis, HIV, Chronic Kidney Disease, Seizures, Sexually Transmitted Disease Surgical History: No Surg Hx - [facility] Procedures DETOXIFICATION SERVICES FOR SUBSTANCE ABUSE TREATMENT (01/13/18) GROUP NAILHEAD OPERATOR FOR SUBSTANCE ABUSE TREATMENT, CONTINUING CARE (02/03/15) GROUP NAILHEAD OPERATOR FOR SUBSTANCE ABUSE TREATMENT, PSYCHOEDUCATION (01/13/18) GROUP PSYCHOTHERAPY (01/13/18) INDIV PSYCHOTHERAPY FOR SUBSTANCE ABUSE TREATMENT, SUPPORT (02/27/17) INDIVIDUAL PSYCHOTHERAPY, SUPPORTIVE (02/01/18) MEDICATION MANAGEMENT (01/13/18) MEDS MGMT FOR SUBSTANCE ABUSE TREATMENT, OTH REPL MED (02/27/17) Family History: States: Unknown Family Hx - Social History Hx Tobacco Use: No Hx Alcohol Use: Yes Hx Substance Use: Yes (DENIED) - Immunization History Hx Tetanus Toxoid Vaccination: No Hx Influenza Vaccination: No Hx Pneumococcal Vaccination: No Review Of Systems Constitutional: Negative for: Fever, Chills Cardiovascular: Negative for: Chest Pain Respiratory: Negative for: Cough, Shortness of Breath Gastrointestinal: Negative for: Nausea, Vomiting, Abdominal Pain Skin: Negative for: Rash Neurological: Negative for: Weakness, Numbness Psych: Negative for: Depression, Suicidal ideation Physical Exam - Physical Exam Appears: Non-toxic, No Acute Distress Skin: Warm, Dry Head: Normacephalic Eye(s): bilateral: Normal Inspection Neck: Supple Chest: Symmetrical Cardiovascular: Rhythm Regular Respiratory: No Rales, No Rhonchi, No Wheezing Gastrointestinal/Abdominal: Soft, No Tenderness, No Guarding, No Rebound Extremity: Bilateral: Atraumatic, Normal Color And Temperature, Normal ROM Neurological/Psych: Oriented x3, Normal Speech, Normal Cognition Gait: Steady ED Course And Treatment O2 Sat by Pulse Oximetry: 98 (ON RA) Pulse Ox Interpretation: Normal Reevaluation Time: 05:20 Reassessment Condition: Improved Disposition Counseled Patient/Family Regarding: Studies Performed, Diagnosis, Need For Followup - Disposition Referrals: [facility] [Outside] Disposition: HOME/ ROUTINE Disposition Time: 23:51 Condition: FAIR Instructions: Alcohol Abuse and Alcoholism (DC) Forms: [employer] (Polish) - Clinical Impression Clinical Impression: Alcohol intoxication - Scribe Statement The provider has reviewed the documentation as recorded by the Scribe Tj Noyola All medical record entries made by the Scribe were at my direction and personally dictated by me. I have reviewed the chart and agree that the record accurately reflects my personal performance of the history, physical exam, medical decision making, and the department course for this patient. I have also personally directed, reviewed, and agree with the discharge instructions and disposition.
[2018-02-19 23:55] VITALS: RESP 20
[2018-02-20 06:12] VITALS: BP 146/78; PULSE 86; TEMP 98.3; O2SAT 100
== END 2018-02-20 06:02 | disposition home or self-care (01) ==
LOC: C.ER 23:36
DX: F10.129 Alcohol abuse with intoxication, unspecified (principal)

== ENCOUNTER 2018-02-21 19:05 | Inpatient (IN) | payer MEDICAID, OTHER ==
[2018-02-21 19:06] VITALS: BMI 27.4
--- NOTE | 2018-02-21 19:41 | C.PDOC ---
History Of Present Illness 48 year old male presents to the ED requesting psych evaluation. Patient states he needs to get back on track, admits to drinking alcohol today. Ladonnan denies SI/HI, hallucination, injury, fall, trauma. Time Seen by Provider: 02/21/18 19:39 Chief Complaint (Nursing): Psychiatric Evaluation History Per: Patient History/Exam Limitations: intoxication Onset/Duration Of Symptoms: Hrs Current Symptoms Are (Timing): Still Present Suicide/Self Injury Attempted (Context): None Modifying Factor(s): Alcohol Associated Symptoms: Depression. denies: Suicidal Thoughts, Suicidal Plan Recent travel outside of the [place]: No Additional History Per: Patient Past Medical History Reviewed: Historical Data, Nursing Documentation, Vital Signs Vital Signs: Last Vital Signs Temp 97.9 F 02/21/18 19:24 Pulse 88 02/21/18 19:24 Resp 16 02/21/18 19:24 BP 145/78 02/21/18 19:24 Pulse Ox 97 02/21/18 19:24 - Medical History PMH: Anxiety, Asthma, Bipolar Disorder, Depression, Deep Vein Thrombosis, HTN, Peripheral Edema, Schizophrenia Denies: Diabetes, Hepatitis, HIV, Chronic Kidney Disease, Seizures, Sexually Transmitted Disease Surgical History: No Surg Hx - [facility] Procedures DETOXIFICATION SERVICES FOR SUBSTANCE ABUSE TREATMENT (01/13/18) GROUP REMOTE CONTROL ASSEMBLER FOR SUBSTANCE ABUSE TREATMENT, CONTINUING CARE (02/03/15) GROUP REMOTE CONTROL ASSEMBLER FOR SUBSTANCE ABUSE TREATMENT, PSYCHOEDUCATION (01/13/18) GROUP PSYCHOTHERAPY (01/13/18) INDIV PSYCHOTHERAPY FOR SUBSTANCE ABUSE TREATMENT, SUPPORT (02/27/17) INDIVIDUAL PSYCHOTHERAPY, SUPPORTIVE (02/01/18) MEDICATION MANAGEMENT (01/13/18) MEDS MGMT FOR SUBSTANCE ABUSE TREATMENT, OTH REPL MED (02/27/17) Family History: States: Unknown Family Hx - Social History Hx Tobacco Use: No Hx Alcohol Use: Yes Hx Substance Use: Yes (DENIED) - Immunization History Hx Tetanus Toxoid Vaccination: No Hx Influenza Vaccination: No Hx Pneumococcal Vaccination: No Review Of Systems Constitutional: Negative for: Fever, Chills Cardiovascular: Negative for: Chest Pain Respiratory: Negative for: Shortness of Breath Gastrointestinal: Negative for: Nausea, Vomiting, Abdominal Pain Skin: Negative for: Rash Psych: Negative for: Depression, Suicidal ideation Physical Exam - Physical Exam Appears: Non-toxic, No Acute Distress Skin: Warm, Dry Head: Normacephalic Eye(s): bilateral: Normal Inspection Oral Mucosa: Moist Neck: Supple Chest: Symmetrical Cardiovascular: Rhythm Regular Respiratory: No Rales, No Rhonchi, No Wheezing Gastrointestinal/Abdominal: Soft, No Tenderness, No Guarding, No Rebound Extremity: Bilateral: Atraumatic, Normal Color And Temperature, Normal ROM Neurological/Psych: Oriented x3, Normal Speech, Normal Cognition Gait: Steady ED Course And Treatment - Laboratory Results Result Diagrams: 02/21/18 20:04 02/21/18 20:04 O2 Sat by Pulse Oximetry: 97 (ON RA) Pulse Ox Interpretation: Normal Progress Note: Plan: - Labs. - UA. - Crisis Disposition Discussed With Dr.: Jorge Mclaughlin Comment: accepted the pt on his service and took over the care at 10:11 PM Doctor Will See Patient In The: Hospital Counseled Patient/Family Regarding: Studies Performed, Diagnosis - Disposition Disposition: HOSPITALIZED Disposition Time: 19:40 Condition: FAIR Forms: [facility] (Persian) - POA Present On Arrival: None - Clinical Impression Clinical Impression: Alcohol abuse, Major depression - Scribe Statement The provider has reviewed the documentation as recorded by the Scribe Tj Noyola All medical record entries made by the Scribe were at my direction and personally dictated by me. I have reviewed the chart and agree that the record accurately reflects my personal performance of the history, physical exam, medical decision making, and the department course for this patient. I have also personally directed, reviewed, and agree with the discharge instructions and disposition. Decision To Admit - Pt Status Changed To: Hospital Disposition Of: Inpatient - Admit Certification Admit to Inpatient:: After my assessment, the patient will require hospitaliza tion for at least two midnights. This is because of the severity of symptoms shown, intensity of services needed, and/or the medical risk in this patient being treated as an outpatient. - InPatient: Physician Admission Certification: I certify that this patient requires 2 or more midnights of care for the following reason:: After my assessment, the patient will require hospitalization for at least two midnights. This is because of the severity of symptoms shown, intensity of services needed, and/or the medical risk in this patient being treated as an outpatient. - . Bed Request Type: Psychiatry Admitting Physician: Jorge Mclaughlin Patient Diagnosis: Alcohol abuse, Major depression
[2018-02-21 20:11] LABS: BASO # 0.1 K/uL (0.0-0.2); BASO % 1.3 % (0.0-2.0); EOS # 0.2 K/uL (0.0-0.7); EOS % 3.1 % (0.0-4.0); HEMOGLOBIN 11.4 g/dL (12.0-18.0); LYMPH # 2.2 K/uL (1.0-4.3); MEAN CELL VOLUME 78.5 fL (80.0-94.0); MEAN CORPUSCULAR HEMOGLOBIN 25.8 pg (27.0-31.0); MEAN CORPUSCULAR HGB CONC 32.8 g/dL (33.0-37.0); MEAN PLATELET VOLUME 7.6 fL (7.2-11.7); MONO # 0.5 K/uL (0.0-0.8); MONO % 9.1 % (0.0-10.0); NEUT # 2.9 K/uL (1.8-7.0); NEUT % 49.5 % (50.0-75.0); RBC 4.41 Mil/uL (4.40-5.90); RED CELL DISTRIBUTION WIDTH 20.7 % (11.5-14.5); WHITE BLOOD COUNT 5.9 K/uL (4.8-10.8)
[2018-02-21 20:28] LABS: ALB/GLOB RATIO 1.2 (1.0-2.1); ALBUMIN 3.6 g/dL (3.5-5.0); ALT/SGPT 166 U/L (21-72); AST/SGOT 133 U/L (17-59); BLOOD UREA NITROGEN 14 mg/dL (9-20); CALCIUM 7.9 mg/dl (8.6-10.4); GFR NON-AFRICAN AMERICAN > 60
[2018-02-21 20:35] LABS: SQUAMOUS EPITHIAL < 1 /hpf (0-5); URINE BILIRUBIN NEGATIVE (NEGATIVE); URINE BLOOD NEGATIVE (NEGATIVE); URINE CLARITY Clear (Clear); URINE COLOR Straw (YELLOW); URINE GLUCOSE (UA) NORMAL (Normal); URINE LEUKOCYTE ESTERASE NEG Leu/uL (Negative); URINE PROTEIN NEGATIVE (NEGATIVE); URINE UROBILINOGEN NORMAL mg/dL (0.2-1.0)
[2018-02-21 20:48] LABS: BARBITURATES, UR NEGATIVE (NEGATIVE); BENZODIAZEPINES, UR NEGATIVE (NEGATIVE); OPIATES, UR NEGATIVE (NEGATIVE); PHENCYCLIDINE, UR NEGATIVE (NEGATIVE)
[2018-02-21 22:39] VITALS: O2SAT 98
--- NOTE | 2018-02-22 00:40 | PCM.BM ---
<Melody Grimm - Last Filed: 02/22/18 00:37> Treatment Plan Problems - Problems identified on initial assessmt Depression Date Initiated: 02/21/18 Time Initiated: 22:55 Assessment reference: NA Status: Active Alcohol Abuse Date Initiated: 02/21/18 Time Initiated: 22:55 Assessment reference: NA Status: Active Treatment assets and liabiliti Patient Assests: cooperative, resourceful, self-reliant, ADL independent, negotiates basic needs, cognitively intact, strong mariya Patient Liabilities: live alone, financial problems, poor support system, substance abuse (Alcohol abuse), medical problems (pt.both legs are swealling) - Milieu Protocol Maintain good personal hygiene: daily Encourage regular showers, daily Remind patient to perform daily oral care, daily Assist patient to perform ADL's Maintain personal safety: every shift Educate patient to report safety concerns to staff, every shift Monitor environment for contraband/sharps Medication safety: Monitor for expected outcome, potential side effects: every shift, Assess barriers to learning: every shift, Assess readiness for medication education: every shift <Isidro Marshall - Last Filed: 02/22/18 11:38> - Diagnosis (1) Bipolar disorder Status: Acute Interventions: 02/22/18 11:39 * Assess/adjust medications daily and /or as needed * See patient on an individual basis 7x/week to assess level of manic behaviors and stability * Discuss risks, benefits, side effects and alternatives of medications * (2) Alcohol use disorder, severe, dependence Status: Acute Interventions: 02/22/18 11:39 * Assess 7x/week regarding severity of withdrawal * Educate regarding risks, benefits, side effects and alternatives of medications * Use Motivational Interviewing for abstinence * Use CBT for relapse prevention * Medication management for withdrawal symptoms * Encourage medication assisted treatment * <Tata Georges - Last Filed: 02/22/18 13:22> Family Contact Family involvement: Family/SO is involved Family contact: Patient declines to allow family contact at present - Goals for Treatment Patient goals for treatment: "I need an IOP program." Discharge/Continuing Care - Education Needs Education Needs: Patient Medication, Patient Coping Skills - Discharge Discharge Criteria: Tolerates medication w/o severe side effects, No longer exhibiting s/s of withdrawal Discharge to:: Home, With Family - Treatment Team Participation Discussed with Family/SO: No Was Patient/Family/SO present at Treatment Team Meeting: Yes
--- NOTE | 2018-02-22 09:45 | PCM.PSYCH ---
Initial Psychiatric Evaluation - Initial Psychiatric Evaluation Type of Admission: Voluntary Legal Status: Capacity History of Present Illness and Precipitating Events: The patient is a 48 year old male who presents to the ER for suicidal ideation with a plan to hang himself. The patient was unable to discuss stressors or triggers for suicidal ideation, but reports I have a lot going on in my life. The patient would not elaborate further. The patient has a long psychiatric and hospitalization history at [facility]. The patient was last hospitalized at [facility] in 01/2018 for suicidal ideation with an attempt to jump in front of a car, as per the patient. The patient upon discharged was referred to the [facility] for outpatient treatment. The patients last appointment with the therapist, patient could not recall the name of the therapist was last week which the patient reports not attending. The patient is prescribed Zoloft, dosage unknown and other medications which the patient could not provide the names. The patient reports drinking prior to coming to the hospital. This telegraphic typewriter installer inquired about the quantity the patient drank, the patient reports, A lot. The patient has been drinking since the age of [age] years old on a daily basis. The patient denies any seizure, DTs, hallucination, and blackouts. The patient during the assessment was sweating, but denied any current withdrawal symptoms. The patient reports recent loss of appetite. The patient denies any other substance use. The patient could not recall participating in any detox or rehab programs. The patient reports at last hospitalization was diagnosed with kidney failure, but patient reports leaving the hospital after being told and has not followed up since. The patient denies taking any medication for medical problem. The patient has an arrest history for stealing cars steaming from several years go, but reports no recent arrest. The patient was incarcerated also several years ago for the previous mentioned charges. The patient appeared to be unkempt, oriented X3, guarded, slurred and mumbled speech and at times speech was inaudible. The patient during the assessment was sweating. This telegraphic typewriter installer educated the patient on the importance of medication compliance and following up with aftercare plan. [ End ] Current Medications: Active Medications Generic Name Dose Route Start Last Admin Trade Name Freq PRN Reason Stop Dose Admin Influenza Virus Vaccine 60 mcg 02/24/18 10:00 Fluzone Quad [id number] IM 02/24/18 10:01 .ONCE ONE Pneumococcal Polyvalent Vaccine 0.5 ml 02/24/18 10:00 Pneumovax 23 Vaccine IM 02/24/18 10:01 .ONCE ONE Past Psychiatric History - Past Psychiatric History Pertinent Medical Hx (Current Medical&Sleep Prob, Allergies): Allergies Allergy/AdvReac Type Severity Reaction Status Date / Time No Known Allergies Allergy Verified 02/21/18 19:29 Mirtazapine [Remeron] 15 mg PO QPM 30 Days #30 tablet 01/19/18 Multivitamins [Hexavitamin] 1 tab PO DAILY 30 Days #30 tab 01/19/18 Gabapentin [Neurontin] 300 mg PO TID #90 cap 02/05/18 OLANZapine [Zyprexa] 10 mg PO HS #30 tab 02/05/18 Sertraline [Zoloft] 100 mg PO DAILY #30 tab 02/05/18 traZODone [Desyrel] 50 mg PO HS PRN #30 tab 02/05/18
[2018-02-22] MEDS: Multiple Vitamins Tab PO SCH (12:40)
[2018-02-23] MEDS: Multiple Vitamins Tab PO SCH (10:36)
[2018-02-24 06:21] VITALS: BP 143/93; PULSE 77; RESP 18; TEMP 97.7
[2018-02-24] MEDS ORDERED: Pneumococcal 23-Valent Vaccine IM ONE (10:00)
[2018-02-24] MEDS ORDERED: Influenza Vaccine 60 MCG/0.5 ML SYR (3 yr & up) IM ONE (10:00)
[2018-02-24] MEDS: Multiple Vitamins Tab PO SCH (10:01)
--- NOTE | 2018-02-24 10:02 | PCM.PYCHPN ---
Psychiatric Progress Note - Psychiatric Progress Note Patient seen today, length of contact: 15 min Patient Chief Complaint: I am feeling little better.' Medication Change: Yes Medical Record Reviewed: Yes Mental Status Examination - Cognitive Function Orientation: Person, Place, Situation, Time Memory: Intact Attention: WNL Concentration: Poor Association: WNL Fund of Knowledge: Poor - Mood Mood: Depressed, Anxious - Affect Affect: Constricted, Depressed - Speech Speech: Soft - Formal Thought Process Formal Thought Process: No Impairment - Suicidal Ideation Suicidal Ideation: No - Homicidal Ideation Homicidal Ideation: No Goal/Treatment Plan - Goal/Treatment Plan Need for Continued Stay: Severe depression anxiety, Severe functional impairment - Smoking Cessation Smoking Cessation Initiated: No
--- NOTE | 2018-02-24 10:08 | PCM.PYCHDC ---
Mental Status Examination - Mental Status Examination Orientation: Person, Place, Situation, Time Memory: Intact Mood: Neutral Affect: Constricted Speech: Soft Attention: WNL Concentration: WNL Association: WNL Fund of Knowledge: WNL Formal Thought Process: No Impairment Description of patient's judgement and insight: good, fair Psychotic Thoughts and Behaviors: denies any AVH Suicidal Ideation: No Current Homicidal Ideation?: No Discharge Summary - Discharge Note Consultations:: List each consultation separately and include: 1. Reason for request. 2. Findings. 3. Follow-up Summary of Hospital Course include:: 1. Description of specific treatment plan utilized for patients during their course of treatmen. 2. Summarize the time- course for resolution of acute symptoms and/or regressed behaviors. 3. Describe issues identified and worked on during hospitalization. 4. Describe medication utilized. 5. Describe medical problems identified and treated. 6. Reassessment of suicide risk Summary of Hospital Course: The patient is a 48 year old male who presents to the ER for suicidal ideation with a plan to hang himself. The patient was unable to discuss stressors or triggers for suicidal ideation, but reports I have a lot going on in my life. The patient would not elaborate further. The patient has a long psychiatric and hospitalization history at [facility]. The patient was last hospitalized at [facility] in 01/2018 for suicidal ideation with an attempt to jump in front of a car, as per the patient. The patient upon discharged was referred to [facility] for outpatient treatment. The patients last appointment with the therapist, patient could not recall the name of the therapist was last week which the patient reports not attending. The patient is prescribed Zoloft, dosage unknown and other medications which the patient could not provide the names. The patient reports drinking prior to coming to the hospital. This aligner typewriter inquired about the quantity the patient drank, the patient reports, A lot. The patient has been drinking since the age of [age] years old on a daily basis. The patient denies any seizure, DTs, hallucination, and blackouts. The patient during the assessment was sweating, but denied any current withdrawal symptoms. The patient reports recent loss of appetite. The patient denies any other substance use. The patient could not recall participating in any detox or rehab programs. The patient reports at last hospitalization was diagnosed with kidney failure, but patient reports leaving the hospital after being told and has not followed up since. The patient denies taking any medication for medical problem. The patient has an arrest history for stealing cars steaming from several years go, but reports no recent arrest. The patient was incarcerated also several years ago for the previous mentioned charges. The patient appeared to be unkempt, oriented X3, guarded, slurred and mumbled speech and at times speech was inaudible. The patient during the assessment was sweating. This aligner typewriter educated the patient on the importance of medication compliance and following up with aftercare plan. [ End ] - Diagnosis (1) Bipolar disorder Current Visit: Yes Status: Acute (2) Alcohol use disorder, severe, dependence Current Visit: No Status: Acute - Final Diagnosis (DSM 5) Condition upon Discharge: FAIR Disposition: HOME/ ROUTINE Prescriptions/Medication Reconciliation: Gabapentin [Neurontin] 100 mg PO BID #60 cap Mirtazapine [Remeron] 15 mg PO HS #30 tab traZODone [Desyrel] 50 mg PO HS PRN #30 tab PRN Reason: Insomnia - Smoking Cessation Smoking Cessation Medication prescribed: No - Antipsychotic Medications Pt discharged on 2 or more routine antipsychotic medications: No
== END 2018-02-24 10:45 | disposition home or self-care (01) | DRG 753 ==
LOC: C.ER 19:05 → C.5E 22:09
PROC: GZ3ZZZZ Medication Management (ICD-10-PCS; principal; 2018-02-21)
PROC: HZ89ZZZ Medication Management for Substance Abuse Treatment, Other Replacement Medication (ICD-10-PCS; 2018-02-21)
PROC: GZHZZZZ Group Psychotherapy (ICD-10-PCS; 2018-02-21)
PROC: GZ56ZZZ Individual Psychotherapy, Supportive (ICD-10-PCS; 2018-02-21)
DX: F31.9 Bipolar disorder, unspecified (principal); R45.851 Suicidal ideations; F10.20 Alcohol dependence, uncomplicated; F20.9 Schizophrenia, unspecified; F41.9 Anxiety disorder, unspecified; N19 Unspecified kidney failure; I10 Essential (primary) hypertension; J45.909 Unspecified asthma, uncomplicated; R60.0 Localized edema; Y90.7 Blood alcohol level of 200-239 mg/100 ml

== ENCOUNTER 2018-03-04 20:26 | Emergency (ER) | payer OTHER ==
[2018-03-04 20:27] VITALS: BMI 27.4
--- NOTE | 2018-03-04 21:13 | C.PDOC ---
History Of Present Illness 48 year old male presents to the ED c/o feeling depressed. Patient denies SI/HI, hallucinations, CP, SOB, injury, fall, trauma, weakness, numbness. Time Seen by Provider: 03/04/18 21:13 Chief Complaint (Nursing): Psychiatric Evaluation History Per: Patient History/Exam Limitations: no limitations Onset/Duration Of Symptoms: Days Current Symptoms Are (Timing): Still Present Suicide/Self Injury Attempted (Context): None Associated Symptoms: Depression. denies: Suicidal Thoughts, Suicidal Plan Recent travel outside of the [place]: No Additional History Per: Patient Past Medical History Reviewed: Historical Data, Nursing Documentation, Vital Signs Vital Signs: Last Vital Signs Temp 98.1 F 03/04/18 20:29 Pulse 106 H 03/04/18 20:29 Resp 20 03/04/18 20:29 BP 146/95 H 03/04/18 20:29 Pulse Ox 97 03/04/18 20:29 - Medical History PMH: Anxiety, Asthma, Bipolar Disorder, Depression, Deep Vein Thrombosis, HTN, Peripheral Edema, Schizophrenia Denies: Diabetes, Hepatitis, HIV, Chronic Kidney Disease, Seizures, Sexually Transmitted Disease Surgical History: No Surg Hx - [facility] Procedures DETOXIFICATION SERVICES FOR SUBSTANCE ABUSE TREATMENT (01/13/18) GROUP STOCK MANAGER FOR SUBSTANCE ABUSE TREATMENT, CONTINUING CARE (02/03/15) GROUP STOCK MANAGER FOR SUBSTANCE ABUSE TREATMENT, PSYCHOEDUCATION (01/13/18) GROUP PSYCHOTHERAPY (02/21/18) INDIV PSYCHOTHERAPY FOR SUBSTANCE ABUSE TREATMENT, SUPPORT (02/27/17) INDIVIDUAL PSYCHOTHERAPY, SUPPORTIVE (02/21/18) MEDICATION MANAGEMENT (02/21/18) MEDS MGMT FOR SUBSTANCE ABUSE TREATMENT, OTH REPL MED (02/21/18) Family History: States: Unknown Family Hx - Social History Hx Tobacco Use: No Hx Alcohol Use: Yes Hx Substance Use: No - Immunization History Hx Tetanus Toxoid Vaccination: No Hx Influenza Vaccination: No Hx Pneumococcal Vaccination: No Review Of Systems Constitutional: Negative for: Fever, Chills Cardiovascular: Negative for: Chest Pain Respiratory: Negative for: Cough, Shortness of Breath Gastrointestinal: Negative for: Nausea, Vomiting, Abdominal Pain Skin: Negative for: Rash Neurological: Negative for: Weakness, Numbness Psych: Positive for: Depression. Negative for: Suicidal ideation Physical Exam - Physical Exam Appears: Non-toxic, No Acute Distress Skin: Warm, Dry Head: Normacephalic Eye(s): bilateral: Normal Inspection Neck: Supple Chest: Symmetrical Cardiovascular: Rhythm Regular Respiratory: No Rales, No Rhonchi, No Wheezing Gastrointestinal/Abdominal: Soft, No Tenderness, No Guarding, No Rebound Extremity: Capillary Refill (< 2 seconds) Extremity: Bilateral: Atraumatic, Normal ROM, Other (chronic venous stasis) Pulses: Left Dorsalis Pedis: Normal, Right Dorsalis Pedis: Normal Neurological/Psych: Oriented x3, Normal Speech, Normal Cognition Gait: Steady ED Course And Treatment - Laboratory Results Result Diagrams: 03/04/18 21:27 03/04/18 21:27 O2 Sat by Pulse Oximetry: 97 (ON RA) Pulse Ox Interpretation: Normal Progress Note: Plan: - Labs. - UA. - Crisis. Pt was cleared for discharge by dr urias Disposition Counseled Patient/Family Regarding: Studies Performed, Diagnosis, Need For Followup - Disposition Disposition: HOME/ ROUTINE Disposition Time: 21:13 Condition: FAIR Instructions: Alcohol Abuse and Alcoholism (DC) Forms: [employer] (Upper Sorbian) - Clinical Impression Clinical Impression: Alcohol intoxication - Scribe Statement The provider has reviewed the documentation as recorded by the Scribe Tj Noyola All medical record entries made by the Scribe were at my direction and personally dictated by me. I have reviewed the chart and agree that the record accurately reflects my personal performance of the history, physical exam, medical decision making, and the department course for this patient. I have also personally directed, reviewed, and agree with the discharge instructions and disposition.
[2018-03-04 21:34] LABS: BASO # 0.1 K/uL (0.0-0.2); BASO % 1.1 % (0.0-2.0); EOS # 0.2 K/uL (0.0-0.7); EOS % 2.7 % (0.0-4.0); HEMOGLOBIN 11.3 g/dL (12.0-18.0); LYMPH # 2.3 K/uL (1.0-4.3); MEAN CELL VOLUME 79.2 fL (80.0-94.0); MEAN CORPUSCULAR HEMOGLOBIN 25.7 pg (27.0-31.0); MEAN CORPUSCULAR HGB CONC 32.4 g/dL (33.0-37.0); MEAN PLATELET VOLUME 7.4 fL (7.2-11.7); MONO # 0.5 K/uL (0.0-0.8); MONO % 8.5 % (0.0-10.0); NEUT # 3.2 K/uL (1.8-7.0); NEUT % 50.7 % (50.0-75.0); RBC 4.4 Mil/uL (4.40-5.90); RED CELL DISTRIBUTION WIDTH 19.5 % (11.5-14.5); WHITE BLOOD COUNT 6.2 K/uL (4.8-10.8)
[2018-03-04 21:41] LABS: URINE BILIRUBIN NEGATIVE (NEGATIVE); URINE BLOOD NEGATIVE (NEGATIVE); URINE CLARITY Clear (Clear); URINE COLOR Straw (YELLOW); URINE GLUCOSE (UA) NORMAL (Normal); URINE LEUKOCYTE ESTERASE NEG Leu/uL (Negative); URINE PROTEIN NEGATIVE (NEGATIVE); URINE UROBILINOGEN NORMAL mg/dL (0.2-1.0)
[2018-03-04 21:42] LABS: ALB/GLOB RATIO 1.3 (1.0-2.1); ALBUMIN 3.7 g/dL (3.5-5.0); ALT/SGPT 140 U/L (21-72); AST/SGOT 111 U/L (17-59); BLOOD UREA NITROGEN 16 mg/dL (9-20); CALCIUM 7.9 mg/dl (8.6-10.4); GFR NON-AFRICAN AMERICAN > 60
[2018-03-04 21:49] LABS: BARBITURATES, UR NEGATIVE (NEGATIVE); BENZODIAZEPINES, UR NEGATIVE (NEGATIVE); OPIATES, UR NEGATIVE (NEGATIVE); PHENCYCLIDINE, UR NEGATIVE (NEGATIVE)
[2018-03-05 05:48] VITALS: BP 128/84; PULSE 88; RESP 18; TEMP 98.2; O2SAT 98
== END 2018-03-05 05:49 | disposition home or self-care (01) ==
LOC: C.ER 20:26
DX: F10.129 Alcohol abuse with intoxication, unspecified (principal); Y90.7 Blood alcohol level of 200-239 mg/100 ml

== ENCOUNTER 2018-03-16 21:18 | Inpatient (IN) | payer OTHER ==
[2018-03-16 21:18] VITALS: BMI 27.4
--- NOTE | 2018-03-16 22:52 | C.PDOC ---
History Of Present Illness The patient presents to the ED requesting alcohol detox. Patient admits to drinking every day, and states he had his last drink earlier today. Patient denies suicidal/homicidal ideation at this time. Time Seen by Provider: 03/16/18 22:52 Chief Complaint (Nursing): Substance Abuse History Per: Patient History/Exam Limitations: no limitations Onset/Duration Of Symptoms: Hrs Current Symptoms Are (Timing): Still Present Suicide/Self Injury Attempted (Context): None Modifying Factor(s): Alcohol Severity: None Pain Scale Rating Of: 0 Associated Symptoms: denies: Suicidal Thoughts, Suicidal Plan Involuntary Hold By: None Recent travel outside of the [place]: No Additional History Per: Patient Past Medical History Reviewed: Historical Data, Nursing Documentation, Vital Signs Vital Signs: Last Vital Signs Temp 97.7 F 03/16/18 22:16 Pulse 90 03/16/18 22:16 Resp 16 03/16/18 22:16 BP 114/79 03/16/18 22:16 Pulse Ox 97 03/16/18 22:16 - Medical History PMH: Anxiety, Asthma, Bipolar Disorder, Depression, Deep Vein Thrombosis, HTN, Peripheral Edema, Schizophrenia Denies: Diabetes, Hepatitis, HIV, Chronic Kidney Disease, Seizures, Sexually Transmitted Disease Surgical History: No Surg Hx - [facility] Procedures DETOXIFICATION SERVICES FOR SUBSTANCE ABUSE TREATMENT (01/13/18) GROUP STRIKE OPERATIONS OFFICER FOR SUBSTANCE ABUSE TREATMENT, CONTINUING CARE (02/03/15) GROUP STRIKE OPERATIONS OFFICER FOR SUBSTANCE ABUSE TREATMENT, PSYCHOEDUCATION (01/13/18) GROUP PSYCHOTHERAPY (02/21/18) INDIV PSYCHOTHERAPY FOR SUBSTANCE ABUSE TREATMENT, SUPPORT (02/27/17) INDIVIDUAL PSYCHOTHERAPY, SUPPORTIVE (02/21/18) MEDICATION MANAGEMENT (02/21/18) MEDS MGMT FOR SUBSTANCE ABUSE TREATMENT, OTH REPL MED (02/21/18) Family History: States: Unknown Family Hx - Social History Hx Tobacco Use: No Hx Alcohol Use: Yes Hx Substance Use: No - Immunization History Hx Tetanus Toxoid Vaccination: No Hx Influenza Vaccination: No Hx Pneumococcal Vaccination: No Review Of Systems Constitutional: Negative for: Fever, Chills Cardiovascular: Negative for: Chest Pain, Palpitations Respiratory: Negative for: Cough, Shortness of Breath Gastrointestinal: Negative for: Nausea, Vomiting, Abdominal Pain Skin: Negative for: Rash, Lesions, Jaundice, Bruising Psych: Positive for: Other (alcohol detox ). Negative for: Suicidal ideation Physical Exam - Physical Exam Appears: Non-toxic, No Acute Distress Skin: Warm, Dry Head: Normacephalic Eye(s): bilateral: Normal Inspection Oral Mucosa: Moist, Other (alcohol on breath ) Neck: Supple Chest: Symmetrical, No Deformity Cardiovascular: Rhythm Regular Respiratory: No Accessory Muscle Use Extremity: Normal ROM Neurological/Psych: Oriented x3 ED Course And Treatment - Laboratory Results Result Diagrams: 03/17/18 00:37 03/17/18 00:37 O2 Sat by Pulse Oximetry: 97 (on RA) Pulse Ox Interpretation: Normal Progress Note: Bloodwork and urinalysis ordered and reviewed. Disposition Discussed With DrAnnmarie: Isidro Marshall Comment: accepted the pt on his service and took over the care at 1:25 AM Doctor Will See Patient In The: Hospital Counseled Patient/Family Regarding: Studies Performed, Diagnosis - Disposition Disposition: HOSPITALIZED Disposition Time: 22:52 Condition: FAIR Forms: [facility] (Maltese) - POA Present On Arrival: None - Clinical Impression Clinical Impression: Alcohol intoxication, Alcohol use disorder, severe, dependence - Scribe Statement The provider has reviewed the documentation as recorded by the Scribe (Azul Carlisle) Provider Attestation: All medical record entries made by the Scribe were at my direction and personally dictated by me. I have reviewed the chart and agree that the record accurately reflects my personal performance of the history, physical exam, medical decision making, and the department course for this patient. I have also personally directed, reviewed, and agree with the discharge instructions and disposition. Decision To Admit - Pt Status Changed To: Hospital Disposition Of: Inpatient - Admit Certification Admit to Inpatient:: After my assessment, the patient will require hospitalization for at least two midnights. This is because of the severity of symptoms shown, intensity of services needed, and/or the medical risk in this patient being treated as an outpatient. - InPatient: Physician Admission Certification: I certify that this patient requires 2 or more midnights of care for the following reason:: After my assessment, the patient will require hospitalization for at least two midnights. This is because of the severity of symptoms shown, intensity of services needed, and/or the medical risk in this patient being treated as an outpatient. - . Bed Request Type: Detox Admitting Physician: Isidro Marshall Patient Diagnosis: Alcohol intoxication, Alcohol use disorder, severe, dependence
[2018-03-17 00:42] LABS: BASO % 0.6 % (0.0-2.0); EOS # 0.2 K/uL (0.0-0.7); EOS % 2.9 % (0.0-4.0); HEMOGLOBIN 11.8 g/dL (12.0-18.0); LYMPH # 1.8 K/uL (1.0-4.3); LYMPH % 30.9 % (20.0-40.0); MEAN CELL VOLUME 79.8 fL (80.0-94.0); MEAN CORPUSCULAR HEMOGLOBIN 26.4 pg (27.0-31.0); MEAN CORPUSCULAR HGB CONC 33.1 g/dL (33.0-37.0); MEAN PLATELET VOLUME 7.8 fL (7.2-11.7); MONO # 0.5 K/uL (0.0-0.8); MONO % 8.8 % (0.0-10.0); NEUT # 3.3 K/uL (1.8-7.0); NEUT % 56.8 % (50.0-75.0); RBC 4.47 Mil/uL (4.40-5.90); RED CELL DISTRIBUTION WIDTH 18.6 % (11.5-14.5); WHITE BLOOD COUNT 5.8 K/uL (4.8-10.8)
[2018-03-17 00:50] LABS: URINE BACTERIA RARE (<OCC); URINE BILIRUBIN NEGATIVE (NEGATIVE); URINE BLOOD NEGATIVE (NEGATIVE); URINE CLARITY Clear (Clear); URINE COLOR Straw (YELLOW); URINE GLUCOSE (UA) NORMAL (Normal); URINE LEUKOCYTE ESTERASE NEG Leu/uL (Negative); URINE PROTEIN NEGATIVE (NEGATIVE); URINE UROBILINOGEN NORMAL mg/dL (0.2-1.0)
[2018-03-17 01:06] LABS: BARBITURATES, UR NEGATIVE (NEGATIVE); BENZODIAZEPINES, UR NEGATIVE (NEGATIVE); OPIATES, UR NEGATIVE (NEGATIVE); PHENCYCLIDINE, UR NEGATIVE (NEGATIVE)
[2018-03-17 01:08] LABS: ALB/GLOB RATIO 1.2 (1.0-2.1); ALBUMIN 3.7 g/dL (3.5-5.0); ALT/SGPT 128 U/L (21-72); AST/SGOT 135 U/L (17-59); BLOOD UREA NITROGEN 14 mg/dL (9-20); GFR NON-AFRICAN AMERICAN > 60
--- NOTE | 2018-03-17 03:23 | PCM.BM ---
<Shy Cobb - Last Filed: 03/17/18 03:22> Treatment Plan Problems - Problems identified on initial assessmt Alcohol Abuse Date Initiated: 03/17/18 Time Initiated: 02:00 Assessment reference: NA Status: Active Treatment assets and liabiliti Patient Assests: cooperative, resourceful, self-reliant, ADL independent, negotiates basic needs, cognitively intact, strong mariya Patient Liabilities: poor support system, substance abuse (Alcohol), medical problems - Milieu Protocol Maintain good personal hygiene: daily Encourage regular showers, daily Remind patient to perform daily oral care, every shift Assist patient to perform ADL's Conduct patient checks and document Observation sheet: Q15 minutes Maintain personal safety: every shift Educate patient to report safety concerns to staff, every shift Monitor environment for contraband/sharps Medication safety: Monitor for expected outcome, potential side effects: every shift, Assess barriers to learning: every shift, Assess readiness for medication education: every shift <Joreg Mclaughlin - Last Filed: 03/18/18 19:32> - Diagnosis (1) Alcohol use disorder, severe, dependence Status: Acute Interventions: 03/18/18 19:33 * Assess 7x/week regarding severity of withdrawal * Educate regarding risks, benefits, side effects and alternatives of medications * Use Motivational Interviewing for abstinence * Use CBT for relapse prevention * Medication management for withdrawal symptoms * Encourage medication assisted treatment (2) Bipolar I disorder, most recent episode mixed, severe with psychotic features Status: Acute Interventions: 03/18/18 19:33 * Assess/adjust medications daily and /or as needed * See patient on an individual basis 7x/week to assess level of manic behaviors and stability * Discuss risks, benefits, side effects and alternatives of medications <Kaity Gee - Last Filed: 03/19/18 09:31> Family Contact Family involvement: No known Family/SO - Goals for Treatment Patient goals for treatment: Complete detox and apply for long-term inpatient rehab. Discharge/Continuing Care - Education Needs Education Needs: Patient Medication, Patient Diagnosis/Disease Process, Patient Coping Skills, Patient Anger Management skills, Patient Placement options, Patient Community resources - Discharge Discharge Criteria: Ability to care for self, No longer exhibiting s/s of withdrawal, Reduction of target symptoms Discharge to:: Substance Abuse Rehab - Treatment Team Participation Patient/Family/SO Statement: 03/19/18 09:31 "I need to go to long-term rehab somewhere..."
[2018-03-17] MEDS: Multiple Vitamins Tab PO SCH (13:34)
--- NOTE | 2018-03-17 21:01 | PCM.PSYCH ---
Initial Psychiatric Evaluation - Initial Psychiatric Evaluation Type of Admission: Voluntary Legal Status: Capacity Chief Complaint (in patient's own words): I need help for my alcohol use. History of Present Illness and Precipitating Events: Patient is a 48 years old, single, unemployed, on public assistance, male with history of alcohol use disorder and bipolar disorder noncompliant with treatment was admitted due to worsening of psychiatric symptoms and withdrawing from alcohol. Patient reported feeling depressed with some suicidal ideations at times. Noncompliant with treatment. Patient continued to drink alcohol. He started drinking alcohol at 13 years of age. Patient denied any seizures, DTs, hallucinations or blackouts with alcohol drinking. According to old record patient has history of alcohol related seizures. Patient was drinking about 8 cans of beer each of 24 ounces daily. His last drink was yesterday. Patient denied use of any other drugs including cocaine, cannabis or heroin. Denied smoking cigarettes. Patient was born in [place] and has 11th grade of education. Patient is not working. Patient is on public assistance. Patient was never and has 2 grown-up sons. Patient lives with his brother. His height is 5 feet 6 inches and weight is 174 pounds. Current Medications: Active Medications Generic Name Dose Route Start Last Admin Trade Name Freq PRN Reason Stop Dose Admin Clonidine HCl 0.1 mg 03/17/18 12:48 Catapres PO Q4H PRN Symptoms of alcohol withdrawl Folic Acid 1 mg 03/17/18 13:00 03/17/18 13:34 Folic Acid PO 1 mg DAILY ELKIN Administration Gabapentin 300 mg 03/17/18 14:00 03/17/18 17:02 Neurontin PO 300 mg TID ELKIN Administration Ibuprofen 400 mg 03/17/18 12:49 Motrin Tab PO Q4 PRN Pain, moderate (4-7) Influenza Virus Vaccine 60 mcg 03/20/18 10:00 Fluzone Quad [id number] IM 03/20/18 10:01 .ONCE ONE Lorazepam 1 mg 03/17/18 02:45 03/17/18 19:57 Ativan PO 03/22/18 02:44 1 mg Q4 ELKIN Administration Taper Multivitamins 1 tab 03/17/18 13:00 03/17/18 13:34 Hexavitamin PO 1 tab DAILY ELKIN Administration Thiamine HCl 100 mg 03/17/18 13:00 03/17/18 13:34 Vitamin B1 Tab PO 100 mg DAILY ELKIN Administration Trazodone HCl 50 mg 03/17/18 02:45 03/17/18 03:05 Desyrel PO Not Given HS ELKIN Past Psychiatric History - Past Psychiatric History Previous Treatment History: Inpatient History of Abuse: None reported History of ETOH/Drug Use: See HPI History of Family Illness: None reported Pertinent Medical Hx (Current Medical&Sleep Prob, Allergies): Allergies Allergy/AdvReac Type Severity Reaction Status Date / Time No Known Allergies Allergy Verified 03/16/18 22:18 Multivitamins [Hexavitamin] 1 tab PO DAILY 30 Days #30 tab 01/19/18 OLANZapine [Zyprexa] 10 mg PO HS #30 tab 02/05/18 Sertraline [Zoloft] 100 mg PO DAILY #30 tab 02/05/18 Gabapentin [Neurontin] 100 mg PO BID #60 cap 02/24/18 Mirtazapine [Remeron] 15 mg PO HS #30 tab 02/24/18 traZODone [Desyrel] 50 mg PO HS PRN #30 tab 02/24/18 Hypertension Asthma DVT Alcohol-related seizures Peripheral Edema Review of Systems - Psychiatric Psychiatric: As Per HPI, Depression, Hopelessness, Irritability Mental Status Examination - Personal Presentation Personal Presentation: Looks stated age - Affect Affect: Depressed - Motor Activity Motor Activity: Calm - Reliability in Providing Information Reliability in Providing Information: Fair - Mood Mood: Depressed - Formal Thought Process Formal Thought Process: No Impairment - Hallucinations/Delusions Hallucinations: Other (None reported) Delusions: Other - Obsessions/Compulsions Obsessions: None Compulsions: None - Cognitive Functions Orientation: Person, Place, Situation, Time Sensorium: Alert Attention/Concentration: Attentive Abstract Thinking: [place] Estimate of Intelligence: Average Judgement: Intact, as evidence by: Insight regarding need for hospitalization Memory: Recent intact, as evidence by: Ability to recall events of the day, Remote intact, as evidenced by: Ability to recall historical events - Risk Risk: Withdrawal, Diminished functioning - Strength & Assets Inventory Strength & Assets Inventory: Family support, Cooperative - Limitations Limitations: Other DSM 5 DX - DSM 5 DSM 5 Diagnosis: Alcohol use disorder severe Bipolar disorder most recent episode mixed severe with psychotic features - Recommended/Plan of Treatment Treatment Recommendations and Plan of Treatment: Patient education. Supportive therapy. CBT for relapse prevention. RI for abstinence. We'll start Ativan taper for alcohol withdrawal symptoms as LFTs are elevated. Other when necessary medications. Patient wants to go to [facility] for follow-up care after discharge from the hospital. Projected ELOS: 4-5 days - Smoking Cessation Smoking Cessation Initiated: No Reason for not providing: Patient doesn't smoke cigarettes
[2018-03-18] MEDS: Multiple Vitamins Tab PO SCH (09:29)
--- NOTE | 2018-03-18 22:34 | PCM.PYCHPN ---
Psychiatric Progress Note - Psychiatric Progress Note Patient seen today, length of contact: 15 minutes Patient Chief Complaint: I need help for my alcohol use. Problems Identified/Issues Discussed: Patient seen, chart reviewed, case discussed with the staff. Issues related to illness and treatment were discussed with the patient. Reported compliant with treatment with no adverse affects. Tolerating treatment very well. Patient reported still having some withdrawal symptoms including shaking in his hands, sleeping difficulty, body aches, tightness. Mood reported as anxious. Affect appropriate. Speech soft with good eye contact. Patient was awake, alert and oriented 3. Calm and cooperative. Aftercare discussed with the patient. Patient needs more time for stabilization. Patient denied any delusions, no auditory or visual hallucinations, no suicidal ideations or homicidal ideations at the time of evaluation. Medical Problems: Hypertension Asthma DVT Alcohol-related seizures Peripheral Edema Diagnostic Results: Reviewed DSM 5 Symptoms Update: Some improvement with treatment Medication Change: No Medical Record Reviewed: Yes Mental Status Examination - Cognitive Function Orientation: Person, Place, Situation, Time Memory: Intact Attention: WNL Concentration: WNL Association: WN Fund of Knowledge: [facility] Decription of patient's judgement and insights: Fair - Mood Mood: Anxious - Affect Affect: Other (Appropriate) - Speech Speech: Appropriate - Formal Thought Process Formal Thought Process: No Impairment Psychotic Thoughts and Behaviors: None - Suicidal Ideation Suicidal Ideation: No - Homicidal Ideation Homicidal Ideation: No Goal/Treatment Plan - Goal/Treatment Plan Need for Continued Stay: Remain at risks for inpatient hospitalization, Discharge may exacerbated symptoms, Severe functional impairment Progress Toward Problem(s) and Goals/Treatment Plan: Patient education. Supportive therapy. CBT for relapse prevention. RI for abstinence. Continue treatment as before. Patient wants to go to [facility] for follow-up care after discharge from the hospital. Estimated Date of D/C: 03/22/18 - Smoking Cessation Smoking Cessation Initiated: No Reason for not providing: Patient doesn't smoke cigarettes.
[2018-03-19] MEDS: Multiple Vitamins Tab PO SCH (10:12)
--- NOTE | 2018-03-19 23:28 | PCM.PYCHPN ---
Psychiatric Progress Note - Psychiatric Progress Note Patient seen today, length of contact: 15 minutes Patient Chief Complaint: I am still Shaking. Problems Identified/Issues Discussed: Patient seen, chart reviewed, case discussed with the staff. Issues related to illness and treatment were discussed with the patient. Reported compliant with treatment with no adverse affects. Tolerating treatment very well. Patient reported still having some withdrawal symptoms including shaking in his hands, sleeping difficulty, body aches, tightness. Mood reported as anxious. Affect appropriate. Speech soft with good eye contact. Patient was awake, alert and oriented 3. Calm and cooperative. Aftercare discussed with the patient. Patient needs more time for stabilization. Patient denied any delusions, no auditory or visual hallucinations, no suicidal ideations or homicidal ideations at the time of evaluation. Medical Problems: Hypertension Asthma DVT Alcohol-related seizures Peripheral Edema Diagnostic Results: Reviewed Medication Change: No Medical Record Reviewed: Yes Mental Status Examination - Cognitive Function Orientation: Person, Place, Situation, Time Memory: Intact Attention: WNL Concentration: WNL Association: [facility] Fund of Knowledge: [facility] Decription of patient's judgement and insights: Fair - Mood Mood: Anxious - Affect Affect: Other (Appropriate) - Speech Speech: Appropriate - Formal Thought Process Formal Thought Process: No Impairment Psychotic Thoughts and Behaviors: None - Suicidal Ideation Suicidal Ideation: No - Homicidal Ideation Homicidal Ideation: No Goal/Treatment Plan - Goal/Treatment Plan Need for Continued Stay: Remain at risks for inpatient hospitalization, Discharge may exacerbated symptoms, Severe functional impairment Progress Toward Problem(s) and Goals/Treatment Plan: Patient education. Supportive therapy. CBT for relapse prevention. [place] for abstinence. Continue treatment as before. Patient wants to go to [facility] for follow-up care after discharge from the hospital. Estimated Date of D/C: 03/22/18 - Smoking Cessation Smoking Cessation Initiated: No Reason for not providing: Patient does not smoke cigarette
[2018-03-20] MEDS: Multiple Vitamins Tab PO SCH (09:41)
[2018-03-20] MEDS ORDERED: Pneumococcal 23-Valent Vaccine IM ONE (10:00)
[2018-03-20] MEDS ORDERED: Influenza Vaccine 60 MCG/0.5 ML SYR (3 yr & up) IM ONE (10:00)
--- NOTE | 2018-03-20 10:57 | PCM.PYCHPN ---
Psychiatric Progress Note - Psychiatric Progress Note Patient seen today, length of contact: 15 minutes Patient Chief Complaint: I am still withdrawing Medication Change: Yes Medical Record Reviewed: Yes Mental Status Examination - Cognitive Function Orientation: Person, Place, Situation, Time Memory: Intact Attention: WNL Concentration: Poor Association: WNL Fund of Knowledge: Poor - Mood Mood: Anxious - Affect Affect: Constricted - Speech Speech: Appropriate - Formal Thought Process Formal Thought Process: No Impairment - Suicidal Ideation Suicidal Ideation: No - Homicidal Ideation Homicidal Ideation: No Goal/Treatment Plan - Goal/Treatment Plan Need for Continued Stay: Remain at risks for inpatient hospitalization, Discharge may exacerbated symptoms, Severe functional impairment Progress Toward Problem(s) and Goals/Treatment Plan: Alcohol use disorder severe Alcohol withdrawal Bipolar disorder most recent episode mixed severe with psychotic features Patient education. Supportive therapy. CBT for relapse prevention. [place] for abstinence. We'll start Ativan taper for alcohol withdrawal symptoms as LFTs are elevated. Other when necessary medications. Patient wants to go to [facility] for follow-up care after discharge from the hospital. Estimated Date of D/C: 03/22/18
--- NOTE | 2018-03-21 08:29 | PCM.PYCHPN ---
Psychiatric Progress Note - Psychiatric Progress Note Patient seen today, length of contact: 15 minutes Patient Chief Complaint: I am still withdrawing Medication Change: Yes Medical Record Reviewed: Yes Mental Status Examination - Cognitive Function Orientation: Person, Place, Situation, Time Memory: Intact Attention: WNL Concentration: Poor Association: WNL Fund of Knowledge: Poor - Mood Mood: Anxious - Affect Affect: Constricted - Speech Speech: Appropriate - Formal Thought Process Formal Thought Process: No Impairment - Suicidal Ideation Suicidal Ideation: No - Homicidal Ideation Homicidal Ideation: No Goal/Treatment Plan - Goal/Treatment Plan Need for Continued Stay: Remain at risks for inpatient hospitalization, Discharge may exacerbated symptoms, Severe functional impairment Progress Toward Problem(s) and Goals/Treatment Plan: Alcohol use disorder severe Alcohol withdrawal Bipolar disorder most recent episode mixed severe with psychotic features Patient education. Supportive therapy. CBT for relapse prevention. [place] for abstinence. We'll start Ativan taper for alcohol withdrawal symptoms as LFTs are elevated. Other when necessary medications. Patient wants to go to [facility] for follow-up care after discharge from the hospital. Estimated Date of D/C: 03/22/18
[2018-03-21] MEDS: Multiple Vitamins Tab PO SCH (09:24)
--- NOTE | 2018-03-21 11:00 | RAD ---
Date of service: 03/21/2018 HISTORY: Rehab admission COMPARISON: 02/11/2018. TECHNIQUE: Chest PA and lateral FINDINGS: LINES AND TUBES: None. LUNG AND PLEURA: The lungs are well inflated and clear. No pleural effusion or pneumothorax. HEART AND MEDIASTINUM: The heart is not enlarged. No aortic atherosclerotic calcification present. The hilar and mediastinal contours are within normal limits. SKELETAL STRUCTURES: The bony structures are within normal limits for the patient's age. VISUALIZED UPPER ABDOMEN: Normal. OTHER FINDINGS: None. IMPRESSION: No active pulmonary disease.
[2018-03-22] MEDS: Multiple Vitamins Tab PO SCH (10:04)
[2018-03-22 10:12] VITALS: BP 125/88; PULSE 84; RESP 18; TEMP 98; O2SAT 98
--- NOTE | 2018-03-22 15:32 | PCM.PYCHDC ---
Mental Status Examination - Mental Status Examination Orientation: Person, Place, Situation, Time Memory: Intact Mood: Neutral Affect: Other (Appropriate) Speech: Appropriate Attention: WNL Concentration: WNL Association: WNL Fund of Knowledge: WNL Formal Thought Process: No Impairment Description of patient's judgement and insight: Fair Psychotic Thoughts and Behaviors: None Suicidal Ideation: No Current Homicidal Ideation?: No Discharge Summary - Discharge Note Reason for Hospitalization: Alcohol use disorder severe. Bipolar I disorder most recent episode mixed with psychotic features. Laboratory Data: Reviewed Consultations:: List each consultation separately and include: 1. Reason for request. 2. Findings. 3. Follow-up Summary of Hospital Course include:: 1. Description of specific treatment plan utilized for patients during their course of treatmen. 2. Summarize the time- course for resolution of acute symptoms and/or regressed behaviors. 3. Describe issues identified and worked on during hospitalization. 4. Describe medication utilized. 5. Describe medical problems identified and treated. 6. Reassessment of suicide risk Summary of Hospital Course: Patient is a 48 years old, single, unemployed, on public assistance, male with history of alcohol use disorder and bipolar disorder noncompliant with treatment was admitted due to worsening of psychiatric symptoms and withdrawing from alcohol. Patient reported feeling depressed with some suicidal ideations at times. Noncompliant with treatment. Patient continued to drink alcohol. He started drinking alcohol at 13 years of age. Patient denied any seizures, DTs, hallucinations or blackouts with alcohol drinking. According to old record patient has history of alcohol related seizures. Patient was drinking about 8 cans of beer each of 24 ounces daily. His last drink was yesterday. Patient denied use of any other drugs including cocaine, cannabis or heroin. Denied smoking cigarettes. Patient was born in [place] and has 11th grade of education. Patient is not working. Patient is on public assistance. Patient was never and has 2 grown-up sons. Patient lives with his brother. His height is 5 feet 6 inches and weight is 174 pounds. During his stay in the hospital patient was treated with Ativan taper for alcohol withdrawal symptoms. Patient was started on Ativan taper due to elevated LFTs. Patient was also started on other when necessary medications and medications for his psychiatric illness. Patient started feeling better gradually. Today patient had no withdrawal symptoms and was stable for discharge from the hospital. Patient will go to his brothers on for 2 days and then will go to [employer] on Thursday. At the time of evaluation and discharge, patient was awake, alert and oriented 3, had no delusions, no auditory or visual hallucinations, no suicidal ideations or homicidal ideations. Patient was discharged in a stable condition. - Diagnosis (1) Alcohol use disorder, severe, dependence Status: Acute (2) Bipolar I disorder, most recent episode mixed, severe with psychotic features Status: Acute - Final Diagnosis (DSM 5) Condition upon Discharge: FAIR Disposition: HOME/ ROUTINE Follow-up Treatment Plan: Patient wants to go to [facility] for follow-up care after discharge from the hospital. - Smoking Cessation Smoking Cessation Medication prescribed: No - Antipsychotic Medications Pt discharged on 2 or more routine antipsychotic medications: No
== END 2018-03-22 13:20 | disposition home or self-care (01) | DRG 772 ==
LOC: C.ER 21:18 → C.7D 03-17 01:20
PROVIDERS: ADMIT Psychiatry & Neurology Psychiatry; ATTEND Psychiatry & Neurology Psychiatry
PROC: HZ2ZZZZ Detoxification Services for Substance Abuse Treatment (ICD-10-PCS; principal; 2018-03-17)
PROC: HZ42ZZZ Group Counseling for Substance Abuse Treatment, Cognitive-Behavioral (ICD-10-PCS; 2018-03-17)
PROC: HZ52ZZZ Individual Psychotherapy for Substance Abuse Treatment, Cognitive-Behavioral (ICD-10-PCS; 2018-03-17)
PROC: HZ59ZZZ Individual Psychotherapy for Substance Abuse Treatment, Supportive (ICD-10-PCS; 2018-03-17)
PROC: HZ56ZZZ Individual Psychotherapy for Substance Abuse Treatment, Psychoeducation (ICD-10-PCS; 2018-03-17)
PROC: HZ46ZZZ Group Counseling for Substance Abuse Treatment, Psychoeducation (ICD-10-PCS; 2018-03-17)
PROC: GZHZZZZ Group Psychotherapy (ICD-10-PCS; 2018-03-17)
PROC: GZ58ZZZ Individual Psychotherapy, Cognitive-Behavioral (ICD-10-PCS; 2018-03-17)
PROC: GZ56ZZZ Individual Psychotherapy, Supportive (ICD-10-PCS; 2018-03-17)
DX: F10.230 Alcohol dependence with withdrawal, uncomplicated (principal); R45.851 Suicidal ideations; F31.64 Bipolar disorder, current episode mixed, severe, with psychotic features; F20.9 Schizophrenia, unspecified; F10.220 Alcohol dependence with intoxication, uncomplicated; I10 Essential (primary) hypertension; Y90.6 Blood alcohol level of 120-199 mg/100 ml; J45.909 Unspecified asthma, uncomplicated; Z91.19 Patient's noncompliance with other medical treatment and regimen; R60.9 Edema, unspecified

== ENCOUNTER 2018-04-20 20:51 | Emergency (ER) | payer OTHER ==
[2018-04-20 20:52] VITALS: BMI 27.4
--- NOTE | 2018-04-20 21:21 | C.PDOC ---
History Of Present Illness Patient with a Hx of anxiety, asthma, depression, DVT, HTN, and schizophrenia presents with SOB since this morning. Patient states this does not feel like his previous asthma. He notes he is able to ambulate without any difficulty. Patient has not used any medication for his SOB. Denies drug use, fever, chills, night sweats, abdominal pain, constipation, diarrhea, vomiting, or rash. Time Seen by Provider: 04/20/18 21:21 Chief Complaint (Nursing): Shortness Of Breath History Per: Patient History/Exam Limitations: no limitations Onset/Duration Of Symptoms: Hrs Current Symptoms Are (Timing): Still Present Current Respiratory Medications: See Home Med List Recent travel outside of the [place]: No Past Medical History Reviewed: Historical Data, Nursing Documentation, Vital Signs Vital Signs: Last Vital Signs Temp 97.8 F 04/20/18 21:04 Pulse 78 04/20/18 21:04 Resp 20 04/20/18 21:04 BP 150/113 H 04/20/18 21:04 Pulse Ox 97 04/20/18 21:04 - Medical History PMH: Anxiety, Asthma, Bipolar Disorder, Depression, Deep Vein Thrombosis, HTN, Peripheral Edema, Schizophrenia Denies: Diabetes, Hepatitis, HIV, Chronic Kidney Disease, Seizures, Sexually Transmitted Disease - [facility] Procedures DETOXIFICATION SERVICES FOR SUBSTANCE ABUSE TREATMENT (03/17/18) GROUP SLOT MACHINE DEPARTMENT FLOORPERSON FOR SUBSTANCE ABUSE TREATMENT, CONTINUING CARE (02/03/15) GROUP SLOT MACHINE DEPARTMENT FLOORPERSON FOR SUBSTANCE ABUSE TREATMENT, PSYCHOEDUCATION (03/17/18) GROUP SLOT MACHINE DEPARTMENT FLOORPERSON FOR SUBSTANCE ABUSE, COGNITIVE BEHAVIORAL (03/17/18) GROUP PSYCHOTHERAPY (03/17/18) INDIV PSYCHOTHERAPY FOR SUBSTANCE ABUSE TREATMENT, SUPPORT (03/17/18) INDIV PSYCHOTHERAPY FOR SUBSTANCE ABUSE, COGNITIV BEHAVIORAL (03/17/18) INDIV PSYCHOTHERAPY FOR SUBSTANCE ABUSE, PSYCHOEDUCATION (03/17/18) INDIVIDUAL PSYCHOTHERAPY, COGNITIVE-BEHAVIORAL (03/17/18) INDIVIDUAL PSYCHOTHERAPY, SUPPORTIVE (03/17/18) MEDICATION MANAGEMENT (02/21/18) MEDS MGMT FOR SUBSTANCE ABUSE TREATMENT, OTH REPL MED (02/21/18) Family History: States: Unknown Family Hx - Social History Hx Tobacco Use: No Hx Alcohol Use: Yes Hx Substance Use: Yes - Immunization History Hx Tetanus Toxoid Vaccination: No Hx Influenza Vaccination: No Hx Pneumococcal Vaccination: No Review Of Systems Except As Marked, All Systems Reviewed And Found Negative. Constitutional: Negative for: Fever, Chills, Weakness Eyes: Negative for: Pain, Vision Change ENT: Negative for: Nose Congestion Cardiovascular: Negative for: Chest Pain Respiratory: Positive for: Shortness of Breath. Negative for: Cough Gastrointestinal: Negative for: Nausea, Vomiting, Abdominal Pain, Diarrhea, Constipation Genitourinary: Negative for: Dysuria, Hematuria Musculoskeletal: Negative for: Neck Pain, Hand Pain Physical Exam - Physical Exam Appears: Non-toxic Skin: Normal Color, Warm, Dry Head: Atraumatic, Normacephalic Eye(s): bilateral: Normal Inspection Nose: Normal Oral Mucosa: Moist Throat: Normal, No Erythema Neck: Normal, Supple Chest: Symmetrical, No Tenderness Cardiovascular: Rhythm Regular Respiratory: Normal Breath Sounds, No Rales, No Rhonchi, No Wheezing Gastrointestinal/Abdominal: Soft, No Tenderness Back: No CVA Tenderness Extremity: Normal ROM (x4) Neurological/Psych: Oriented x3, Normal Speech ED Course And Treatment - Laboratory Results Result Diagrams: 04/20/18 22:26 04/20/18 22:26 O2 Sat by Pulse Oximetry: 97 (Room air) Pulse Ox Interpretation: Normal Medical Decision Making Medical Decision Making: Worried well vs PE Low pretest wells, d dimer negative (PE rule out), trop negative. Patient reports improvement, SOB fully resolved. Given stable vital signs and unremarkable labs results, patient stable for discharge with instructions to follow up at clinic. Patient denies any sort of hallucinations, SI, or HI throughout the stay of his visit. Disposition - Disposition Referrals: Rodrigo Lennon [facility] [Outside] [facility] [Outside] [facility] [Outside] Taj Barton MD [Staff Provider] - Disposition: HOME/ ROUTINE Disposition Time: 00:02 Condition: GOOD Prescriptions: RX: Albuterol HFA [Ventolin HFA 90 mcg/actuation (8 g)] 1 puff IH Q4H PRN 90 Days #1 puff PRN Reason: Shortness Of Breath Instructions: Shortness of Breath (Dyspnea) (DC) Forms: [employer] (Slovak) - Clinical Impression Clinical Impression: Shortness of breath, Physically well but worried - Scribe Statement The provider has reviewed the documentation as recorded by the Scribe Ray Vázquez All medical record entries made by the Scribe were at my direction and personally dictated by me. I have reviewed the chart and agree that the record accurately reflects my personal performance of the history, physical exam, medical decision making, and the department course for this patient. I have also personally directed, reviewed, and agree with the discharge instructions and disposition.
[2018-04-20 22:28] LABS: BASO # 0.1 K/uL (0.0-0.2); BASO % 0.7 % (0.0-2.0); EOS # 0.2 K/uL (0.0-0.7); LYMPH # 2.2 K/uL (1.0-4.3); LYMPH % 28.3 % (20.0-40.0); MEAN CELL VOLUME 80.5 fL (80.0-94.0); MEAN CORPUSCULAR HEMOGLOBIN 26.1 pg (27.0-31.0); MEAN CORPUSCULAR HGB CONC 32.4 g/dL (33.0-37.0); MEAN PLATELET VOLUME 7.9 fL (7.2-11.7); MONO # 0.6 K/uL (0.0-0.8); MONO % 8.2 % (0.0-10.0); NEUT # 4.6 K/uL (1.8-7.0); NEUT % 59.8 % (50.0-75.0); NRBC % 0.1 % (0.0-2.0); RBC 4.98 Mil/uL (4.40-5.90); WHITE BLOOD COUNT 7.7 K/uL (4.8-10.8)
[2018-04-20 22:42] LABS: ALB/GLOB RATIO 1.2 (1.0-2.1); ALBUMIN 4.1 g/dL (3.5-5.0); ALT/SGPT 84 U/L (21-72); AST/SGOT 82 U/L (17-59); BLOOD UREA NITROGEN 11 mg/dL (9-20); CALCIUM 8.2 mg/dl (8.6-10.4); GFR NON-AFRICAN AMERICAN > 60
[2018-04-20 23:12] VITALS: BP 118/75; PULSE 73; RESP 16; TEMP 97.7
[2018-04-21 00:04] VITALS: O2SAT 97
--- NOTE | 2018-04-21 10:15 | RAD ---
HISTORY: sob COMPARISON: Chest x-ray performed 03/21/18 TECHNIQUE: Chest PA and lateral FINDINGS: Patient is rotated. LUNGS: No focal consolidation. Please note that chest x-ray has limited sensitivity for the detection of pulmonary masses. PLEURA: No significant pleural effusion identified. No definite pneumothorax . CARDIOVASCULAR: The cardiomediastinal silhouette appears within normal limits of size. No atherosclerotic calcification present. OSSEOUS STRUCTURES: No acute osseous abnormality identified. VISUALIZED UPPER ABDOMEN: Unremarkable. OTHER FINDINGS: None. IMPRESSION: No focal consolidation.
--- NOTE | 2018-04-21 14:21 | CARD ---
APPROVED REPORT Date of service: 04/20/2018 EKG Measurement Heart [id number] <Conclusion> Normal sinus rhythm Normal ECG
== END 2018-04-21 00:14 | disposition home or self-care (01) ==
LOC: C.ER 20:51
DX: R06.02 Shortness of breath (principal); I10 Essential (primary) hypertension; J45.909 Unspecified asthma, uncomplicated; Z86.718 Personal history of other venous thrombosis and embolism; Z87.891 Personal history of nicotine dependence

== ENCOUNTER 2018-04-23 19:11 | Emergency (ER) | payer OTHER ==
[2018-04-23 19:11] VITALS: BMI 27.4
--- NOTE | 2018-04-23 20:33 | C.PDOC ---
History Of Present Illness Patient is a 48 year old male, with a PMHx of alcoholic cirrhosis, who presents to the ED for alcohol abuse and lower extremity edema. Patient has extensive prior evaluations for alcohol abuse. Patient denies any SI/HI, hallucinations, CP, or SOB. Time Seen by Provider: 04/23/18 19:49 Chief Complaint (Nursing): Lower Extremity Problem/Injury History Per: Patient History/Exam Limitations: intoxication Current Symptoms Are (Timing): Still Present Additional History Per: Patient Past Medical History Reviewed: Historical Data, Nursing Documentation, Vital Signs Vital Signs: Last Vital Signs Temp 98.2 F 04/23/18 19:14 Pulse 89 04/23/18 19:14 Resp 16 04/23/18 19:14 BP 144/90 04/23/18 19:14 Pulse Ox 99 04/23/18 19:14 - Medical History PMH: Anxiety, Asthma, Bipolar Disorder, Depression, Deep Vein Thrombosis, HTN, Peripheral Edema, Schizophrenia Denies: Diabetes, Hepatitis, HIV, Chronic Kidney Disease, Seizures, Sexually Transmitted Disease Surgical History: No Surg Hx - [facility] DETOXIFICATION SERVICES FOR SUBSTANCE ABUSE TREATMENT (03/17/18) GROUP PROP CUTTER FOR SUBSTANCE ABUSE TREATMENT, CONTINUING CARE (02/03/15) GROUP PROP CUTTER FOR SUBSTANCE ABUSE TREATMENT, PSYCHOEDUCATION (03/17/18) GROUP PROP CUTTER FOR SUBSTANCE ABUSE, COGNITIVE BEHAVIORAL (03/17/18) GROUP PSYCHOTHERAPY (03/17/18) INDIV PSYCHOTHERAPY FOR SUBSTANCE ABUSE TREATMENT, SUPPORT (03/17/18) INDIV PSYCHOTHERAPY FOR SUBSTANCE ABUSE, COGNITIV BEHAVIORAL (03/17/18) INDIV PSYCHOTHERAPY FOR SUBSTANCE ABUSE, PSYCHOEDUCATION (03/17/18) INDIVIDUAL PSYCHOTHERAPY, COGNITIVE-BEHAVIORAL (03/17/18) INDIVIDUAL PSYCHOTHERAPY, SUPPORTIVE (03/17/18) MEDICATION MANAGEMENT (02/21/18) MEDS MGMT FOR SUBSTANCE ABUSE TREATMENT, OTH REPL MED (02/21/18) Family History: States: Unknown Family Hx - Social History Hx Tobacco Use: No Hx Alcohol Use: Yes Hx Substance Use: Yes - Immunization History Hx Tetanus Toxoid Vaccination: No Hx Influenza Vaccination: No Hx Pneumococcal Vaccination: No Review Of Systems Cardiovascular: Negative for: Chest Pain Respiratory: Negative for: Shortness of Breath Musculoskeletal: Positive for: Leg Pain (bilateral edema ) Psych: Negative for: Suicidal ideation, Other (homicidal ideation or hallucinations ) Physical Exam - Physical Exam Appears: Non-toxic, No Acute Distress, Other (alcohol on breath ) Skin: Normal Color, Warm, Dry Head: Atraumatic, Normacephalic Oral Mucosa: Moist Neck: Normal ROM, Supple Chest: Symmetrical, No Deformity Cardiovascular: Rhythm Regular, No Murmur Respiratory: Normal Breath Sounds, No Rales, No Rhonchi, No Wheezing Gastrointestinal/Abdominal: Ascites (questionable ), Other (obese ) Extremity: Pedal Edema (bilateral ) Neurological/Psych: Oriented x3, Normal Speech, Normal Cognition ED Course And Treatment O2 Sat by Pulse Oximetry: 99 (on RA) Pulse Ox Interpretation: Normal Reevaluation Time: 05:47 Reassessment Condition: Improved Medical Decision Making Medical Decision Making: alcohol abuse Disposition Doctor Will See Patient In The: Office Counseled Patient/Family Regarding: Studies Performed, Diagnosis - Disposition Disposition: HOME/ ROUTINE Disposition Time: :47 Condition: GOOD Forms: [facility] (Welsh) - Clinical Impression Clinical Impression: Alcohol abuse - Scribe Statement The provider has reviewed the documentation as recorded by the Deyviibleydi Beverly All medical record entries made by the Scribe were at my direction and personally dictated by me. I have reviewed the chart and agree that the record accurately reflects my personal performance of the history, physical exam, medical decision making, and the department course for this patient. I have also personally directed, reviewed, and agree with the discharge instructions and disposition.
[2018-04-24 05:53] VITALS: BP 122/82; PULSE 78; RESP 18; TEMP 98.1; O2SAT 98
== END 2018-04-24 06:45 | disposition home or self-care (01) ==
LOC: C.ER 19:11
DX: F10.10 Alcohol abuse, uncomplicated (principal); Y90.9 Presence of alcohol in blood, level not specified